=== PATIENT | male | born 1960 | race Caucasian/White ===

== ENCOUNTER → 2024-07-06 15:11 | Outpatient (BNVA) | payer MEDICARE, MEDICAID, SELFPAY | PROVIDERS: Family Provider Family Medicine; Visit Provider Podiatrist Foot & Ankle Surgery | DX: I87.8 Other specified disorders of veins (principal); I87.2 Venous insufficiency (chronic) (peripheral); R60.9 Edema, unspecified; L60.3 Nail dystrophy | CPT/HCPCS: 99203 ==

== ENCOUNTER 2024-10-03 22:09 | Inpatient (IN) | payer MEDICARE, MEDICAID, SELFPAY ==
[2024-10-03] VITALS (8 sets, daily range): BP systolic 106–139; BP diastolic 53–67; PULSE 71–80; TEMP 36.9; O2SAT 93–99; BMI 53.3
--- NOTE | 2024-10-03 22:21 | ECG_ITS ---
[facility] Date: 2024-10-03 Pat Name: Ward Chung Department: Room: [facility] Gender: Male Interactive Digital Media Specialist: : 1960 Requested By: Amberly Rodriguez Order Number: [id number] Tanisha MD: Nelson Anna M.D. Measurements Intervals [place] Rate: 76 P: 0 FL: 212 QRS: -18 QRSD: 90 T: 48 QT: 383 QTc: 432 Interpretive Statements SINUS RHYTHM WITH FIRST DEGREE AV BLOCK LOW QRS VOLTAGE IN PRECORDIAL LEADS [QRS DEFLECTION < 1.0 mV IN CHEST LEADS] NONSPECIFIC T-WAVE ABNORMALITY No previous ECG available for comparison Electronically Signed On 10-05-2024 21:40:25 SAS DEVELOPER by Nelson Anna M.D. [id number]
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
[2024-10-03 22:32] LABS: Platelet Count 207 10^3/cmm (157-399)
[2024-10-03 22:47] LABS: D Dimer 0.33 ug/mLFEU (0-0.59)
[2024-10-03] MEDS: nitroglycerin drip 50 MG/250 ML PREMIX IV (22:58)
[2024-10-03 23:00] LABS: Estmated Average Glucose 128; Hemoglobin A1C 6.1 % (4.0-6.0)
[2024-10-03] MEDS: FUROsemide 10 mg/mL SDV 2mL 20 MG IVP (23:02)
[2024-10-03 23:03] LABS: Troponin(5th) Baseline 245 ng/L (0-15)
[2024-10-03] MEDS: heparin drip 25,000 UNIT/500 ML PREMIX 45 UNIT IV (23:12)
[2024-10-03 23:53] LABS: Chol HDL Ratio 4.13 mg/dL (1.0-5.00); Cholesterol 186 mg/dL (0-200); HDL Cholesterol 45 mg/dL (60-100)
[2024-10-03] MEDS: clopidogrel 300 mg Tablet PO (23:59)
[2024-10-04] VITALS (74 sets, daily range): BP systolic 107–177; BP diastolic 50–113; PULSE 63–99; RESP 0–31; TEMP 36.4–36.7; O2SAT 82–100; BMI 53.3
--- NOTE | 2024-10-04 00:18 | ECG_ITS ---
[facility] Date: 2024-[facility]04 Pat Name: Ward Chung Department: Room: [facility] Gender: Male Patient Relations Specialist: : 1960 Requested By: Amberly Rodriguez Order Number: [id number] Reading MD: AMBERLY MALIK Measurements Intervals [place] Rate: 71 P: 66 MT: 216 QRS: -21 QRSD: 83 T: 56 QT: 361 QTc: 393 Interpretive Statements SINUS RHYTHM WITH SINUS ARRHYTHMIA WITH FIRST DEGREE AV BLOCK MINIMAL VOLTAGE CRITERIA FOR LVH, CONSIDER NORMAL VARIANT [MEETS CRITERIA IN ONE OF: R(aVL), S(V1), R(V5), R(V5/V6)+S(V1)] Compared to ECG 10/03/2024 22:39:27 T-wave abnormality no longer present Electronically Signed On 10-06-2024 00:35:41 POWDER BLENDER by AMBERLY MALIK [id number]
[2024-10-04 00:29] LABS: LDL Cholesterol Calculated 114 mg/dL (50-129); Triglycerides 133 mg/dL (0-150); VLDL Cholestrol Calculation 27 mg/dL (0-30)
[2024-10-04 00:47] LABS: Thyroid Stimulating Hormone 3.89 uIU/mL (0.27-4.20); Vitamin B12 412 pg/mL (232-1245)
[2024-10-04 01:36] LABS: Troponin 5 2HR Delta 3.9 ABS# (0-10)
[2024-10-04 01:37] LABS: Troponin 5 2HR 248.9 ng/L (0-15)
--- NOTE | 2024-10-04 02:03 | PC.NURSE ---
Heparin bolus: Upon arrival to unit, patient had a heparin drip running, Dr. Rodriguez gave telephone orders to hold initial heparin bolus.
[2024-10-04] MEDS: acetaminophen 500 mg Tablet PO (04:08)
--- NOTE | 2024-10-04 04:11 | ECG_ITS ---
[employer] Test Date: 2024-10-04 Pat Name: Ward Chung Department: Room: [facility]05 Gender: Male Measurement Superintendent: : 1960 Requested By: Amberly Rodriguez Order Number: [id number] Reading MD: AMBERYL MALIK Measurements Intervals [place] Rate: 68 P: -49 DC: 180 QRS: -19 QRSD: 86 T: 47 QT: 365 QTc: 389 Interpretive Statements SINUS RHYTHM WITH SINUS ARRHYTHMIA POSSIBLE RIGHT VENTRICULAR CONDUCTION DELAY [RSR (QR) IN V1/V2] MINIMAL VOLTAGE CRITERIA FOR LVH, CONSIDER NORMAL VARIANT [MEETS CRITERIA IN ONE OF: R(aVL), S(V1), R(V5), R(V5/V6)+S(V1)] NONSPECIFIC T-WAVE ABNORMALITY Compared to ECG 10/04/2024 00:18:49 T-wave abnormality now present First degree AV block no longer present Electronically Signed On 10-06-2024 00:35:31 CHAUFFEUR MOTORBUS by AMBERLY MALIK [id number]
[2024-10-04 05:56] LABS: Troponin 5 6HR Delta 2.1 ng/L (0-12)
[2024-10-04 06:07] LABS: Troponin 5 6HR 247.1 ng/L (0-15)
--- NOTE | 2024-10-04 06:59 | PC.RESP ---
Patient overnight POX was not completed this night due to time of patient arrival. Patient Overnight will be completed on 10/04 in the pm.
[2024-10-04] MEDS: perflutren protein-a microsphr 0.22 mg/mL SDV 3 mL IV (07:39)
[2024-10-04] MEDS: ondansetron 2 mg/ML SDV 2 mL 4 MG IVP (07:54)
[2024-10-04] MEDS: clopidogrel 75 mg Tablet PO (08:20)
[2024-10-04] MEDS: aspirin 81 mg EC Tablet PO (08:21)
[2024-10-04] MEDS: colchicine 0.6 mg Tablet PO (08:21)
[2024-10-04] MEDS: atorvastatin 40 mg Tablet 80 MG PO (08:22)
[2024-10-04 08:35] LABS: Basophils % 0.5 %; Eosinophils # 0.4 10^3/uL (0.0-0.8); Eosinophils % 5.1 %; Hematocrit 43.2 % (37-53); Lymphocytes # 2.4 10^3/uL (0.8-4.8); Lymphocytes % 32.5 %; Mean Corpuscular HGB Conc 30.6 g/dL (30-55); Mean Corpuscular Hemoglobin 26.5 pg (27-33); Mean Corpuscular Volume 86.7 fl (82-101); Mean Platelet Volume 11.9 fL (7.4-10.4); Monocytes # 0.6 10^3/uL (0.2-0.9); Neutrophils # 3.91 10^3/uL (1.8-7.7); Neutrophils % 53.6 %; Nucleated Red Blood Cells % 0 %; Platelet Count 191 10^3/cmm (157-399); Red Blood Count 4.98 10^6/uL (3.85-5.65); Red Cell Distribution Width 15.5 % (12.1-15.1); White Blood Count 7.29 10^3/uL (3.29-11.43)
[2024-10-04 08:52] LABS: Blood Urea Nitrogen 13 mg/dL (8-23); Calcium 8.5 mg/dL (8.5-10.5); Carbon Dioxide 25 mmol/L (22-29); Chloride 107 mmol/L (98-107); Creatinine Clr Calc Pharmacy 134.4333; Glomerular Filtration Rate 96.7 mL/min (90-130); Glucose 116 mg/dL (65-115); Osmolality Calculated 297 mOsm/kg (285-295); Sodium 143 mmol/L (136-145)
--- NOTE | 2024-10-04 09:09 | PC.PHAR ---
Pt states should have a rescue inhaler as well as the daily Symbicort inhaler. Unable to locate. Arben Hartman does not have a rescue inhaler on file.
--- NOTE | 2024-10-04 11:00 | PC.NURSE ---
Report given to Kelley, brought to [facility] surgical unit in bed. No further questions asked. Patients vitals stable at time of discharge. 1600 urine out for shift/ intake recorded.
[2024-10-04] MEDS: FUROsemide 10 mg/mL SDV 10mL 60 MG IVP ×3 (12:12→20:28)
--- NOTE | 2024-10-04 14:41 | P.CONIM_ITS ---
Providers/Reason For Consult 2 Consulting Physician/Specialty*: Amberly Saab MD Reason for Consult*: NSTEMI Requesting Physician: Dr. Howard Attending Physician: Jolly Howard MD Primary Care Provider: Demetri Hardin History of Present Illness History of Present Illness Ward Chung is a 64 year old male with history of prediabetes, morbid obesity, possible sleep apnea presented to [facility] ER for chief complaint of shortness of breath and chest pain. Patient was diagnosed with non-STEMI with troponin 180, BNP 1666, EKG showed T wave inversion lateral leads, he was put on nitroglycerin and heparin drip and transferred to our facility for further management. Most recent troponin increased to 245. Patient is stating that he was having chest pain for last 2 to 3 days, while he was driving he start experiencing neck pain associated with headache shortness of breath which was radiating towards his chest and arms bilaterally, he described this pain as heaviness, it lasted for about 2 to 3 hours, he did not seek any medical attention because it eased up, today an hour prior to his visit to the ER at [place] he started experiencing similar symptoms. He has not noticed any fever, vomiting nausea or diarrhea. He takes Lasix for his lymphedema, does not use oxygen, no previous history of coronary disease or CHF. Stating that his father of heart attack in his 70s. At the time of our assessment patient is without chest pain. He states he does have shortness of breath and abdominal distention and discomfort. He appears to be in fluid overload. EKG at this facility reviewed and showed nonspecific T wave abnormalities but no acute significant ST or T wave abnormalities. Review of Systems 2 Narrative: Consitutional: denies fever, chills, body aches, or changes in appetite, denies abnormal weight loss Eyes: Denies changes in vision Card: Denies current chest pain, palpitations, irregular heart rhythm, edema, syncope, reports shortness of breath and orthopnea, denies leg pain with exertion Resp: Denies shortness of breath, denies hemoptysis, denies cough GI: denies abdominal pain, denies nausea or voimting, denies blood in stool : denies blood in urine, denies dysuria Musc: Denies extremity pain, denies limited range of motion or recent injury Skin: Denies rash, lesions, or wounds, denies changes to skin color Neuro: Denies nubmness in extremities, h/a, s/s of stroke Sven: Denies easy bruiding/bleeding All: Denies s/s of allergies Medications/Allergies Home Medications Medication Instructions Recorded Confirmed Last Taken Type colchicine 0.6 mg capsule 0.6 mg PO DAILY 07/06/24 10/04/24 10/03/24 History fluticasone furoate 27.5 1 spray intranasal DAILY 07/06/24 10/04/24 Unknown History mcg/actuation nasal spray,suspension (Flonase Sensimist) furosemide 20 mg tablet 20 mg PO DAILY 07/06/24 10/04/24 10/03/24 History gabapentin 300 mg capsule 300 mg PO TID 07/06/24 10/04/24 10/03/24 History meloxicam 7.5 mg tablet 7.5 mg PO DAILY 07/06/24 10/04/24 10/03/24 History psyllium husk 0.4 gram capsule 0.4 g PO DAILY PRN Constipation 07/06/24 10/04/24 Unknown History (Metamucil) budesonide-formoterol HFA 80 2 puff inhalation BID 10/04/24 10/04/24 10/03/24 History mcg-4.5 mcg/actuation aerosol inhaler (Symbicort) famotidine 40 mg tablet 40 mg PO BID 10/04/24 10/04/24 Unknown History potassium chloride 10 mEq 10 meq PO DAILY 10/04/24 10/04/24 10/03/24 History tablet,extended release Allergies Allergy/AdvReac Type Severity Reaction Status Date / Time No Known Allergies Allergy Verified 10/03/24 22:49 Current Medications Generic Name Dose Route Start Last Admin Trade Name Narcisoq PRN Reason Stop Dose Admin Acetaminophen 500 mg 10/03/24 22:19 10/04/24 04:08 Acetaminophen 500 Mg Tablet PO 500 mg Q4H PRN Administration fever Aspirin 81 mg 10/04/24 09:00 10/04/24 08:21 Aspirin 81 Mg Ec Tablet PO 81 mg DAILY DANIKA Administration Atorvastatin Calcium 80 mg 10/04/24 09:00 10/04/24 08:22 Atorvastatin 40 Mg Tablet PO 80 mg DAILY DANIKA Administration Clopidogrel Bisulfate 75 mg 10/04/24 09:00 10/04/24 08:20 Clopidogrel 75 Mg Tablet PO 75 mg DAILY DANIKA Administration Colchicine 0.6 mg 10/04/24 09:00 10/04/24 08:21 Colchicine 0.6 Mg Tablet PO 0.6 mg DAILY DANIKA Administration Nitroglycerin/Dextrose 50 mg in 250 mls @ 0 mls/hr 10/03/24 22:30 10/04/24 01:33 Nitroglycerin Drip IV 0 mcg/min .Q0M DANIKA 0 mls/hr Titration Protocol Per Protocol Ondansetron HCl 4 mg 10/03/24 22:19 10/04/24 07:54 Ondansetron 2 Mg/Ml Sdv 2 Ml IVP 4 mg Q6H PRN Administration NAUSEA AND VOMITING PFSH Acute 2 PFSH: Medical History (Updated 10/04/24 @ 14:53 by Sophia Becker NP) Venous stasis Lymphedema Hypertension Fibromyalgia Gout Sleep apnea COPD (chronic obstructive pulmonary disease) Onychodystrophy Edema Venous insufficiency (chronic) (peripheral) Social History Smoking and tobacco/nicotine status: never used tobacco/nicotine Alcohol intake: never Vitals/I&O/Wt Last Vital Signs Temp 97.6 F 10/04/24 08:15 Pulse 90 10/04/24 13:45 Resp 19 H 10/04/24 13:45 BP 152/83 10/04/24 13:45 Pulse Ox 94 10/04/24 13:45 O2 Del Method Room Air 10/04/24 13:45 O2 Flow Rate 1 10/04/24 10:30 10/03/24 10/04/24 10/04/24 22:59 06:59 14:59 Intake Total 438.875 / 438.875 128.333 / 128.333 Output Total 775 / 775 2100 / 2100 Balance -336.125 / -336.125 -1971.667 / -1971.667 Weight last 48 hrs Weight 350 lb 8.56 oz Weight 350 lb 8.56 oz Physical Exam 2 Narrative: General: No apparent distress, healthy appearing, well nourished Neck: No carotid bruit bilaterally Muskuloskeletal: Full ROM Lymphatic: Patient has what appears to be hemosiderin staining bilaterally with bilateral lower extremity edema, most likely has severe venous disease Respiratory: Normal respiratory effort, bilateral posterior lobes with crackles present, no use of accessory muscles Cardio: No JVD, regular rate, regular rhythm, S1 S2 normal, no murmurs, peripheral pulses 2+ throughout GI: Patient's abdomen is slightly distended, abdominal obesity present Extremities: Full ROM, normal, normal capillary refill, no cyanosis, 2+ nonpitting edema bilateral lower extremities Neuro: Alert and oriented x4, no focal motor deficits Psych: Affect normal, denies suicidal ideation, mental status grossly normal Skin: Bilateral hemosiderin staining bilateral lower extremities Data 10/04/24 05:20 10/04/24 05:20 A&P Assessment and plan (1) Non-STEMI (non-ST elevated myocardial infarction): Patient has NSTEMI with elevated troponin levels up to 245. Currently chest pain-free but does have orthopnea and shortness of breath. Patient has crackles bilateral lower lobes edema consistent with CHF overload. Patient will need to be euvolemic prior to any coronary intervention. Recommend continue to diurese. Once patient is euvolemic plan to take patient for left heart cath. Suspicion remains high for acute coronary syndrome given patient history of obesity hypercholesterolemia hypertension and family history of coronary disease. Agree with nitro drip and Lovenox. (2) Hypertension: Blood pressure is a little bit elevated 152/83. He is currently on nitro drip recommend continue. Most likely will add beta-allyssa in the near future. Qualifiers: Hypertension type: primary hypertension Qualified Code(s): I10 - Essential (primary) hypertension (3) Pulmonary edema: Recommend Lasix 60 mg 3 times daily. Will give potassium 20 3 times daily as well. Strict I and O. Qualifiers: Chronicity: acute Qualified Code(s): J81.0 - Acute pulmonary edema Plan The plan is to diurese patient. Once patient is euvolemic recommend taking patient to the [facility] for possible [facility]. Continue to monitor for EKG changes. At this time patient has been stable without chest pain. Will continue nitro drip with Lovenox as well. Thank you for allowing us to take care of this very pleasant 64 year old gentleman. Consult Attestations 2 Medical Necessity Statement: Patient stay expected to cross 2 midnights due to acute NSTEMI Coding Level of Care Code Acute Code for [facility] Fwd Diagnoses Non-STEMI (non-ST elevated myocardial infarction) I21.4 Primary hypertension I10 Hypertension type: primary hypertension Acute pulmonary edema J81.0 Chronicity: acute
--- NOTE | 2024-10-04 14:56 | P.PN_ITS ---
Subjective 2 Subjective: Seen this morning. Patient n.p.o. since midnight for cath. However cardiology evaluated the patient. He has been placed on Lasix 60 3 times daily at this time for diuresis. No plan for cath at this time. Patient denies any complaints at this time. Vitals/I&O/Wt Last Vital Signs Temp 97.6 F 10/04/24 08:15 Pulse 90 10/04/24 13:45 Resp 19 H 10/04/24 13:45 BP 152/83 10/04/24 13:45 Pulse Ox 94 10/04/24 13:45 O2 Del Method Room Air 10/04/24 13:45 O2 Flow Rate 1 10/04/24 10:30 10/03/24 10/04/24 10/04/24 22:59 06:59 14:59 Intake Total 438.875 / 438.875 128.333 / 128.333 Output Total 775 / 775 2100 / 2100 Balance -336.125 / -336.125 -1971.667 / -1971.667 Weight last 48 hrs Weight 159 kg Weight 159 kg Physical Exam 2 Narrative: Morbid obese male No active chest pain No active chest pain hemodynamically stable S1, S2 Bilateral crackles present at bases. He is on room air Morbid obesity Lymphedema Venous stasis dermatitis Pleasant and cooperative Nonfocal neuroexam Data 10/04/24 05:20 10/04/24 05:20 A&P Assessment and plan (1) Non-STEMI (non-ST elevated myocardial infarction): (2) Pulmonary edema: Qualifiers: Chronicity: acute Qualified Code(s): J81.0 - Acute pulmonary edema (3) Hypoxia: (4) Hypertension: Qualifiers: Hypertension type: primary hypertension Qualified Code(s): I10 - Essential (primary) hypertension Plan Non-STEMI No previous history of coronary disease Start patient on ACS protocol Serial troponin and EKGs Check lipid panel A1c TSH and B12 Continue nitroglycerin and heparin drip Cardiology consulted Patient will need cardiac cath Requested D-dimer Patient was given aspirin loading dose at the outside facility I will give Plavix loading dose and continue heparin along statins Acute hypoxia requiring 2 L secondary to flash from edema Give IV Lasix 20 mg, he is na?ve to Lasix we will do low-dose for now Dr. Saab notified and consulted Sleep apnea history, patient may need another sleep study to get CPAP approved will do overnight pulse ox Patient does endorse insomnia and headaches Lymphedema: Takes Lasix History of gout no acute flare, continue colchicine N.p.o. DVT prophylaxis covered with heparin drip Full code 10/04/2024 Continue Lasix 60 IV 3 times daily. ? Patient managed to be euvolemic prior to coronary angiogram. ? Patient is ruled in for NSTEMI. ? Ultimately plan is for cardiac cath. ? Continue to wean off oxygen as able. ? Placed on CPAP overnight. ? Overnight pulse ox study ordered. Cardiology consulted and following. Appreciate recommendations. Patient on IV Lasix and is at risk of electrolyte imbalance. Will check BMP every 12 hours. Attestations 2 Medical Necessity Statement*: More than 2 midnights anticipated Diagnoses Non-STEMI (non-ST elevated myocardial infarction) I21.4 Acute pulmonary edema J81.0 Chronicity: acute Hypoxia R09.02 Primary hypertension I10 Hypertension type: primary hypertension
[2024-10-04] MEDS: enoxaparin 150 mg/mL Syringe SUBCUT (15:31)
[2024-10-04] MEDS: potassium chloride ER 20 mEq Tablet PO ×2 (15:32→20:28)
[2024-10-04] MEDS: simethicone 80 mg Chew PO (23:50)
[2024-10-05] VITALS (9 sets, daily range): BP systolic 137–169; BP diastolic 72–91; PULSE 66–88; RESP 16–20; TEMP 36.4–36.8; O2SAT 93–98
[2024-10-05] MEDS: enoxaparin 150 mg/mL Syringe SUBCUT ×2 (01:19→14:04)
[2024-10-05 05:39] LABS: Basophils # 0.1 10^3/uL (0.0-0.1); Basophils % 0.6 %; Eosinophils # 0.4 10^3/uL (0.0-0.8); Eosinophils % 4.4 %; Hematocrit 44.8 % (37-53); Lymphocytes # 2.6 10^3/uL (0.8-4.8); Lymphocytes % 30.9 %; Mean Corpuscular HGB Conc 31.3 g/dL (30-55); Mean Corpuscular Hemoglobin 27.4 pg (27-33); Mean Corpuscular Volume 87.7 fl (82-101); Mean Platelet Volume 11.5 fL (7.4-10.4); Monocytes # 0.7 10^3/uL (0.2-0.9); Monocytes % 8.2 %; Neutrophils # 4.74 10^3/uL (1.8-7.7); Neutrophils % 55.4 %; Nucleated Red Blood Cells % 0 %; Platelet Count 206 10^3/cmm (157-399); Red Blood Count 5.11 10^6/uL (3.85-5.65); Red Cell Distribution Width 15.3 % (12.1-15.1); White Blood Count 8.55 10^3/uL (3.29-11.43)
[2024-10-05 05:57] LABS: Blood Urea Nitrogen 17 mg/dL (8-23); Calcium 8.6 mg/dL (8.5-10.5); Carbon Dioxide 27 mmol/L (22-29); Chloride 104 mmol/L (98-107); Creatinine Clr Calc Pharmacy 106.7709; Glomerular Filtration Rate 74.8 mL/min (90-130); Glucose 127 mg/dL (65-115); Osmolality Calculated 299 mOsm/kg (285-295); Sodium 143 mmol/L (136-145)
[2024-10-05] MEDS: FUROsemide 10 mg/mL SDV 10mL 60 MG IVP (08:18)
[2024-10-05] MEDS: potassium chloride ER 20 mEq Tablet PO ×3 (08:18→20:22)
[2024-10-05] MEDS: aspirin 81 mg EC Tablet PO (08:19)
[2024-10-05] MEDS: atorvastatin 40 mg Tablet 80 MG PO (08:19)
[2024-10-05] MEDS: colchicine 0.6 mg Tablet PO (08:19)
[2024-10-05] MEDS: clopidogrel 75 mg Tablet PO (08:19)
--- NOTE | 2024-10-05 09:16 | ECG_ITS ---
[employer] [facility] Test Date: 2024-10-05 Pat Name: Ward Chung Department: Room: 251 Gender: Male Home Health Aide Caregiver: : 1960 Requested By: Jolly Howard Order Number: [id number] Tanisha MD: Nelson Anna M.D. Measurements Intervals [place] Rate: 80 P: 75 [place]: 218 QRS: -25 QRSD: 97 T: 83 QT: 384 QTc: 445 Interpretive Statements SINUS RHYTHM WITH SINUS ARRHYTHMIA WITH FIRST DEGREE AV BLOCK LOW QRS VOLTAGE IN PRECORDIAL LEADS [QRS DEFLECTION < 1.0 mV IN CHEST LEADS] MINIMAL VOLTAGE CRITERIA FOR LVH, CONSIDER NORMAL VARIANT [MEETS CRITERIA IN ONE OF: R(aVL), S(V1), R(V5), R(V5/V6)+S(V1)] POSSIBLE ANTERIOR MYOCARDIAL INFARCTION , OF INDETERMINATE AGE [30 ms Q WAVE IN V3/V4, OR R < 0.2 mV IN V4] INFERIOR MYOCARDIAL INFARCTION , PROBABLY OLD [40+ ms Q WAVE AND/OR ST/T ABNORMALITY IN II/aVF] Compared to ECG 10/04/2024 04:11:36 First degree AV block now present.Low QRS voltage now present Myocardial infarct finding now present.T-wave abnormality no longer present Electronically Signed On 10-05-2024 21:40:47 ASSISTANT PROFESSOR OF DIETETICS by Nelson Anna M.D. [id number]
--- NOTE | 2024-10-05 09:45 | PC.NURSE ---
Pt complains of being hot, needing a fan, stomach pain that radiates into the chest, and SOB. Oxygen saturation 96%, but placed on 2L for comfort, STAT EKG completed. Notified Dr. Howard. No new orders at this time. After tests completed and on oxygen, pt states, I think I just need to poop.
[2024-10-05] MEDS: polyethylene glycol 3350 Pkt 17 gm PO (11:06)
[2024-10-05] MEDS: lactulose oral liq 20 gm/30 mL UDC PO ×2 (11:06→22:48)
--- NOTE | 2024-10-05 13:05 | P.PN_ITS ---
Subjective 2 Subjective: Seen this morning. Did have an episode of chest pain this morning. EKG done this morning. No acute ischemia noted. Patient chest pain-free when I saw him. Has had good urine output in last 24 hours. He says its easier to breathe. Vitals/I&O/Wt Last Vital Signs Temp 98 F 10/05/24 11:27 Pulse 87 10/05/24 11:27 Resp 18 10/05/24 11:27 BP 146/91 10/05/24 11:27 Pulse Ox 95 10/05/24 11:27 O2 Del Method Room Air 10/05/24 11:27 O2 Flow Rate 1 10/04/24 10:30 10/04/24 10/05/24 10/05/24 22:59 06:59 14:59 Intake Total 480 / 050.383 2207 / 1160 Output Total 2350 / 4450 1450 / 1450 Balance -2350 / -4321.667 480 / -3841.667 -290 / -290 Weight last 48 hrs Weight 157.113 kg Weight 159 kg Weight 159 kg Physical Exam 2 Narrative: Morbid obese male No active chest pain hemodynamically stable S1, S2 Clear to auscultation bilaterally He is on room air Morbid obesity Lymphedema?improving. Venous stasis dermatitis Pleasant and cooperative Nonfocal neuroexam Data 10/05/24 04:39 10/05/24 04:39 A&P Assessment and plan (1) Non-STEMI (non-ST elevated myocardial infarction): (2) Pulmonary edema: Qualifiers: Chronicity: acute Qualified Code(s): J81.0 - Acute pulmonary edema (3) Hypoxia: (4) Hypertension: Qualifiers: Hypertension type: primary hypertension Qualified Code(s): I10 - Essential (primary) hypertension Plan Non-STEMI No previous history of coronary disease Start patient on ACS protocol Serial troponin and EKGs Check lipid panel A1c TSH and B12 Continue nitroglycerin and heparin drip Cardiology consulted Patient will need cardiac cath Requested D-dimer Patient was given aspirin loading dose at the outside facility I will give Plavix loading dose and continue heparin along statins Acute hypoxia requiring 2 L secondary to flash from edema Give IV Lasix 20 mg, he is na?ve to Lasix we will do low-dose for now Dr. Saab notified and consulted Sleep apnea history, patient may need another sleep study to get CPAP approved will do overnight pulse ox Patient does endorse insomnia and headaches Lymphedema: Takes Lasix History of gout no acute flare, continue colchicine N.p.o. DVT prophylaxis covered with heparin drip Full code 10/05/2024 Continue Lasix 40 IV twice daily. ? Patient will need to be euvolemic prior to coronary angiogram. ? Patient is ruled in for NSTEMI. ? Ultimately plan is for cardiac cath. ? Continue to wean off oxygen as able. ? Placed on CPAP overnight. ? Overnight pulse ox study ordered. Cardiology consulted and following. Appreciate recommendations. Patient on IV Lasix and is at risk of electrolyte imbalance. Will check BMP every 12 hours. ? Cardiology following Attestations 2 Medical Necessity Statement*: More than 2 midnights anticipated Diagnoses Non-STEMI (non-ST elevated myocardial infarction) I21.4 Acute pulmonary edema J81.0 Chronicity: acute Hypoxia R09.02 Primary hypertension I10 Hypertension type: primary hypertension
[2024-10-05] MEDS: FUROsemide 10 mg/mL SDV 10mL 40 MG IVP (14:04)
--- NOTE | 2024-10-05 14:44 | PM.PN ---
Subjective Subjective: Patient is doing okay today. Still states he has some bloating is in his abdominal area. Patient did have an episode of chest pain earlier this morning. He states it was very quick and went away. This was at the center of his chest. EKG was performed that showed no change from previous EKG. No acute ST elevation or T wave abnormalities present. Patient has diuresed over 2 L over 24 hours. Creatinine had a little bump at 1 previously 0.8. Lungs are clear throughout. Medications: Reviewed: Yes Vitals/I&O/Wt Last Vital Signs Temp 98 F 10/05/24 11:27 Pulse 87 10/05/24 11:27 Resp 18 10/05/24 11:27 BP 146/91 10/05/24 11:27 Pulse Ox 95 10/05/24 11:27 O2 Del Method Room Air 10/05/24 11:27 O2 Flow Rate 1 10/04/24 10:30 10/04/24 10/05/24 10/05/24 22:59 06:59 14:59 Intake Total 480 / 532.228 5361 / 1160 Output Total 2350 / 4450 1450 / 1450 Balance -2350 / -4321.667 480 / -3841.667 -290 / -290 Weight last 48 hrs Weight 346 lb 6 oz Weight 350 lb 8.56 oz Weight 350 lb 8.56 oz Physical Exam Narrative: General: No apparent distress, healthy appearing, well nourished Muskuloskeletal: Full ROM Lymphatic: no lymphedema noted Respiratory: Normal respiratory effort, clear to auscultation bilaterally throughout all lung pearce, no use of accessory muscles Cardio: No JVD, regular rate, regular rhythm, S1 S2 normal, no murmurs, peripheral pulses 2+ throughout GI: Normal to inspection, nondistended Extremities: Patient appears to have 2+ edema with hemosiderin staining bilaterally consistent with venous disease Neuro: Alert and oriented x4, no focal motor deficits Psych: Affect normal, denies suicidal ideation, mental status grossly normal Skin: Bilateral lower extremity hemosiderin staining present Data 10/05/24 04:39 10/05/24 04:39 A&P Assessment and plan (1) Non-STEMI (non-ST elevated myocardial infarction): Patient has NSTEMI with elevated troponin levels up to 245. Currently chest pain-free but does have orthopnea and shortness of breath somewhat improved from yesterday. Lungs are clear and patient has diuresed over 2 L. Patient still feels a little bloated today with some shortness of breath. Once patient is euvolemic plan to take patient for left heart cath. Suspicion remains high for acute coronary syndrome given patient history of obesity hypercholesterolemia hypertension and family history of coronary disease. Agree with nitro drip and Lovenox. (2) Hypertension: Continue nitro drip. Qualifiers: Hypertension type: primary hypertension Qualified Code(s): I10 - Essential (primary) hypertension (3) Pulmonary edema: Lasix has been decreased to 40 BID. Creatinine with slight bump. Strict I and O. Qualifiers: Chronicity: acute Qualified Code(s): J81.0 - Acute pulmonary edema Plan The plan is to diurese patient. Once patient is euvolemic recommend taking patient to the [facility] for possible PCI. Continue to monitor for EKG changes. Continue nitro drip. Continue Lovenox as well. Attestations Medical Necessity Statement*: Patient with NSTEMI requiring left heart cath. Coding Level of Care Code Acute Code for Chg Fwd Diagnoses Non-STEMI (non-ST elevated myocardial infarction) I21.4 Primary hypertension I10 Hypertension type: primary hypertension Acute pulmonary edema J81.0 Chronicity: acute
[2024-10-06] VITALS (18 sets, daily range): BP systolic 96–144; BP diastolic 45–89; PULSE 68–87; RESP 10–33; TEMP 36.2–36.8; O2SAT 94–100
[2024-10-06] MEDS: FUROsemide 10 mg/mL SDV 10mL 40 MG IVP (00:50)
[2024-10-06] MEDS: enoxaparin 150 mg/mL Syringe SUBCUT (01:27)
[2024-10-06 04:58] LABS: Basophils # 0.1 10^3/uL (0.0-0.1); Basophils % 0.5 %; Eosinophils # 0.4 10^3/uL (0.0-0.8); Eosinophils % 4.3 %; Hematocrit 48.8 % (37-53); Lymphocytes # 3.6 10^3/uL (0.8-4.8); Lymphocytes % 36.9 %; Mean Corpuscular HGB Conc 30.7 g/dL (30-55); Mean Corpuscular Hemoglobin 26.9 pg (27-33); Mean Corpuscular Volume 87.6 fl (82-101); Mean Platelet Volume 11.8 fL (7.4-10.4); Monocytes # 0.8 10^3/uL (0.2-0.9); Monocytes % 7.8 %; Neutrophils # 4.82 10^3/uL (1.8-7.7); Nucleated Red Blood Cells % 0 %; Platelet Count 220 10^3/cmm (157-399); Red Blood Count 5.57 10^6/uL (3.85-5.65); White Blood Count 9.64 10^3/uL (3.29-11.43)
[2024-10-06 05:16] LABS: Anion Gap 16.1 (5-19); Blood Urea Nitrogen 20 mg/dL (8-23); Carbon Dioxide 29 mmol/L (22-29); Chloride 101 mmol/L (98-107); Creatinine Clr Calc Pharmacy 97.0645; Glucose 104 mg/dL (65-115); Osmolality Calculated 297 mOsm/kg (285-295); Potassium 4.1 mmol/L (3.5-5.1); Sodium 142 mmol/L (136-145)
[2024-10-06] MEDS: aspirin 81 mg EC Tablet PO (08:44)
[2024-10-06] MEDS: clopidogrel 75 mg Tablet PO (08:44)
[2024-10-06] MEDS: atorvastatin 40 mg Tablet 80 MG PO (08:44)
[2024-10-06] MEDS: colchicine 0.6 mg Tablet PO (08:44)
[2024-10-06] MEDS: potassium chloride ER 20 mEq Tablet PO ×3 (08:44→21:11)
[2024-10-06] MEDS: polyethylene glycol 3350 Pkt 17 gm PO (08:44)
--- NOTE | 2024-10-06 09:11 | XACV_ITS ---
Exam Room: [facility] Ht: 173 cm Wt: 152 kg BSA: 2.79 m2 Gender: Male : 1960 Performing Physician(s): Dr. Sim Any Known Allergies: No known allergies Exam Priority: Routine Procedure(s): Procedure Description: Diagnostic procedure Procedure Description: PCI procedure Procedure Description: Drug Eluting Coronary Stent Procedure Description: PTCA Procedure Description: Miscellaneous Procedure Description: ACT Procedure Description: Coronary Angiography Diagnostic Cath Status: Urgent Diagnostic Findings * Left main artery: 30 to 40% stenosis in the distal segment. * LAD: Large vessel there is a 90% focal stenosis in the midsegment. The distal segment is a long vessel with mild diffuse disease. * Angiography shows a right coronary dominant system. * Left circumflex artery: Medium size vessel. 50% disease in the proximal segment at the bifurcation of good size OM1. Distal LCx mild diffuse disease. OM1 with 50 to 60% focal stenosis in the proximal segment. * Right coronary artery: Dominant vessel 99% stenosis at the ostium, followed by 100% occlusion in the midsegment (CHAINSAW MECHANIC). Distal vessel fills with extensive collaterals from the left system (LAD). * Summary: Severe two-vessel disease. LAD focal 90% and RCA 90% ostium followed by 100% CHAINSAW MECHANIC in mid segment with extensive collaterals from the mid distal LAD. * Recommendation: Considering overall clinical scenario with the ongoing chest pain and pulmonary edema/heart failure symptoms, plan for angioplasty of LAD. PCI Status: Urgent PCI Indication: NSTE - ACS Interventional Findings * Angioplasty of LAD: Left main coronary artery was engaged using 6 Tamazight XB 3.5 through right femoral arterial access. IV heparin was used as per protocol as anticoagulant for the PCI. The lesion in the LAD was crossed using BMW coronary wire. The lesion in mid LAD was predilated with 2.5 x 12 balloon at 8 MIRA. Subsequently drug-eluting stent 3.0 x 18 was deployed at 16 MIRA. Post and excellent angiographic Celt, KAYLA-3 flow. * Right groin, the arterial access site was closed successfully with manual pressure. Conclusions 1. Two vessels significant disease, RCA CHAINSAW MECHANIC with extensive collateral from the left system (LAD). Focal 90% stenosis mid LAD. Recommendations * Post PCI management as per protocol. * Given the current clinical scenario, plan for PCI of mid LAD. Interventional RX Recommendation: PCI w/o planned CABG Diagnostic RX Recommendation: PCI w/o planned CABG Anticoagulation: Heparin Post Op Diagnosis: Description: NSTEMI Description: Coronary artery disease Left Ventriculography Findings: * Not done. Pressures Phase:Rest AO : 144 / 62 ( 88 ) @ 10:50:00 AM 106 / 84 ( 96 ) @ 10:55:00 AM 115 / 81 ( 97 ) @ 11:04:00 AM 125 / 82 ( 103 ) @ 11:21:00 AM 126 / 85 ( 104 ) @ 11:59:00 AM Clinical Evaluation EBL: 30ml Procedural Details Procedure Consent Obtained. Admit Source: In Patient. Pre-Procedure Time Out. Identified patient by full name and date of as verbalized by the patient/guarantor. Does the consent match the physician's order: Yes. Accurate & Complete Informed Consent: Yes. Inpatient/Outpatient History & Physical on Chart: Yes. If H&P is completed, is and addenduem needed: No; If yes, is the addendum complete: N/A. Visualize and Verify Site with Patient/Guarantor: N/A. Relevant Radiology Images available: Yes. The risks, benefits, and alternatives of sedation and/or procedure were discussed by physician. The patient agrees to continue. Procedure started. [facility] Clinical Fraility Score: 4: Vulnerable. Trim Carpenter Indications: Worsening Angina. Chest Pain Symptom Assessment: Typical Angina Symptoms. Correct patient, site and procedure confirmed by cath team. Current diagnosis: Chest Pain. PERRLA. Strong, equal hand counseling aide bilaterally. Lungs clear x 5 lobes. IV Site on Arrival: 20 gauge in the right anticubital. IV Site on Arrival: 20 gauge in the left anticubital. IV Fluids: 0.9% NaCl at KVO. 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 Pre Procedural Pulses: bilateral radial was 3+. Pre Procedural Pulses: bilateral posterior tibial was Doppled. Pre Procedural Pulses: bilateral dorsalis pedis was Doppled. Oxygen started at 2liters/min via nasal canula. right radial was prepped with chloroprep then draped in the usual sterile fashion. right groin was prepped with chloroprep then draped in the usual sterile fashion. Physician notified. Baseline sample Acquired. HR: 66 BPM. Hemodynamic formulas in Rest were re-calculated based on hemoglobin value from 10/06/2024 4:21:00 AM. Physician arrived. Physician scrubbed in. Immediate Pre-Procedure Time Out. Correct Patient: Yes; Correct Procedure: Yes; Correct Site: Yes; Correct Patient Position: Yes; Correct Supplies: Yes; Dried Flammable Prep: Yes; Blood Products Available: No;. Lidocaine 1% infiltrated to the right radial. Arterial access obtained. A 5 marshallese JL3.5 catheter in over wire. Exchange wire in through catheter to reposition catheter. Wire out. Multiple views taken of left coronary artery. Catheter removed over the exchange wire. A 5 marshallese JR4 catheter in over wire. Catheter removed over the exchange wire. A 5 marshallese AL1 catheter in over wire. Wire out. Aortogram performed in SLOVENIAN @ 10 mL/second for a total of 20 mL. Catheter removed over the exchange wire. A 6 marshallese JR4 catheter in over wire. Catheter removed over the exchange wire. Due to tortuosity, physician attempting to gain access in right groin. Lidocaine 1% infiltrated to the right groin. Arterial access obtained with micropuncture set. A 6 marshallese JR4 catheter in over wire. Wire out. View taken of the RCA. Catheter removed over the standard wire. 6 marshallese XB 3.5 guide catheter was inserted over the wire. add inventory: Co-balloon pilot, endoflator. Guide catheter out over exchange wire. Guide reshaped. 6 marshallese XB 3.5 guide catheter was inserted over the wire. Wire out. Runthrough guidewire was advanced through the guide catheter to lesion in the mid LAD. Guidewire advanced across lesion. Balloon inserted to lesion in the mid LAD. Inflation number : 1 A AB TREK 2.50X12 RX BALLOON was prepped and advanced across the Mid LAD , then inflated to 8 MIRA for 0:11 seconds. Inflation number: 2 The AB TREK 2.50X12 RX BALLOON was reinflated across the Mid LAD, to 8 MIRA for 0:09 seconds. Inflation number: 3 The AB TREK 2.50X12 RX BALLOON was reinflated across the Mid LAD, to 8 MIRA for 0:07 seconds. Balloon out. Stent inserted to lesion in the mid LAD. Inflation Number : 4 A VILMA Degroot MICHAEL 3.0X18 LISSETH -Lot Number# [id number] EXP 07-08-25 was prepped and advanced across the Mid LAD. The stent was deployed at 16 MIRA for 0:17 seconds. Stent balloon out over wire. Results checked. Runthrough wire pulled back into guide. Results checked. Wire out. Guide catheter out. A 6 marshallese JR4 catheter in over wire. Kink in catheter. Exchange wire in through catheter. Exchange wire out. Runthrough wire in through catheter in attempt to straighten catheter. Catheter removed over the wire. Wire out. ACT drawn. Results 244 seconds. Therapeutic limits - pre-heparin administration 90-150 seconds and monitoring heparin during a vascular procedure >250 seconds. A Right femoral angiogram was performed to determine safe placement of closure device. 6fr sheath out over exchange wire. An attempt made to place angioseal . Undeployed angioseal out over exchange wire. 6fr 23 cm sheath placed over exchange wire. Hematoma and bleeding noted at site. Dr. Sim holding manual pressure. Large hematoma noted. A TR Band was successful obtaining hemostatsis at the Right Radial artery insertion site. No VTE prophylaxis required. Medication's Wasted: Lidocaine 1% = 10 mL. Medication's Wasted: Nitro = 49.8 mg. Post-op diagnosis: Significant mid LAD stenosis, status post PCI placement of 1 stent. A Manual Compression was successful obtaining hemostatsis at the Right Femoral artery insertion site after 45 minutes of manual pressure. Complications: Hematoma. Fem stop appled to right groin. Estimated blood loss: 30ml. Responsiveness - Normal response to verbal stimuli; alert and oriented, PERRLA. Airway - Unaffected, no intervention required; spontaneous ventilation. Circulation: W/N/L, pulses unchanged. Nausea/Vomiting: No. Procedure completed. Patient transferred by bed to ICU. Total IV fluids: 750 mL. Vital chart was stopped. Access Site Site: Right Radial artery Sheath Size: 6 Fr Hemostasis Method: TR Band Hemostasis Success: Successful Site: Right Femoral artery Sheath Size: 6 Fr Hemostasis Method: Manual Compression Hemostasis Success: Successful Complication Findings: Moderate hematoma at the femoral arterial access site, primarily due to very high BMI, weight around 350 pound, successfully managed by manual pressure. Procedure Medications Start: 10:43 AM Stop: 10:43 AM Medication: Versed Amount: 1 mg Route: I.V. Start: 10:43 AM Stop: 10:43 AM Medication: Fentanyl Amount: 25 mcg Route: I.V. Start: 10:47 AM Stop: 10:47 AM Medication: Versed Amount: 1 mg Route: I.V. Start: 10:47 AM Stop: 10:47 AM Medication: Fentanyl Amount: 25 mcg Route: I.V. Start: 10:51 AM Stop: 10:51 AM Medication: Nitrogylcerin Amount: 200 mcg Route: I.A. Start: 11:18 AM Stop: 11:18 AM Medication: Versed Amount: 1 mg Route: I.V. Start: 11:18 AM Stop: 11:18 AM Medication: Fentanyl Amount: 25 mcg Route: I.V. Start: 11:27 AM Stop: 11:27 AM Medication: Versed Amount: 1 mg Route: I.V. Start: 11:27 AM Stop: 11:27 AM Medication: Fentanyl Amount: 25 mcg Route: I.V. Start: 11:38 AM Stop: 11:38 AM Medication: Heparin Amount: 62515 units Route: I.V. Start: 12:13 PM Stop: 12:13 PM Medication: Versed Amount: 1 mg Route: I.V. Start: 12:13 PM Stop: 12:13 PM Medication: Fentanyl Amount: 50 mcg Route: I.V. Start: 12:26 PM Stop: 12:26 PM Medication: Versed Amount: 1 mg Route: I.V. Start: 12:26 PM Stop: 12:26 PM Medication: Fentanyl Amount: 50 mcg Route: I.V. I, the attending physician, have reviewed and verified all procedure medications. Yes, all medications given per verbal order History/Risk Factors Hypertension: Yes Dyslipidemia: No Peripheral Arterial Disease (PAD): No Myocardial Infarction (AZ): No Obesity: Yes Renal Disease: No Tobacco Use: Never Dialysis: None Prior Interventions PCI: No CABG: No Valve Surgery: No Report Signatures Finalized by Richie Sim MD on 10/06/2024 04:47 PM
[2024-10-06] MEDS: diphenhydrAMINE 50 mg Capsule PO (09:44)
--- NOTE | 2024-10-06 09:51 | PC.SOCIAL ---
IMM Update pg 2 of IMM Updated and reviewed w/ patient. Copy provided and copy dated, initialed and placed in chart.
[2024-10-06 09:53] LABS: NT Pro B Type Natriuretic Pept 796 pg/mL (0-125)
--- NOTE | 2024-10-06 11:08 | PC.NURSE ---
pt off the floor for cath procedure called report to Chris GÓMEZ in ICU. at [phone]
--- NOTE | 2024-10-06 11:43 | P.PN_ITS ---
Subjective 2 Subjective: Seen this morning. Patient going for cardiac catheter today. He did have a bowel movement yesterday after stool softeners. He states he feels better. Denies any chest pain or shortness of breath overnight. 3 L urine output overnight. Net 5.8 L negative since admission. Vitals/I&O/Wt Last Vital Signs Temp 97 F L 10/06/24 11:35 Pulse 77 10/06/24 11:35 Resp 16 10/06/24 10:00 BP 123/76 10/06/24 11:35 Pulse Ox 97 10/06/24 11:35 O2 Del Method Room Air 10/06/24 11:35 O2 Flow Rate 1 10/04/24 10:30 10/05/24 10/06/24 10/06/24 22:59 06:59 14:59 Intake Total 720 / 1880 Output Total 1200 / 2650 500 / 3150 450 / 450 Balance -480 / -770 -500 / -1270 -450 / -450 Weight last 48 hrs Weight 152.815 kg Weight 157.113 kg Physical Exam 2 Narrative: Morbid obese male No active chest pain hemodynamically stable S1, S2 Clear to auscultation bilaterally He is on room air Morbid obesity Lymphedema?improving. Venous stasis dermatitis Pleasant and cooperative Nonfocal neuroexam Data 10/06/24 04:21 10/06/24 04:21 A&P Assessment and plan (1) Non-STEMI (non-ST elevated myocardial infarction): (2) Pulmonary edema: Qualifiers: Chronicity: acute Qualified Code(s): J81.0 - Acute pulmonary edema (3) Hypoxia: (4) Hypertension: Qualifiers: Hypertension type: primary hypertension Qualified Code(s): I10 - Essential (primary) hypertension Plan Non-STEMI No previous history of coronary disease Start patient on ACS protocol Serial troponin and EKGs Check lipid panel A1c TSH and B12 Continue nitroglycerin and heparin drip Cardiology consulted Patient will need cardiac cath Requested D-dimer Patient was given aspirin loading dose at the outside facility I will give Plavix loading dose and continue heparin along statins Acute hypoxia requiring 2 L secondary to flash from edema Give IV Lasix 20 mg, he is na?ve to Lasix we will do low-dose for now Dr. Saab notified and consulted Sleep apnea history, patient may need another sleep study to get CPAP approved will do overnight pulse ox Patient does endorse insomnia and headaches Lymphedema: Takes Lasix History of gout no acute flare, continue colchicine N.p.o. DVT prophylaxis covered with heparin drip Full code 10/05/2024 Continue Lasix 40 IV twice daily. Going for coronary angiogram today. ? Nitro drip has been off. Continue therapeutic Lovenox. ? Cardiology following. ? Continue to wean off oxygen as able. ? Placed on CPAP overnight. Patient on IV Lasix and is at risk of electrolyte imbalance. Will check BMP every 12 hours. Attestations 2 Medical Necessity Statement*: Patient with NSTEMI requiring left heart cath. Diagnoses Non-STEMI (non-ST elevated myocardial infarction) I21.4 Acute pulmonary edema J81.0 Chronicity: acute Hypoxia R09.02 Primary hypertension I10 Hypertension type: primary hypertension
--- NOTE | 2024-10-06 14:17 | P.PN_ITS ---
Subjective 2 Subjective: I saw this patient, reviewed admission progress since hospitalization. [age] male patient with history of hypert ension present admitted with heart failure symptoms, marked volume overload overloaded and chest pain. Card exam was positive for NSTEMI. He was managed appropriately for the heart failure symptoms with good diuresis. This morning patient was euvolemic. With ongoing history of chest pain and positive cardiac troponin plan for cardiac cath. Cardiac cath showed chronically occluded right coronary artery with good collateral from the left system there is a 90% focal stenosis in the mid LAD. Distal LAD mild diffuse disease. circumflex artery proximal segment has 60% stenosis. We proceeded to angioplasty of mid LAD 90% focal stenosis. Successful angioplasty of mid LAD with drug-eluting stent was performed. The procedure was started from the right radial however we have to switch to the femoral artery because of the tortuosity in the aorta. The right groin was successfully closed with the manual pressure pressure Postprocedure patient is clinically and hemodynamically stable. Vitals/I&O/Wt Last Vital Signs Temp 97.7 F 10/06/24 08:00 Pulse 68 10/06/24 13:52 Resp 14 10/06/24 13:52 BP 105/69 10/06/24 13:52 Pulse Ox 98 10/06/24 13:52 O2 Del Method Room Air 10/06/24 13:52 O2 Flow Rate 1 10/04/24 10:30 10/05/24 10/06/24 10/06/24 22:59 06:59 14:59 Intake Total 720 / 1880 Output Total 1200 / 2650 500 / 3150 450 / 450 Balance -480 / -770 -500 / -1270 -450 / -450 Weight last 48 hrs Weight 336 lb 14.4 oz Weight 346 lb 6 oz Physical Exam 2 Const: OTHER: Not in any respiratory distress. His vitals are stable.Postprocedure patient lying comfortably in the bed. Hemodynamically stable. No respiratory distress. Eye: OTHER: Normal Resp: OTHER: Good air entry bilaterally. Minimal rales at the bases. Cardio: OTHER: Normal cardiovascular exam. 1+ pitting edema chronic GI: OTHER: Obese abdomen however soft nontender. Bowel sounds audible. Extremity: NARRATIVE EXTREMITY EXAM: 1+ chronic pitting edema bilaterally. D istal pulses hard to palpate. Neuro: OTHER: Grossly intact and nonfocal. Data 10/06/24 04:21 10/06/24 04:21 A&P Assessment and plan (1) Non-STEMI (non-ST elevated myocardial infarction): 64-year-old male patient with a heart failure and NSTEMI. Successful angioplasty of LAD. 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 Patient is currently a transfer to the ICU for post PCI management Medication will be adjusted for post PCI management. He will stay on DAPT and other appropriate medications. Likely discharge home tomorrow. (2) Heart failure: Attestations 2 Medical Necessity Statement*: Post PCI ICU management and heart failure management Coding Level of Care Code 10799 Diagnoses Non-STEMI (non-ST elevated myocardial infarction) I21.4 Heart failure I50.9 Time Spent (min) 20
--- NOTE | 2024-10-06 14:33 | USR_ITS ---
PROCEDURE INFORMATION: Exam: US Duplex Right Lower Extremity Arteries Or Arterial Bypass Grafts Exam date and time: 10/06/2024 5:05 PM Age: 64 years old Clinical indication: Screening exam; Post cath; Prior surgery; Surgery date: Post-operative (0-2 days); Surgery type: Cath procedure; Additional info: Rule out hematoma, aneurysm, S/P cath, patient in CT. Will scan when he returns to room TECHNIQUE: Imaging protocol: Right Real-time duplex scan of the arteries or arterial bypass grafts of the right lower extremity with 2-D mathews scale, color Doppler flow and spectral waveform analysis. Images documented and saved. COMPARISON: CT angio abdomen pelvis [id number] 10/06/2024 4:15 PM FINDINGS: Right common femoral artery: No occlusion or significant stenosis. Normal waveform. No pseudoaneurysm in the inguinal region. Right superficial femoral artery: No occlusion or significant stenosis. Normal waveform. Right popliteal artery: No occlusion or significant stenosis. Normal waveform. Right calf/foot arteries: No occlusion or significant stenosis in the visualized arteries. Normal waveforms. Dorsalis pedis artery is patent. Soft tissues: Right inguinal complex collection in keeping with hematoma measuring up to 5 x 1.6 x 3 cm. A 2nd smaller collection also represent a hematoma measuring up to 1.8 cm. The common femoral artery and vein are patent. No definite pseudoaneurysm or fistula. [place] [id number] IMPRESSION: Hematomas as described. No definite pseudoaneurysm or fistula.
[2024-10-06 15:38] LABS: Basophils % 0.2 %; Eosinophils # 0.3 10^3/uL (0.0-0.8); Hematocrit 45.2 % (37-53); Lymphocytes # 2.4 10^3/uL (0.8-4.8); Lymphocytes % 28.5 %; Mean Corpuscular Hemoglobin 27.1 pg (27-33); Mean Corpuscular Volume 87.6 fl (82-101); Mean Platelet Volume 11.8 fL (7.4-10.4); Monocytes # 0.5 10^3/uL (0.2-0.9); Monocytes % 5.8 %; Neutrophils # 5.22 10^3/uL (1.8-7.7); Neutrophils % 62.1 %; Nucleated Red Blood Cells % 0 %; Platelet Count 227 10^3/cmm (157-399); Red Blood Count 5.16 10^6/uL (3.85-5.65)
--- NOTE | 2024-10-06 16:14 | CTR_ITS ---
PROCEDURE INFORMATION: Exam: CTA Abdomen and Pelvis With Contrast Exam date and time: 10/06/2024 4:15 PM Age: 64 years old Clinical indication: Left-sided; Other: R/O retroperitoneal bleed, S/P cath with bleeding right groi, abdominal pain TECHNIQUE: Imaging protocol: Computed tomographic angiography of the abdomen and pelvis with contrast. Exam focused on the arteries. 3D rendering (Not supervised by radiologist): MIP and/or 3D reconstructed images were created by the technologist. Radiation optimization: All CT scans at this facility use at least one of these dose optimization techniques: automated exposure control; mA and/or kV adjustment per patient size (includes targeted exams where dose is matched to clinical indication); or iterative reconstruction. Contrast material: OMNI 350; Contrast volume: 100 ml; Contrast route: INTRAVENOUS (IV); COMPARISON: CT abdomen pelvis w con* [id number] 10/06/2024 4:15 PM RADIATION DOSE METRICS: Total DLP (mGy-cm): 1545.37 FINDINGS: Limitations: The patient was scanned with their arms at their side creating streak and beam hardening artifact which limits evaluation. Tubes, catheters and devices: There is a Michele catheter in place. Coronary arteries: There is atherosclerotic calcification coronary arteries. Aorta: No aortic aneurysm. No aortic dissection. Celiac trunk and mesenteric arteries: No occlusion or significant stenosis. Renal arteries: No occlusion or significant stenosis. Right iliac arteries: No occlusion or significant stenosis. Left iliac arteries: No occlusion or significant stenosis. Liver: No mass. Gallbladder and biliary ducts: Unremarkable. No calcified stones. No ductal dilation. Pancreas: Unremarkable. No mass. No ductal dilation. Spleen: Unremarkable. No splenomegaly. Adrenal glands: Unremarkable. No mass. Kidneys and ureters: Unremarkable. No solid mass. No hydronephrosis. Stomach and bowel: Unremarkable. No obstruction. No mucosal thickening. Appendix: No evidence of appendicitis. Intraperitoneal space: Unremarkable. No free air. No significant fluid collection. Lymph nodes: Unremarkable. No enlarged lymph nodes. Urinary bladder: The bladder is decompressed. Reproductive: There is moderate prostate hypertrophy. Bones/joints: No acute fracture. Soft tissues: Ill-defined hematoma noted in the subcutaneous tissues of the right inguinal region extending over the medial aspect of the thigh. A source of bleeding is not identified. No CT evidence of pseudoaneurysm or fistula. No significant retroperitoneal hematoma. Left saphenous vein is mildly prominent mild narrowing of the right external iliac vein near the inguinal ligament. Small fat containing umbilical hernia without stranding or evidence of incarceration. Induration and small amount of gas in the anterior abdominal wall likely from subcutaneous injections. CT/CT angio abdomen pelvis [id number] IMPRESSION: Ill-defined hematoma noted in the subcutaneous tissues of the right inguinal region extending over the medial aspect of the thigh. A site of acute bleeding is not identified. No CT evidence of pseudoaneurysm or fistula. No significant retroperitoneal hematoma.
[2024-10-06] MEDS: iohexol 350 mg/mL 500 mL Btl (per mL) IV (16:25)
[2024-10-06] MEDS: lidocaine 2% viscous 15 ML, aluminum-mag hydrox-simethicon 30 ML, sucralfate oral liq 1 GM PO (18:16)
--- NOTE | 2024-10-06 19:08 | PC.NURSE ---
Doctor Sim came into the room and assessed the patient and ordered not to get the patient up for the night and to wait until tomorrow to let the patient out of bed.
[2024-10-06] MEDS: lactulose oral liq 20 gm/30 mL UDC PO (22:01)
[2024-10-06 22:31] LABS: Basophils % 0.5 %; Eosinophils # 0.2 10^3/uL (0.0-0.8); Eosinophils % 2.4 %; Hematocrit 44.4 % (37-53); Lymphocytes # 2.2 10^3/uL (0.8-4.8); Lymphocytes % 25.2 %; Mean Corpuscular HGB Conc 30.6 g/dL (30-55); Mean Corpuscular Hemoglobin 26.8 pg (27-33); Mean Corpuscular Volume 87.4 fl (82-101); Mean Platelet Volume 11.8 fL (7.4-10.4); Monocytes # 0.6 10^3/uL (0.2-0.9); Monocytes % 7.3 %; Neutrophils # 5.56 10^3/uL (1.8-7.7); Neutrophils % 64.3 %; Nucleated Red Blood Cells % 0 %; Platelet Count 207 10^3/cmm (157-399); Red Blood Count 5.08 10^6/uL (3.85-5.65); White Blood Count 8.65 10^3/uL (3.29-11.43)
[2024-10-07] VITALS (24 sets, daily range): BP systolic 85–158; BP diastolic 62–91; PULSE 75–91; RESP 13–34; TEMP 36.7–37.1; O2SAT 91–98
--- NOTE | 2024-10-07 04:01 | PC.NURSE ---
Hematoma outside of edges marked, dark purple but soft.
[2024-10-07 05:35] LABS: Basophils % 0.3 %; Eosinophils # 0.2 10^3/uL (0.0-0.8); Eosinophils % 2.1 %; Hematocrit 45.1 % (37-53); Lymphocytes # 1.8 10^3/uL (0.8-4.8); Lymphocytes % 23.1 %; Mean Corpuscular Hemoglobin 27.6 pg (27-33); Mean Platelet Volume 11.5 fL (7.4-10.4); Monocytes # 0.6 10^3/uL (0.2-0.9); Neutrophils # 5.11 10^3/uL (1.8-7.7); Neutrophils % 66.1 %; Nucleated Red Blood Cells % 0 %; Platelet Count 207 10^3/cmm (157-399); Red Blood Count 5.07 10^6/uL (3.85-5.65); Red Cell Distribution Width 14.9 % (12.1-15.1); White Blood Count 7.72 10^3/uL (3.29-11.43)
[2024-10-07 05:52] LABS: Anion Gap 14.8 (5-19); Blood Urea Nitrogen 19 mg/dL (8-23); Calcium 8.5 mg/dL (8.5-10.5); Carbon Dioxide 24 mmol/L (22-29); Chloride 103 mmol/L (98-107); Creatinine Clr Calc Pharmacy 130.0653; Glomerular Filtration Rate 96.7 mL/min (90-130); Glucose 117 mg/dL (65-115); Osmolality Calculated 287 mOsm/kg (285-295); Potassium 4.8 mmol/L (3.5-5.1); Sodium 137 mmol/L (136-145)
[2024-10-07] MEDS: aspirin 81 mg EC Tablet PO (08:25)
[2024-10-07] MEDS: clopidogrel 75 mg Tablet PO (08:25)
[2024-10-07] MEDS: atorvastatin 40 mg Tablet 80 MG PO (08:25)
[2024-10-07] MEDS: potassium chloride ER 20 mEq Tablet PO ×2 (08:25→14:58)
[2024-10-07] MEDS: polyethylene glycol 3350 Pkt 17 gm PO (08:25)
--- NOTE | 2024-10-07 09:51 | PM.DCS ---
Discharge Providers Date of Admission: 10/03/24 22:09 Date of Discharge: October 07, 2024 Attending Provider at Admission: Amberly Rodriguez MD Attending Provider at Discharge: Jolly Howard MD Primary Care Provider: Demetri Hardin Diagnoses at Discharge Discharge Diagnosis (1) Non-STEMI (non-ST elevated myocardial infarction): Status: Resolved (2) Heart failure: Status: Acute Hospital Course Hospital Course Patient presented with shortness of breath and was ruled in for NSTEMI. He was quite fluid overloaded. Initially was diuresed with IV Lasix and eventually taken to cath. He had a coronary angiogram performed with PCI to LAD. During the procedure he did bleed into his groin and developed a thigh hematoma. Ultrasound and CTA abdomen pelvis was performed which ruled out retroperitoneal bleed and there was no evidence of active bleeding. He was examined by hospitalist and patient care representative on multiple occasions after cath and hematoma was stable. No evidence of active bleed. Hemoglobin remained stable during hospitalization. Day of discharge thigh examined again, soft minimal bruising present, no heart fluctuance noted. Patient did traumatically tugged on his Michele catheter and developed mild blood-tinged urine which cleared up by time of discharge. He was sent home on oral Lasix, aspirin Plavix atorvastatin metoprolol. He is to follow-up with primary care doctor and cardiology after discharge. Patient will need a repeat outpatient sleep study as well. He will discuss it with his primary care doctor. Physical Exam Narrative: Morbid obese male No active chest pain hemodynamically stable S1, S2 Clear to auscultation bilaterally He is on room air Morbid obesity Groin area examined, mild bruising present, skin is soft, no fluctuance noted however difficult exam secondary to obese status. Distal pulses intact Venous stasis dermatitis Pleasant and cooperative Nonfocal neuroexam Urinary Catheter Management: Michele: Cath Placed During This Visit: yes Reason for Continuing Indwelling Catheter: Accurate Measurement of Urinary Output in Critically Ill Patients Urinary Catheter Date of Insertion: 10/06/24 Urinary Catheter Time of Insertion: 15:15 Discharge Data Studies Completed and Pending Completed Studies During Hospitalization Category Date Time Status CTA abdomen pelvis [CT angio abdomen pelvis 12300] Stat Cat Scan 10/06/24 16:14 Completed [employer]CIALS request for service Routine Exams 10/06/24 09:11 Completed US arterial duplex groin RT [CV arterial dup groin RT Ultrasound 10/06/24 14:33 Completed [id number]] Stat Pending at discharge Category Date Time Status CBC Auto Diff [Complete Blood Count w/Auto] Q8H Lab 10/07/24 14:34 Ordered CBC Auto Diff [Complete Blood Count w/Auto] Q8H Lab 10/07/24 22:34 Ordered CBC Auto Diff [Complete Blood Count w/Auto] Q8H Lab 10/08/24 06:34 Ordered Retype for Patiets ABO/Rh Routine Lab 10/06/24 16:02 Ordered CV. echo wo/w contrast [id number] Routine Ultrasound 10/03/24 22:20 Taken Radiology Impressions Arterial/Peripheral Duplex 10/06/24 14:33 IMPRESSION: Hematomas as described. No definite pseudoaneurysm or fistula. Abdomen/Pelvis CTA 10/06/24 16:14 IMPRESSION: Ill-defined hematoma noted in the subcutaneous tissues of the right inguinal region extending over the medial aspect of the thigh. A site of acute bleeding is not identified. No CT evidence of pseudoaneurysm or fistula. No significant retroperitoneal hematoma. Laboratory Results WBC 7.72 10^3/uL (3.29-11.43) 10/07/24 05:28 RBC 5.07 10^6/uL (3.85-5.65) 10/07/24 05:28 Hgb 14.00 g/dL (11.27-16.99) 10/07/24 05:28 Hct 45.1 % (37-53) 10/07/24 05:28 MCV 89.0 fl (82-101) 10/07/24 05:28 MCH 27.6 pg (27-33) 10/07/24 05:28 MCHC 31.0 g/dL (30-55) 10/07/24 05:28 RDW 14.9 % (12.1-15.1) 10/07/24 05:28 Plt Count 207 10^3/cmm (157-399) 10/07/24 05:28 MPV 11.5 fL (7.4-10.4) H 10/07/24 05:28 Neut % (Auto) 66.1 % 10/07/24 05:28 Lymph % (Auto) 23.1 % 10/07/24 05:28 Concordia % (Auto) 8.0 % 10/07/24 05:28 Eos % (Auto) 2.1 % 10/07/24 05:28 Baso % (Auto) 0.3 % 10/07/24 05:28 Neut # (Auto) 5.11 10^3/uL (1.8-7.7) 10/07/24 05:28 Lymph # (Auto) 1.8 10^3/uL (0.8-4.8) 10/07/24 05:28 Concordia # (Auto) 0.6 10^3/uL (0.2-0.9) 10/07/24 05:28 Eos # (Auto) 0.2 10^3/uL (0.0-0.8) 10/07/24 05:28 Baso # (Auto) 0.0 10^3/uL (0.0-0.1) 10/07/24 05:28 Nucleated RBC % (auto) 0 % 10/07/24 05:28 Nucleated RBCs # 0.0 /100WBC 10/07/24 05:28 APTT 42.0 SECONDS (23.9-36.7) H D 10/04/24 13:04 D-Dimer 0.33 ug/mLFEU (0-0.59) 10/03/24 22:15 Sodium 137 mmol/L (136-145) 10/07/24 05:28 Potassium 4.8 mmol/L (3.5-5.1) 10/07/24 05:28 Chloride 103 mmol/L (98-107) 10/07/24 05:28 Carbon Dioxide 24 mmol/L (22-29) 10/07/24 05:28 Anion Gap 14.8 (5-19) 10/07/24 05:28 BUN 19 mg/dL (8-23) 10/07/24 05:28 Creatinine 0.8 mg/dL (0.7-1.2) 10/07/24 05:28 GFR Calculation 96.7 mL/min (90-130) 10/07/24 05:28 Glucose 117 mg/dL (65-115) H 10/07/24 05:28 Estimat Average Glucose 128 10/03/24 22:15 Hemoglobin A1c 6.1 % (4.0-6.0) H 10/03/24 22:15 Calculated Osmolality 287 mOsm/kg (285-295) 10/07/24 05:28 Calcium 8.5 mg/dL (8.5-10.5) 10/07/24 05:28 Magnesium 2.0 mg/dL (1.7-2.3) 10/06/24 04:21 Troponin T Baseline 245 ng/L (0-15) H* 10/03/24 22:15 Troponin T 120 Minute 248.9 ng/L (0-15) H 10/04/24 00:33 Delta Troponin T 3.9 ABS# (0-10) 10/04/24 00:33 Troponin T Hi Sens 6Hr 247.1 ng/L (0-15) H 10/04/24 05:20 Troponin T Hi Sens 6Hr Delta 2.1 ng/L (0-12) 10/04/24 05:20 NT-Pro-B Natriuret Pep 796 pg/mL (0-125) H 10/06/24 04:21 Triglycerides 133 mg/dL (0-150) 10/03/24 22:15 Cholesterol 186 mg/dL (0-200) 10/03/24 22:15 LDL Cholesterol, Calc 114 mg/dL (50-129) 10/03/24 22:15 Total VLDL Cholesterol 27 mg/dL (0-30) 10/03/24 22:15 HDL Cholesterol 45 mg/dL (60-100) L 10/03/24 22:15 Cholesterol/HDL Ratio 4.13 mg/dL (1.0-5.00) 10/03/24 22:15 Vitamin B12 412 pg/mL (232-1245) 10/03/24 22:15 TSH 3.89 uIU/mL (0.27-4.20) 10/03/24 22:15 Blood Type O Positive 10/06/24 12:38 Rho(D) Type Rh positive 10/06/24 12:38 Antibody Screen Negative 10/06/24 12:38 Vitals Last Vital Signs Temp 98.0 F 10/07/24 08:00 Pulse 88 10/07/24 09:00 Resp 22 H 10/07/24 09:00 BP 147/85 10/07/24 09:00 Pulse Ox 96 10/07/24 09:00 O2 Del Method Room Air 10/07/24 09:00 O2 Flow Rate 1 10/04/24 10:30 Discharge Plan Discharge Patient Disposition: Home Condition: Stable Prescriptions: New aspirin 81 mg Tablet,Delayed Release (Dr/Ec) 81 mg PO DAILY Qty: 30 0RF furosemide 40 mg Tablet 40 mg PO DAILY@0800 Qty: 30 0RF atorvastatin 40 mg Tablet 80 mg PO DAILY Qty: 30 0RF clopidogrel 75 mg Tablet 75 mg PO DAILY Qty: 30 0RF lisinopril 5 mg Tablet 5 mg PO DAILY Qty: 30 0RF metoprolol succinate [Toprol XL] 25 mg tablet extended release 24 hr 25 mg PO DAILY Qty: 30 0RF Continued gabapentin 300 mg capsule 300 mg PO TID Flonase Sensimist 27.5 mcg/actuation spray,suspension 1 spray intranasal DAILY Rx Instructions: into each nostril colchicine 0.6 mg capsule 0.6 mg PO DAILY psyllium husk [Metamucil] 0.4 gram capsule 0.4 g PO DAILY PRN (Reason: Constipation) famotidine 40 mg tablet 40 mg PO BID potassium chloride 10 mEq tablet extended release 10 meq PO DAILY budesonide-formoterol [Symbicort] 80-4.5 mcg/actuation HFA aerosol inhaler 2 puff INHALATION BID Discontinued meloxicam 7.5 mg tablet 7.5 mg PO DAILY furosemide 20 mg tablet 20 mg PO DAILY Discharge Orders: Discharge Order (Routine); Ordered 10/07/24 Ordered By: Jolly Howard Referrals: Amberly Saab MD [Physician] - 1 month Demetri Hardin [Primary Care Provider] - 4-7 days Rosanne Nowak FNP [Nurse Practitioner] - 1 week Discharge Diet: Cardiac Discharge Activity: Limit activity as instructed Patient Instructions: Metoprolol (By mouth) (Lopressor, Toprol XL), Lisinopril (By mouth) (Prinivil, Zestril), Furosemide (By mouth) (Lasix), Aspirin (By mouth) (Bhargavi Extra Strength, Bhargavi Aspirin Children's,..., Atorvastatin (By mouth) (Lipitor, Atorvaliq), Clopidogrel (By mouth) (Plavix), Opioid Safety Activity Restrictions/Additional Instructions: Please call Wednesday to schedule follow-up appointments. Discharge Attestations Time Spent in Discharge Care*: greater than 30 min Quality Metrics Clinical Quality Measures [ No reported AMI, CVA or VTE this stay] Coding Level of Care Code Acute Code for Chg Fwd Diagnoses Non-STEMI (non-ST elevated myocardial infarction) I21.4 Heart failure I50.9
--- NOTE | 2024-10-07 09:56 | PC.NURSE ---
Patient up to bedside commode, states his Bryant catheter was bothering him, upon assessment bleeding from around bryant and in tube noted. Patient denies pain at this time, denies any catheter pulls, Bryant catheter flushed and operating appropriately.
[2024-10-07] MEDS: metoprolol tartrate 25 mg Tablet 12.5 MG PO (10:02)
[2024-10-07] MEDS: FUROsemide 40 mg Tablet PO (10:03)
[2024-10-07] MEDS: lisinopril 5 mg Tablet PO (10:03)
--- NOTE | 2024-10-07 13:11 | P.PN_ITS ---
Subjective 2 Subjective: I saw Mr. Roman this morning. This is a 64-year-old male patient who underwent cardiac cath/angioplasty of LAD yesterday. He was admitted earlier this week with pulmonary edema/heart failure symptoms and ongoing chest pain, unstable angina. Post PCI he is doing well. He is now almost euvolemic, well treated heart failure symptoms. No further chest pain. The hematoma issue over the right groin while resolved. He is already ambulating out of bed. Vitals are stable. Hemoglobin is stable Medications: Medication Review Details: Reviewed his current medication Vitals/I&O/Wt Last Vital Signs Temp 98.0 F 10/07/24 08:00 Pulse 80 10/07/24 12:00 Resp 27 H 10/07/24 12:00 BP 135/81 10/07/24 12:00 Pulse Ox 95 10/07/24 12:00 O2 Del Method Room Air 10/07/24 12:00 O2 Flow Rate 1 10/04/24 10:30 10/06/24 10/07/24 10/07/24 22:59 06:59 14:59 Intake Total 720 / 720 100 / 820 622 / 622 Output Total 150 / 600 825 / 1425 610 / 610 Balance 570 / 120 -725 / -605 Weight last 48 hrs Weight 331 lb 12.731 oz Weight 336 lb 14.4 oz Physical Exam 2 Narrative: Patient sitting on the chair. No complaint. Not in any distress. Const: COMMON NORMALS: no acute distress, patient oriented x3 and alert O THER: Morbidly overweight. HENMT: OTHER: Normal Eye: OTHER: Normal Resp: OTHER: Good air entry bilaterally. No rales at the bases. Cardio: OTHER: Difficult to assess for JVD due to obese neck. Normal first and second heart sounds. GI: OTHER: Abdomen obese however soft nontender. Bowel sounds audible. Extremity: NARRATIVE EXTREMITY EXAM: Chronic bilateral 1+ pitting edema on both lower extremities. Distal pulses are palpable however they are weak, difficult to palpate due to obesity. Neuro: COMMON NORMALS: patient oriented x3 SENSORIUM/ORIENTATION: Yes alert OTHER: Grossly intact. Patient is ambulating. Skin: NARRATIVE SKIN EXAM: Skin warm and dry. Urinary Catheter Management: Michele: Cath Placed During This Visit: yes Reason for Continuing Indwelling Catheter: Accurate Measurement of Urinary Output in Critically Ill Patients Urinary Catheter Date of Insertion: 10/06/24 Urinary Catheter Time of Insertion: 15:15 Data 10/07/24 05:28 10/07/24 05:28 A&P Assessment and plan (1) Unstable angina: 64 male admitted with heart failure and anginal symptoms. Now post PCI of LAD. 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 LVEF normal. Clinically well improved heart failure symptoms. No further pulm edema No further angina. The hematoma over the right groin post PCI is resolved. Still persisting some bruising. Patient is ambulating. Vitals are stable. Plan to discharge him home today. Adjusted his medication for post PCI and heart failure management. Cardiology clinic follow-up in 3 to 4 weeks. (2) Heart failure: (3) Hypertension: Qualifiers: Hypertension type: primary hypertension Qualified Code(s): I10 - Essential (primary) hypertension (4) Pulmonary edema: Qualifiers: Chronicity: acute Qualified Code(s): J81.0 - Acute pulmonary edema Attestations 2 Medical Necessity Statement*: Heart failure and angina, post PCI Coding Level of Care Code 91691 Diagnoses Unstable angina I20.0 Heart failure I50.9 Primary hypertension I10 Hypertension type: primary hypertension Acute pulmonary edema J81.0 Chronicity: acute Time Spent (min) 20
--- NOTE | 2024-10-07 15:03 | PC.NURSE ---
Patient sitting in recliner in room disconnected from monitoring due to patient removing monitoring cables to dress in home clothing. Waiting on his sister to arrive before removing IV access and reviewing discharge packet.
--- NOTE | 2024-10-07 15:31 | PC.NURSE ---
Extensive education provided at bedside with patients sister present, copy of discharge paperwork provided to her. Instructions on home care, bathing, activities, restrictions, S/S of infection and when to call 911. Reviewed, teach back, verbalized understanding. Reviewed new and continued as well as stopped medications with written instructions also provided. Patient instructed to call on Wednesday to schedule follow up appointments, phone numbers provided. Patient and family had no questions.
== END 2024-10-07 15:39 | disposition home or self-care (01) | DRG 321 ==
LOC: ICU 10-04 10:38 → MEDSURG 10-04 22:59 → ICU 10-06 13:05
PROVIDERS: Internal Medicine Cardiovascular Disease; Admitting Provider Internal Medicine; PCP Family Medicine; Visit Provider Internal Medicine
PROC: 02703DZ Dilation of Coronary Artery, One Artery with Intraluminal Device, Percutaneous Approach (ICD-10-PCS; principal; 2024-10-06 10:35)
PROC: 02703DZ Dilation of Coronary Artery, One Artery with Intraluminal Device, Percutaneous Approach (ICD-10-PCS; 2024-10-06 10:35)
DX: I11.0 Hypertensive heart disease with heart failure (principal); I21.4 Non-ST elevation (NSTEMI) myocardial infarction; L76.32 Postprocedural hematoma of skin and subcutaneous tissue following other procedure; Z68.43 Body mass index [BMI] 50.0-59.9, adult; I24.9 Acute ischemic heart disease, unspecified; I50.9 Heart failure, unspecified; R31.9 Hematuria, unspecified; M10.9 Gout, unspecified; J44.9 Chronic obstructive pulmonary disease, unspecified; M19.90 Unspecified osteoarthritis, unspecified site; E66.01 Morbid (severe) obesity due to excess calories; R09.02 Hypoxemia; G47.30 Sleep apnea, unspecified; Y84.0 Cardiac catheterization as the cause of abnormal reaction of the patient, or of later complication, without mention of misadventure at the time of the procedure; Y92.239 Unspecified place in hospital as the place of occurrence of the external cause
CPT/HCPCS: 36415; 51702; 74174; 80048; 80061; 82607; 83036; 83735; 83880; 84443; 84484; 85025; 85049; 85347; 85378; 85730; 86850; 86900; 93005; 93458; 93926; 94760; 96372; 96374; 96376; 99152; 99153; C1725; C1760; C1769; C1874; C1887; C1894; C8929; C9600; G0269; J1644; J1650; J1940; J2250; J2405; J3010; J3490; J7030; J7050; Q0163; Q9967

== ENCOUNTER → 2024-10-12 14:34 | Outpatient (BNVA) | payer MEDICARE, MEDICAID, SELFPAY | PROVIDERS: PCP Family Medicine; Visit Provider Internal Medicine Cardiovascular Disease | DX: I10 Essential (primary) hypertension (principal); I50.9 Heart failure, unspecified; I20.0 Unstable angina | CPT/HCPCS: 36415; 80048; 85025 ==

== ENCOUNTER 2024-10-13 15:17 | Outpatient (CLI) | payer MEDICARE, MEDICAID, SELFPAY ==
--- NOTE | 2024-10-13 15:23 | USR_ITS ---
PROCEDURE INFORMATION: Exam: US Duplex Right Lower Extremity Arteries Or Arterial Bypass Grafts Exam date and time: 10/13/2024 3:37 PM Age: 64 years old Clinical indication: Pain; Leg, upper; Right; Additional info: Swelling of perineal tissue post cardiac cath. TECHNIQUE: Imaging protocol: Right Real-time duplex scan of the arteries or arterial bypass grafts of the right lower extremity with 2-D mathews scale, color Doppler flow and spectral waveform analysis. Images documented and saved. COMPARISON: [place] [id number] 10/06/2024 5:05 PM FINDINGS: Right common femoral artery: No occlusion or significant stenosis. Normal waveform. No pseudoaneurysm in the inguinal region. Right superficial femoral artery: No occlusion or significant stenosis. Normal waveform. Right popliteal artery: No occlusion or significant stenosis. Normal waveform. Right calf/foot arteries: No occlusion or significant stenosis in the visualized arteries. Dampened waveforms. Dorsalis pedis artery is patent. Soft tissues: Right groin fluid collection measuring 5.7 x 4.5 x 2.0 cm with no flow within it indicating a hematoma. Diffuse subcutaneous [place]. US/[place] [id number] IMPRESSION: 5.7 x 4.5 x 2.0 cm right groin hematoma. No evidence of pseudoaneurysm.
== END 2024-10-13 15:18 | disposition home or self-care (01) ==
LOC: RAD 15:18
PROVIDERS: PCP Family Medicine; Visit Provider Nurse Practitioner Family
DX: I97.410 Intraoperative hemorrhage and hematoma of a circulatory system organ or structure complicating a cardiac catheterization (principal); M79.81 Nontraumatic hematoma of soft tissue; Z98.61 Coronary angioplasty status; S30.1XXD Contusion of abdominal wall, subsequent encounter; X58.XXXA Exposure to other specified factors, initial encounter
CPT/HCPCS: 93926

== ENCOUNTER 2025-03-03 16:55 | Inpatient (IN) | payer MEDICARE, MEDICAID, SELFPAY ==
[2025-03-03] VITALS (17 sets, daily range): BP systolic 122–165; BP diastolic 58–111; PULSE 56–85; RESP 12–32; TEMP 36.6; O2SAT 95–100; BMI 55.2
--- OUTSIDE RECORDS SUMMARY | 2025-03-03 16:59 | XMS_ITS | Encounter Summary ---
Author Organization [facility] Address [address] [place] [address] Care Team Providers Care Tape Deck Installer Name Role Phone Demetri Hardin MD Primary Care Provider [phone] Encounter Details Date Type Department Care Team (Late st Contact Info) Description 06/20/2012 Ancillary Orders [employer] [place] [address] [address] [place] [address] Laron Kelsey MD NO ADDRESS ON FILE Pain Social History Tobacco Use Types Packs/Day Years Used Date Smoking Tobacco: Never Alcohol Use Standard Drinks/Week Comments No 0 (1 standard drink = 0.6 oz pur e alcohol) Sex and Gender Information Value Date Recorded Sex Assigned at Not on file Legal Sex Male 4:50 AM 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 Gender Identity Not on file Sexual Orientation Not on file documented as of this encounter Plan of Treatment Not on file documented as of this encounter Visit Diagnoses Diagnosis Pain Generalized pain documented in this encounter Additional Health Concerns Infection Onset Date Last Indicated Resolved Time R/O COVID-19 09/22/2020 09/22/2020 09/23/2020 11:1 6 AM CDT COVID-19 09/22/2020 09/22/2020 10/12/2020 8:08 PM ALGOLOGIST documented as of this encounter Care Teams Tape Deck Installer Relationship Specialty Start Date End Date Demetri Hardin MD [address] [place] [id number] PCP - General Family Practice 07/28/17 documented as of this encounter
--- OUTSIDE RECORDS SUMMARY | 2025-03-03 16:59 | XMS_ITS | Encounter Summary ---
Author Organization [facility] Address [address] [place] [address] Care Team Providers Care Shiftman Name Role Phone Demetri Hardin MD Primary Care Provider [phone] Encounter Details Date Type Department Care Team (Late st Contact Info) Description 02/03/2025 External Device Data [facility]STRACTION Provider, Abstract NO ADDRESS ON FILE Social History Tobacco Use Types Packs/Day Years Used Date Smoking Tobacco: Never Passive Smoke Exposure: Never Smokeless Tobacco: Never Alcohol Use Standard Drinks/Week Comments No 0 (1 standard drink = 0.6 oz pur e alcohol) Feeling Safe Answer Date Recorded Within the last year, have y ou been afraid of your partner or ex-partner? Patient declined 09/23/2020 Within the last year, have y ou been humiliated or emotionally abused in other ways by your partner or ex-partner? Patient declined 09/23/2020 Within the last year, have y ou been kicked, hit, slapped, or otherwise physically hurt by your partner or ex-partner? Patient declined 09/23/2020 Within the last year, have y ou been raped or forced to have any kind of sexual activity by your partner or ex-partner? Patient declined 09/23/2020 Social Connections Answer Date Recorded In a typical week, how many times do you talk on the phone with family, friends, or neighbors? Twice a week 12/02/2020 How often do you get togethe r with friends or relatives? Three times a week 12/02/2020 Attends Scientology Services Not on file 12/02 Active Member of Clubs or Organizations Not on f ile 12/02/2020 Attends Club or Organization Meetings Not on althea e 12/02/2020 Marital Status Not on file 12/02/2020 Financial Resource Strain Answer Date R ecorded How hard is it for you to pa y for the very basics like food, housing, medical care, and heating? Somewhat hard 05/29/2022 Food Insecurity Answer Date Recorded In the past 12 months, have you worried that your food would run out before you had money to buy more? Never true 05/29/2022 In the past 12 months, did y ou run out of food and didn't have money to buy more? Never true 05/29/2022 Transportation Needs Answer Date Record ed In the past 12 months, has l ack of transportation kept you from medical appointments or from getting medications? No 05/29/2022 Lack of Transportation (Non-Medical) Not on file 05/29/2022 Feeling Safe Answer Date Recorded Are you in a relationship wi th someone who hurts you emotionally and/or physically? No 01/11/2025 Sex and Gender Information Value Date Recorded Sex Assigned at Not on file Legal Sex Male 6:26 AM STATISTICS MANAGER Gender Identity Not on file Sexual Orientation Not on file documented as of this encounter Plan of Treatment Upcoming Encounters Date Type Department Care Team (Late st Contact Info) Description 08/06/2025 4:00 PM CDT Office Visit [facility] [place] [address] [address] Demetri Hardin MD [address] [address] documented as of this encounter Visit Diagnoses Not on filedocumented in this encounter Additional Health Concerns Assessment Noted Time PHQ-9 Depression Total Score: 2 02/02/20 25 3:32 PM STATISTICS MANAGER documented as of this encounter Care Teams Shiftman Relationship Specialty Start Date End Date Demetri Hardin MD [address] [address] PCP - General Family Practice 07/28/17 documented as of this encounter
--- OUTSIDE RECORDS SUMMARY | 2025-03-03 16:59 | XMS_ITS | Clinical Summary ---
Author Organization [facility] Parke Address [address] [place] [address] Phone Care Team Providers Care Sock And Stocking Ironer Name Role Phone Demetri Hardin MD Primary Care Provider [phone] Allergies No known active allergies Medications psyllium husk (METAMUCIL) 3.4 gram/5.4 gram PowderIndications: Irritable bowel syndrome with both constipation and diarrhea Take 5.4 Grams by mouth daily. 162 Gram 2 8 Active nebulizerIndicatio ns:Simple chronic bronchitis (CMS/HCC) Length of need 99 months Nebulizer with compressor, Kit: Disposable Nebulizer Kit, 2 per month, filters , areosol mask: Yes. Name of Medication: Albuterol. 1 Each 9 Active gabapentin (NEURONTIN) 300 mg capsuleIndications :Chronic pain syndrome,Primary osteoarthritis involving multiple joints TAKE 1 CAPSULE BY MOUTH IN THE MORNING AND 1 CAPSULE AT LUNCHTIME AND 2 CAPSULES ONCE DAILY AT BEDTIME 360 Capsule 1 0 Active albuterol (PROVENTIL,VENTOLI N) 2.5 mg /3 mL (0.083 %) Solution for NebulizationIndica tions:Simple chronic bronchitis (CMS/HCC),Acute bronchitis, unspecified organism Take 3 mL (2.5 mg) by inhalation every 6 hours as needed for Shortness of Breath. 100 mL 1 0 Active budesonide-formote roL (SYMBICORT) 80-4.5 mcg/actuation HFA Aerosol InhalerIndications :Simple chronic bronchitis (CMS/HCC) Take 2 Puffs by inhalation 2 times daily. 10.2 Gram 5 0 Active fluticasone propionate (FLONASE) 50 mcg/spray [place], Suspension nasal inhalerIndications :Seasonal allergic rhinitis due to other allergic trigger USE TWO SPRAY(S) IN EACH NOSTRIL ONCE DAILY 16 mL 11 0 Active fexofenadine (MALATHI) 60 mg tabletIndications: Seasonal allergic rhinitis due to other allergic trigger Take 1 Tablet (60 mg) by mouth 2 times daily. 60 Tablet 11 0 Active colchicine (COLCRYS) 0.6 mg tabletIndications: Chronic gout of multiple sites, unspecified cause TAKE 1 TABLET BY MOUTH ONCE DAILY NEEDED AT ONSET OF GOUT FLARE UNTIL SYMPTOMS RESOLVE 30 Tablet 1 Active allopurinoL (ZYLOPRIM) 300 mg tabletIndications: Chronic gout of multiple sites, unspecified cause 1 po daily 90 Tablet 1 Active famotidine (PEPCID) 40 mg tablet Take 1 Tablet (40 mg) by mouth 2 times daily. 180 Tablet 3 1 Active meloxicam (MOBIC) 15 mg tabletIndications: Primary osteoarthritis involving multiple joints,Chronic pain syndrome Take 1 tablet by mouth once daily 30 Tablet 1 Active Active Problems Problem Noted Date Diagnosed Date History of 2019 novel coronavirus disease (COVID -19) 11/05/2020 Simple chronic bronchitis 01/05/2019 MADELEINE on CPAP 06/30/2018 Restrictive lung disease secondary to obesity Atopic dermatitis 02/04/2018 GERD (gastroesophageal reflux disease) 8 Fatty liver 01/07/2018 Chronic edema 11/16/2017 Morbid obesity with BMI of 50.0-59.9, adult 07/01 Benign hypertension 07/28/2017 Chronic gout of multiple sites 07/28/2017 Primary osteoarthritis involving multiple joints 07/28/2017 Chronic pain syndrome 07/28/2017 Allergic rhinitis 07/28/2017 Chronic urticaria 07/28/2017 Chronic otitis media of both ears 05/15/2013 Conductive hearing loss of both ears 05/15/2013 Granulation tissue of ear canal 05/15/2013 Resolved Problems Problem Noted Date Diagnosed Date Resolved Date 2018 novel coronavirus disease (COVID-19) 09/24/2020 11/05/2020 Acute febrile illness 09/23/20202019 Immunizations Immunization Administration Dates Next Due (ADACEL/BOOSTRIX)(10 YR UP) TDAP VACCINE, 0.5ML, IM 07/08/2012 (TDVAX)(7 YRS UP) TETANUS AN D DIPHTHERIA TOXOIDS, ADSORBED (2 LF OF TETANUS TOXOID AND 2 LF OF DIPHTHERIA TOXOID), 0.5ML (PF), IM 01/02/2000 Family History Medical History Relation Name Comments Heart Disease Father Diabetes Mother Relation Name Status Comments Father Mother Social History Tobacco Use Types Packs/Day Years Used Date Smoking Tobacco: Never Smokeless Tobacco: Never Alcohol Use Standard [...] relatives? Three times a week 12/02/2020 Attends Hinduism Services Not on file 12/02 Active Member of Clubs or Organizations Not on f ile 12/02/2020 Attends Club or Organization Meetings Not on althea e 12/02/2020 Marital Status Not on file 12/02/2020 Financial Resource Strain Answer Date R ecorded How hard is it for you to pa y for the very basics like food, housing, medical care, and heating? Not very hard 12/02/2020 Food Insecurity Answer Date Recorded Within the past 12 months, y ou worried that your food would run out before you got the money to buy more. Never true 09/23/20 20 Within the past 12 months, t he food you bought just didn't last and you didn't have money to get more. Never true 09/23/2020 Transportation Needs Answer Date Record ed In the past 12 months, has l ack of transportation kept you from medical appointments or from getting medications? No 08/30 In the past 12 months, has l ack of transportation kept you from meetings, work, or from getting things needed for daily living? No 09/23/2020 Education Answer Date Recorded What is the highest level of school you have completed or the highest degree you have received? 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 Gender Identity Not on file Sexual Orientation Not on file Occupation Industry Job Start Date Job End Date Not on file Not on file Not on file Not on file Not on file Not on file Not on file Not on file Last Filed Vital Signs Vital Sign Reading Time Taken Comments Blood Pressure 161/77 05/22/2021 7:30 AM CDT Pulse 82 05/22/2021 4:51 AM CDT Temperature 36.2 ??C (97.1 ??F) 05/22/2021 4:51 AM CD T Respiratory Rate 20 05/22/2021 4:51 AM CDT Oxygen Saturation 100% 05/22/2021 7:30 AM CDT Inhaled Oxygen Concentration - - Weight 156.5 kg (345 lb) 05/22/2021 4:51 AM CDT Height 170.2 cm (5' 7 ) 05/22/2021 4:51 AM CDT Body Mass Index 54.03 05/22/2021 4:51 AM CDT Plan of Treatment Health Maintenance Due Date Last Done Comments FIT/ DNA Q 3 YEARS (AUTO ORDER) 1976 FIT/FOBT Q 1 YEAR (AUTO ORDER) 1976 FLEX SIG/CT COLONOGRAPHY Q 5 YEARS (AUTO ORDER) 1976 PNEUMOCOCCAL VACCINE 50+ YEA RS (1 of 2 - PCV) 1977 FIT-DNA Q 3 years 2003 FIT/FOBT Q 1 year 2003 Flex Sig/CT Colonography Q 5 years 2003 ZOSTER VACCINE (1 of 2) 2008 RSV VACCINE (60+ or ) (1 - Risk 60-74 years 1-dose series) 2018 Pre-Diabetes and Diabetes Screening 10/07/2021 10/07/2018, 11/02/2017, 05/11/2014 DTAP/TDAP/TD VACCINES (2 - T d or Tdap) 07/08/2022 07/08/2012, 01/02/2000 INFLUENZA VACCINE (#1) 2024 , 10/04/2020, 11/25/2018, Additional history exists Medicare Advantage ([place]) Preventative Visit/Annual Wellness Visit 11/29/2024 12/02/2020 COLORECTAL CANCER SCREENING (AUTO ORDER) 01/24/2029 01/24/2019, 12/04/2014 COLORECTAL SCREENING 01/24/2029 01/24/2019, 01/24/2019, 12/04/2014, Additional history exists Colorectal Cancer Screening (AUTO ORDER) 01/24/2029 Colorectal Cancer Screening 01/24/2029 Procedures Procedure Name Priority Date/Time Associated Diagnosis Comments ENDOSCOPY, COLON, SCREENING Routine 01/24/2019 HEMOGLOBIN A1C Routine 10/07/2018 2:19 PM DEPENDENCY PROGRAM DIRECTOR Hyperglycemia from Last 3 Months or Most Recently Relevant to Health Maintenance Results * ENDOSCOPY, COLON, SCREENING (01/24/2019) us Abstract Spg Provider GI PROCEDURE ORDERABLES Fi nal Result * HEMOGLOBIN A1C (10/07/2018 2:19 PM DEPENDENCY PROGRAM DIRECTOR) HEMOGLOBIN A1C 5.6 4.0 - 6.0 % 10/07/2018 9:24 PM DEPENDENCY PROGRAM DIRECTOR [facility] EST. AVG GLUCOSE, A1C 114 mg/dL 10/07/2018 9:24 PM DEPENDENCY PROGRAM DIRECTOR [facility] Blood Collection / Unknown 10/07/2018 2:19 PM DEPENDENCY PROGRAM DIRECTOR 10/07/2018 8:42 PM DEPENDENCY PROGRAM DIRECTOR Narrative [facility] - 10/07/2018 9:24 PM DEPENDENCY PROGRAM DIRECTOR HGB A1C INTERPRETATION NORMAL: ? <5.7% PRE-DIABETES: 5.7 - 6.4% DIABETES: ? 6.5% OR GREATER Falsely low A1C measurements can occur when: 1. Anemia and/or hemolytic anemia is present. 2. Hemoglobin variants present. 3. Renal failure. 4. Transfusion of blood product in the last 120 days. ?? We recommend ordering a fructosamine test([id number]) to more accurately assess glycemic status if any of the above conditions are present. Demetri Hardin MD CHEMISTRY ORDERABLES Glenys gupta Result [facility]# [id number] [address] [place] [address] from Last 3 Months or Most Recently Relevant to Health Maintenance Insurance MEDICAID [place] [facility] DUAL COMPLETE MCR PPO D-SNP DISABILITY DETERMINATION Advance Directives For more information, please contact: [phone] * Full Code (Latest Code Status on File) Date Activated Date Inactivated Comments 09/23/2020 5:48 AM 09/27/2020 11:58 AM Care Teams Sock And Stocking Ironer Relationship Specialty Start Date End Date Demetri Hardin MD [address] [address] PCP - General Family Practice 07/28/17
--- OUTSIDE RECORDS SUMMARY | 2025-03-03 16:59 | XMS_ITS | Encounter Summary ---
Author Organization [facility] Address [address] [place] [address] Care Team Providers Care Oil Developer Name Role Phone Demetri Hardin MD Primary Care Provider [phone] Encounter Details Date Type Department Care Team (Late st Contact Info) Description 02/02/2025 External Device Data STL ABSTRACTION Provider, Abstract [...] relatives? 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 Gender Identity Not on file Sexual Orientation Not on file documented as of this encounter Plan of Treatment Upcoming Encounters Date Type Department Care Team (Late st Contact Info) Description 08/06/2025 4:00 PM CDT Office Visit [facility] Medicine [place] [address] [address] Demetri Hardin MD [address] [address] documented as of this encounter Visit Diagnoses Not on filedocumented in this encounter Additional Health Concerns Assessment Noted Time PHQ-9 Depression Total Score: 2 02/02/20 25 3:32 PM WOOL FLEECE GRADER documented as of this encounter Care Teams Oil Developer Relationship Specialty Start Date End Date Demetri Hardin MD [address] [address] PCP - General Family Practice 07/28/17 documented as of this encounter
--- OUTSIDE RECORDS SUMMARY | 2025-03-03 16:59 | XMS_ITS | Clinical Summary ---
Author Organization [facility] Mat osuna Aaron Address [address] [place] [address] Phone Care Team Providers Care Irrigation Foreman Name Role Phone Demetri Hardin MD Primary Care Provider [phone] Allergies No known active allergies Medications nebulizerIndicati ons:Simple chronic bronchitis (CMS/HCC) Length of need 99 monthsNebulizer with compressor, Kit: Disposable Nebulizer Kit, 2 per month, filters , areosol mask: Yes. Name of Medication: Albuterol. 1 Each 0 01/05/20 19 Active albuterol (PROVENTIL,VENTOL IN) 2.5 mg /3 mL (0.083 %) Solution for NebulizationIndic ations:Simple chronic bronchitis (CMS/HCC),Acute bronchitis, unspecified organism Take 3 mL (2.5 mg) by inhalation every 6 hours as needed for Shortness of Breath. 100 mL 1 02/16/20 20 Active psyllium husk 3.4 gram/5.4 gram PowderIndications :Irritable bowel syndrome with both constipation and diarrhea Take 5.4 Grams by mouth daily. 162 Gram 2 11/02/20 18 Active budesonide-formot Wanda (SYMBICORT) 80-4.5 mcg/actuation HFA Aerosol InhalerIndication s:Simple chronic bronchitis (CMS/HCC) Take 2 Puffs by inhalation 2 times daily. 10.2 Gram 11 03/01/20 24 Active fluticasone propionate (FLONASE) 50 mcg/spray Pala, Suspension nasal inhalerIndication s:Seasonal allergic rhinitis due to other allergic trigger Administer 2 Sprays in each nostril daily. 16 Gram 11 03/01/20 24 Active simethicone 80 mg Tablet, ChewableIndicatio ns:Bloating Take 1 Tablet (80 mg) by mouth every 6 hours as needed for Gas. 90 Tablet 3 03/01/20 24 Active colchicine (COLCRYS) 0.6 mg tabletIndications :Chronic gout of multiple sites, unspecified cause TAKE 1 TABLET BY MOUTH ONCE DAILY NEEDED AT ONSET OF GOUT FLARE UNTIL SYMPTOMS RESOLVE 30 Tablet 06/13/20 24 Active clopidogreL (PLAVIX) 75 mg Tablet Take 75 mg by mouth. Active lisinopriL (PRINIVIL) 5 mg tablet Take 5 mg by mouth daily. Active atorvastatin (LIPITOR) 80 mg tablet Take 80 mg by mouth daily. Active metoprolol succinate (TOPROL XL) 25 mg Extended Release 24 hour tablet Take 25 mg by mouth daily. Active aspirin (ECOTRIN EC) 81 mg Tablet, Delayed Release (E.C.) Take 81 mg by mouth daily. Active ondansetron (ZOFRAN ODT) 4 mg Tablet, Rapid Dissolve Take 1 Tablet (4 mg) by mouth every 6 hours as needed for Nausea/Emesis. Dissolve tablet on top of tongue, then swallow with saliva. 3 Tablet 01/05/20 25 Active potassium chloride (KLOR-CON) 10 mEq Extended Release tabletIndications :Bilateral lower extremity edema Take 1 Tablet (10 mEq) by mouth daily with breakfast. 90 Tablet 3 02/02/20 25 Active meloxicam (MOBIC) 15 mg tabletIndications :Chronic pain syndrome,Primary osteoarthritis involving multiple joints Take 1 Tablet (15 mg) by mouth daily. 90 Tablet 3 02/02/20 25 Active gabapentin (NEURONTIN) 300 mg capsuleIndication s:Chronic pain syndrome,Primary osteoarthritis involving multiple joints TAKE 1 CAPSULE BY MOUTH IN THE MORNING AND 1 CAPSULE AT LUNCHTIME AND 2 CAPSULES ONCE DAILY AT BEDTIME 360 Capsule 3 02/02/20 25 Active furosemide (Lasix) 20 mg tabletIndications :Bilateral lower extremity edema Take 1 Tablet (20 mg) by mouth daily. 90 Tablet 3 02/02/20 25 Active famotidine (PEPCID) 40 mg tabletIndications :Gastroesophageal reflux disease, unspecified whether esophagitis present Take 1 Tablet (40 mg) by mouth 2 times daily. 180 Tablet 3 02/02/20 25 Active allopurinoL (ZYLOPRIM) 300 mg tabletIndications :Chronic gout of multiple sites, unspecified cause Take 1 Tablet (300 mg) by mouth daily. 90 Tablet 3 02/02/20 25 Active albuterol sulfate HFA 90 mcg/actuation aerosol inhalerIndication s:Simple chronic bronchitis (CMS/HCC) Take 2 Puffs by inhalation every 4 hours as needed for Shortness of Breath or Wheezing. 8.5 Gram 11 02/02/20 25 Active Active Problems Problem Noted Date Diagnosed Date NSTEMI (non-ST elevated myocardial infarction) 0 03/03/2025 Atherosclerosis of [place] co ronary artery of [place] heart without angina pectoris 02/01/2025 Bilateral lower extremity edema 02/01/2025 Prediabetes 03/24/2023 History of 2019 novel coronavirus disease (COVID -19) 11/05/2020 Simple chronic bronchitis 01/05/2019 MADELEINE on CPAP 06/30/2018 Restrictive lung disease secondary to obesity Atopic dermatitis 02/04/2018 GERD (gastroesophageal reflux disease) 8 Fatty liver 01/07/2018 Chronic edema 11/16/2017 Morbid obesity with BMI of 50.0-59.9, adult 07/01 Chronic pain syndrome 07/28/2017 Chronic gout of multiple sites 07/28/2017 Chronic urticaria 07/28/2017 Primary osteoarthritis involving multiple joints 07/28/2017 Allergic rhinitis 07/28/2017 Chronic otitis media of both ears 05/15/2013 Conductive hearing loss of both ears 05/15/2013 Granulation tissue of ear canal 05/15/2013 Resolved Problems Problem Noted Date Diagnosed Date Resolved Date Mucopurulent chronic bronchitis 05/29/2022 05/29/2022 2019 novel coronavirus disease (COVID-19) 09/24/2020 11/05/2020 Acute febrile illness 09/23/20202019 Benign hypertension 07/28/2017 05/29/20 22 Encounters Date Type Department Care Team Description 03/03/2025 1:51 PM CDT - 03/03/2025 3:55 PM CDT Emergency [facility] Emergency Medicine [address] [place] [id number] Donn Rodríguez MD NSTEMI (non-ST elevated myocardial infarction) (CMS/HCC) (Primary Dx) Discharge Disposition: Acute Care Hospital 03/03/2025 Travel 03/02/2025 External Device Data Initial Department [address] GREEN: [place] [address] [facility], 02/19/[address] [address] Demetri Hardin MD Patient Communication 02/19/2025 Patient Outreach [facility] and [facility] [address] [place] [id number] Venessa De La Fuente [facility] Assistance 02/18/2025 Results Follow-Up [address] [address] Demetri Hardin MD URIC ACID, TSH, LIPID PANEL, Additional followed-up results: 3 02/06/2025 External Device Data [facility]STRACTION Provider, Abstract 02/06/2025 External Device Data [facility]STRACTION Provider, Abstract 02/06/2025 External Device Data [facility]STRACTION Provider, Abstract 02/05/2025 External Device Data [facility] Provider, Abstract 02/03/2025 External Device Data [facility]STRA[facility] Provider, Abstract 02/02/2025 External Device Data [facility]STRACTION Provider, Abstract 02/01/2025 3:20 PM [employer] Office Visit [address] [address] Demetri Hardin MD Medicare annual wellness visit, subsequent (Primary Dx); Morbid obesity with BMI of 50.0-59.9, adult; Simple chronic bronchitis; Chronic gout of multiple sites, unspecified cause; Prediabetes; Atherosclerosis of [place] coronary artery of [place] heart without angina pectoris; Bilateral lower extremity edema; Chronic pain syndrome; Primary osteoarthritis involving multiple joints; Gastroesophageal reflux disease, unspecified whether esophagitis present 01/11/2025 10:03 PM [employer] - 01/12/2025 12:16 AM [employer] Emergency [facility] Emergency Medicine [address] [address] Bre Krishna MD Arm contusion, left, initial encounter (Primary Dx); Viral upper respiratory infection Discharge Disposition: Home or Self Care 01/11/2025 Travel 01/09/2025 External Device Data [facility] ABSTRACTION Provider, Abstract 01/09/2025 External Device Data [facility]STRACTION Provider, Abstract 01/05/2025 9:30 PM [employer] - 01/05/2025 10:51 PM [employer] Emergency [facility] Emergency Medicine [address] [place] [id number] Leoncio Mcmahon, Influenza A (Primary Dx); Acute diarrhea; Nausea; Acute bronchitis due to other specified organisms Discharge Disposition: Home or Self Care 01/05/2025 Travel 12/26/2024 External Device Data [facility] ABSTRACTION Provider, Abstract 12/13/2024 External Device Data [facility]STRACTION Provider, Abstract from Last 3 Months Immunizations Immunization Administration Dates Next Due (ADACEL/BOOSTRIX)(10 [...] Passive Smoke Exposure: Never Smokeless Tobacco: Never Tobacco Cessation:Counseling Given: No Alcohol Use Standard Drinks/Week Comments No 0 [...] relatives? Three times a week 12/02/2020 Attends [employer] Services Not on file 12/02 Active Member [...] of Transportation (Non-Medical) Not on file 05/29/2022 Transportation Needs Answer Date Record ed Have you gone without health care because you didn? t have a way to get there? Or worry about transportation for future doctor visits, fiber picker medication, etc.? No 2024 Housing Stability Answer Date Recorded Do you worry you won? t have a steady place to sleep or struggle to pay rent or mortgage? Yes 02/19/2025 Utility Needs Answer Date Recorded Do you have difficulty payin g for utility costs (electric, water or gas bills)? Yes 02/19/2025 Medication Needs Answer Date Recorded Have you skipped taking medi cation due to cost or worry you can? t afford new medications? No 02/19/2025 Feeling Safe Answer Date Recorded Are you in a relationship wi th someone who hurts you emotionally and/or physically? No 03/03/2025 Sex and Gender Information Value Date Recorded Sex Assigned at Not on file Legal Sex Male 6:26 AM [employer] Gender Identity Not on file Sexual Orientation Not on file Last Filed Vital Signs Vital Sign Reading Time Taken Comments Blood Pressure 156/74 03/03/2025 3:30 PM CDT Pulse 64 03/03/2025 3:30 PM CDT Temperature 36.3 ??C (97.3 ??F) 03/03/2025 3:30 PM CD T Respiratory Rate 17 03/03/2025 3:30 PM CDT Oxygen Saturation 100% 03/03/2025 3:30 PM CDT Inhaled Oxygen Concentration - - Weight 164.3 kg (362 lb 3.2 oz) 03/03/2025 2:01 PM CDT Height 172.7 cm (5' 8 ) 03/03/2025 2:0 1 PM CDT Body Mass Index 55.07 03/03/2025 2:01 PM CDT Plan of Treatment Upcoming Encounters Date Type Department Care Team (Late st Contact Info) Description 08/06/2025 4:00 PM CDT Office Visit [address] [address] Demetri Hardin MD [address] [address] Health Maintenance Due Date Last Done Comments [...] - Risk 60-74 years 1-dose series) 2018 DTAP/TDAP/TD VACCINES (2 - T d or Tdap) 07/08/2022 07/08/2012, 01/02/2000 Pre-Diabetes and Diabetes Screening 02/02/2028 02/01/2025, 03/01/2024, 03/24/2023, Additional history exists COLORECTAL CANCER SCREENING (AUTO ORDER) 01/24/2029 01/24/2019, 01/24/2019, 12/04/2014 COLORECTAL SCREENING 01/24/2029 01/24/2019, 01/24/2019, 12/04/2014 Colorectal Cancer Screening (AUTO ORDER) 01/24/2029 Colorectal Cancer Screening 01/24/2029 INFLUENZA VACCINE Completed 10/11/2024, , 10/04/2020, Additional history exists Procedures Procedure Name Priority Date/Time Associated Diagnosis Comments EKG 12-LEAD Stat 03/03/2025 2:46 PM CDT XR CHEST PA OR AP 1 VW Stat 2:40 PM CDT MAGNESIUM LEVEL Stat 03/03/2025 2:00 PM CDT TSH Stat 03/03/2025 2:00 PM CDT C-REACTIVE PROTEIN Stat 03/03/2025 2: 00 PM CDT LACTIC ACID Stat 03/03/2025 2:00 PM CDT BRAIN NATRIURETIC PEPTIDE, BNP OR PROBNP Stat 03/03/2025 2:00 PM CDT LIPASE Stat 03/03/2025 2:00 PM CDT COMPREHENSIVE METABOLIC PANEL Stat 03/03/2025 2:00 PM CDT TROPONIN BASELINE, 5TH GEN Stat 03/03/2025 2:00 PM CDT D-DIMER Stat 03/03/2025 2:00 PM CDT PTT Stat 03/03/2025 2:00 PM CDT PROTIME-INR Stat 03/03/2025 2:00 PM CDT SEDIMENTATION RATE Stat 03/03/2025 2: 00 PM CDT CBC WITH DIFFERENTIAL Stat 03/03/2025 2:00 PM CDT CBC WITH DIFFERENTIAL Routine 02/01/2025 4:03 PM [employer] Atherosclerosis of [place] coronary artery of [place] heart without angina pectoris COMPREHENSIVE METABOLIC PANEL Routine 02/01/2025 4:03 PM [employer] Atherosclerosis of [place] coronary artery of [place] heart without angina pectoris HEMOGLOBIN A1C Routine 02/01/2025 4:03 PM [employer] Prediabetes LIPID PANEL Routine 02/01/2025 4:03 PM [employer] Atherosclerosis of [place] coronary artery of [place] heart without angina pectoris TSH Routine 02/01/2025 4:03 PM [employer] Morbid obesity with BMI of 50.0-59.9, adult Prediabetes Atherosclerosis of [place] coronary artery of [place] heart without angina pectoris URIC ACID Routine 02/01/2025 4:03 PM [employer] Chronic gout of multiple sites, unspecified cause XR FOREARM 2 VW LEFT Stat 01/11/2025 11:03 PM [employer] COVID-19 ANTIGEN Stat 01/11/2025 10:2 5 PM [employer] INFLUENZA VIRUS A AND B, ANTIGEN DETECTION Stat 01/11/2025 10:25 PM [employer] XR CHEST PA AND LATERAL 2 VW Stat 01/05/2025 10:11 PM [employer] INFLUENZA A/B, RSV AND COVID-19 PCR PANEL Stat 01/05/2025 9:09 PM [employer] INFLUENZA A/B, RSV AND COVID-19 PCR PANEL Stat 01/05/2025 9:09 PM [employer] ENDOSCOPY, COLON, SCREENING 01/24/2019 12:00 AM [employer] from Last 3 Months or Most Recently Relevant to Health Maintenance Results * EKG 12 lead (03/03/2025 2:46 PM CDT) Narrative Day, Donn Lennon MD - 03/03/2025 2:46 PM CDT Donn Rodríguez MD ? 03/03/2025 ??2:58 PM EKG 12 lead Date/Time: 03/03/2025 2:46 PM Performed by: Donn Rodríguez MD Authorized by: Donn Rodríguez MD ?? ECG interpreted by ED Physician in the absence of a spike machine feeder: yes ?? Rate: ??ECG rate: ??73 ??ECG rate assessment: age appropriate ?? Rhythm: ??Rhythm Origin: sinus ?? Intervals: ?? prolonged ME interval (224ms) Blocks: ??AV: ??1st QRSTT: ??QRSTT changes: Yes ?? Comments: ?? TWI in lead aVL, however no contiguous lead abnormality. No ST segment elevation at this time. No significant changes from EKG done in 10/22, when patient had NSTEMI. us Donn Rodríguez MD ECG ORDERABLES Final Result * XR CHEST PA OR AP 1 VW (03/03/2025 2:40 PM CDT) Anatomical Region Laterality Modality Chest Computed Radiogr aphy 03/03/2025 2:40 PM CDT Impressions 03/03/2025 3:14 PM CDT IMPRESSION: ? Limited radiograph; no definitive acute abnormality or significant change. ?? Narrative 03/03/2025 3:14 PM CDT EXAM: XR CHEST PA OR AP 1 VW DATE/TIME OF EXAM: 03/03/2025 2:40 PM REASON FOR EXAM: Chest Pain DIAGNOSIS: NSTEMI (non-ST elevated myocardial infarction) ([facility]) COMPARISON: ??01/05/2025 ?? FINDINGS: ?? - Lines/tubes: None. - Cardiomediastinal: Contours remain unchanged from prior imaging. - Lungs/pleura: Within the limitations of body habitus, respiratory motion, and low lung volumes, the lungs appear grossly clear. No significant pleural effusion. - Bones and soft tissues: No acute abnormalities. - Additional comments: None. ?? Procedure Note Natan Cordoba MD - 03/03/2025 EXAM: XR CHEST PA OR AP 1 VW DATE/TIME OF EXAM: 03/03/2025 2:40 PM REASON FOR EXAM: Chest Pain DIAGNOSIS: NSTEMI (non-ST elevated myocardial infarction) ([facility]) COMPARISON: 01/05/2025 FINDINGS: - Lines/tubes: None. - Cardiomediastinal: Contours remain unchanged from prior imaging. - Lungs/pleura: Within the limitations of body habitus, respiratory motion, and low lung volumes, the lungs appear grossly clear. No significant pleural effusion. - Bones and soft tissues: No acute abnormalities. - Additional comments: None. IMPRESSION: Limited radiograph; no definitive acute abnormality or significant change. Result Olivia Rodríguez MD DIAGNOSTIC IMAGING ORDERABLES F inal Result * (ABNORMAL) TROPONIN BASELINE, 5TH GEN (03/03/2025 2:00 PM CDT) TROPONIN T, BASELINE 5TH GEN 79(H) <=15 ng/L 03/03/2025 2:34 PM CDT [facility] Blood Collection / Unknown 03/03/2025 2:00 PM CDT 03/03/2025 2:08 PM CDT Narrative [facility] - 03/03/2025 2:34 PM CDT Troponin elevated. Result Olivia Rodríguez MD CHEMISTRY ORDERABLES Final Resu lt [facility] CLIA # [id number] [address] [place] [address] * (ABNORMAL) LACTIC ACID (03/03/2025 2:00 PM CDT) LACTIC ACID 3.1(H) <=2.0 mmol/L 03/03/2025 2:29 PM CDT [facility] Blood BLOOD SPECIMEN / Unknown Collection / Unknown 03/03/2025 2:00 PM CDT 03/03/2025 2:08 PM CDT Result Olivia Rodríguez MD CHEMISTRY ORDERABLES Final Resu lt [facility] CLIA # [id number] [address] [place] [address] * (ABNORMAL) CBC WITH DIFFERENTIAL (03/03/2025 2:00 PM CDT) Only the most recent of2 resultswithin the time period is included. WBC 6.2 4.2 - 9.1 K/uL 03/03/2025 2:14 PM [facility] RBC 5.38 4.63 - 6.08 M/uL 03/03/2025 2:14 PM [facility] HEMOGLOBIN 14.2 13.7 - 17.5 g/dL 03/03/2025 2:14 PM [facility] HEMATOCRIT 45.0 40.1 - 51.0 % 03/03/2025 2:14 PM [facility] MCV 83.6 79.0 - 92.2 fL 03/03/2025 2:14 PM [facility] MCH 26.4 25.7 - 32.2 pg 03/03/2025 2:14 PM [facility] MCHC 31.6(L) 32.3 - 36.5 g/dL 03/03/2025 2:14 PM [facility] RDW 16.1(H) 11.0 - 14.5 % 03/03/2025 2:14 PM [facility] RDW-STDEV 49.2 36.9 - 56.9 fL 03/03/2025 2:14 PM [facility] PLATELETS 212 130 - 400 K/uL 03/03/2025 2:14 PM [facility] MPV 10.6 10.0 - 14.8 fL 03/03/2025 2:14 PM [facility] NEUTROPHILS 59 34 - 68 % 03/03/2025 2:14 PM [facility] LYMPHOCYTES 29 22 - 53 % 03/03/2025 2:14 PM [facility] MONOCYTES 8 5 - 12 % 03/03/2025 2:14 PM [facility] EOSINOPHILS 2 1 - 7 % 03/03/2025 2:14 PM CDT [facility] BASOPHILS 0 0 - 1 % 03/03/2025 2:14 PM CDT [facility] IMMATURE GRANULOCYTES 1 % 03/03/2025 2:14 PM CDT [facility] NEUTROPHIL ABSOLUTE 3.65 1.78 - 5.38 K/uL 03/03/2025 2:14 PM CDT [facility] LYMPHOCYTE ABSOLUTE 1.81 1.20 - 3.40 K/uL 03/03/2025 2:14 PM CDT [facility] MONOCYTE ABSOLUTE 0.50 0.30 - 0.82 K/uL 03/03/2025 2:14 PM CDT [facility] EOSINOPHIL ABSOLUTE 0.15 0.04 - 0.54 K/uL 03/03/2025 2:14 PM CDT [facility] BASOPHILS ABSOLUTE 0.02 0.01 - 0.08 K/uL 03/03/2025 2:14 PM CDT [facility] IMMATURE GRANULOCYTES ABSOLUTE 0.04 K/uL 03/03/2025 2:14 PM CDT [facility] Blood Collection / Unknown 03/03/2025 2:00 PM CDT 03/03/2025 2:08 PM CDT us Donn Rodríguez MD HEMATOLOGY ORDERABLES Final Res ult [facility] CLIA # [id number] [address] [place] [address] * PTT (03/03/2025 2:00 PM CDT) PTT 26.4 25.8 - 34.0 seconds 03/03/2025 2:29 PM CDT [facility] Blood Collection / Unknown 03/03/2025 2:00 PM CDT 03/03/2025 2:08 PM CDT us Donn Rodríguez MD HEMATOLOGY ORDERABLES Final Res ult [facility] [id number] [address] [place] [address] * SEDIMENTATION RATE (03/03/2025 2:00 PM CDT) [facility] ESR (SEDIMENTATION RATE) 8 0 - 20 mm/Hr 03/03/2025 2:14 PM CDT [facility] Blood Collection / Unknown 03/03/2025 2:00 PM CDT 03/03/2025 2:08 PM CDT Narrative [facility] - 03/03/2025 2:14 PM CDT Tube Lot: #[id number] Exp Date: 06/28/2026 SR 0125-1 EXP. 06/02/25 SR 0125-2 EXP. 06/02/25 us Donn Rodríguez MD HEMATOLOGY ORDERABLES Final Res ult Performing Organization Address City/[facility]/ZIP Co de Phone Number [facility] # [id number] [address] [place] [address] * PROTIME-INR (03/03/2025 2:00 PM CDT) [facility] PROTIME 12.3 11.9 - 14.6 Seconds 03/03/2025 2:29 PM CDT [facility] INR 0.9 0.9 - 1.1 03/03/2025 2:29 PM CDT [facility] Blood Collection / Unknown 03/03/2025 2:00 PM CDT 03/03/2025 2:08 PM CDT us Donn Rodríguez MD HEMATOLOGY ORDERABLES Final Res ult Performing Organization Address City/[facility]/ZIP Co de Phone Number [facility] # [id number] [address] [place] [address] * D-DIMER (03/03/2025 2:00 PM CDT) D-DIMER QUANT 0.19 <0.50 ug/mL FEU 03/03/2025 2:29 PM CDT [facility] Blood Collection / Unknown 03/03/2025 2:00 PM CDT 03/03/2025 2:08 PM CDT Narrative [facility] - 03/03/2025 2:29 PM CDT D-Dimer assay cutoff value for exclusion of DVT and/or PE is <0.50 ug/mL FEU. As D-Dimer levels increase naturally with age, age stratification for patients over 50 is potentially more appropriate in determining whether a patient should undergo further evaluation for DVT and/or PE than a general cutoff of 0.50 ug/mL FEU. Clinical consideration is recommended. Age Stratified Cutoff Values: 50-60 years: 0.50-0.60 ug/mL FEU 61-70 years: 0.61-0.70 ug/mL FEU 71-80 years: 0.71-0.80 ug/mL FEU us Donn Rodríguez MD HEMATOLOGY ORDERABLES Final Res ult Performing Organization Address City/[facility]/ZIP Co de Phone Number [facility] CLIA # [id number] [address] [place] [address] * (ABNORMAL) C-REACTIVE PROTEIN (03/03/2025 2:00 PM CDT) CRP 13.8(H) <5.0 mg/L 03/03/2025 2:34 PM CDT [facility] Blood Collection / Unknown 03/03/2025 2:00 PM CDT 03/03/2025 2:08 PM CDT us Donn Rodríguez MD CHEMISTRY ORDERABLES Final Resu lt Performing Organization Address City/[facility]/ZIP Co de Phone Number [facility] CLIA # [id number] [address] [place] [address] * (ABNORMAL) TSH (03/03/2025 2:00 PM CDT) Only the most recent of2 resultswithin the time period is included. TSH 4.44(H) 0.27 - 4.20 uIU/mL 03/03/2025 2:34 PM CDT [facility] Blood Collection / Unknown 03/03/2025 2:00 PM CDT 03/03/2025 2:08 PM CDT us Donn Rodríguez MD CHEMISTRY ORDERABLES Final Resu lt Performing Organization Address [facility] Co de Phone Number [facility] CLIA # [id number] [address] [place] [address] * (ABNORMAL) BRAIN NATRIURETIC PEPTIDE, BNP OR PROBNP (03/03/2025 2:00 PM CDT) PROBNP, N TERMINAL 601(H) 0 - 125 pg/mL 03/03/2025 2:34 PM CDT [facility] Comment: INTERPRETIVE COMMENT based on diagnosis: Diagnostic NT pro-BNP cutoffs for Heart Failure in the absence of renal failure is suggested for the following ranges ?? <75 ??years: <125 pg/mL >=75 ??years: <450 pg/mL Exclusionary rule out cut-point for Acute Decompensated Heart Failure(ADHF) All ages: <300 pg/mL Diagnostic NT pro-BNP cutoffs for Acute Decompensated Heart Failure(ADHF) in the absence of renal failure is suggested for the following ages ?? <50 ??years: > 450 ??pg/mL 50-75 years: > 900 ??pg/mL ?? >75 ??years: >1800 pg/mL Blood Collection / Unknown 03/03/2025 2:00 PM CDT 03/03/2025 2:08 PM CDT us Donn Rodríguez MD CHEMISTRY ORDERABLES Final Resu lt Performing Organization Address City/[facility]/ZIP Co de Phone Number [facility] CLIA # [id number] [address] [place] [address] * MAGNESIUM LEVEL (03/03/2025 2:00 PM CDT) MAGNESIUM 1.9 1.6 - 2.4 mg/dL 03/03/2025 2:34 PM CDT [facility] Blood Collection / Unknown 03/03/2025 2:00 PM CDT 03/03/2025 2:08 PM CDT us Donn Rodríguez MD CHEMISTRY ORDERABLES Final Resu lt Performing Organization Address City/[facility]/ZIP Co de Phone Number [facility] CLIA # [id number] [address] [place] [address] * LIPASE (03/03/2025 2:00 PM CDT) LIPASE 44 13 - 60 U/L 03/03/2025 2:34 PM CDT [facility] Blood Collection / Unknown 03/03/2025 2:00 PM CDT 03/03/2025 2:08 PM CDT us Donn Rodríguez MD CHEMISTRY ORDERABLES Final Resu Performing Organization Address [facility]/ZIP Co de Phone Number [facility] CLIA # [id number] [address] [place] [address]248 * (ABNORMAL) COMPREHENSIVE METABOLIC PANEL (03/03/2025 2:00 PM CDT) Only the most recent of2 resultswithin the time period is included. SODIUM 142 136 - 145 mmol/L 03/03/2025 2:34 PM CDT [facility] POTASSIUM 3.9 3.5 - 5.1 mmol/L 03/03/2025 2:34 PM CDT [facility] CHLORIDE 104 98 - 107 mmol/L 03/03/2025 2:34 PM CDT [facility] CO2 25 22 - 29 mmol/L 03/03/2025 2:34 PM CDT [facility] CALCIUM 9.2 8.8 - 10.2 mg/dL 03/03/2025 2:34 PM [facility] BUN 13 8 - 23 mg/dL 03/03/2025 2:34 PM [facility] CREATININE 0.83 0.67 - 1.17 mg/dL 03/03/2025 2:34 PM [facility] GLUCOSE 147(H) 74 - 99 mg/dL 03/03/2025 2:34 PM [facility] TOTAL PROTEIN 7.7 6.6 - 8.7 g/dL 03/03/2025 2:34 PM [facility] ALBUMIN 4.0 4.0 - 4.9 g/dL 03/03/2025 2:34 PM [facility] BILIRUBIN TOTAL 0.6 <=1.2 mg/dL 03/03/2025 2:34 PM [facility] ALKALINE PHOSPHATASE 128 40 - 129 U/L 03/03/2025 2:34 PM [facility] AST 25 0 - 50 U/L 03/03/2025 2:34 PM [facility] ALT 23 0 - 50 U/L 03/03/2025 2:34 PM [facility] GFR >60 >=60 mL/min/1.7 3 sq meter 03/03/2025 2:34 PM [facility] Comment:eGFR calculated with 2020 CKD-EPI equation. Vegetarian diet, extremely high or low muscle mass, and may affect results. Cystatin C with Glomerular Filtration Rate is a suitable alternative for these patients. ANION GAP 13 5 - 20 mmol/L 03/03/2025 2:34 PM [facility] Blood Collection / Unknown 03/03/2025 2:00 PM CDT 03/03/2025 2:08 PM CDT us Donn Rodríguez MD CHEMISTRY ORDERABLES Final Resu lt [facility] CLIA # [id number] [address] [place] [address] * (ABNORMAL) URIC ACID (02/01/2025 4:03 PM BEV[employer] FACE STONER AND POLISHER) URIC ACID 8.4(H) 4.0 - 8.0 mg/dL [facility] Comment: Therapeutic target for gout patients: <6.0 mg/dL ?? Test Performed at: [facility] [address] [place], [place] ??[phone] Jaguar Lira MD Blood 02/01/2025 4:03 PM [employer] POLISH[employer] 02/03/2025 2:37 AM BEV[employer] FACE STONER AND POLISHER Demetri Hardin MD CHEMISTRY ORDERABLES Glenys l Result [facility] [phone] [facility] [address] * (ABNORMAL) HEMOGLOBIN A1C (02/01/2025 4:03 PM [employer] POLISHER) HEMOGLOBIN A1C 6.1(H) <5.7 % of total Hgb [facility] Comment: For someone without known diabetes, a hemoglobin A1c value between 5.7% and 6.4% is consistent with prediabetes and should be confirmed with a follow-up test. For someone with known diabetes, a value <7% indicates that their diabetes is well controlled. A1c targets should be individualized based on duration of diabetes, age, comorbid conditions, and other considerations. This assay result is consistent with an increased risk of diabetes. Currently, no consensus exists regarding use of hemoglobin A1c for diagnosis of diabetes for children. ESTIMATED AVERAGE GLUCOSE (MG/DL) 128 mg/dL [facility] ESTIMATED AVERAGE GLUCOSE (MMOL/L) 7.1 mmol/L [facility] Comment: Test Performed at: [facility] ??[phone] Jaguar Lira MD Blood 02/01/2025 4:03 PM [employer] FACE [employer]ER [employer] POLISHER 02/03/2025 2:37 AM BEV[employer] FACE [employer]ONER AND POLISHER Demetri Hardin MD CHEMISTRY ORDERABLES Glenys l Result [facility] [phone] [facility] [address] [place] [address] * (ABNORMAL) LIPID PANEL (02/01/2025 4:03 PM [employer] POLISHER) CHOLESTEROL 201(H) <200 mg/dL [facility] HDL 41 > OR = 40 mg/dL [facility] TRIGLYCERIDE 121 <150 mg/dL [facility] LDL CALCULATED 136(H) mg/dL (calc) [facility] Comment: Reference range: <100 Desirable range <100 mg/dL for primary prevention; ?? <70 mg/dL for patients with CHD or diabetic patients with > or = 2 CHD risk factors. LDL-C is now calculated using the Tomi calculation, which is a validated novel method providing better accuracy than the Friedewald equation in the estimation of LDL-C. Siva SS et al. TRIPP. 2013;310(19): 5032-2146 (http://education.Create/faq/FDK641) CHOL/HDL RATIO 4.9 <5.0 (calc) [facility] NON-HDL CHOLESTEROL 160(H) <130 mg/dL (calc) [facility] Comment: For patients with diabetes plus 1 major ASCVD risk factor, treating to a non-HDL-C goal of <100 mg/dL (LDL-C of <70 mg/dL) is considered a therapeutic option. Test Performed at: [facility] [address] [place], [place] ??[phone] Jaguar Lira MD Blood 02/01/2025 4:03 PM [employer] FACE [employer] POLISHER 02/03/2025 2:37 AM BEV[employer] FACE [employer]ONER AND POLISHER Demetri Hardin MD CHEMISTRY ORDERABLES Glenys l Result [facility] [phone] [facility] [address] [place] [address] * XR FOREARM 2 VW LEFT (01/11/2025 11:03 PM [employer] POLISHER) Anatomical Region Laterality Modality Upper Extremity Computed Radiogr aphy 01/11/2025 11:0 3 PM [employer] POLISHER Impressions 01/11/2025 11:11 PM [employer]ONER AND POLISHER IMPRESSION: Please see below. Exam: XR FOREARM 2 VW LEFT Date/Time of Exam: 01/11/2025 11:03 PM REASON FOR EXAM: Fall. DIAGNOSIS: See Reason for Exam. Findings: There is no evidence of fracture or dislocation. There are mild degenerative changes. Well-corticated calcifications in the medial dorsal subcutaneous tissues are likely post traumatic or post inflammatory in nature. There are scattered atherosclerotic changes. IMPRESSION: No acute osseous injury. Narrative Procedure Note Nate Willoughby MD - 01/11/2025 IMPRESSION: Please see below. Exam: XR FOREARM 2 VW LEFT Date/Time of Exam: 01/11/2025 11:03 PM REASON FOR EXAM: Fall. DIAGNOSIS: See Reason for Exam. Findings: There is no evidence of fracture or dislocation. There are mild degenerative changes. Well-corticated calcifications in the medial dorsal subcutaneous tissues are likely post traumatic or post inflammatory in nature. There are scattered atherosclerotic changes. IMPRESSION: No acute osseous injury. Bre Krishna MD DIAGNOSTIC IMAGING ORDERABLE S Final Result * COVID-19 ANTIGEN (01/11/2025 10:25 PM [employer] POLISHER) COVID-19 ANTIGEN Presumptive Negative Presumptive Negative 01/11/2025 11:04 PM [facility] Upper Respiratory ANTERIOR NARES SWAB / Unknown Collection / Unknown 01/11/2025 10:25 PM [employer] POLISHER 01/11/2025 10:32 PM [employer]ACE [employer]ER [employer] POLISHER [facility] - 01/11/2025 11:04 PM [employer]ACE [employer]ONER AND POLISHER Marii SARS antigen test has been authorized by FDA under an emergency use authorization (EUA) and has been authorized only for the detection of proteins from SARS-CoV-2 and influenza, not for any other viruses or pathogens. Marii SARS Antigen KARMA is intended for the simultaneous qualitative detection and differentiation of nucleocapsid protein antigen from SARS-CoV-2 directly from nasopharyngeal (PAYROLL AND BENEFITS MANAGER) and nasal (NS) swab specimens collected from individuals who are suspected of respiratory viral infection consistent with COVID-19 by their healthcare provider within the first five (5) days of symptom onset when tested at least twice over three days with at least 48 hours between tests, or from individuals without symptoms or other epidemiological reasons to suspect COVID-19 when tested at least three times over five days with at least 48 hours between tests. This test is only authorized for the duration of the declaration that circumstances exist justifying the authorization of emergency use of in vitro diagnostics for detection and/or diagnosis of the virus that causes COVID-19 under Section 564(b)(1) of the Act, 21 U.S.C. ?? 360bbb-3(b)(1), unless the authorization is terminated or revoked sooner. Negative results should be treated as presumptive and confirmed with a molecular assay, if necessary for patient care. ??Serial testing should be performed in individuals with negative results at least twice over three days (with 48 hours between tests) for symptomatic individuals or from individuals without symptoms or other epidemiological reasons to suspect COVID-19 when tested at least three times over five days with at least 48 hours between tests. Bre Krishna MD MICROBIOLOGY - GENERAL ORDER SALOME Final Result [facility] [id number] [address] [place] [address] * INFLUENZA VIRUS A AND B, ANTIGEN DETECTION (01/11/2025 10:25 PM [employer] POLISHER) INFLUENZA A AG NOT DETECTED Not Detected 01/11/2025 11:05 PM [employer]ACE [employer]ER [employer] POLISHER [facility] INFLUENZA B AG NOT DETECTED Not Detected 01/11/2025 11:05 PM [employer] POLISHER [facility] Upper Respiratory ENTIRE NASOPHARYNX / Unknown Collection / Unknown 01/11/2025 10:25 PM [employer] POLISHER 01/11/2025 10:32 PM [employer] POLISHER [facility] - 01/11/2025 11:05 PM [employer] POLISHER Negative results do not rule out infection. ??If clinically indicated, consider PCR testing which is more sensitive than antigen testing. ??If PCR testing is desired, consult with your local laboratory as sample recollection may be required. Bre Krishna MD MICROBIOLOGY - GENERAL ORDER SALOME Final Result [facility] [id number] [address] [facility] [address] [place] [address] * XR CHEST PA AND LATERAL 2 VW (01/05/2025 10:11 PM [employer] POLISHER) Anatomical Region Laterality Modality Chest Computed Radiogr aphy 01/05/2025 10:1 1 PM [employer] Impressions 01/05/2025 10:25 PM [employer] POLISHER IMPRESSION: No acute pulmonary process. Narrative 01/05/2025 10:25 PM [employer] POLISHER Exam: XR CHEST PA AND LATERAL 2 VW Date/Time of Exam: 01/05/2025 10:11 PM Reason For Exam: Cough and Congestion. Diagnosis: See Reason for Exam. Comparison: 10/03/2024. Findings: The cardiac silhouette appears enlarged. No pulmonary consolidation, pleural effusion or pneumothorax is identified. The osseous structures appear grossly intact. Procedure Note Nate Abreu, DO - 01/05/2025 Exam: XR CHEST PA AND LATERAL 2 VW Date/Time of Exam: 01/05/2025 10:11 PM Reason For Exam: Cough and Congestion. Diagnosis: See Reason for Exam. Comparison: 10/03/2024. Findings: The cardiac silhouette appears enlarged. No pulmonary consolidation, pleural effusion or pneumothorax is identified. The osseous structures appear grossly intact. IMPRESSION: No acute pulmonary process. us Leoncio Mcmahon DO DIAGNOSTIC IMAGING ORDERABL ES Final Result * (ABNORMAL) INFLUENZA A/B, RSV AND COVID-19 PCR PANEL (01/05/2025 9:09 PM [employer] POLISHER) COVID-19 PCR NOT DETECTED Not Detected 01/05/20 10:02 PM [employer]ACE [employer] POLISHER [facility] Influenza A by PCR DETECTED(A) Not Detected 01/05/2025 10:02 PM [facility] Influenza B by PCR NOT DETECTED Not Detected 01/05/2025 10:02 PM [facility] RSV by PCR NOT DETECTED Not Detected 01/05/2025 10:02 PM [facility] Upper Respiratory ENTIRE NASOPHARYNX / Unknown Collection / Unknown 01/05/2025 9:09 PM [employer] POLISHER 01/05/2025 9:17 PM [facility] Narrative [facility] - 01/05/2025 10:02 PM [facility] Xpress CoV-2/Flu/RSV plus Box Lot#:[id number] Cartridge ID#[id number] Exp. 11-04-2025 This test has been authorized by the FDA under an Emergency Use Authorization for use by authorized laboratories.?? This test has been validated in accordance with the FDA's guidance regarding Coronavirus Disease-2019 testing.?? Optimum specimen types and timing for peak viral levels during infection have not been determined.?? A negative RT-PCR result does not rule out infection with the 2019-Novel Coronavirus. Leoncio Mcmahon DO MICROBIOLOGY - GENERAL ORDE PRIYA Final Result [facility] CLIA # [id number] [address] [place] [address] * ENDOSCOPY, COLON, SCREENING (01/24/2019 12:00 AM BEV[employer] FACE STONER AND POLISHER) Sgf Scanning GI PROCEDURE ORDERABLES Final Re sult from Last 3 Months or Most Recently Relevant to Health Maintenance Insurance [facility] [place] [facility] [id number] Care Teams Irrigation Foreman Relationship Specialty Start Date End Date Demetri Hardin MD [address] [address] PCP - General Family Practice 07/28/17
--- OUTSIDE RECORDS SUMMARY | 2025-03-03 16:59 | XMS_ITS | Encounter Summary ---
Author Organization [facility] Address [address] [place] [address] Care Team Providers Care Manager Government Name Role Phone Demetri Hardin MD Primary Care Provider [phone] Reason for Visit * Reason Onset Date Comments TRANSITION CARE MANAGEMENT 09/28/2020 1st c all Encounter Details Date Type Department Care Team (Late st Contact Info) Description 09/28/2020 Patient Outreach [facility] Freelance Translator [address] [address] Angelica Villeda RN TRANSITION CARE MANAGEMENT (1st call) Social History Tobacco Use Types Packs/Day Years [...] your partner or ex-partner? Patient declined 09/23/2020 Food Insecurity Answer Date Recorded Within the [...] things needed for daily living? No 09/23/2020 Sex and Gender Information Value Date Recorded Sex Assigned at Not on file Legal Sex Male 4:50 AM ART THERAPY CERTIFIED SUPERVISOR Gender Identity Not on file Sexual Orientation Not on file Occupation Industry Job Start Date Job End Date Not on file Not on file Not on file Not on file Not on file Not on file Not on file Not on file COVID-19 Exposure Response Date Recorded In the last month, have you been in contact with someone who was confirmed or suspected to have Coronavirus / COVID-19? No / Unsure 09/27/2020 9:00 AM CDT documented as of this encounter Plan of Treatment Not on file documented as of this encounter Visit Diagnoses Not on filedocumented in this encounter Additional Health Concerns Infection Onset Date Last Indicated Resolved Time COVID-19 09/22/2020 09/22/2020 10/12/2020 8:08 PM ART THERAPY CERTIFIED SUPERVISOR Assessment Noted Time PHQ-9 Depression Total Score: 2 09/23/20 20 8:25 AM CDT documented as of this encounter Care Teams Manager Government Relationship Specialty Start Date End Date Demetri Hradin MD [address] [facility] [address] [place] [phone] PCP - General Family Practice 07/28/17 documented as of this encounter
--- OUTSIDE RECORDS SUMMARY | 2025-03-03 16:59 | XMS_ITS | Encounter Summary ---
Author Organization [facility] Address [address] [place] [address] Care Team Providers Care Early Head Start Director Name Role Phone Demetri Hardin MD Primary Care Provider [phone] [phone] Encounter Details Date Type Department Care Team (Latest Contact Info) Description 01/13/2005 Outpatient Historical [address] [address] Niya Dnag NP NO ADDRESS ON FILE EDEMA (Primary Dx); CELLULITIS OF FOOT; Pain in limb Social History Tobacco Use Types Packs/Day Years Used Date Smoking Tobacco: Never Assessed Sex and Gender Information Value Date Recorded Sex Assigned at Not on file Legal Sex Male 4:50 AM PHARMACY CLINICAL SPECIALIST Gender Identity Not on file Sexual Orientation Not on file documented as of this encounter Plan of Treatment Not on file documented as of this encounter Visit Diagnoses Diagnosis Edema- Primary Cellulitis and abscess of foot, except toes Pain in limb Pain in soft tissues of limb documented in this encounter Additional Health Concerns Infection Onset Date Last Indicated Resolved Time R/O COVID-19 09/22/2020 09/22/2020 09/23/2020 11:1 6 AM CDT COVID-19 09/22/2020 09/22/2020 10/12/2020 8:08 PM PHARMACY CLINICAL SPECIALIST documented as of this encounter Care Teams Early Head Start Director Relationship Specialty Start Date End Date Demetri Hardin MD [address] [address] PCP - General Family Practice 07/28/17 documented as of this encounter
--- OUTSIDE RECORDS SUMMARY | 2025-03-03 16:59 | XMS_ITS | Encounter Summary ---
Author Organization [facility] Address [address] [facility] [place] [address] Care Team Providers Care Model Maker Apprentice Name Role Phone Demetri Hardin MD Primary Care Provider [phone] [phone] Encounter Details Date Type Department Care Team (Latest Contact Info) Description 01/23/2005 Outpatient Historical [facility] Family Medicine- [address] [place] [phone] Lucille Borja MD NO ADDRESS ON FILE GOUT NOS (Primary Dx) Social History Tobacco Use Types Packs/Day Years Used Date Smoking Tobacco: Never Assessed Sex and Gender Information Value Date Recorded Sex Assigned at Not on file Legal Sex Male 4:50 AM TAX DIRECTOR Gender Identity Not on file Sexual Orientation Not on file documented as of this encounter Plan of Treatment Not on file documented as of this encounter Visit Diagnoses Diagnosis Gout, unspecified- Primary documented in this encounter Additional Health Concerns Infection Onset Date Last Indicated Resolved Time R/O COVID-19 09/22/2020 09/22/2020 09/23/2020 11:1 6 AM CDT COVID-19 09/22/2020 09/22/2020 10/12/2020 8:08 PM TAX DIRECTOR documented as of this encounter Care Teams Model Maker Apprentice Relationship Specialty Start Date End Date Demetri Hardin MD [address] [facility] [address] [place] [address] PCP - General Family Practice 07/28/17 documented as of this encounter
--- OUTSIDE RECORDS SUMMARY | 2025-03-03 16:59 | XMS_ITS | Encounter Summary ---
Author Organization [employer] Address [address] [place] [address] Care Team Providers Care Chemical Librarian Name Role Phone Demetri Hardin MD Primary Care Provider [phone] [phone] Encounter Details Date Type Department Care Team (Late st Contact Info) Description 02/06/2025 External Device Data STL ABSTRACTION Provider, [...] relatives? Three times a week 12/02/2020 Attends Alevism Services Not on file 12/02 Active Member [...] on file Legal Sex Male 6:26 AM FACILITY SPECIALIST Gender Identity Not on file Sexual Orientation Not on file documented as of this encounter Plan of Treatment Upcoming Encounters Date Type Department Care Team (Late st Contact Info) Description 08/06/2025 4:00 PM CDT [facility] [place] [address] [address] Demetri Hardin MD [address] [address] documented as of this encounter Visit Diagnoses Not on filedocumented in this encounter Additional Health Concerns Assessment Noted Time PHQ-9 Depression Total Score: 2 02/02/20 25 3:32 PM FACILITY SPECIALIST documented as of this encounter Care Teams Chemical Librarian Relationship Specialty Start Date End Date Demetri Hardin MD [address] [address] PCP - General Family Practice 07/28/17 documented as of this encounter
--- OUTSIDE RECORDS SUMMARY | 2025-03-03 16:59 | XMS_ITS | Encounter Summary ---
Author Organization [employer] Address [address] [place] [address] Care Team Providers Care Drywall Metal Stud Worker Name Role Phone Demetri Hardin MD Primary Care Provider [phone] [phone] Encounter Details Date Type Department Care Team [...] relatives? Three times a week 12/02/2020 Attends Quaker Services Not on file 12/02 Active Member [...] on file Legal Sex Male 6:26 AM SUPERVISOR [employer]ARM[employer] Gender Identity Not on file Sexual Orientation Not on file documented as of this encounter Plan of Treatment Upcoming Encounters Date Type Department Care Team (Late st Contact Info) Description 08/06/2025 4:00 PM CDT Office Visit [facility] [place] [address] [address] Demetri Hardin MD [address] [address] documented as of this encounter Visit Diagnoses Not on filedocumented in this encounter Additional Health Concerns Assessment Noted Time PHQ-9 Depression Total Score: 2 02/02/20 25 3:32 PM SUPERVISOR [employer]ARMING documented as of this encounter Care Teams Drywall Metal Stud Worker Relationship Specialty Start Date End Date Demetri Hardin MD [address] [address] PCP - General Family Practice 07/28/17 documented as of this encounter
--- OUTSIDE RECORDS SUMMARY | 2025-03-03 16:59 | XMS_ITS | Encounter Summary ---
Author Organization [facility] Address [address] [place]: Epic Prelude ADT [place] [address] Care Team Providers Care Autopsy Pathologist Name Role Phone Demetri Hardin MD Primary Care Provider [phone] [phone] Encounter Details Date Type Department Care Team (Late st Contact Info) Description 03/02/2025 External Device Data Initial Department [address] [place]: [place] [address] [facility], Social History Tobacco Use Types Packs/Day Years [...] relatives? Three times a week 12/02/2020 Attends Mormonism Services Not on file 12/02 Active Member [...] worry about transportation for future doctor visits, corn picker medication, etc.? No 2024 Housing Stability [...] on file Legal Sex Male 6:26 AM TRAINING LEAD Gender Identity Not on file Sexual Orientation Not on file documented as of this encounter Plan of Treatment Upcoming Encounters Date Type Department Care Team (Late st Contact Info) Description 08/06/2025 4:00 PM CDT Office Visit [facility] Medicine [place] [address] [phone] Demetri Hardin MD [address] [address] documented as of this encounter Visit Diagnoses Not on filedocumented in this encounter Additional Health Concerns Assessment Noted Time PHQ-9 Depression Total Score: 2 02/02/20 25 3:32 PM TRAINING LEAD documented as of this encounter Care Teams Autopsy Pathologist Relationship Specialty Start Date End Date Demetri Hardin MD [address] [facility] [address] [place] [address] PCP - General Family Practice 07/28/17 documented as of this encounter
--- OUTSIDE RECORDS SUMMARY | 2025-03-03 16:59 | XMS_ITS | Encounter Summary ---
Author Organization [facility] Address [address] [place] [address] Care Team Providers Care Line Controller Name Role Phone Demetri Hardin MD Primary Care Provider +1 [phone] Reason for Visit * Reason Onset Date Comments TRANSITION CARE MANAGEMENT 09/29/2020 3rd c all Encounter Details Date Type Department Care Team (Late st Contact Info) Description 09/29/2020 Patient Outreach [facility] Composite Engineer [address] [place] [address] Angelica Villeda RN TRANSITION CARE MANAGEMENT (3rd call) Social History Tobacco Use Types Packs/Day [...] on file Legal Sex Male 4:50 AM OPERATIONS/DISPATCH Gender Identity Not on file Sexual Orientation [...] AM CDT documented as of this encounter Miscellaneous Notes * Telephone Encounter - Angelica Villeda RN - 09/29/2020 12:28 PM CST Transitional Outreach Not Completed Because: Unable to Reach Patient After Multiple Attempts MEDICATION RECONCILIATION POST-DISCHARGE Current and discharge medications reviewed and reconciled: Yes Medications as of 09/29/2020: Current Outpatient Medications: ??? aluminum - magnesium - simethicone (MYLANTA) 200-200-20 mg/5 mL Suspension, Take 30 mL by mouthevery 2 hours as needed for Indigestion., Disp: 354 mL, Rfl: 1 ??? guaiFENesin (MUCINEX) 600 mg Extended Release Biphasic tablet, Take 1 Tablet (600 mg) by mouth every 12 hours for 14 days., Disp: 28 Tablet, Rfl: 0 ??? omeprazole (PriLOSEC) 20 mg Capsule, Delayed Release(E.C.), Take 1 Capsule (20 mg) by mouth daily before breakfast., Disp: 30 Capsule, Rfl: 0 ??? simethicone 80 mg Tablet, Chewable, Take 1 Tablet (80 mg) by mouth every 6 hours as needed for Gas (Single dose of up to 160 mg after meals or at bedtime, not to exceed maximum daily dose of 500 mg/day)., Disp: 60 Tablet, Rfl: 2 ??? gabapentin (NEURONTIN) 300 mg capsule, TAKE 1 CAPSULE BY MOUTH IN THE MORNING AND 1 CAPSULE AT LUNCHTIME AND 2 CAPSULES ONCE DAILY AT BEDTIME, Disp: 360 Capsule, Rfl: 1 ??? colchicine (COLCRYS) 0.6 mg tablet, TAKE ONE TABLET BY MOUTH ONCE DAILY NEEDED AT THE ONSET OF GOUT FLARE UNTIL SYMPTOMS RESOLVE, Disp: 30 Tablet, Rfl: 2 ??? meloxicam (MOBIC) 15 mg tablet, TAKE 1 TABLET (15 MG) BY MOUTH ONCE DAILY., Disp: 90 Tablet, Rfl: 1 ??? albuterol (PROVENTIL,VENTOLIN) 2.5 mg /3 mL (0.083 %) Solution for Nebulization, Take 3 mL (2.5mg) by inhalation every 6 hours as needed for Shortness of Breath., Disp: 100 mL, Rfl: 1 ??? fluticasone propionate (FLONASE) 50 mcg/spray [place], Suspension nasal inhaler, USE TWO SPRAY(S)IN EACH NOSTRIL ONCE DAILY, Disp: 16 mL, Rfl: 2 ??? allopurinoL (ZYLOPRIM) 300 mg tablet, TAKE 1 TABLET BY MOUTH ONCE DAILY, Disp: 30 Tablet, Rfl: 2 ??? nebulizer, Length of need 99 months Nebulizer with compressor, Kit: Disposable Nebulizer Kit, 2per month, filters , areosol mask: Yes. Name of Medication: Albuterol., Disp: 1 Each, Rfl: 0 ??? fexofenadine (MALATHI) 60 mg tablet, Take 60 mg by mouth 2 times daily., Disp: , Rfl: ??? psyllium husk (METAMUCIL) 3.4 gram/5.4 gram Powder, Take 5.4 Grams by mouth daily., Disp: 162 Gram, Rfl: 2 Angelica Villeda, [place] ATIONS/DISPATCH documented in this encounter Plan of Treatment Not on file documented as of this encounter Visit Diagnoses Not on filedocumented in this encounter Additional Health Concerns Infection Onset Date Last Indicated Resolved Time COVID-19 09/22/2020 09/22/2020 10/12/2020 8:08 PM OPERATIONS/DISPATCH Assessment Noted Time PHQ-9 Depression Total Score: 2 09/23/20 20 8:25 AM CDT documented as of this encounter Care Teams Line Controller Relationship Specialty Start Date End Date Demetri Hardin MD [address] [address] PCP - General Family Practice 07/28/17 documented as of this encounter
--- OUTSIDE RECORDS SUMMARY | 2025-03-03 16:59 | XMS_ITS | Encounter Summary ---
Author Organization [employer] Address [address] [place] [address] Care Team Providers Care Gravity Prospecting Operator Helper Name Role Phone Demetri Hardin MD Primary Care Provider +1 [phone] Encounter Details Date Type Department Care Team [...] relatives? Three times a week 12/02/2020 Attends [employer] Services Not on file 12/02 Active Member [...] on file Legal Sex Male 6:26 AM FILING MACHINE OPERATOR Gender Identity Not on file Sexual Orientation Not on file documented as of this encounter Plan of Treatment Upcoming Encounters Date Type Department Care Team (Late st Contact Info) Description 08/06/2025 4:00 PM CDT Office Visit [facility] [place] [address] [address] Demetri Hardin MD [address] [address] documented as of this encounter Visit Diagnoses Not on filedocumented in this encounter Additional Health Concerns Assessment Noted Time PHQ-9 Depression Total Score: 2 02/02/20 25 3:32 PM FILING MACHINE OPERATOR documented as of this encounter Care Teams Gravity Prospecting Operator Helper Relationship Specialty Start Date End Date Demetri Hardin MD [address] [address] PCP - General Family Practice 07/28/17 documented as of this encounter
--- OUTSIDE RECORDS SUMMARY | 2025-03-03 16:59 | XMS_ITS | Encounter Summary ---
Author Organization [facility] Address [address] [facility] [place] [address] Care Team Providers Care Professor Of Social Work Name Role Phone Demetri Hardin MD Primary Care Provider [phone] [phone] Encounter Details Date Type Department Care Team (Latest Contact Info) Description 01/12/[address] [facility] Family Medicine- [address] [place] [id number] Cesia Cortez ADDRESS ON FILE Attention to dressings and sutures (Primary Dx) Social History Tobacco Use Types Packs/Day Years Used Date Smoking Tobacco: Never Assessed Sex and Gender Information Value Date Recorded Sex Assigned at Not on file Legal Sex Male 4:50 AM MECHANIST Gender Identity Not on file Sexual Orientation Not on file documented as of this encounter Plan of Treatment Not on file documented as of this encounter Visit Diagnoses Diagnosis Attention to dressings and sutures- Primary documented in this encounter Additional Health Concerns Infection Onset Date Last Indicated Resolved Time R/O COVID-19 09/22/2020 09/22/2020 09/23/2020 11:1 6 AM CDT COVID-19 09/22/2020 09/22/2020 10/12/2020 8:08 PM MECHANIST documented as of this encounter Care Teams Professor Of Social Work Relationship Specialty Start Date End Date Demetri Hardin MD [address] [place] [address] PCP - General Family Practice 07/28/17 documented as of this encounter
--- OUTSIDE RECORDS SUMMARY | 2025-03-03 16:59 | XMS_ITS | Encounter Summary ---
Author Organization [facility] Address [address] [place] [address] Care Team Providers Care Nurse'S Companion Name Role Phone Demetri Hardin MD Primary Care Provider +1 -[phone] Reason for Referral * Outpatient Services (Routine) - Closed Specialty Diagnoses / Procedures Referred By Contac t Referred To Contact Diagnoses Other nonspecific findings on examination of blood(790.99) Nonspecific abnormal results of thyroid function study Procedures US HEAD NECK TISSUES Bob Cuevas DO [address] [place] [address] Phone: tel: fax: Referral ID Status Reason Start Date Expiration Date Visits Re quested Visits Authorized [id number] Closed 07/12/2012 07/12/2013 1 1 Encounter Details Date Type Department Care Team (Late st Contact Info) Description 07/12/2012 Ancillary Orders [facility] Ultrasound [place] [address] [place] [phone] Bob Cuevas DO [address] [place] [address] Other nonspecific findings on examination of blood; Nonspecific abnormal results of thyroid function study Social History Tobacco Use Types Packs/Day Years Used Date Smoking Tobacco: Never Alcohol Use Standard Drinks/Week Comments No 0 (1 standard drink = 0.6 oz pur e alcohol) Sex and Gender Information Value Date Recorded Sex Assigned at Not on file Legal Sex Male 4:50 AM SIGNALING PROJECT ENGINEER Gender Identity Not on file Sexual Orientation Not on file Occupation Industry Job Start Date Job End Date Not on file Not on file Not on file Not on file documented as of this encounter Plan of Treatment Not on file documented as of this encounter Results * US HEAD NECK TISSUES (07/15/2012 11:11 AM CDT) Anatomical Region Laterality Modality Head Ultrasound 07/15/2012 10:4 3 AM CDT Narrative 07/15/2012 12:58 PM CDT PROCEDURE THYROID ULTRASOUND, 15 July 2012 DESCRIPTION Right thyroid span measures 4.5 cm with AP diameter 1.7 cm and transverse diameter 1.9 cm. ??No focal lesion is identified. Left thyroid correspondingly measures 4.5 x 1.7 x 2.2 cm. ??No parenchymal lesion is seen. Thyroid isthmus measures 5.5 mm. ?? IMPRESSION normal thyroid ultrasound Procedure Note Shimon Durant MD - 07/15/2012 PROCEDURE THYROID ULTRASOUND, 15 July 2012 DESCRIPTION Right thyroid span measures 4.5 cm with AP diameter 1.7 cm and transverse diameter 1.9 cm. No focal lesion is identified. Left thyroid correspondingly measures 4.5 x 1.7 x 2.2 cm. No parenchymal lesion is seen. Thyroid isthmus measures 5.5 mm. IMPRESSION normal thyroid ultrasound Bob Cuevas DO US ORDERABLES Final Result documented in this encounter Visit Diagnoses Diagnosis Other nonspecific findings on examination of blood(790.99) Other nonspecific findings on examination of blood Nonspecific abnormal results of thyroid function study Other nonspecific findings on examination of blood(790.99) Other nonspecific findings on examination of blood Nonspecific abnormal results of thyroid function study documented in this encounter Additional Health Concerns Infection Onset Date Last Indicated Resolved Time R/O COVID-19 09/22/2020 09/22/2020 09/23/2020 11:1 6 AM CDT COVID-19 09/22/2020 09/22/2020 10/12/2020 8:08 PM SIGNALING PROJECT ENGINEER documented as of this encounter Care Teams Nurse'S Companion Relationship Specialty Start Date End Date Demetri Hardin MD [address] [phone] PCP - General Family Practice 07/28/17 documented as of this encounter
--- OUTSIDE RECORDS SUMMARY | 2025-03-03 16:59 | XMS_ITS | Encounter Summary ---
Author Organization [facility] Address [address] [place] [address] Care Team Providers Care Regulatory Compliance Officer Name Role Phone Demetri Hardin MD Primary Care Provider +1 [phone] Reason for Visit * Reason Onset Date Comments TRANSITION CARE MANAGEMENT 09/28/2020 2nd c all Encounter Details Date Type Department Care Team (Late st Contact Info) Description 09/28/2020 Patient Outreach [facility] Crack Off Person [address] [place] [address] Angelica Villeda RN TRANSITION CARE MANAGEMENT (2nd call) Social History Tobacco Use Types Packs/Day [...] on file Legal Sex Male 4:50 AM CHIEF ENGINEER Gender Identity Not on file Sexual [...] Time COVID-19 09/22/2020 09/22/2020 10/12/2020 8:08 PM CHIEF ENGINEER Assessment Noted Time PHQ-9 Depression Total Score: 2 09/23/20 20 8:25 AM CDT documented as of this encounter Care Teams Regulatory Compliance Officer Relationship Specialty Start Date End Date Demetri Hardin MD [address] [facility] [address] [place] [phone] PCP - General Family Practice 07/28/17 documented as of this encounter
--- OUTSIDE RECORDS SUMMARY | 2025-03-03 16:59 | XMS_ITS | Encounter Summary ---
Author Organization [facility] Address [address] [place] [facility] [place] [address] Care Team Providers Care Pole Sander Operator Name Role Phone Demerti Hardin MD Primary Care Provider [phone] [phone] Encounter Details Date Type Department Care Team (Latest Contact Info) Description 01/02/2000 Outpatient Historical [facility] Medicine- [address] [place] [phone] Cesia Cortez NO ADDRESS ON FILE Open wound of finger(s) , without mention of complication (Primary Dx); Closed fracture of distal phalanx or phalanges of hand Social History Tobacco Use Types Packs/Day Years Used Date Smoking Tobacco: Never Assessed Sex and Gender Information Value Date Recorded Sex Assigned at Not on file Legal 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 Male 4: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 END 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 Gender Identity Not on file Sexual Orientation Not on file documented as of this encounter Plan of Treatment Not on file documented as of this encounter Visit Diagnoses Diagnosis Open wound of finger(s) , without mention of complication- Primary Closed fracture of distal phalanx or phalanges of hand documented in this encounter Additional Health Concerns Infection Onset Date Last Indicated Resolved Time R/O COVID-19 09/22/2020 09/22/2020 09/23/2020 11:1 6 AM CDT COVID-19 09/22/2020 09/22/2020 10/12/2020 8:08 PM HEAD END 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 documented as of this encounter Care Teams Pole Sander Operator Relationship Specialty Start Date End Date Demetri Hardin MD [address] [facility] [address] [place] [phone] PCP - General Family Practice 07/28/17 documented as of this encounter
--- OUTSIDE RECORDS SUMMARY | 2025-03-03 16:59 | XMS_ITS | Encounter Summary ---
Author Organization [employer] Address [address] [place] [address] Care Team Providers Care Rehabilitation Therapy Technician Name Role Phone Demetri Hardin MD Primary Care Provider +1 [phone] Encounter Details Date Type Department Care Team (Late st Contact Info) Description 02/05/2025 External Device Data ST[facility] ABSTRACTION Provider, [...] on file Legal Sex Male 6:26 AM SYSTEMS TRAINER Gender Identity Not on file Sexual Orientation Not on file documented as of this encounter Plan of Treatment Upcoming Encounters Date Type Department Care Team (Late st Contact Info) Description 08/06/2025 4:00 PM CDT Office Visit [facility] [place] [address] [address] Demetri Hardin MD [address] [address] documented as of this encounter Visit Diagnoses Not on filedocumented in this encounter Additional Health Concerns Assessment Noted Time PHQ-9 Depression Total Score: 2 02/02/20 25 3:32 PM SYSTEMS TRAINER documented as of this encounter Care Teams Rehabilitation Therapy Technician Relationship Specialty Start Date End Date Demetri Hardin MD [address] [address] PCP - General Family Practice 07/28/17 documented as of this encounter
--- OUTSIDE RECORDS SUMMARY | 2025-03-03 16:59 | XMS_ITS | Encounter Summary ---
Author Organization [facility] Address [address] [facility] [place] [address] Care Team Providers Care Sr. Payroll Processor Name Role Phone Demetri Hardin MD Primary Care Provider +1 -[phone] Encounter Details Date Type Department Care Team (Latest Contact Info) Description 02/17/2005 Outpatient Historical [facility] Family Medicine- [address] [place] [phone] Niya Dang NP NO ADDRESS ON FILE GOUTY ARTHROPATHY (Primary Dx) Social History Tobacco Use Types Packs/Day Years Used Date Smoking Tobacco: Never Assessed Sex and Gender Information Value Date Recorded Sex Assigned at Not on file Legal Sex Male 4:50 AM HUMAN RESOURCES HR REPRESENTATIVE Gender Identity Not on file Sexual Orientation Not on file documented as of this encounter Plan of Treatment Not on file documented as of this encounter Visit Diagnoses Diagnosis Gouty arthropathy- Primary documented in this encounter Additional Health Concerns Infection Onset Date Last Indicated Resolved Time R/O COVID-19 09/22/2020 09/22/2020 09/23/2020 11:1 6 AM CDT COVID-19 09/22/2020 09/22/2020 10/12/2020 8:08 PM HUMAN RESOURCES HR REPRESENTATIVE documented as of this encounter Care Teams Sr. Payroll Processor Relationship Specialty Start Date End Date Demetri Hardin MD [address] [facility] [address] [place] [address] PCP - General Family Practice 07/28/17 documented as of this encounter
--- OUTSIDE RECORDS SUMMARY | 2025-03-03 16:59 | XMS_ITS | Encounter Summary ---
Author Organization [employer] [facility] Address [address] [place]: Epic Prelude ADT [place] [address] Care Team Providers Care Retail Department Reset Name Role Phone Demetri Hardin MD Primary Care Provider +1 -[phone] Encounter Details Date Type Department Care Team (Latest Contact Info) Description 03/03/2025 Travel Social History Tobacco Use Types Packs/Day Years [...] relatives? Three times a week 12/02/2020 Attends [employer] Not on file 12/02 Active Member [...] worry about transportation for future doctor visits, pick out hand medication, etc.? No 2024 Housing Stability Answer [...] on file Legal Sex Male 6:26 AM BALL SHAGGER Gender Identity Not on file Sexual Orientation Not on file documented as of this encounter Plan of Treatment Upcoming Encounters Date Type Department Care Team (Late st Contact Info) Description 08/06/2025 4:00 PM CDT Office Visit [facility] Medicine [place] [address] [address] Demetri Hardin MD [address] [address] documented as of this encounter Visit Diagnoses Not on filedocumented in this encounter Additional Health Concerns Assessment Noted Time PHQ-9 Depression Total Score: 2 02/02/20 25 3:32 PM BALL SHAGGER documented as of this encounter Care Teams Retail Department Reset Relationship Specialty Start Date End Date Demetri Hardin MD [address] [phone] PCP - General Family Practice 07/28/17 documented as of this encounter
--- OUTSIDE RECORDS SUMMARY | 2025-03-03 16:59 | XMS_ITS | Encounter Summary ---
Author Organization [facility] Address [address] [place] [address] Care Team Providers Care Clinical Services Manager Name Role Phone Demetri Hardin MD Primary Care Provider +1 -[phone] Encounter Details Date Type Department Care Team (Late st Contact Info) Description 01/15/2005 Outpatient Historical [facility] Niya Dang NP NO ADDRESS ON FILE Social History Tobacco Use Types Packs/Day Years Used Date Smoking Tobacco: Never Assessed Sex and Gender Information Value Date Recorded Sex Assigned at Not on file Legal Sex Male 4:50 AM SERVICE ESTABLISHMENT ATTENDANT Gender Identity Not on file Sexual Orientation Not on file documented as of this encounter Plan of Treatment Not on file documented as of this encounter Visit Diagnoses Not on filedocumented in this encounter Additional Health Concerns Infection Onset Date Last Indicated Resolved Time R/O COVID-19 09/22/2020 09/22/2020 09/23/2020 11:1 6 AM CDT COVID-19 09/22/2020 09/22/2020 10/12/2020 8:08 PM SERVICE ESTABLISHMENT ATTENDANT documented as of this encounter Care Teams Clinical Services Manager Relationship Specialty Start Date End Date Demetri Hardin MD [address] [facility] [address] [place] [address] PCP - General Family Practice 07/28/17 documented as of this encounter
--- OUTSIDE RECORDS SUMMARY | 2025-03-03 16:59 | XMS_ITS | Encounter Summary ---
Author Organization [facility] Address [address] [place] [address] Care Team Providers Care Hatch Boss Name Role Phone Demetri Hardin MD Primary Care Provider +1 -[phone] Reason for Visit * Reason Onset Date Comments Lab Results 02/18/2025 Encounter Details Date Type Department Care Team (Late st Contact Info) Description 02/18/2025 Results Follow-Up [facility] Medicine [address] [address] Demetri Hardin MD [address] [place] [address] URIC ACID, TSH, LIPID PANEL, Additional followed-up results: 3 Social History Tobacco Use Types Packs/Day Years [...] relatives? Three times a week 12/02/2020 Attends [employer] Not on file 12/02 Active Member [...] worry about transportation for future doctor visits, flower buncher or picker medication, etc.? No 2024 Housing Stability [...] on file Legal Sex Male 6:26 AM PERSONAL FINANCIAL PLANNER Gender Identity Not on file Sexual Orientation Not on file documented as of this encounter Miscellaneous Notes * Telephone Encounter - Gaby Ferrari RN - 02/19/2025 3:28 PM CDT Copied from [facility] #[id number]. Topic: CPA Information Request >> Feb 19, 2025 3:24 PM Matilde Calvo wrote: Caller is returning phone call from clinic. Caller Name: pt Patient/Caregiver Callback Number: Telephone Information: Clinic Left Note In Chart Is there a note from the clinic requesting the caller be transferred when they call back? No Are the credentials of the caregiver who called the patient manager technical training? Yes Call Notes: Communicated information that is documented in the note. Patient does not want call back * Telephone Encounter - Gaby Ferrari RN - 02/19/2025 3:28 PM CDT ----- Message from Dr. Demetri Hardin sent at 02/18/2025 8:46 PM CDT ----- Labs look good overall, continue current medications. * Telephone Encounter - Gaby Ferrari RN - 02/19/2025 3:03 PM CDT 02/19/2025 3:03 PM No answer. Left voice mail/message that communication regarding results will be sent via US Mail. No need to return call unless specific questions. If patient/caregiver calls back, contact center please tell caller to review the information which will be sent via US Mail and call back with any questions. Sent pended letter to the front line supervisor to print and mail to patient. Gaby GÓMEZ * Telephone Encounter - Gaby Ferrari RN - 02/19/2025 2:56 PM CDT ----- Message from Dr. Demetri Hardin sent at 02/18/2025 8:46 PM CDT ----- Labs look good overall, continue current medications. documented in this encounter Plan of Treatment Upcoming Encounters Date Type Department Care Team (Late st Contact Info) Description 08/06/2025 4:00 PM CDT Office Visit [facility] [address] [phone] Demetri Hardin MD [address] [phone] documented as of this encounter Visit Diagnoses Not on filedocumented in this encounter Additional Health Concerns Assessment Noted Time PHQ-9 Depression Total Score: 2 02/02/20 25 3:32 PM PERSONAL FINANCIAL PLANNER documented as of this encounter Care Teams Hatch Boss Relationship Specialty Start Date End Date Demetri Hardin MD [address] [phone] PCP - General Family Practice 07/28/17 documented as of this encounter
--- OUTSIDE RECORDS SUMMARY | 2025-03-03 16:59 | XMS_ITS | Encounter Summary ---
Author Organization [facility] Address [address] [place] [address] Care Team Providers Care Bushler Name Role Phone Demetri Hardin MD Primary Care Provider [phone] Reason for Visit * Reason Onset Date Comments Housing Assistance 02/19/2025 Encounter Details Date Type Department Care Team (Late st Contact Info) Description 02/19/2025 Patient Outreach [facility] and [address] [place] [address] Venessa De La Fuente Housing Assistance Social History Tobacco Use Types Packs/Day Years [...] relatives? Three times a week 12/02/2020 Attends Scient[employer] Services Not on file 12/02 Active Member [...] worry about transportation for future doctor visits, scrap picker medication, etc.? No 2024 Housing Stability [...] on file Legal Sex Male 6:26 AM SALES VICE PRESIDENT Gender Identity Not on file Sexual Orientation Not on file documented as of this encounter Progress Notes * Venessa De La Fuente - 02/19/2025 11:27 AM CDT Pt expressed concerns with social needs, CHW attempted to contact by phone, number was not in working order. Venessa De La Fuente 02/19/2025 documented in this encounter Plan of Treatment Upcoming Encounters Date Type Department Care Team (Late st Contact Info) Description 08/06/2025 4:00 PM CDT Office Visit [facility] [address] [phone] Demetri Hardin MD [address] [phone] documented as of this encounter Visit Diagnoses Not on filedocumented in this encounter Additional Health Concerns Assessment Noted Time PHQ-9 Depression Total Score: 2 02/02/20 25 3:32 PM SALES VICE PRESIDENT documented as of this encounter Care Teams Bushler Relationship Specialty Start Date End Date Demetri Hardin MD [address] [id number] PCP - General Family Practice 07/28/17 documented as of this encounter
--- OUTSIDE RECORDS SUMMARY | 2025-03-03 16:59 | XMS_ITS | Encounter Summary ---
Author Organization [facility] Address [address] [place] [address] Care Team Providers Care Engineer Station Mainline Name Role Phone Demetri Hardin MD Primary Care Provider [phone] Reason for Visit * Reason Comments Patient Communication Encounter Details Date Type Department Care Team (Late st Contact Info) Description 02/19/[address] [facility] Medicine [address] [phone] Demetri Hardin MD [facility] [address] [phone] Patient Communication Social History Tobacco Use Types Packs/Day Years [...] relatives? Three times a week 12/02/2020 Attends [employer] Services Not on file 12/02 Active Member [...] worry about transportation for future doctor visits, leaf size picker medication, etc.? No 2024 Housing Stability [...] on file Legal Sex Male 6:26 AM ENVIRONMENTAL EDUCATION SPECIALIST Gender Identity Not on file Sexual Orientation Not on file documented as of this encounter Miscellaneous Notes * Telephone Encounter - Gaby Ferrari RN - 02/19/2025 3:29 PM CDT Duplicate encounter. Gaby Ferrari, RN, 02/19/2025 3:29 PM * Telephone Encounter - Matilde Roberto - 02/19/2025 3:25 PM CDT Copied from [facility] #[id number]. Topic: CPA Information Request >> Feb 19, 2025 3:24 PM Matilde Calvo wrote: Caller is returning phone call from clinic. Caller Name: pt Patient/Caregiver Callback Number: Telephone Information: Clinic Left Note In Chart Is there a note from the clinic requesting the caller be transferred when they call back? No Are the credentials of the caregiver who called the patient principal trainer? Yes Call Notes: Communicated information that is documented in the note. Patient does not want call back documented in this encounter Plan of Treatment Upcoming Encounters Date Type Department Care Team (Late st Contact Info) Description 08/06/2025 4:00 PM CDT Office Visit [facility] Medicine [place] [address] [phone] Demetri Hardin MD [address] [phone] documented as of this encounter Visit Diagnoses Not on filedocumented in this encounter Additional Health Concerns Assessment Noted Time PHQ-9 Depression Total Score: 2 02/02/20 25 3:32 PM ENVIRONMENTAL EDUCATION SPECIALIST documented as of this encounter Care Teams Engineer Station Mainline Relationship Specialty Start Date End Date Demetri Hardin MD [address] [phone] PCP - General Family Practice 07/28/17 documented as of this encounter
--- OUTSIDE RECORDS SUMMARY | 2025-03-03 16:59 | XMS_ITS | Encounter Summary ---
Author Organization [facility] Address [address] [place] [address] Care Team Providers Care Cloth Handler Name Role Phone Demetri Hardin MD Primary Care Provider [phone] Reason for Visit * Reason Comments Annual Wellness Visit (Medicare) Chills Was sick a few weeks ago but pt is still chilling Medication Review Can he stop any of h is prescriptions? Encounter Details Date Type Department Care Team (Latest Contact Info) Description 02/01/2025 3:20 PM SENIOR BRAND MANAGER Office Visit [facility] [address] [address] Demetri Hardin MD [address] [address] Medicare annual wellness visit, subsequent (Primary Dx); Morbid obesity with BMI of 50.0-59.9, adult; Simple chronic bronchitis; Chronic gout of multiple sites, unspecified cause; Prediabetes; Atherosclerosis of enterprise coronary artery of enterprise heart without angina pectoris; Bilateral lower extremity edema; Chronic pain syndrome; Primary osteoarthritis involving multiple joints; Gastroesophageal reflux disease, unspecified whether esophagitis present Social History Tobacco Use Types Packs/Day Years [...] relatives? Three times a week 12/02/2020 Attends [employer] Not on file 12/02 Active Member [...] on file Legal Sex Male 6:26 AM SENIOR BRAND MANAGER Gender Identity Not on file Sexual Orientation Not on file documented as of this encounter Last Filed Vital Signs Vital Sign Reading Time Taken Comments Blood Pressure 138/84 02/01/2025 3:27 PM SENIOR BRAND MANAGER Pulse 91 02/01/2025 3:27 PM SENIOR BRAND MANAGER Temperature 36.1 ??C (97 ??F) 02/01/2025 3:27 PM SENIOR BRAND MANAGER Respiratory Rate 20 02/01/2025 3:27 PM SENIOR BRAND MANAGER Oxygen Saturation 97% 02/01/2025 3:27 PM SENIOR BRAND MANAGER Inhaled Oxygen Concentration - - Weight 152.4 kg (336 lb) 02/01/2025 3:27 PM SENIOR BRAND MANAGER Height 174 cm (5' 8.5 ) 02/01/2025 3:27 PM SENIOR BRAND MANAGER Body Mass Index 50.35 02/01/2025 3:27 PM SENIOR BRAND MANAGER documented in this encounter Progress Notes * Demetri Hardin MD - 02/01/2025 3:24 PM CST Ward Chung is a 64 y.o. male here today for his Medicare Annual Wellness Visit. Also due forChronic Conditions Coordination. MEDICARE WELLNESS VISIT HEALTH RISK ASSESSMENT Completed by and reviewed with patient/caregiver. See Annual Wellness Visit HRA Flowsheet In general, how would you rate your health?: Fair (02/01/251531) Are you basically satisfied with your life? : No (02/01/251531) MEDICAL RECORD REVIEWED AND UPDATED, INCLUDING: Demographics Current providers and suppliers: Patient Care Team: Demetri Hardin MD as PCP - General (Family Practice) Preeti Nicholson FNP (NURSE PRACTITIONER) Madison Sue FNP as Registered Nurse (NURSE PRACTITIONER) Sissy Nassar FNP as Nurse Practitioner (Nurse Practitioner Family) Mary Mitchell DO (Surgery) Sophia Ortega FNP (Nurse Practitioner Family) Past Medical and Surgical History Family History Social History Allergies CURRENT MEDICATIONS REVIEWED AND RECONCILED ondansetron Take 1 Tablet (4 mg) by mouth every 6 hours as needed for Nausea/Emesis. Dissolve tablet on top of tongue, then swallow with saliva. albuterol sulfate Take 2 Puffs by inhalation every 4 hours as needed for Shortness of Breath or Wheezing. clopidogreL Take 75 mg by mouth. lisinopriL Take 5 mg by mouth daily. atorvastatin Take 80 mg by mouth daily. metoprolol succinate Take 25 mg by mouth daily. aspirin Take 81 mg by mouth daily. colchicine TAKE 1 TABLET BY MOUTH ONCE DAILY NEEDED AT ONSET OF GOUT FLARE UNTIL SYMPTOMS RESOLVE furosemide Take 1 Tablet (20 mg) by mouth daily. potassium chloride Take 1 Tablet (10 mEq) by mouth daily with breakfast. allopurinoL Take 1 Tablet (300 mg) by mouth daily. budesonide-formoteroL Take 2 Puffs by inhalation 2 times daily. gabapentin TAKE 1 CAPSULE BY MOUTH IN THE MORNING AND 1 CAPSULE AT LUNCHTIME AND 2 CAPSULES ONCE DAILY AT BEDTIME fluticasone propionate Administer 2 Sprays in each nostril daily. meloxicam Take 1 Tablet (15 mg) by mouth daily. famotidine Take 1 Tablet (40 mg) by mouth 2 times daily. simethicone Take 1 Tablet (80 mg) by mouth every 6 hours as needed for Gas. albuterol Take 3 mL (2.5 mg) by inhalation every 6 hours as needed for Shortness of Breath. nebulizer Length of need 99 monthsNebulizer with compressor, Kit: Disposable Nebulizer Kit, 2 per month, filters , areosol mask: Yes. Name of Medication: Albuterol. psyllium husk Take 5.4 Grams by mouth daily. In general, how often do you forget or decide not to take one or more of your medications?: Sometimes (02/01/251531) EXAMINATION(MA may complete) BP 138/84 (BP Location: Left arm, Patient Position (BP): Sitting, BP Cuff Size: Large Adult) Pulse 91 Temp 97 ??F (36.1 ??C) (Temporal) Resp 20 Ht 5' 8.5 (1.74 m) Wt (!) 152.4 kg (336 lb) SpO2 97% BMI 50.35 kg/m?? Visual Acuity: Hearing: Have you been told by others you turn up your TV volume too high or that you have problems hearing?: No (02/01/251531) FUNCTIONAL ABILITY, FRAILTY Have you fallen one or more times in the past year?: Yes (02/01/251531) Patient reports needing help with: (ADL's) Walking: Yes (02/01/251531) Housekeeping: Yes (02/01/251531) Do you currently use any medical equipment, such as a cane, walker, wheelchair, or oxygen tank?: Yes (02/01/251531) What medical program specialist do you use?: Cane (02/01/251531) SAFETY AND PHYSICAL ACTIVITY Do you fasten your seat belt when you are in the car?: Sometimes (02/01/251531) Do you feel safe at home?: Yes (02/01/251531) How many days a week do you do at least 10 - 15 minutes of some type of exercise or physical activity?: 2 - 3 days - education automatically filed to AVS (02/01/251531) RISK ASSESSMENT (QM) Depression Screen Positive: PHQ-2 score >= 3 or PHQ-9 score >= 9 PHQ-2 Total: 2 (02/01/2025 3:32 PM) PHQ-9 Total: 6 (02/01/2025 3:32 PM) DEPRESSION PLAN OF CARE His depression screen was negative. (PHQ2 <3, PHQ9 <10, Lewellen <11) How often do you feel angry? : Sometimes (02/01/251531) How often do you feel lonely?: Often (02/01/251531) Any changes or new problems with your mental or emotional health, such as stress or anxiety?: Pt refused (02/01/251531) Management options discussed: Opioid Use Current Opioids: none on current medication list Cognitive Impairment Cognitive ability observed and assessed throughout the exam. Structured assessment: not indicated based on this assessment. . PREVENTIVE CARE GUIDELINES Written Screening Schedule for the next 5-10 years developed and provided to patient. Preventive Care Recommendations for AVERAGE Risk Adult Males > 65yo Measure USPSTF Recommendation PSA testing Men 55-69: individual decision based on review of potential benefits and harms. Men >70 not recommended Colon Cancer Screening Colonoscopy every 10 yrs or Fecal Occult Blood testing yearly ages 45-75 Abdominal Aortic Aneurysm Men 65 -75 who have ever smoked. Lung Cancer Screening Annual low-dose CT, adults 50 - 80 w/ >20 pack-year smoking hx who currently smoke or have quit w/in 15 yrs (*Medicare will not cover for >77 yo) Lipid Screening Identification of dyslipidemia and calculation of 10-year CVD event risk requires universal lipid screening in adults ages 40 - 75 Pre-diabetes/Diabetes Screening Adults 35-70 who are overweight or obese Hepatitis C Screening Adults 18-79 Immunizations Influenza: yearly Pneumococcal: PCV (+/- PPSV23 depending on PCV type) Tetanus: all adults every 10 yrs Zoster(Shingles): >50yo, series of 2 ADVANCE CARE PLANNING (optional) Do you have an Advance Directive (Living Will)?: No (02/01/251531) Primary Emergency Contact: Christina Walter, Relation: Sister Secondary Emergency Contact: Elle Keating, Relation: Sister Is the person(s) listed above who you would want to be your trusted decision maker? Yes RISK FACTORS AND CONDITIONS FOR WHICH INTERVENTIONS ARE RECOMMENDED AND/OR UNDERWAY Are you currently on any kind of special diet? : No (02/01/251531) Do you have problems with your teeth or dentures?: No (02/01/251531) During the past 4 weeks, would you say you have had...: Moderate pain (02/01/251531) Do you have any concerns about your sexual health?: Patient Declined (02/01/251531) No new issues identified EDUCATION/COUNSELING/REFERRAL(S) None indicated No orders of the defined types were placed in this encounter. Mr. Chung voiced understanding and agreement with the treatment plan. All questions were answered. [facility] provided to patient. ACUTE AND/OR CHRONIC ISSUES REQUIRING EVALUATION AND MANAGEMENT OUTSIDE THE WELLNESS VISIT (Provider only) Depression Screen Positive: PHQ-2 score >= 3 or PHQ-9 score >= 9 PHQ-2 Total: 2 (02/01/2025 3:32 PM) PHQ-9 Total: 6 (02/01/2025 3:32 PM) DEPRESSION PLAN OF CARE His depression screen was positive. His antidepressant medication was reviewed [facility] [place] 02/01/2025 Subjective: Ward Chung is a 64 y.o. male who comes today for evaluation of Annual Wellness Visit (Medicare), Chills (Was sick a few weeks ago but pt is still chilling), and Medication Review (Can he stop any of his prescriptions?) . History of Present Illness The patient presents for a medication review, diarrhea, anxiety, gout, arthritis, asthma, and temperature regulation issues. He is currently on Lasix, which was previously discontinued due to its ineffectiveness but has since been reinstated by his buyer tobacco head in [place]. He reports no significant change in his urinary frequency with the medication, noting that he urinates every hour or two regardless of its use. Rec ent admission for NSTEMI and was diagnosed with coronary artery disease and stent placement occurred in [place], he follows with cardiology and is on multiple medications. He has experienced anxiety attacks in the past. He is scheduled for a follow-up with his buyer tobacco head in either 02/2025 or 03/2025. He has been experiencing frequent falls and uses a cane for mobility. He reports feeling weak and shaky at times. He has been experiencing cold and flu symptoms, including fatigue and chills. He also reports frequent diarrhea, for which he occasionally takes Metamucil, although he questions its efficacy. He has a history of gout, which is currently well-managed with colchicine as needed. He experiencesgout flare-ups once or twice a year, each lasting about a month. He suffers from arthritis, resulting in daily stiffness in his legs, knees, and feet, and occasional hand weakness. He finds relief from gabapentin. He does not experience heartburn but occasionally feels gassy and bloated. He uses an inhaler as needed for asthma, which he believes is exacerbated by overeating or consuming certain foods. He reports experiencing hot flashes and feeling cold even in warm weather. MEDICATIONS Current: Lasix, Metamucil, gabapentin, colchicine Review of Systems Constitutional: Negative for fever. Respiratory: Negative for shortness of breath. Cardiovascular: Negative for chest pain. Gastrointestinal: Negative for abdominal pain. Skin: Negative for rash. Neurological: Negative for weakness. Objective: Vitals: 02/01/25 1527 Temp: 97 ??F (36.1 ??C) Pulse: 91 BP: 138/84 Resp: 20 SpO2: 97% Physical Exam Vitals and nursing note reviewed. Constitutional: General: He is not in acute distress. Appearance: Normal appearance. He is not ill-appearing. HENT: Head: Normocephalic and atraumatic. Eyes: Conjunctiva/sclera: Conjunctivae normal. Cardiovascular: Rate and Rhythm: Normal rate and regular rhythm. Heart sounds: Normal heart sounds. Pulmonary: Effort: Pulmonary effort is normal. Breath sounds: Normal breath sounds. Abdominal: Palpations: Abdomen is soft. Musculoskeletal: Cervical back: Neck supple. Skin: Findings: No rash. Neurological: Mental Status: He is alert and oriented to person, place, and time. Mental status is at baseline. Psychiatric: Mood and Affect: Mood normal. Behavior: Behavior normal. Past medical history, surgical history and social history reviewed. Past Medical History: Diagnosis Date Arthritis Asthma COPD (chronic obstructive pulmonary disease) ([facility]) COVID-19 08/29/2021 Gout Heart disease History of fibromyalgia HTN (hypertension) NSTEMI (non-ST elevated myocardial infarction) ([facility]) Sleep apnea Procedures Assessment/Plan: ICD-10-CM ICD-9-CM 1. Medicare annual wellness visit, subsequent Z00.00 V70.0 2. Morbid obesity with BMI of 50.0-59.9, adult E66.01 278.01 TSH Z68.43 V85.43 TSH 3. Simple chronic bronchitis J41.0 491.0 albuterol sulfate HFA 90 mcg/actuation aerosol inhaler 4. Chronic gout of multiple sites, unspecified cause [id number].[id number] 274.02 URIC ACID allopurinoL (ZYLOPRIM) 300 mg tablet URIC ACID 5. Prediabetes R73.03 790.29 HEMOGLOBIN A1C TSH TSH HEMOGLOBIN A1C 6. Atherosclerosis of enterprise coronary artery of enterprise heart without angina pectoris I25.10 414.01 CBC WITH DIFFERENTIAL COMPREHENSIVE METABOLIC PANEL LIPID PANEL TSH TSH LIPID PANEL COMPREHENSIVE METABOLIC PANEL CBC WITH DIFFERENTIAL 7. Bilateral lower extremity edema R60.0 782.3 potassium chloride (KLOR-CON) 10 mEq Extended Release tablet furosemide (Lasix) 20 mg tablet 8. Chronic pain syndrome G89.4 338.4 meloxicam (MOBIC) 15 mg tablet gabapentin (NEURONTIN) 300 mg capsule 9. Primary osteoarthritis involving multiple joints M15.0 715.98 meloxicam (MOBIC) 15 mg tablet gabapentin (NEURONTIN) 300 mg capsule 10. Gastroesophageal reflux disease, unspecified whether esophagitis present K21.9 530.81 famotidine (PEPCID) 40 mg tablet Assessment & Plan 1. Medication review. His medications have been reviewed and refilled as necessary. The buyer tobacco head will manage his cardiac medications. 2. Diarrhea. He reports experiencing diarrhea, which may be exacerbated by overuse of Metamucil. He is advised to take Metamucil once or twice daily, adhering to the recommended dosage. 3. Anxiety. He mentions a past diagnosis of anxiety attacks. 4. Gout. He reports that his gout is well-controlled and only requires colchicine as needed. He is reminded that colchicine can cause diarrhea. 5. Arthritis. He experiences stiffness and pain in his legs, knees, and hands daily. Gabapentin is noted to be effective for his pain. 6. Asthma. He uses an inhaler as needed and reports that his breathing has improved. 7. Temperature regulation issues. He experiences chills and feels cold frequently. A thyroid function test will be conducted to rule out any abnormalities. 8. Weakness and shakiness. He reports feeling weak and shaky at times. Blood work will be done to investigate potential causes. Continue current management of the above stable chronic health problems including follow-up with cardiology. Demetri Hardin MD The author of this note, patient (or authorized regional sales representative), and all other persons present consent to the audio recording of this visit for charting documentation purposes. This note was automatically generated by a Generative AI technology ([employer]), reviewed, edited, and finalized by Demetri Hardin MD. OR BRAND MANAGER documented in this encounter Plan of Treatment Upcoming Encounters Date Type Department Care Team (Late st Contact Info) Description 08/06/2025 4:00 PM CDT Office Visit [address] [address] Demetri Hardin MD [address] [address] documented as of this encounter Procedures Procedure Name Priority Date/Time Associated Diagnosis Comments CBC WITH DIFFERENTIAL Routine 02/01/2025 4:03 PM SENIOR BRAND MANAGER Atherosclerosis of enterprise coronary artery of enterprise heart without angina pectoris URIC ACID Routine 02/01/2025 4:03 PM SENIOR BRAND MANAGER Chronic gout of multiple sites, unspecified cause TSH Routine 02/01/2025 4:03 PM SENIOR BRAND MANAGER Morbid obesity with BMI of 50.0-59.9, adult Prediabetes Atherosclerosis of enterprise coronary artery of enterprise heart without angina pectoris HEMOGLOBIN A1C Routine 02/01/2025 4:03 PM SENIOR BRAND MANAGER Prediabetes LIPID PANEL Routine 02/01/2025 4:03 PM SENIOR BRAND MANAGER Atherosclerosis of enterprise coronary artery of enterprise heart without angina pectoris COMPREHENSIVE METABOLIC PANEL Routine 02/01/2025 4:03 PM SENIOR BRAND MANAGER Atherosclerosis of enterprise coronary artery of enterprise heart without angina pectoris documented in this encounter Results * (ABNORMAL) URIC ACID (02/01/2025 4:03 PM SENIOR BRAND MANAGER) Pathologist [facility] URIC ACID 8.4(H) 4.0 - 8.0 mg/dL [facility] Comment: Therapeutic target for gout patients: <6.0 mg/dL ?? Test Performed at: [facility] ??[phone] Jaguar Lira MD Blood 02/01/2025 4:03 PM SENIOR BRAND MANAGER 02/03/2025 2:37 AM SENIOR BRAND MANAGER Demetri Hardin MD CHEMISTRY ORDERABLES [place] [facility] Result Performing Organization Address City/[facility]/ZIP Co de Phone Number [facility] [phone] [facility] [employer] [address] * TSH (02/01/2025 4:03 PM SENIOR BRAND MANAGER) [facility] TSH 2.29 0.40 - 4.50 mIU/L [facility] Comment: Test Performed at: [facility] ??[phone] Jaguar Lira MD Blood 02/01/2025 4:03 PM SENIOR BRAND MANAGER 02/03/2025 2:37 AM SENIOR BRAND MANAGER Demetri Hardin MD CHEMISTRY ORDERABLES [place] [facility] Result [facility] [phone] [facility] [employer] [address] * (ABNORMAL) LIPID PANEL (02/01/2025 4:03 PM SENIOR BRAND MANAGER) [facility] CHOLESTEROL 201(H) <200 mg/dL [facility] [...] factors. LDL-C is now calculated using the Siva-Kirkland calculation, which is a validated novel method providing better accuracy than the Friedewald equation in the estimation of LDL-C. Siva SINGLETARY et al. TRIPP. 2013;310(19): 8187-6351 (http://education.YumDots/faq/TZJ843) CHOL/HDL RATIO 4.9 <5.0 (calc) [facility] NON-HDL CHOLESTEROL 160(H) <130 mg/dL (calc) [facility] Comment: For patients with diabetes plus 1 major ASCVD risk factor, treating to a non-HDL-C goal of <100 mg/dL (LDL-C of <70 mg/dL) is considered a therapeutic option. Test Performed at: [facility] [address] [place], [place] ??[phone] Jaguar Lira MD Blood 02/01/2025 4:03 PM SENIOR BRAND MANAGER 02/03/2025 2:37 AM SENIOR BRAND MANAGER Demetri Hardin MD CHEMISTRY ORDERABLES [place] [facility] Result [facility] [phone] [facility] [address] [place] [address] * (ABNORMAL) HEMOGLOBIN A1C (02/01/2025 4:03 PM SENIOR BRAND MANAGER) HEMOGLOBIN A1C 6.1(H) <5.7 % of total Hgb [facility] Comment: For someone without known diabetes, [...] [facility] Comment: Test Performed at: [facility] [address] [place], [place] ??[phone] Jaguar Lira MD Blood 02/01/2025 4:03 PM SENIOR BRAND MANAGER 02/03/2025 2:37 AM SENIOR BRAND MANAGER us Demetri Hardin MD CHEMISTRY ORDERABLES [place] [facility] Result [facility] [phone] [facility] [address] [place] [address] * COMPREHENSIVE METABOLIC PANEL (02/01/2025 4:03 PM SENIOR BRAND MANAGER) GLUCOSE 97 65 - 99 mg/dL [facility] Comment: ? Fasting reference interval BUN 10 7 - 25 mg/dL [facility] CREATININE 0.83 0.70 - 1.35 mg/dL [facility] GFR 97 > OR = 60 mL/min/1. 73m2 [facility] BUN/CREAT RATIO SEE NOTE: 6 - 22 (calc) [facility] Comment: ?? Not Reported: BUN and Creatinine are within ?? reference range. ? SODIUM 141 135 - 146 mmol/L [facility] POTASSIUM 4.1 3.5 - 5.3 mmol/L [facility] CHLORIDE 104 98 - 110 mmol/L [facility] CO2 28 20 - 32 mmol/L [facility] CALCIUM 9.0 8.6 - 10.3 mg/dL [facility] TOTAL PROTEIN 7.1 6.1 - 8.1 g/dL [facility] ALBUMIN 3.7 3.6 - 5.1 g/dL [facility] GLOBULIN 3.4 1.9 - 3.7 g/dL (calc) [facility] ALBUMIN/GLOBULIN RATIO 1.1 1.0 - 2.5 (calc) [facility] BILIRUBIN TOTAL 0.9 0.2 - 1.2 mg/dL [facility] ALKALINE PHOSPHATASE 94 35 - 144 U/L [facility] AST 14 10 - 35 U/L [facility] ALT 14 9 - 46 U/L [facility] Comment: Test Performed at: [facility] [address] [place] ??[phone] Jaguar Lira MD Blood 02/01/2025 4:03 PM SENIOR BRAND MANAGER 02/03/2025 2:37 AM SENIOR BRAND MANAGER Demetri Hardin MD CHEMISTRY ORDERABLES [facility] l Result [facility] [phone] [facility] [id number] [place] [address] * (ABNORMAL) CBC WITH DIFFERENTIAL (02/01/2025 4:03 PM SENIOR BRAND MANAGER) WBC 5.4 3.8 - 10.8 Thousand/u L [facility] RBC 5.17 4.20 - 5.80 Million/uL [facility] HEMOGLOBIN 13.9 13.2 - 17.1 g/dL [facility] HEMATOCRIT 44.8 38.5 - 50.0 % [facility] MCV 86.7 80.0 - 100.0 fL [facility] MCH 26.9(L) 27.0 - 33.0 pg [facility] MCHC 31.0(L) 32.0 - 36.0 g/dL [facility] Comment: For adults, a slight decrease in the calculated MCHC value (in the range of 30 to 32 g/dL) is most likely not clinically significant; however, it should be interpreted with caution in correlation with other red cell parameters and the patient's clinical condition. RDW 14.5 11.0 - 15.0 % [facility] PLATELETS 263 140 - 400 Thousand/u L [facility] MPV 11.9 7.5 - 12.5 fL [facility] NEUTROPHIL ABSOLUTE 3,100 1,500 - 7,800 cells/uL [facility] LYMPHOCYTE ABSOLUTE 1,652 850 - 3,900 cells/uL [facility] MONOCYTE ABSOLUTE 410 200 - 950 cells/uL [facility] EOSINOPHIL ABSOLUTE 200 15 - 500 cells/uL [facility] BASOPHILS ABSOLUTE 38 0 - 200 cells/uL [facility] NEUTROPHIL 57.4 % [facility] LYMPHOCYTES 30.6 % [facility] MONOCYTE 7.6 % [facility] EOSINOPHILS 3.7 % [facility] BASOPHILS 0.7 % [facility] Comment: Test Performed at: [facility] [address] [place], [place] ??[phone] Jaguar Lira MD Blood 02/01/2025 4:03 PM SENIOR BRAND MANAGER 02/03/2025 2:37 AM SENIOR BRAND MANAGER Demetri Hardin MD HEMATOLOGY ORDERABLES Fin al Result [facility] [phone] [facility] [employer] [facility] [address] [place] [address] documented in this encounter Visit Diagnoses Diagnosis Medicare annual wellness visit, subsequent- Primary Routine general medical examination at a health care facility Morbid obesity with BMI of 50.0-59.9, adult Simple chronic bronchitis Chronic gout of multiple sites, unspecified cause Prediabetes Other abnormal glucose Atherosclerosis of enterprise coronary artery of enterprise heart without angina pectoris Bilateral lower extremity edema Edema Chronic pain syndrome Primary osteoarthritis involving multiple joints Gastroesophageal reflux disease, unspecified whether esophagitis present documented in this encounter Additional Health Concerns Assessment Noted Time PHQ-9 Depression Total Score: 2 02/02/20 25 3:32 PM SENIOR BRAND MANAGER documented as of this encounter Care Teams Cloth Handler Relationship Specialty Start Date End Date Demetri Hardin MD [address] [address] PCP - General Family Practice 07/28/17 documented as of this encounter
--- OUTSIDE RECORDS SUMMARY | 2025-03-03 16:59 | XMS_ITS | Encounter Summary ---
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 suitable alternative for these patients. ANION GAP 13 5 - 20 mmol/L 03/03/2025 2:34 PM CDT [facility] Blood Collection / Unknown 03/03/2025 2:00 PM CDT 03/03/2025 2:08 PM CDT us Donn Rodríguez MD CHEMISTRY ORDERABLES Final Resu lt Performing Organization Address [facility]/ZIP Co de Phone Number [facility] CLIA # [id number] [address] [place] [phone] * (ABNORMAL) TROPONIN BASELINE, 5TH GEN (03/03/2025 2:00 PM CDT) TROPONIN T, BASELINE 5TH GEN 79(H) <=15 ng/L 03/03/2025 2:34 PM CDT [facility] Blood Collection / Unknown 03/03/2025 2:00 PM CDT 03/03/2025 2:08 PM CDT [facility] - 03/03/2025 2:34 PM CDT Troponin elevated. us Donn Rodríguez MD CHEMISTRY ORDERABLES Final Resu lt Performing Organization Address [facility] Co de Phone Number [facility] CLIA # [id number] [address] [place] [address] [phone] * D-DIMER (03/03/2025 2:00 PM CDT) D-DIMER QUANT 0.19 <0.50 ug/mL FEU 03/03/2025 2:29 PM CDT [facility] Blood Collection / Unknown 03/03/2025 2:00 PM CDT 03/03/2025 2:08 PM CDT [facility] - 03/03/2025 2:29 PM CDT D-Dimer assay [...] ORDERABLES Final Res ult Performing Organization Address [facility]/ZIP Co de Phone Number [facility] CLIA # [id number] [address] [place] [phone] * PTT (03/03/2025 2:00 PM CDT) PTT 26.4 25.8 - 34.0 seconds 03/03/2025 2:29 PM CDT [facility] Blood Collection / Unknown 03/03/2025 2:00 PM CDT 03/03/2025 2:08 PM CDT Result Olivia Rodríguez MD HEMATOLOGY ORDERABLES Final Res ult Performing Organization Address [facility] Co de Phone Number [facility] CLIA # [id number] [address] [place] [phone] * PROTIME-INR (03/03/2025 2:00 PM CDT) PROTIME 12.3 11.9 - 14.6 Seconds 03/03/2025 2:29 PM CDT [facility] INR 0.9 0.9 - 1.1 03/03/2025 2:29 PM CDT [facility] Blood Collection / Unknown 03/03/2025 2:00 PM CDT 03/03/2025 2:08 PM CDT us Donn Rodríguez MD HEMATOLOGY ORDERABLES Final Res ult Performing Organization Address [facility]/ZIP Co de Phone Number [facility] CLIA # [id number] [address] [place] [address] * SEDIMENTATION RATE (03/03/2025 2:00 PM CDT) ESR (SEDIMENTATION RATE) 8 0 - 20 mm/Hr 03/03/2025 2:14 PM CDT [facility] Blood Collection / Unknown 03/03/2025 2:00 PM CDT 03/03/2025 2:08 PM CDT Narrative [facility] - 03/03/2025 2:14 PM CDT Tube Lot: #[id number] Exp Date: 06/28/2026 SR 0125-1 EXP. 06/02/25 SR 0125-2 EXP. 06/02/25 Donn Rodríguez MD HEMATOLOGY ORDERABLES Final Res ult Performing Organization Address [facility] Co de Phone Number [facility] CLIA # [id number] [address] [place] [address] [phone] * (ABNORMAL) CBC WITH DIFFERENTIAL (03/03/2025 2:00 PM CDT) Pathologist [facility] WBC 6.2 4.2 - 9.1 K/uL 03/03/2025 2:14 PM CDT [facility] RBC 5.38 4.63 - 6.08 M/uL 03/03/2025 2:14 PM CDT [facility] HEMOGLOBIN 14.2 13.7 - 17.5 g/dL 03/03/2025 2:14 PM CDT [facility] HEMATOCRIT 45.0 40.1 - 51.0 % 03/03/2025 2:14 PM CDT [facility] MCV 83.6 79.0 - 92.2 fL 03/03/2025 2:14 PM CDT [facility] MCH 26.4 25.7 - 32.2 pg 03/03/2025 2:14 PM CDT [facility] MCHC 31.6(L) 32.3 - 36.5 g/dL 03/03/2025 2:14 PM [facility] RDW 16.1(H) 11.0 - 14.5 % 03/03/2025 2:14 PM [facility] RDW-STDEV 49.2 36.9 - 56.9 fL 03/03/2025 2:14 PM [facility] PLATELETS 212 130 - 400 K/uL 03/03/2025 2:14 PM [facility] MPV 10.6 10.0 - 14.8 fL 03/03/2025 2:14 PM [facility] NEUTROPHILS 59 34 - 68 % 03/03/2025 2:14 PM [facility] LYMPHOCYTES 29 22 - 53 % 03/03/2025 2:14 PM [facility] MONOCYTES 8 5 - 12 % 03/03/2025 2:14 PM [facility] EOSINOPHILS 2 1 - 7 % 03/03/2025 2:14 PM [facility] BASOPHILS 0 0 - 1 % 03/03/2025 2:14 PM [facility] IMMATURE GRANULOCYTES 1 % 03/03/2025 2:14 PM [facility] NEUTROPHIL ABSOLUTE 3.65 1.78 - 5.38 K/uL 03/03/2025 2:14 PM [facility] LYMPHOCYTE ABSOLUTE 1.81 1.20 - 3.40 K/uL 03/03/2025 2:14 PM [facility] MONOCYTE ABSOLUTE 0.50 0.30 - 0.82 K/uL 03/03/2025 2:14 PM [facility] EOSINOPHIL ABSOLUTE 0.15 0.04 - 0.54 K/uL 03/03/2025 2:14 PM [facility] BASOPHILS ABSOLUTE 0.02 0.01 - 0.08 K/uL 03/03/2025 2:14 PM [facility] IMMATURE GRANULOCYTES ABSOLUTE 0.04 K/uL 03/03/2025 2:14 PM [facility] Blood Collection / Unknown 03/03/2025 2:00 PM CDT 03/03/2025 2:08 PM CDT us Donn Rodríguez MD HEMATOLOGY ORDERABLES Final Res ult [facility] # [id number] [address] [place] [phone] documented in this encounter Visit Diagnoses Diagnosis NSTEMI (non-ST elevated myocardial infarction) (CMS/HCC)- Primary Acute myocardial infarction, subendocardial infarction, episode of care unspecified NSTEMI (non-ST elevated myocardial infarction) (CMS/HCC) Acute myocardial infarction, subendocardial infarction, episode of care unspecified documented in this encounter Administered Medications Active Administered Medications - up to 3 most recent administrations Medication Order MAR Action Action Date Dose Rate Site heparin in 0.45% NaCl 25,000 unit/250 mL infusion 9.3 Units/kg/hr ? 106.8 kg Adjusted weight (9.9324 mL/hr, rounded to 9.9 mL/hr), IV, TITRATE, Starting on 03/03/25 at 1445, Until Discontinued, Indication: ACS/STEMI, Dosing by: PER PROTOCOL: Delegate to facility protocol per indication, Re-bolus within Protocol? No, titrate infusion ONLY New Bag 03/03/2025 2:50 PM CDT 9.3 Units/kg/hr 9.9 mL/hr sodium chloride flush injection 5 mL 5 mL, IV, SEE ADMIN INSTRUCTIONS, Starting on 03/03/25 at 1402, Until Discontinued, Routine Given 03/03/2025 2:50 PM CDT 5 mL Inactive Administered Medications - up to 3 most recent administrations Medication Order MAR Action Action Date Dose Rate Site aspirin (TOPHER CHEWABLE) chewable tablet 324 mg 324 mg, Oral, ONE TIME ONLY, 1 dose, On 03/03/25 at 1415, Routine Given 03/03/2025 2:10 PM CDT 324 mg clopidogreL (PLAVIX) tablet 600 mg 600 mg, Oral, ONE TIME ONLY, 1 dose, On 03/03/25 at 1500, Stat Given 03/03/2025 3:01 PM CDT 600 mg heparin injection 4,000 Units 4,000 Units, IV, ONE TIME ONLY, 1 dose, On 03/03/25 at 1445, RoutineIndications:ACS/ST CANDELARIA Given 03/03/2025 2:47 PM CDT 4,000 Units nitroglycerin (NITRO-BID) 2 % topical ointment 0.5 Inch 0.5 Inch, Topical, ONE TIME ONLY, 1 dose, On 03/03/25 at 1415, Routine, If the dose is 1 or 2 inches, the foil packet may be dispensed. If the dose is for 0.5 inch, 1.5 inch, etc., change the product to the 30 gram tube. Applied 03/03/2025 2:11 PM CDT 0.5 Inches Chest, Left documented in this encounter Active and Recently Administered Medications Times are shown in CDT. Scheduled Medication Order 03/01/2025 03/02/2025 03/03/2025 aspirin (TOPHER CHEWABLE) chewable tablet 324 mg (COMPLETED) 324 mg, Oral, ONE TIME ONLY, 1 dose, On 03/03/25 at 1415, Routine 1410 (Given - Provid er: Bubba Gonzalez RN) clopidogreL (PLAVIX) tablet 600 mg (COMPLETED) 600 mg, Oral, ONE TIME ONLY, 1 dose, On 03/03/25 at 1500, Stat 1501 (Given - Provid er: Jigna Jason RN) heparin injection 4,000 Units (COMPLETED) 4,000 Units, IV, ONE TIME ONLY, 1 dose, On 03/03/25 at 1445, Routine 1447 (Given - Provid er: Bubba Gonzalez RN) nitroglycerin (NITRO-BID) 2 % topical ointment 0.5 Inch (COMPLETED) 0.5 Inch, Topical, ONE TIME ONLY, 1 dose, On 03/03/25 at 1415, Routine, If the dose is 1 or 2 inches, the foil packet may be dispensed. If the dose is for 0.5 inch, 1.5 inch, etc., change the product to the 30 gram tube. 141 (Applied - Prov ider: Bubba Gonzalez RN)144 (Stopped - Provider: Jigna Jason RN - Comment: verbal orders by DR Rodríguez. patient complains of being light headed)2010 (Due: Removed - Provider: Bubba Gonzalez RN) sodium chloride flush injection 5 mL(Linked Group 1) 5 mL, IV, SEE ADMIN INSTRUCTIONS, Starting on 03/03/25 at 1402, Until Discontinued, Routine 1450 (Given - Provid er: Bubba Gonzalez RN) Continuous Medication Order 03/01/2025 03/02/2025 03/03/2025 heparin in 0.45% NaCl 25,000 unit/250 mL infusion 9.3 Units/kg/hr ? 106.8 kg Adjusted weight (9.9324 mL/hr, rounded to 9.9 mL/hr), IV, TITRATE, Starting on 03/03/25 at 1445, Until Discontinued, Indication: ACS/STEMI, Dosing by: PER PROTOCOL: Delegate to facility protocol per indication, Re-bolus within Protocol? 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
--- NOTE | 2025-03-03 17:09 | USCV_ITS ---
Ward Chung Age: 64 Gender: M : 1960 Exam Date: 03/03/2025 18:10 Ordering Phys: Narinder Richardson MD Technologist: Baudilio Macdonald Exam Location: [facility] [place] Indication: chest pain BP: 143 / 79 HR: 57 Rhythm: Sinus Technical Quality: suboptimal MEASUREMENTS (Male / Female) Normal Values 2D ECHO LV Diastolic Diameter PLAX 3.2 cm 4.2 - 5.9 / 3.9 - 5.3 cm IVS Diastolic Thickness 1.4 cm 0.6 - 1.0 / 0.6 - 0.9 cm IVS Systolic Thickness 1.5 cm LVPW Diastolic Thickness 2.1 cm 0.6 - 1.0 / 0.6 - 0.9 cm LVPW Systolic Thickness 2.0 cm LVOT Diameter 2.1 cm LV Ejection Fraction 2D Teich 63.5 % LV Ejection Fraction MOD 4C 68.3 % LV Ejection Fraction MOD 2C 76.0 % LV Ejection Fraction 2C AL 75.1 % LA Diameter 3.6 cm RA Systolic Volume 4C AL 81.9 ml RA Systolic Volume 4C MOD 79.5 ml Aorta at Sinotubular Diameter 2.4 cm IVC Diameter 1.6 cm M-MODE LA Ao Ratio MM 1.6 AV Cusp Separation MM 1.6 cm DOPPLER LVOT Peak Velocity 74.0 cm/s MV Peak Velocity 123.0 cm/s MV Area PHT 5.8 cm squared Mitral E to A Ratio 1.1 PV Peak Velocity 100.0 cm/s RV Ejection Time 0.3 s FINDINGS Left Ventricle Normal left ventricular size, systolic function and wall thickness, with no regional wall motion abnormalities. Left ventricular ejection fraction is estimated at 60 %. Grade II/IV diastolic dysfunction, moderately elevated filling pressures. Right Ventricle The right ventricle is normal in size and function. Right Atrium The right atrium is normal in size. Left Atrium The left atrium is normal in size. Mitral Valve Moderately thickened mitral valve. No mitral valve stenosis. Trace valve regurgitation. Aortic Valve Moderate aortic valve calcification. No aortic valve stenosis. Trace aortic valve regurgitation. Tricuspid Valve Tricuspid valve not well visualized. Pulmonic Valve Pulmonic valve not well visualized. Pericardium Normal pericardium without effusion. Aorta Normal ascending aorta dimension. IVC Inferior vena cava not visualized. CONCLUSIONS Normal left ventricular size, systolic function and wall thickness, with no regional wall motion abnormalities. Left ventricular ejection fraction is estimated at 60 %. Grade II/IV diastolic dysfunction, moderately elevated filling pressures. Moderately thickened mitral valve. No mitral valve stenosis. Trace valve regurgitation. Moderate aortic valve calcification. No aortic valve stenosis. Trace aortic valve regurgitation. There is no pericardial effusion. Amberly Saab MD (Electronically Signed) Final Date: 03 March 2025 19:17 S
--- NOTE | 2025-03-03 17:12 | ECG_ITS ---
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 Measurements Intervals [place] Rate: 62 P: 66 WA: 241 QRS: -31 QRSD: 94 T: -9 QT: 414 QTc: 421 Interpretive Statements SINUS RHYTHM WITH FIRST DEGREE AV BLOCK LOW QRS VOLTAGE IN PRECORDIAL LEADS [QRS DEFLECTION < 1.0 mV IN CHEST LEADS] PATTERN CONSISTENT WITH PULMONARY DISEASE INFERIOR MYOCARDIAL INFARCTION , PROBABLY OLD [40+ ms Q WAVE AND/OR ST/T ABNORMALITY IN II/aVF] Compared to ECG 10/05/2024 09:21:38 Sinus arrhythmia no longer present Myocardial infarct finding still present Electronically Signed On 03-03-2025 18:10:35 CDT by Randall Chavira M.D. [email or web address] [id number]
--- NOTE | 2025-03-03 17:12 | PM.HP ---
Providers/Chief Complaint Admitting Physician: Narinder Richardson MD Primary Care Provider: Demetri Hardin Chief Complaint: instemi History of Present Illness Ward Chung is a 64 year old male with a past medical history of morbid obesity, history of LAD stent, history of left circumflex disease, sleep apnea, morbid obesity, history of right groin hematoma, history of moderate disease in the left circumflex and RCA, who presents [facility] for chest pain. Patient was transferred from [facility]. Patient unfortunately has been floated out of his home, has been out of his medications for the last 2 days, he has not been taking Plavix. He tells me that today he was exerting himself, developed substernal left-sided chest pain, 10 out of 10 rating down his left arm, associate with diaphoresis, lightheadedness, that he went to the emergency room, currently his chest pain-free, he was loaded with Plavix 600 mg, received aspirin 325 started on heparin drip, EKG showed no acute ST-T wave changes, Review of Systems Const: Denies: fever(s) Card: Reports: chest pain Resp: Denies: dyspnea Medications/Allergies Home Medications ?Medication ?Instructions ?Recorded ?Confirmed ?Last Taken ?Type fluticasone furoate 27.5 1 spray intranasal DAILY 07/06/24 10/12/24 Unknown History mcg/actuation nasal spray,suspension (Flonase Sensimist) gabapentin 300 mg capsule 300 mg PO TID 07/06/24 10/12/24 10/03/24 History psyllium husk 0.4 gram capsule 0.4 g PO DAILY PRN Constipation 07/06/24 10/04/24 Unknown History (Metamucil) potassium chloride 10 mEq 10 meq PO DAILY 10/04/24 10/12/24 10/03/24 History tablet,extended release aspirin 81 mg tablet,delayed 81 mg PO DAILY #30 tabs 10/07/24 10/12/24 Unknown Rx release atorvastatin 40 mg tablet 80 mg (2 x 40 mg) PO DAILY #30 tabs 10/07/24 10/12/24 Unknown Rx furosemide 40 mg tablet 40 mg PO DAILY@0800 #30 tabs 10/07/24 10/12/24 Unknown Rx lisinopril 5 mg tablet 5 mg PO DAILY #30 tabs 10/07/24 10/12/24 Unknown Rx metoprolol succinate 25 mg 25 mg PO DAILY #30 tabs 10/07/24 10/12/24 Unknown Rx tablet,extended release 24 hr (Toprol XL) clopidogrel 75 mg tablet 75 mg PO DAILY #90 tabs 10/12/24 10/12/24 Unknown Rx Allergies Allergy/AdvReac Type Severity Reaction Status Date / Time No Known Allergies Allergy Verified 10/12/24 13:16 PFSH Acute PFSH: Medical History Venous stasis Lymphedema Hypertension Fibromyalgia Gout Sleep apnea COPD (chronic obstructive pulmonary disease) Onychodystrophy Edema Venous insufficiency (chronic) (peripheral) Social History Smoking and tobacco/nicotine status: former use of tobacco/nicotine Alcohol intake: never Vitals/I&O/Wt Weight last 48 hrs Weight 164.654 kg Physical Exam Const: COMMON NORMALS: no acute distress and patient oriented x3 OTHER: Unkempt condition HENMT: COMMON NORMALS: normocephalic HEAD & SCALP: normocephalic Neck/C-Spine: COMMON NORMALS: no JVD Resp: COMMON NORMALS: normal respiratory effort, No retractions, No use of accessory muscles and clear to auscultation bilaterally AUSCULTATION: clear to auscultation bilaterally Cardio: COMMON NORMALS: no JVD, regular rate, regular rhythm, S1 normal heart sound present and S2 normal heart sound present RATE: regular rate RHYTHM: regular rhythm HEART SOUNDS: S1 normal heart sound present and S2 normal heart sound present GI: COMMON NORMALS: Normal to inspection, nondistended, normoactive bowel sounds present, Soft to palpation and non-tender Extremity: COMMON NORMALS: no calf tenderness and no pedal edema Neuro: COMMON NORMALS: patient oriented x3 and moves all extremities Psych: COMMON NORMALS: mental status grossly normal A&P Assessment and plan (1) Unstable angina: (2) Non-STEMI (non-ST elevated myocardial infarction): Plan Unstable angina, NSTEMI Plan - Serial EKGs, serial troponins, telemetry monitoring - Cardiac echo - Monitor for chest pain - Aspirin 325, Plavix 600 mg - Continue aspirin, Plavix, statin, beta-allyssa - Continue heparin drip - Cardiology consulted - N.p.o. midnight, with plans on coronary angiography tomorrow morning - Full code - Lovenox for DVT prophylaxis PDMP PDMP Reviewed: Not Reviewed Attestations Medical Necessity Statement*: Patient requires hospitalization, inpatient, greater than 2 midnights, for chest pain Diagnoses Unstable angina I20.0 Non-STEMI (non-ST elevated myocardial infarction) I21.4
[2025-03-03 17:47] LABS: Platelet Count 228 10^3/cmm (157-399)
[2025-03-03] MEDS: heparin drip 25,000 UNIT/500 ML PREMIX 46 UNIT IV (18:02)
[2025-03-03] MEDS: pantoprazole 40 mg SDV IVP (18:03)
[2025-03-03 18:06] LABS: Troponin(5th) Baseline 93 ng/L (0-15)
[2025-03-03 18:15] LABS: Chol HDL Ratio 4.06 mg/dL (1.0-5.00); Cholesterol 191 mg/dL (0-200); HDL Cholesterol 47 mg/dL (60-100); LDL Cholesterol Calculated 96 mg/dL (50-129); LDL HDL Ratio 2.04 RATIO (0.00-3.22); Thyroid Stimulating Hormone 4.53 uIU/mL (0.27-4.20); Triglycerides 238 mg/dL (0-150)
[2025-03-03 18:31] LABS: Estmated Average Glucose 123; Hemoglobin A1C 5.9 % (4.0-6.0)
[2025-03-03] MEDS: perflutren protein-a microsphr 0.22 mg/mL SDV 3 mL IV (18:49)
[2025-03-03 19:35] LABS: Troponin 5 2HR 85.12 ng/L (0-15); Troponin 5 2HR Delta -7.88 ABS# (0-10)
--- NOTE | 2025-03-03 20:34 | ECG_ITS ---
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1960 Requested By: Narinder Richardson Order Number: [id number] Reading MD: LONI MALIK Measurements Intervals [place] Rate: 69 P: -65 [place]: 187 QRS: -20 QRSD: 89 T: 3 QT: 365 QTc: 391 Interpretive Statements SINUS RHYTHM WITH OCCASIONAL SUPRAVENTRICULAR PREMATURE COMPLEXES LOW QRS VOLTAGE IN PRECORDIAL LEADS [QRS DEFLECTION < 1.0 mV IN CHEST LEADS] NONSPECIFIC T-WAVE ABNORMALITY Compared to ECG 03/03/2025 17:24:59 T-wave abnormality now present First degree AV block no longer present Myocardial infarct finding no longer present Electronically Signed On 03-04-2025 22:06:13 CDT by LONI MALIK [email or web address]
[2025-03-03] MEDS: atorvastatin 40 mg Tablet PO (20:41)
--- NOTE | 2025-03-03 21:35 | PM.CONSULT ---
Providers/Reason For Consult Consulting Physician/Specialty*: Cardiology Reason for Consult*: Chest pain Non-ST elevation MO Acute renal failure Requesting Physician: Dr. Dylan Barcenas Attending Physician: Narinder Richardson MD Primary Care Provider: Demetri Hardin History of Present Illness History of Present Illness Ward Chung is a 64 year old male past medical history significant for morbid obesity, hypertension, hyperlipidemia, obstructive sleep apnea, coronary artery disease with recent stent to mid LAD in September 2024 at the time it was noted patient has moderate ostial and mid circumflex disease while RCA is chronically occluded with [id number] collaterals, ejection fraction was normal by echocardiogram, patient also developed right groin hematoma post angiogram which later resolved. Reportedly patient was floated out of his home and was not taking his medications since December of this year according to him he thought he has been healed and it was making him nauseated despite of multiple reminder from our office on his prior visits, he confirmed that he is not taking clopidogrel,, today he developed chest pain on blag-om-fhjkayhu exertion radiating to left arm accompanied with shortness of breath and diaphoresis manage did not subsided decided to go to [facility] where initial troponin was 96 suggestive of non-ST elevation MO it is the reason patient has been transferred to our facility. Currently he is chest pain-free, delta troponin is -7 while creatinine is 1.5 which is above his baseline of 1.0. He denies PND orthopnea but admits to shortness of breath. BNP is more than 700. Twelve-lead EKG is consistent with sinus rhythm no significant ST's ST changes suggestive of ischemia. Medications/Allergies Home Medications ?Medication ?Instructions ?Recorded ?Confirmed ?Last Taken ?Type fluticasone furoate 27.5 1 spray intranasal DAILY 07/06/24 10/12/24 Unknown History mcg/actuation nasal spray,suspension (Flonase Sensimist) gabapentin 300 mg capsule 300 mg PO TID 07/06/24 10/12/24 10/03/24 History psyllium husk 0.4 gram capsule 0.4 g PO DAILY PRN Constipation 07/06/24 10/04/24 Unknown History (Metamucil) potassium chloride 10 mEq 10 meq PO DAILY 10/04/24 10/12/24 10/03/24 History tablet,extended release aspirin 81 mg tablet,delayed 81 mg PO DAILY #30 tabs 10/07/24 10/12/24 Unknown Rx release atorvastatin 40 mg tablet 80 mg (2 x 40 mg) PO DAILY #30 tabs 10/07/24 10/12/24 Unknown Rx furosemide 40 mg tablet 40 mg PO DAILY@0800 #30 tabs 10/07/24 10/12/24 Unknown Rx lisinopril 5 mg tablet 5 mg PO DAILY #30 tabs 10/07/24 10/12/24 Unknown Rx metoprolol succinate 25 mg 25 mg PO DAILY #30 tabs 10/07/24 10/12/24 Unknown Rx tablet,extended release 24 hr (Toprol XL) clopidogrel 75 mg tablet 75 mg PO DAILY #90 tabs 10/12/24 10/12/24 Unknown Rx Allergies Allergy/AdvReac Type Severity Reaction Status Date / Time No Known Allergies Allergy Verified 10/12/24 13:16 Current Medications Generic Name Dose Route Start Last Admin Trade Name Freq PRN Reason Stop Dose Admin Atorvastatin Calcium 40 mg 03/03/25 21:00 03/03/25 20:41 Atorvastatin 40 Mg Tablet PO 40 mg BEDTIME DANIKA Administration Heparin Sodium/Sodium Chloride 25,000 unit in 500 mls @ 0 mls/hr 03/03/25 17:15 03/03/25 18:02 Heparin Drip IV 13.97 unit/kg/hr CONT DANIKA 46 mls/hr Administration Protocol Per Protocol Pantoprazole Sodium 40 mg 03/03/25 17:15 03/03/25 18:03 Pantoprazole 40 Mg Sdv IVP 40 mg Q24H DANIKA Administration PFSH Acute PFSH: Medical History Venous stasis Lymphedema Hypertension Fibromyalgia Gout Sleep apnea COPD (chronic obstructive pulmonary disease) Onychodystrophy Edema Venous insufficiency (chronic) (peripheral) Social History Smoking and tobacco/nicotine status: former use of tobacco/nicotine Alcohol intake: never Vitals/I&O/Wt Last Vital Signs Temp 97.9 F 03/03/25 20:00 Pulse 62 03/03/25 17:35 Resp 31 H 03/03/25 20:00 BP 143/79 03/03/25 17:25 Pulse Ox 95 03/03/25 17:35 O2 Del Method Nasal Cannula 03/03/25 17:35 O2 Flow Rate 2 03/03/25 17:35 Weight last 48 hrs Weight 363 lb Physical Exam Const: OTHER: GENERAL: Patient is alert, awake and oriented x3. HEART: Regular S1 and S2. No murmur, rub or gallop. LUNGS: Clear to auscultate bilaterally. CENTRAL NERVOUS SYSTEM: Grossly nonfocal. EXTREMITIES: Lower extremities with out edema bilaterally. Data 03/03/25 17:21 A&P Assessment and plan (1) Non-STEMI (non-ST elevated myocardial infarction): (2) Acute renal failure (ARF): (3) Essential hypertension: (4) Morbid obesity: Plan Currently chest pain-free, patient has been loaded with Plavix and started on home medications. Echocardiogram is consistent with normal ejection fraction no significant valve motion abnormality however image quality was suboptimal and is not much reliable. Cardiac marker elevated could be demand. Patient has been started on IV heparin and nitroglycerin IV fluid will be given for rehydration and to correct renal dysfunction continue 100 mL of normal saline for next 12 hours Check CBC BMP in the morning Will keep him overnight n.p.o. we will reassess renal function in the morning and symptoms further plan will advise regarding left heart cath tomorrow morning PDMP PDMP Reviewed: Not Reviewed Consult Attestations Medical Necessity Statement: Patient require continuation hospitalization for above defined care Coding Level of Care Code Acute Code for Chg Fwd Diagnoses Non-STEMI (non-ST elevated myocardial infarction) I21.4 Acute renal failure (ARF) N17.9 Essential hypertension I10 Morbid obesity E66.01
--- NOTE | 2025-03-03 23:12 | ECG_ITS ---
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1960 Requested By: Narinder Richardson Order Number: [id number] Reading MD: LONI MALIK Measurements Intervals [place] Rate: 62 P: 64 OR: 229 QRS: -23 QRSD: 97 T: -12 QT: 402 QTc: 409 Interpretive Statements SINUS RHYTHM WITH FIRST DEGREE AV BLOCK LOW QRS VOLTAGE IN PRECORDIAL LEADS [QRS DEFLECTION < 1.0 mV IN CHEST LEADS] INFERIOR MYOCARDIAL INFARCTION , OF INDETERMINATE AGE [40+ ms Q WAVE AND/OR ST/T ABNORMALITY IN II/aVF] Compared to ECG 03/03/2025 20:34:58 First degree AV block now present Myocardial infarct finding now present T-wave abnormality no longer present Electronically Signed On 03-04-2025 22:06:15 CDT by LONI MALIK [email or web address]
[2025-03-03 23:25] LABS: Troponin 5 6HR 91.17 ng/L (0-15)
[2025-03-03 23:28] LABS: Troponin 5 6HR Delta -1.83 ng/L (0-12)
[2025-03-03] MEDS: nitroglycerin drip 50 MG/250 ML PREMIX IV (23:36)
--- NOTE | 2025-03-03 23:58 | PC.NURSE ---
Dr. Saab came to see patient and gave verbal orders to start nitro drip for chest pain, IV fluids for kidneys in case of cath in the morning.
[2025-03-04] VITALS (87 sets, daily range): BP systolic 87–182; BP diastolic 38–122; PULSE 53–93; RESP 0–33; TEMP 36.4–36.6; O2SAT 91–100
[2025-03-04 00:44] LABS: Basophils % 0.5 %; Eosinophils # 0.2 10^3/uL (0.0-0.8); Eosinophils % 3.5 %; Hematocrit 42.9 % (37-53); Lymphocytes # 2.2 10^3/uL (0.8-4.8); Lymphocytes % 33.1 %; Mean Corpuscular HGB Conc 30.5 g/dL (30-55); Mean Corpuscular Hemoglobin 25.8 pg (27-33); Mean Corpuscular Volume 84.4 fl (82-101); Monocytes # 0.5 10^3/uL (0.2-0.9); Monocytes % 7.2 %; Neutrophils # 3.62 10^3/uL (1.8-7.7); Neutrophils % 55.4 %; Nucleated Red Blood Cells % 0 %; Platelet Count 210 10^3/cmm (157-399); Red Blood Count 5.08 10^6/uL (3.85-5.65); Red Cell Distribution Width 15.9 % (12.1-15.1); White Blood Count 6.53 10^3/uL (3.29-11.43)
[2025-03-04] MEDS: sodium chloride 0.9% 1,000 ML 100 ML IV (00:45)
[2025-03-04 00:54] LABS: Alanine Aminotransferase 18 U/L (0-41); Albumin Level 3.8 g/dL (3.5-5.2); Alkaline Phosphatase 111 U/L (40-130); Anion Gap 14.2 (5-19); Aspartate Amino Transferase 18 U/L (0-40); Blood Urea Nitrogen 12 mg/dL (8-23); Calcium 8.7 mg/dL (8.5-10.5); Carbon Dioxide 27 mmol/L (22-29); Chloride 104 mmol/L (98-107); Creatinine Clr Calc Pharmacy 137.3389; Globulin 3.8 g/dL (1.3-4.6); Glomerular Filtration Rate 96.7 mL/min (90-130); Glucose 99 mg/dL (65-115); Osmolality Calculated 292 mOsm/kg (285-295); Phosphorus 3.3 mg/dL (2.5-4.5); Potassium 4.2 mmol/L (3.5-5.1); Sodium 141 mmol/L (136-145); Total Bilirubin 0.7 mg/dL (0.15-1.2); Total Protein 7.6 g/dL (6.6-8.7)
[2025-03-04 00:59] LABS: Partial Thromboplastin Time 93.3 SECONDS (23.9-36.7)
[2025-03-04] MEDS: heparin drip 25,000 UNIT/500 ML PREMIX 39 UNIT IV (06:34)
[2025-03-04 07:41] LABS: Partial Thromboplastin Time 48.5 SECONDS (23.9-36.7)
[2025-03-04] MEDS: diphenhydrAMINE 50 mg Capsule PO (08:55)
[2025-03-04] MEDS: clopidogrel 75 mg Tablet PO (08:55)
[2025-03-04] MEDS: metoprolol succinate ER (24 HR) 25 mg Tablet PO (08:55)
[2025-03-04] MEDS: aspirin 325 mg Tablet PO (08:55)
[2025-03-04] MEDS: aspirin 81 mg EC Tablet PO (08:55)
--- NOTE | 2025-03-04 09:22 | PC.NURSE ---
Pre cath meds not given overnight due to cath being this tobiasnig, called labor conciliator to confirm patient is going to labor conciliator and the need for pre cath benedryl aspirin and plavix per MAR
--- NOTE | 2025-03-04 09:30 | XACV_ITS ---
Exam Room: [facility] Ht: 173 cm Wt: 159 kg BSA: 2.85 m2 Gender: Male : 1960 Any Known Allergies: No known allergies Exam Priority: Routine Procedure(s): Procedure Description: Diagnostic procedure Procedure Description: PCI procedure Procedure Description: Drug Eluting Coronary Stent Procedure Description: PTCA Procedure Description: Miscellaneous Procedure Description: ACT Procedure Description: Coronary Angiography Katiana MCKEON; Diagnostic Cath Status: Urgent Diagnostic Findings * Left Main has no disease. * Left Anterior Descending has no disease. * Right Coronary Artery has no disease. * Proximal Circumflex: significant 80% stenosis, KAYLA: 3 flow. PCI Status: Urgent PCI Indication: New Onset Angina <= 2 months Interventional Findings * Proximal Circumflex: 80% stenosis treated with a AB TREK 3.00X12 RX BALLOON, VILMA Degroot MICHAEL 3.5X30 LISSETH, and MDJorge LARSON EUPHORA RX 3.57M65CH BALLOON. 0% residual stenosis, KAYLA: 3 flow. Conclusions 1. There is significant coronary artery disease with one vessel disease. 2. Proximal Circumflex was treated with a Balloon, Drug Eluting Stent, and Balloon. Recommendations * 1-Return to inpatient for close monitoring and routine cath care 2-Risk factor modification for secondary prevention 3-Statin and aspirin 81 mg life-long, if tolerated 4-Continue Plavix 75mg p.o. daily for at least one year. We will assess at the end of one year again to continue if further or not 5-Continue optimal medical management 6-Follow up with Dr. Saab in four weeks and your primary care in 10 days. Diagnostic RX Recommendation: PCI w/o planned CABG Pressures Phase:Rest AO : 124 / 73 ( 95 ) @ 11:05:00 AM 117 / 84 ( 101 ) @ 11:08:00 AM 117 / 68 ( 90 ) @ 11:21:00 AM 109 / 66 ( 85 ) @ 11:32:00 AM 116 / 69 ( 90 ) @ 11:47:00 AM Clinical Evaluation EBL: 5mL-10mL Procedural Details Pre-Procedure Time Out. Identified patient by full name and date of as verbalized by the patient/guarantor. Does the consent match the physician's order: Yes. Accurate & Complete Informed Consent: Yes. Inpatient/Outpatient History & Physical on Chart: Yes. If H&P is completed, is and addenduem needed: No; If yes, is the addendum complete: N/A. Visualize and Verify Site with Patient/Guarantor: N/A. Relevant Radiology Images available: N/A. Pre-op teaching completed and patient verbalized understanding. The risks, benefits, and alternatives of sedation and/or procedure were discussed by physician. The patient agrees to continue. Procedure started. [facility] Clinical Fraility Score: 6: Moderately Frail. 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 Chest Pain Symptom Assessment: Typical Angina Symptoms. Cardiovascular Instability: Yes, if yes, Persistant Ischemic Symptoms. Correct patient, site and procedure confirmed by cath team. Current diagnosis: Chest Pain. PERRLA. Strong, equal hand platen grinder bilaterally. Lungs clear x 5 lobes. IV Site on Arrival: 20 gauge in the left forearm. IV Site on Arrival: 20 gauge in the right anticubital. IV Fluids: 0.9% NaCl at KVO. 700 mL infused prior to labor utilization superintendent. Pre Procedural Pulses: bilateral dorsalis pedis was 1+. Pre Procedural Pulses: right radial was 2+. Oxygen started at liters/min via nasal canula. right groin was prepped with chloroprep then draped in the usual sterile fashion. right radial was prepped with chloroprep then draped in the usual sterile fashion. Physician notified. Baseline sample Acquired. HR: 69 BPM. Physician arrived. Admit Source: In Patient. Physician scrubbed in. Immediate Pre-Procedure Time Out. Correct Patient: Yes; Correct Procedure: Yes; Correct Site: Yes; Correct Patient Position: Yes; Correct Supplies: Yes; Dried Flammable Prep: Yes; Blood Products Available: N/A;. Lidocaine 1% infiltrated to the right radial. Arterial access obtained. A 5 malaysian Danny catheter in over wire. Multiple views taken of left coronary artery. Catheter redirected to the RCA. ACT drawn. Results 186 seconds. Therapeutic limits - pre-heparin administration 90-150 seconds and monitoring heparin during a vascular procedure >250 seconds. Previous cath films reviewed by Dr. 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 Catheter out. 6 malaysian XB 3.5 guide catheter was inserted over the wire. Runthrough guidewire was advanced through the guide catheter to lesion in the prox Circ. Balloon inserted to lesion in the prox Circ. Inflation number : 1 A AB TREK 3.00X12 RX BALLOON was prepped and advanced across the Prox CX , then inflated to 14 MIRA for 0:11 seconds. Inflation number: 2 The AB TREK 3.00X12 RX BALLOON was reinflated across the Prox CX, to 12 MIRA for 0:11 seconds. Inflation number: 3 The AB TREK 3.00X12 RX BALLOON was reinflated across the Prox CX, to 14 MIRA for 0:15 seconds. Balloon out. Results checked. Stent inserted to lesion in the prox Circ. Inflation Number : 4 A T R MICHAEL 3.5X30 LISSETH -Lot Number# [id number] Exp 05/11/2027 was prepped and advanced across the Prox CX. The stent was deployed at 14 MIRA for 0:24 seconds. Stent balloon out over wire. Results checked. Balloon inserted to lesion in the prox Circ. Inflation number : 5 A MDT NC EUPHORA RX 3.14R26YP BALLOON was prepped and advanced across the Prox CX , then inflated to 14 MIRA for 0:24 seconds. Inflation number: 6 The MDT NC EUPHORA RX 3.24I90VH BALLOON was reinflated across the Prox CX, to 16 MIRA for 0:19 seconds. Inflation number: 7 The MDT NC EUPHORA RX 3.27N46OQ BALLOON was reinflated across the Prox CX, to 16 MIRA for 0:18 seconds. Inflation number: 8 The MDT NEO EUPHORA RX 3.17H67DE BALLOON was reinflated across the Prox CX, to 14 MIRA for 0:14 seconds. Balloon out. Results checked. Wire out. ACT drawn. Results 294 seconds. Therapeutic limits - pre-heparin administration 90-150 seconds and monitoring heparin during a vascular procedure >250 seconds. Results checked. Guide catheter out. Physician scrubbed out. A TR Band was successful obtaining hemostatsis at the Right Radial artery insertion site. Post Procedure: Pulses reassessed and unchanged. PERRLA. Strong, equal hand platen grinder bilaterally. No VTE prophylaxis required. Medication's Wasted: Lidocaine 1% = 15 mL. Medication's Wasted: Nitro = 49.8 mg. Medication's Wasted: Heparin = Heparin 4000 u. Total IV fluids: 50 mL. PCI Indication: NSTE. Post-op diagnosis: NSTEMI, Signigicant Prox Cx Lesion s/p x1 successful LISSETH. Complications: none. Estimated blood loss: 5mL-10mL. Responsiveness - Normal response to verbal stimuli; alert and oriented, PERRLA. Airway - Unaffected, no intervention required; spontaneous ventilation. Circulation: W/N/L, pulses unchanged. Nausea/Vomiting: No. Procedure completed. Patient transferred by bed to 1st floor. Vital chart was stopped. Access Site Site: Right Radial artery Sheath Size: 6 Fr Hemostasis Method: TR Band Hemostasis Success: Successful Procedure Medications Start: 9:52 AM Stop: 9:52 AM Medication: Versed Amount: 1 mg Route: I.V. Start: 9:52 AM Stop: 9:52 AM Medication: Fentanyl Amount: 50 mcg Route: I.V. Start: 10:00 AM Stop: 10:00 AM Medication: Nitrogylcerin Amount: 200 mcg Route: I.A. Start: 10:20 AM Stop: 10:20 AM Medication: Heparin Amount: 7000 units Route: I.V. Start: 10:22 AM Stop: 10:22 AM Medication: Versed Amount: 1 mg Route: I.V. Start: 10:22 AM Stop: 10:22 AM Medication: Fentanyl Amount: 50 mcg Route: I.V. Start: 10:41 AM Stop: 10:41 AM Medication: Aggrastat 12.5 mg/250 mL Amount: 80 ml Route: I.V. bolus Start: 10:50 AM Stop: 10:50 AM Medication: Plavix Amount: 600 mg Route: P.O. I, the attending physician, have reviewed and verified all procedure medications. Yes, all medications given per verbal order History/Risk Factors Hypertension: Yes Dyslipidemia: No Peripheral Arterial Disease (PAD): No Myocardial Infarction (GA): Yes Obesity: Yes Renal Disease: No Tobacco Use: Former Dialysis: None Prior Interventions PCI: Yes CABG: No Valve Surgery: No Date of PCI: 10/06/2024 Report Signatures Finalized by Amberly Saab MD on 03/20/2025 09:12 PM
--- NOTE | 2025-03-04 09:50 | W.PM.OPSUD ---
Surgery/Procedure H&P Update DATE OF PROCEDURE: March 04, 2025 DATE H&P PERFORMED: 03/03/25 H&P UPDATE INFORMATION: I have reviewed H&P completed within last 30 days, I have examined patient prior to procedure and No changes to prior documentation PREOP DIAGNOSIS: [id number]-[id number] [place] PRIMARY INDICATION FOR PROCEDURE: Non-ST elevation [place] PATIENT REASSESSED PRIOR TO SEDATION, WITH NO CHANGE NOTED: Yes PHYSICAL EXAM: alert, oriented x 3, clear to auscultation bilaterally, regular rate & rhythm and operative site marked AIRWAY EVAL/ANESTHESIA PLAN: ASA II, Risks, benefits & alternatives of sedation and/or procedure discussed and Patient agrees to continue as planned ADDITIONAL INFORMATION: All risk-benefit and alternative for the procedure has been explained to the patient. Patient understand 2% risk of stroke major bleed urgent emergent vascular bypass surgery, patient understand risk for contrast-induced nephropathy. Patient in the standard risk for hematoma bruising infection in a worse case scenario . He would like to proceed with it.
--- NOTE | 2025-03-04 09:57 | PC.NURSE ---
off unit with director of labor relations staff
--- NOTE | 2025-03-04 11:03 | PM.PROC ---
Procedure Note: Date of procedure: 03/04/25 Pre-procedure diagnosis: Non-STEMI Procedure: Left heart cath was performed indication was non-STEMI Left main: Normal LAD luminal irregularity with patent previously placed mid LAD stent RCA not engaged as known to be chronically occluded and small vessel Left circumflex: On the previous angiogram it was moderate lesion it is the culprit vessel as it has napkin ring type of eccentric lesion best seen in FRANCISCO JAVIER cranial view, actually it has addendum to lesions to cover both lesion we treated the patient with 1 long stent. 3.5 x 30 mm of drug-eluting stent was placed postdilated with 3.75 noncompliant balloon excellent angiographic result KAYLA-3 flow noted at the end of the case without any complication. Patient was reloaded with 600 mg of Plavix Plan: TR band as per protocol Continue aspirin statin Plavix, add lisinopril Continue IV fluid 100 mL/h for next 10 hours in order to prevent contrast induced nephropathy. Monitor CBC and BMP in the morning. Coding Level of Care Code Acute Code for Lashawn Preston
--- NOTE | 2025-03-04 11:14 | PC.NURSE ---
arrived back from pathology lab technician
[2025-03-04] MEDS: gabapentin 300 mg Capsule PO ×2 (14:01→20:05)
--- NOTE | 2025-03-04 14:47 | P.PN_ITS ---
Subjective 2 Subjective: Patient underwent left heart cath noted to have significant proximal circumflex lesion treated with single drug-eluting stent. Vitals/I&O/Wt Last Vital Signs Temp 97.9 F 03/04/25 04:39 Pulse 62 03/04/25 13:15 Resp 15 03/04/25 13:15 BP 141/72 03/04/25 13:15 Pulse Ox 99 03/04/25 13:15 O2 Del Method Nasal Cannula 03/04/25 08:12 O2 Flow Rate 2 03/04/25 08:12 03/03/25 03/04/25 03/04/25 22:59 06:59 14:59 Intake Total 515.500 / 515.500 200 / 200 Output Total 1500 / 1500 325 / 1825 Balance -1500 / -1500 190.500 / -1309.500 200 / 200 Weight last 48 hrs Weight 350 lb 14.4 oz Weight 363 lb Physical Exam 2 Const: COMMON NORMALS: alert OTHER: GENERAL: Patient is alert, awake and oriented x3. HEART: Regular S1 and S2. No murmur, rub or gallop. LUNGS: Clear to auscultate bilaterally. CENTRAL NERVOUS SYSTEM: Grossly nonfocal. EXTREMITIES: Lower extremities with out edema bilaterally. Resp: COMMON NORMALS: clear to auscultation bilaterally AUSCULTATION: clear to auscultation bilaterally Neuro: SENSORIUM/ORIENTATION: Yes alert Data 03/04/25 00:26 03/04/25 00:26 A&P Assessment and plan (1) Non-STEMI (non-ST elevated myocardial infarction): (2) Acute renal failure (ARF): (3) Essential hypertension: (4) Morbid obesity: Plan Patient has been advised regarding compliance with medications so far he has committed that he will do so. Continue aspirin and statin Plavix continue IV fluid 100 mL/h for 10 hours check CBC BMP in the morning PDMP PDMP Reviewed: Not Reviewed Attestations 2 Medical Necessity Statement*: Patient require continuation hospitalization for above defined care Coding Level of Care Code Acute Code for Chg Fwd Diagnoses Non-STEMI (non-ST elevated myocardial infarction) I21.4 Acute renal failure (ARF) N17.9 Essential hypertension I10 Morbid obesity E66.01
--- NOTE | 2025-03-04 16:08 | P.PN_ITS ---
Subjective 2 Subjective: Patient was seen this morning, no chest pain overnight, no fevers, no chills, no nausea, no vomiting, does report shortness of breath Vitals/I&O/Wt Last Vital Signs Temp 97.9 F 03/04/25 04:39 Pulse 62 03/04/25 13:15 Resp 15 03/04/25 13:15 BP 141/72 03/04/25 13:15 Pulse Ox 99 03/04/25 13:15 O2 Del Method Nasal Cannula 03/04/25 08:12 O2 Flow Rate 2 03/04/25 08:12 03/04/25 03/04/25 03/04/25 06:59 14:59 22:59 Intake Total 515.500 / 515.500 200 / 200 Output Total 325 / 1825 Balance 190.500 / -1309.500 200 / 200 Weight last 48 hrs Weight 159.166 kg Weight 164.654 kg Physical Exam 2 Const: COMMON NORMALS: no acute distress and patient oriented x3 Resp: COMMON NORMALS: normal respiratory effort, No retractions, No use of accessory muscles and clear to auscultation bilaterally AUSCULTATION: clear to auscultation bilaterally Cardio: COMMON NORMALS: regular rate, regular rhythm, S1 normal heart sound present and S2 normal heart sound present RATE: regular rate RHYTHM: r egular rhythm HEART SOUNDS: S1 normal heart sound present and S2 normal heart sound present GI: COMMON NORMALS: Normal to inspection, nondistended, normoactive bowel sounds present and non-tender Extremity: COMMON NORMALS: no pedal edema Neuro: COMMON NORMALS: patient oriented x3 Psych: COMMON NORMALS: mental status grossly normal Data 03/04/25 00:26 03/04/25 00:26 A&P Assessment and plan (1) Unstable angina: (2) Non-STEMI (non-ST elevated myocardial infarction): Plan Unstable angina, NSTEMI Plan - Serial EKGs, serial troponins, telemetry monitoring - Cardiac echo CONCLUSIONS Normal left ventricular size, systolic function and wall thickness, with no regional wall motion abnormalities. Left ventricular ejection fraction is estimated at 60 %. Grade II/IV diastolic dysfunction, moderately elevated filling pressures. Moderately thickened mitral valve. No mitral valve stenosis. Trace valve regurgitation. Moderate aortic valve calcification. No aortic valve stenosis. Trace aortic valve regurgitation. There is no pericardial effusion. - Monitor for chest pain - Status post aspirin 325, Plavix 600 mg, - Continue aspirin, Plavix, statin, beta-allyssa - Continue heparin drip - Cardiology consulted - N.p.o. midnight, with plans on coronary angiography today - Full code - Heparin for DVT prophylaxis PDMP PDMP Reviewed: Not Reviewed Attestations 2 Medical Necessity Statement*: Patient requires hospitalization for unstable angina, NSTEMI Diagnoses Unstable angina I20.0 Non-STEMI (non-ST elevated myocardial infarction) I21.4
--- NOTE | 2025-03-04 17:00 | PC.PHAR ---
Patient was unaware o what medications he was taking . His last fill was an inhaler adn he wasn't sure where it was . Patient stated he didn't want to get addicted to his meds because if he took them to much they would stop working. Some that were three times a day patient stated he would cut them back and just take one daily so he would still have it in his system . I remove Asprin 81mg,Albuteral inhaler, Atorvastatin 40mg,clopidogrel 75mg,Flonase, Furosemide 40mg,Lisinipril 5mg ,Toprol XR25mg,and Potassium chloride 10meq.Most last fills were 10/07/24 30days
[2025-03-04] MEDS: dextrose 5%-ns + KCl 20 20 MEQ/1,000 ML BAG 100 MEQ IV (17:37)
[2025-03-04] MEDS: pantoprazole 40 mg SDV IVP (17:38)
[2025-03-04] MEDS: atorvastatin 40 mg Tablet 80 MG PO (20:02)
[2025-03-05] VITALS (28 sets, daily range): BP systolic 121–195; BP diastolic 58–116; PULSE 52–92; RESP 2–35; TEMP 36.3–36.7; O2SAT 81–100
--- NOTE | 2025-03-05 04:11 | PC.NURSE ---
Spoke with Dr. Lloyd in reference to patient's MAR, and two seperate fluids present. Received orders to DC the dextrose5+KCl, and resume 100ml/hr NS.
[2025-03-05] MEDS: sodium chloride 0.9% 1,000 ML 100 ML IV (04:16)
[2025-03-05 05:22] LABS: Basophils % 0.4 %; Eosinophils # 0.2 10^3/uL (0.0-0.8); Eosinophils % 4.1 %; Hematocrit 41.8 % (37-53); Lymphocytes # 1.6 10^3/uL (0.8-4.8); Lymphocytes % 31.6 %; Mean Corpuscular HGB Conc 29.9 g/dL (30-55); Mean Corpuscular Hemoglobin 25.9 pg (27-33); Mean Corpuscular Volume 86.5 fl (82-101); Mean Platelet Volume 11.2 fL (7.4-10.4); Monocytes # 0.5 10^3/uL (0.2-0.9); Monocytes % 9.8 %; Neutrophils # 2.63 10^3/uL (1.8-7.7); Neutrophils % 53.5 %; Nucleated Red Blood Cells % 0 %; Platelet Count 160 10^3/cmm (157-399); Red Blood Count 4.83 10^6/uL (3.85-5.65); Red Cell Distribution Width 16.4 % (12.1-15.1); White Blood Count 4.91 10^3/uL (3.29-11.43)
[2025-03-05 05:47] LABS: Alanine Aminotransferase 18 U/L (0-41); Albumin Level 3.6 g/dL (3.5-5.2); Alkaline Phosphatase 94 U/L (40-130); Anion Gap 12.3 (5-19); Aspartate Amino Transferase 17 U/L (0-40); Blood Urea Nitrogen 11 mg/dL (8-23); Calcium 8.6 mg/dL (8.5-10.5); Carbon Dioxide 28 mmol/L (22-29); Chloride 108 mmol/L (98-107); Creatinine Clr Calc Pharmacy 134.5186; Globulin 3.1 g/dL (1.3-4.6); Glomerular Filtration Rate 96.7 mL/min (90-130); Glucose 99 mg/dL (65-115); Magnesium 2.1 mg/dL (1.7-2.3); Osmolality Calculated 297 mOsm/kg (285-295); Phosphorus 3.5 mg/dL (2.5-4.5); Potassium 4.3 mmol/L (3.5-5.1); Sodium 144 mmol/L (136-145); Total Bilirubin 0.8 mg/dL (0.15-1.2); Total Protein 6.7 g/dL (6.6-8.7)
[2025-03-05] MEDS: clopidogrel 75 mg Tablet PO (08:51)
[2025-03-05] MEDS: gabapentin 300 mg Capsule PO (08:51)
[2025-03-05] MEDS: metoprolol succinate ER (24 HR) 25 mg Tablet PO (08:51)
[2025-03-05] MEDS: aspirin 81 mg EC Tablet PO (08:51)
--- NOTE | 2025-03-05 09:24 | P.DS_ITS ---
Discharge Providers Date of Admission: 03/03/25 16:55 Date of Discharge: March 05, 2025 Attending Provider at Admission: Narinder Richardson MD Attending Provider at Discharge: Narinder Richardson MD Primary Care Provider: Demetri Hardin Diagnoses at Discharge Discharge Diagnosis (1) Unstable angina: Status: Acute (2) Non-STEMI (non-ST elevated myocardial infarction): Status: Resolved Reason for Visit Reason for Visit: [facility] Hospital Course Ward Chung is a 64 year old male with a past medical history of morbid obesity, history of LAD stent, history of left circumflex disease, sleep apnea, morbid obesity, history of right groin hematoma, history of moderate disease in the left circumflex and RCA, who presents [facility] for chest pain. Patient was transferred from [facility]. Patient unfortunately has been floated out of his home, has been out of his medications for the last 2 days, he has not been taking Plavix. He tells me that today he was exerting himself, developed substernal left-sided chest pain, 10 out of 10 rating down his left arm, associate with diaphoresis, lightheadedness, that he went to the emergency room, currently his chest pain-free, he was loaded with Plavix 600 mg, received aspirin 325 started on heparin drip, EKG showed no acute ST-T wave changes, Patient was admitted to [facility] for NSTEMI, chest pain, monitored as inpatient, cardiology was consulted underwent left heart cath found to have significant proximal circumflex lesion treated with 1 drug-eluting stent, tolerated procedure well, no recurrent chest pain. Patient will be discharged on aspirin, statin, Plavix, metoprolol, with close follow-up with cardiology as outpatient. Patient was advised if he has any recurrent chest pain to call 911 or go to the emergency room. Follow-up with primary care provider for consideration of sleep study Physical Exam Const: COMMON NORMALS: no acute distress and patient oriented x3 Resp: COMMON NORMALS: normal respiratory effort, No retractions, No use of accessory muscles and clear to auscultation bilaterally AUSCULTATION: clear to auscultation bilaterally Cardio: COMMON NORMALS: regular rate, regular rhythm, S1 normal heart sound present and S2 normal heart sound present RATE: regular rate RHYTHM: regular rhythm HEART SOUNDS: S1 normal heart sound present and S2 normal heart sound present GI: COMMON NORMALS: Normal to inspection, nondistended, normoactive bowel sounds present and non-tender Extremity: COMMON NORMALS: no pedal edema Neuro: COMMON NORMALS: patient oriented x3 Psych: COMMON NORMALS: mental status grossly normal Discharge Data Studies Completed and Pending Completed Studies During Hospitalization Category Date Time Status CV. 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 request for service Routine Exams 03/04/25 09:30 Ordered Complete Blood Count w/Auto AM LABS Lab 03/06/25 04:00 Ordered Comprehensive Metabolic Panel AM LABS Lab 03/06/25 04:00 Ordered Magnesium AM LABS Lab 03/06/25 04:00 Ordered Phosphorus AM LABS Lab 03/06/25 04:00 Ordered Laboratory Results WBC 4.91 10^3/uL (3.29-11.43) 03/05/25 04:44 RBC 4.83 10^6/uL (3.85-5.65) 03/05/25 04:44 Hgb 12.50 g/dL (11.27-16.99) 03/05/25 04:44 Hct 41.8 % (37-53) 03/05/25 04:44 MCV 86.5 fl (82-101) 03/05/25 04:44 MCH 25.9 pg (27-33) L 03/05/25 04:44 MCHC 29.9 g/dL (30-55) L 03/05/25 04:44 RDW 16.4 % (12.1-15.1) H 03/05/25 04:44 Plt Count 160 10^3/cmm (157-399) 03/05/25 04:44 MPV 11.2 fL (7.4-10.4) H 03/05/25 04:44 Neut % (Auto) 53.5 % 03/05/25 04:44 Lymph % (Auto) 31.6 % 03/05/25 04:44 [place] % (Auto) 9.8 % 03/05/25 04:44 Eos % (Auto) 4.1 % 03/05/25 04:44 Baso % (Auto) 0.4 % 03/05/25 04:44 Neut # (Auto) 2.63 10^3/uL (1.8-7.7) 03/05/25 04:44 Lymph # (Auto) 1.6 10^3/uL (0.8-4.8) 03/05/25 04:44 [place] # (Auto) 0.5 10^3/uL (0.2-0.9) 03/05/25 04:44 Eos # (Auto) 0.2 10^3/uL (0.0-0.8) 03/05/25 04:44 Baso # (Auto) 0.0 10^3/uL (0.0-0.1) 03/05/25 04:44 Nucleated RBC % (auto) 0 % 03/05/25 04:44 Nucleated RBCs # 0.0 /100WBC 03/05/25 04:44 APTT 48.5 SECONDS (23.9-36.7) H 03/04/25 07:24 Sodium 144 mmol/L (136-145) 03/05/25 04:44 Potassium 4.3 mmol/L (3.5-5.1) 03/05/25 04:44 Chloride 108 mmol/L (98-107) H 03/05/25 04:44 Carbon Dioxide 28 mmol/L (22-29) 03/05/25 04:44 Anion Gap 12.3 (5-19) 03/05/25 04:44 BUN 11 mg/dL (8-23) 03/05/25 04:44 Creatinine 0.8 mg/dL (0.7-1.2) 03/05/25 04:44 GFR Calculation 96.7 mL/min (90-130) 03/05/25 04:44 Glucose 99 mg/dL (65-115) 03/05/25 04:44 Estimat Average Glucose 123 03/03/25 17:21 Hemoglobin A1c 5.9 % (4.0-6.0) 03/03/25 17:21 Calculated Osmolality 297 mOsm/kg (285-295) H 03/05/25 04:44 Calcium 8.6 mg/dL (8.5-10.5) 03/05/25 04:44 Phosphorus 3.5 mg/dL (2.5-4.5) 03/05/25 04:44 Magnesium 2.1 mg/dL (1.7-2.3) 03/05/25 04:44 Total Bilirubin 0.8 mg/dL (0.15-1.2) 03/05/25 04:44 AST 17 U/L (0-40) 03/05/25 04:44 ALT 18 U/L (0-41) 03/05/25 04:44 Alkaline Phosphatase 94 U/L (40-130) 03/05/25 04:44 Troponin T Baseline 93 ng/L (0-15) H 03/03/25 17:21 Troponin T 120 Minute 85.12 ng/L (0-15) H 03/03/25 19:05 Delta Troponin T -7.88 ABS# (0-10) L 03/03/25 19:05 Troponin T Hi Sens 6Hr 91.17 ng/L (0-15) H 03/03/25 22:48 Troponin T Hi Sens 6Hr Delta -1.83 ng/L (0-12) L 03/03/25 22:48 Total Protein 6.7 g/dL (6.6-8.7) 03/05/25 04:44 Albumin 3.6 g/dL (3.5-5.2) 03/05/25 04:44 Globulin 3.1 g/dL (1.3-4.6) 03/05/25 04:44 Triglycerides 238 mg/dL (0-150) H 03/03/25 17:21 Cholesterol 191 mg/dL (0-200) 03/03/25 17:21 LDL Cholesterol, Calc 96 mg/dL (50-129) 03/03/25 17:21 HDL Cholesterol 47 mg/dL (60-100) L 03/03/25 17:21 LDL/HDL Ratio 2.04 RATIO (0.00-3.22) 03/03/25 17:21 Cholesterol/HDL Ratio 4.06 mg/dL (1.0-5.00) 03/03/25 17:21 TSH 4.53 uIU/mL (0.27-4.20) H 03/03/25 17:21 Vitals Last Vital Signs Temp 97.3 F L 03/05/25 04:00 Pulse 76 03/05/25 06:00 Resp 21 H 03/05/25 04:30 BP 140/73 03/05/25 04:30 Pulse Ox 86 L 03/05/25 04:30 O2 Del Method Room Air 03/05/25 04:00 O2 Flow Rate 2 03/04/25 08:12 Discharge Plan Discharge Patient Disposition: Home Condition: Stable Prescriptions: New metoprolol succinate 25 mg Tablet Extended Release 24 Hr 25 mg PO DAILY 30 Days Qty: 30 0RF atorvastatin 40 mg Tablet 80 mg PO BEDTIME 30 Days Qty: 60 0RF clopidogrel 75 mg Tablet 75 mg PO DAILY 30 Days Qty: 30 0RF gabapentin 300 mg Capsule 300 mg PO TID 30 Days Qty: 90 0RF aspirin 81 mg Tablet,Delayed Release (Dr/Ec) 81 mg PO DAILY 30 Days Qty: 30 0RF nitroglycerin 0.4 mg Tablet, Sublingual 0.4 mg sublingual Q5M PRN (Reason: Chest Pain) 30 Days Qty: 30 0RF No Action No Known Home Medications Discharge Orders: Discharge Order (Routine); Ordered 03/05/25 Ordered By: Narinder Richardson Referrals: Amberly Saab MD [Physician] - 1-3 days Discharge Diet: Cardiac Discharge Activity: Resume usual activity Patient Instructions: Opioid Safety Activity Restrictions/Additional Instructions: - If you have any recurrent chest pain please go to the emergency room or call 911 - Please continue aspirin, Plavix, statin, metoprolol as prescribed - If you develop bloody or black stools please immediately go to the emergency room - See your primary care provider this week Discharge Attestations Time Spent in Discharge Care*: greater than 30 min Quality Metrics Clinical Quality Measures [ Acute Myocardial Infaction { Clinical Trial Participant: No; Contraindication to aspirin: None; Aspirin prescribed; Contraindication to statin: None; Statin prescribed; Contraindication to PCI: None; PCI performed;}. No reported AMI, CVA or VTE this stay] Coding Level of Care Code Acute Code for Chg Fwd Diagnoses Unstable angina I20.0 Non-STEMI (non-ST elevated myocardial infarction) I21.4
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
--- NOTE | 2025-03-05 11:09 | P.PN_ITS ---
<Statement entered by Amberly Saab MD - 03/06/25 20:40> Patient was evaluated and cared for in conjunction with an advanced practice practitioner. I personally examined the patient and reviewed the chart and all pertinent data including imaging, telemetry, and laboratory results. I discussed the patient in detail with the advanced practice practitioner. Please see their note for complete H&P testing result and agreed upon plan of care for the patient. Subjective 2 Subjective: Patient doing well denies any chest pain radial cath site looks good Vitals/I&O/Wt Last Vital Signs Temp 98.0 F 03/05/25 10:08 Pulse 76 03/05/25 10:08 Resp 18 03/05/25 10:08 BP 160/90 03/05/25 10:08 Pulse Ox 97 03/05/25 10:08 O2 Del Method Room Air 03/05/25 04:00 O2 Flow Rate 2 03/04/25 08:12 03/04/25 03/05/25 03/05/25 22:59 06:59 14:59 Intake Total 1440 / 2640 Output Total 1600 / 1600 500 / 2100 Balance -1600 / -400 940 / 540 Weight last 48 hrs Weight 395 lb 11.676 oz Weight 350 lb 14.4 oz Weight 363 lb Physical Exam 2 Narrative: General: No apparent distress, healthy appearing, well nourished Respiratory: Normal respiratory effort, clear to auscultation bilaterally throughout all lung pearce, no use of accessory muscles Cardio: No JVD, regular rate, regular rhythm, S1 S2 normal, no murmurs, peripheral pulses 2+ radial palpated bilaterally Extremities: Full ROM, normal, normal capillary refill, no cyanosis or edema Neuro: Alert and oriented x4, no focal motor deficits Psych: Affect normal, denies suicidal ideation, mental status grossly normal Skin: Right radial cath site clean, dry, intact w/o s/s of hematoma Data 03/05/25 04:44 03/05/25 04:44 A&P Assessment and plan (1) Non-STEMI (non-ST elevated myocardial infarction): (2) Acute renal failure (ARF): (3) Essential hypertension: (4) Morbid obesity: Plan Patient has had previous mid LAD stent and yesterday had the proximal circ. stented. Recommend continue aspirin, Plavix, and statin therapy for at least 1 year without interruption. F/U in the clinic in 1 week. PDMP PDMP Reviewed: Not Reviewed Attestations 2 Medical Necessity Statement*: May be discharged from cardiology perspective. Coding Level of Care Code Acute Code for Chg Fwd Diagnoses Non-STEMI (non-ST elevated myocardial infarction) I21.4 Acute renal failure (ARF) N17.9 Essential hypertension I10 Morbid obesity E66.01
--- NOTE | 2025-03-05 12:24 | PC.NURSE ---
Addendum entered by Darrian Jack RN 03/05/25 12:26: left with all belongings. Include clothing, cellphone, cellphone packager head, cane, and medications. Original Note: Discharged patient. Bilateral IVs removed intact. Meds to bed was delivered and double checked medications with patient and sister who was present. Educated on medications, upcoming appointments, and post cath care/activity instructions. Patient signature form signed. Patient left with Sister Christina.
== END 2025-03-05 12:00 | disposition home or self-care (01) | DRG 322 ==
PROVIDERS: Internal Medicine; Internal Medicine Cardiovascular Disease; Admitting Provider Family Medicine; PCP Family Medicine; Visit Provider Family Medicine
PROC: 027034Z Dilation of Coronary Artery, One Artery with Drug-eluting Intraluminal Device, Percutaneous Approach (ICD-10-PCS; principal; 2025-03-04 10:00)
PROC: 027034Z Dilation of Coronary Artery, One Artery with Drug-eluting Intraluminal Device, Percutaneous Approach (ICD-10-PCS; 2025-03-04 10:00)
DX: I21.4 Non-ST elevation (NSTEMI) myocardial infarction (principal); N17.9 Acute kidney failure, unspecified; Z68.43 Body mass index [BMI] 50.0-59.9, adult; I10 Essential (primary) hypertension; E66.01 Morbid (severe) obesity due to excess calories; I25.10 Atherosclerotic heart disease of native coronary artery without angina pectoris; G47.33 Obstructive sleep apnea (adult) (pediatric); M79.7 Fibromyalgia; M10.9 Gout, unspecified; J44.9 Chronic obstructive pulmonary disease, unspecified; I87.8 Other specified disorders of veins; E78.5 Hyperlipidemia, unspecified; Z91.128 Patient's intentional underdosing of medication regimen for other reason; Z79.82 Long term (current) use of aspirin; Z79.02 Long term (current) use of antithrombotics/antiplatelets; Z95.5 Presence of coronary angioplasty implant and graft
CPT/HCPCS: 36415; 80053; 80061; 83036; 83735; 84100; 84443; 84484; 85025; 85049; 85347; 85730; 93005; 93454; 94664; 96374; 96375; 96376; 99152; 99153; C1725; C1769; C1874; C1887; C1894; C8929; C9600; J1644; J2250; J2470; J3010; J3490; J7030; J9999; Q0163; Q9967

== ENCOUNTER → 2025-04-18 14:45 | Outpatient (BNVA) | payer MEDICARE, MEDICAID, SELFPAY | PROVIDERS: PCP Family Medicine; Visit Provider Internal Medicine Cardiovascular Disease | DX: I25.10 Atherosclerotic heart disease of native coronary artery without angina pectoris (principal); Z95.5 Presence of coronary angioplasty implant and graft; N50.89 Other specified disorders of the male genital organs; N50.82 Scrotal pain; M79.89 Other specified soft tissue disorders; I10 Essential (primary) hypertension; Z78.9 Other specified health status; L60.0 Ingrowing nail; L97.512 Non-pressure chronic ulcer of other part of right foot with fat layer exposed; S90.112A Contusion of left great toe without damage to nail, initial encounter; L03.032 Cellulitis of left toe; X58.XXXA Exposure to other specified factors, initial encounter | CPT/HCPCS: 10140; 11730; 99214 ==

== ENCOUNTER 2025-05-01 14:45 | Outpatient (CLI) | payer MEDICARE, MEDICAID, SELFPAY ==
--- NOTE | 2025-05-01 14:30 | US_ITS ---
WS: [id number] TESTICULAR ULTRASOUND HISTORY: Scrotum pain COMPARISON: None available. TECHNIQUE: Real-time and color Doppler imaging utilized to perform a testicular ultrasound. Right testicle: 3.9 cm x 2.2 cm x 2.8 cm. Normal size and echogenicity. No mass or torsion. Normal color Doppler is present throughout. Systolic and diastolic velocities are both present. No significant hydrocele. Right epididymis: Heterogeneous enlarged epididymis. There is mild increased vascularity within the epididymis. Left testicle: 3.9 cm x 2.7 cm x 1.9 cm. Normal size and echogenicity. No mass or torsion. Normal color Doppler is present throughout. Systolic and diastolic velocities are both present. No significant hydrocele. Left epididymis: Mildly enlarged heterogeneous epididymis without increased vascularity. There is a small spermatocele measuring 0.4 x 0.4 x 0.4 cm. US/US scrotum [id number] IMPRESSION: 1. No testicular mass or torsion. 2. Bilateral heterogeneity and enlargement of the epididymides. There is incre ased vascularity within the RIGHT epididymis suggesting acute epididymitis. 3. No hydrocele.
== END 2025-05-01 14:46 | disposition home or self-care (01) ==
PROVIDERS: PCP Family Medicine; Visit Provider Internal Medicine Cardiovascular Disease
DX: N50.89 Other specified disorders of the male genital organs (principal); N50.82 Scrotal pain; N43.40 Spermatocele of epididymis, unspecified
CPT/HCPCS: 76870

== ENCOUNTER → 2025-05-08 11:11 | Outpatient (BNVA) | payer MEDICARE, MEDICAID, SELFPAY | PROVIDERS: PCP Family Medicine; Visit Provider Podiatrist Foot & Ankle Surgery | DX: L60.0 Ingrowing nail (principal); L03.032 Cellulitis of left toe; L97.512 Non-pressure chronic ulcer of other part of right foot with fat layer exposed; S90.112D Contusion of left great toe without damage to nail, subsequent encounter; X58.XXXD Exposure to other specified factors, subsequent encounter | CPT/HCPCS: 99213 ==

== ENCOUNTER 2025-07-01 07:35 | Inpatient (IN) | payer OTHER, MEDICAID, SELFPAY ==
[2025-07-01] VITALS (44 sets, daily range): BP systolic 94–120; BP diastolic 68–86; PULSE 62–81; RESP 14–22; TEMP 37.1; O2SAT 97–100; BMI 53.1
--- NOTE | 2025-07-01 05:52 | PM.HP ---
Providers/Chief Complaint Admitting Physician: Randall Chavira MD/ Interventional cardiology Primary Care Provider: Demetri Hardin Chief Complaint: STEMI History of Present Illness Ward Chung is a 64 year old male with past medical history of CAD with prior LAD and left circumflex artery stents was presented with acute onset chest pain and shortness of breath to [facility] in [place]. EKG demonstrated open branch block with ST elevations in anterior and anterolateral greene. Patient transferred emergently to us for emergent cardiac catheterization. He has significant shortness of breath appearing to be in acute respiratory distress and chest pain. Review of Systems Card: Reports: chest pain and orthopnea Medications/Allergies Home Medications ?Medication ?Instructions ?Recorded ?Confirmed ?Last Taken ?Type aspirin 81 mg tablet 81 mg PO DAILY 04/18/25 05/08/25 Unknown History atorvastatin 80 mg tablet (Lipitor) 80 mg PO DAILY 04/18/25 05/08/25 Unknown History clopidogrel 75 mg tablet (Plavix) 75 mg PO DAILY 04/18/25 05/08/25 Unknown History gabapentin 300 mg capsule 300 mg PO TID 04/18/25 05/08/25 Unknown History metoprolol succinate 25 mg 25 mg PO DAILY 04/18/25 05/08/25 Unknown History tablet,extended release 24 hr nitroglycerin 0.4 mg sublingual 0.4 mg sublingual Q5M PRN 04/18/25 05/08/25 Unknown History tablet Allergies Allergy/AdvReac Type Severity Reaction Status Date / Time No Known Allergies Allergy Verified 05/08/25 11:12 PFSH Acute PFSH: Medical History (Updated 07/01/25 @ 07:06 by Randall Chavira M.D) Venous stasis Lymphedema Hypertension Fibromyalgia Gout Sleep apnea COPD (chronic obstructive pulmonary disease) Onychodystrophy Edema Venous insufficiency (chronic) (peripheral) Social History Smoking and tobacco/nicotine status: never used tobacco/nicotine Alcohol intake: never Physical Exam Narrative: GENERAL: Patient is alert, in acute respiratory distress HEENT: No cyanosis. No icterus. No pallor. [] HEART: Regular S1 and S2. No murmur, rub or gallop. [] LUNGS: Diminished air entry bilaterally CENTRAL NERVOUS SYSTEM: Grossly nonfocal. [] EXTREMITIES: Lower extremities with 1+ edema bilaterally. A&P Assessment and plan 1. STEMI (ST elevation myocardial infarction): 2. Essential hypertension: 3. Hypertension: 4. Heart failure: 5. Morbid obesity: Plan: Patient has presented with acute anterior wall ST elevation TN from [facility]. We have brought him emergently to cardiac [facility]. Plan for coronary angiogram with PCI. Patient appears to be in respiratory distress not able to lay down. ER team called for intubation. Patient was loaded with aspirin and Plavix. Heparin bolus was given at outside hospital ER. Patient will need ICU stay postprocedure PDMP PDMP Reviewed: Not Reviewed Attestations Medical Necessity Statement*: Care expected to cross 2 midnights. Patient has presented with acute ST elevation TN and going emergently for cardiac catheterization Coding Level of Care Code Acute Code for [facility] Diagnoses STEMI (ST elevation myocardial infarction) I21.3 Essential hypertension I10 Hypertension I10 Heart failure I50.9 Morbid obesity E66.01
--- NOTE | 2025-07-01 07:10 | PM.PROC ---
Procedure Note: Date of procedure: 07/01/25 Pre-procedure diagnosis: STEMI Post-procedure diagnosis: other (Total thrombotic occlusion of proximal LAD stent s/p PCI with balloon angioplasty and 1 new stent) Procedure: Patient was in acute pulmonary edema and could not lay down for the procedure. ER team was called and patient was intubated prior to the procedure. After intubation we proceeded with coronary angiogram. Total thrombotic occlusion of proximal LAD stent status post PCI with balloon angioplasty and 1 new stent. Left circumflex artery is patent. 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 Did not inject it. Transfer to ICU Dual antiplatelet therapy with aspirin and plavix High intensity statin therapy We will consult medicine team for help with management of medical issues and vent management Performing Provider: Randall Chavira Estimated blood loss (mL): 10 Complications: None Condition: critical Disposition: ICU Coding Level of Care Code Acute Code for Pamellag Mohan
--- NOTE | 2025-07-01 07:40 | PC.NURSE ---
wallet with multiple cards and 100 dollars kulkarni as well as a checkbook was found in patient belongings and placed in the pyxis. Confirmed with DORI RN and Viktor GÓMEZ.
[2025-07-01] MEDS: fentaNYL 1,000 MCG/100 ML BAG 2.5 MCG IV (08:06)
[2025-07-01] MEDS: propofol 1,000 MG/100 ML INJ 17.2 MG IV (08:09)
--- NOTE | 2025-07-01 08:28 | PM.CONSULT ---
Providers/Reason For Consult Consulting Physician/Specialty*: Guzman Chamorro MD internal medicine hospitalist Reason for Consult*: Vent management Requesting Physician: Randall Chavira Attending Physician: Randall Chavira M.D Primary Care Provider: Demetri Hardin History of Present Illness History of Present Illness Ward Chung is a 64 year old male with past medical history of CAD with prior LAD and left circumflex artery stents was presented with acute onset chest pain and shortness of breath to [facility] in [place]. EKG demonstrated first-degree and right bundle branch block with ST elevations in anterior leads V1 through V4. Patient transferred emergently to us for emergent cardiac catheterization. He has significant shortness of breath appearing to be in acute respiratory distress and chest pain. Dr. Chavira placed new LAD stent and states the patient had stopped taking his antiplatelet therapy. Patient had total thrombotic occlusion of the proximal LAD stent circumflex was patent RCA has known chronic total occlusion proven by previous caths. Patient is intubated sedated unable to give any history. Currently FiO2 70% PEEP 8 and retrograde therapy was just weaned him to 50% PEEP 8 and patient still with 99% saturation Records by Trevor Parra MD reviewed patient presented with shortness of breath 1 hour prior to arrival history of 1 stents placed in [place] 10/06/2024 proximal-mid LAD patient had run out of his Plavix Patient also has a history of left circumflex proximal drug-eluting stent on 03/04/2025 Home meds Albuterol nebulizer Albuterol inhaler Allopurinol 300 mg Aspirin 81 mg Atorvastatin 80 Symbicort 80?4.5 Plavix 75 mg Lotrisone Colchicine 0.6 mg Famotidine 40 mg Fluticasone nasal spray Furosemide 20 mg Gabapentin 300 mg Meloxicam 15 mg Toprol-XL 25 mg Nitrostat 0.4 mg Potassium chloride 10 mill equivalents Simethicone 80 mg Allergies NKDA Review of Systems Narrative: Unable to obtain Medications/Allergies Home Medications ?Medication ?Instructions ?Recorded ?Confirmed ?Last Taken ?Type aspirin 81 mg tablet 81 mg PO DAILY 04/18/25 05/08/25 Unknown History atorvastatin 80 mg tablet (Lipitor) 80 mg PO DAILY 04/18/25 05/08/25 Unknown History clopidogrel 75 mg tablet (Plavix) 75 mg PO DAILY 04/18/25 05/08/25 Unknown History gabapentin 300 mg capsule 300 mg PO TID 04/18/25 05/08/25 Unknown History metoprolol succinate 25 mg 25 mg PO DAILY 04/18/25 05/08/25 Unknown History tablet,extended release 24 hr nitroglycerin 0.4 mg sublingual 0.4 mg sublingual Q5M PRN 04/18/25 05/08/25 Unknown History tablet Allergies Allergy/AdvReac Type Severity Reaction Status Date / Time No Known Allergies Allergy Verified 05/08/25 11:12 Current Medications Generic Name Dose Route Start Last Admin Trade Name Narcisoq PRN Reason Stop Dose Admin Propofol 1,000 mg in 100 mls @ 0 mls/hr 07/01/25 08:00 07/01/25 08:09 Diprivan IV 40 mcg/kg/min .Q0M DANIKA 17.2 mls/hr Protocol Administration Per Protocol Fentanyl 1,000 mcg in 100 mls @ 0 mls/hr 07/01/25 08:00 07/01/25 08:06 Sublimaze IV 25 mcg/hr .Q0M DANIKA 2.5 mls/hr Protocol Administration Per Protocol PFSH Acute PFSH: Medical History (Updated 07/01/25 @ 07:06 by Randall Chavira M.D) Venous stasis Lymphedema Hypertension Fibromyalgia Gout Sleep apnea COPD (chronic obstructive pulmonary disease) Onychodystrophy Edema Venous insufficiency (chronic) (peripheral) Social History Smoking and tobacco/nicotine status: never used tobacco/nicotine Alcohol intake: never Vitals/I&O/Wt Last Vital Signs Resp 16 07/01/25 07:38 Pulse Ox 99 07/01/25 07:38 FiO2 70 07/01/25 07:38 Weight last 48 hrs Weight 71.668 kg Physical Exam Narrative: General Well-developed well-nourished morbidly obese man in no acute cardiopulmonary distress Neuro patient is sedated on vent pupils are equally reactive he has some spontaneous movement of his legs CV regular rate and rhythm Lungs clear to auscultation bilaterally Abdomen diminished bowel tones Calves 1+ pretibial edema with signs of chronic venous stasis Patient with multiple PVCs some in pairs blood pressure soft A&P Assessment and plan 1. STEMI (ST elevation myocardial infarction): Patient with LAD stent occlusion and anterior ID. The patient had not been taking his Plavix had run out. Patient had left circumflex stent March 04, 2025 Due to runs of PVCs and hypotension repeat EKG done just now shows septal ID age-indeterminate resolution of the ST segment elevation Two PVCs seen 2. Coronary artery disease status post coronary stent insertion: Distal LAD stent placed this morning 3. Morbid obesity: Patient morbidly obese currently intubated sedated but will be on a weight loss diet cardiac and low carbs following extubation 4. Heart failure: Chest x-ray shows pulmonary edema ET tube is in good Patient will remain intubated for diuresis PDMP PDMP Reviewed: Not Reviewed Consult Attestations Medical Necessity Statement: Patient remains in the ICU and require continued intubation with diuresis prior to extubation Coding Level of Care Code Critical Care >/= 30 minutes Diagnoses STEMI (ST elevation myocardial infarction) I21.3 Coronary artery disease status post coronary stent insertion I25.10; Z95.5 Morbid obesity E66.01 Heart failure I50.9 Time Spent (min) 55
--- NOTE | 2025-07-01 08:45 | USCV_ITS ---
Ward Chung Age: 64 Gender: M : 1960 Exam Date: 07/01/2025 10:57 Ordering Phys: Randall Chavira M.D ([email or web address]) Technologist: Baudilio Macdonald [place] [facility] [place] stemi BP: 99 / 73 HR: Rhythm: Sinus Technical Quality: Adequate MEASUREMENTS (Male / Female) Normal Values 2D ECHO LV Diastolic Diameter PLAX 5.5 cm 4.2 - 5.9 / 3.9 - 5.3 cm IVS Diastolic Thickness 1.2 cm 0.6 - 1.0 / 0.6 - 0.9 cm IVS Systolic Thickness 1.4 cm LVPW Diastolic Thickness 0.9 cm 0.6 - 1.0 / 0.6 - 0.9 cm LVPW Systolic Thickness 1.4 cm LVOT Diameter 2.0 cm LV Ejection Fraction 2D Teich 48.3 % LV Ejection Fraction MOD 4C 40.1 % LV Ejection Fraction MOD 2C 46.3 % LV Ejection Fraction 2C AL 43.2 % RA Systolic Volume 4C AL 37.0 ml RA Systolic Volume 4C MOD 32.5 ml Aorta at Sinotubular Diameter 2.7 cm IVC Diameter 3.0 cm M-MODE LA Ao Ratio MM 1.4 MV E Point Septal Separation 1.3 cm AV Cusp Separation MM 2.0 cm FINDINGS Left Ventricle Normal left ventricular cavity size. Mild to Moderately decreased left ventricular systolic function. Left ventricular ejection fraction is estimated at 45-50 %. Global left ventricular hypokinesis. Right Ventricle The right ventricle is normal in size and function. Right Atrium The right atrium is normal in size. Left Atrium The left atrium is normal in size. Mitral Valve Moderately thickened mitral valve. Moderate mitral annular calcification. No mitral valve stenosis. Trace mitral valve regurgitation. Aortic Valve Moderate aortic valve calcification. No aortic valve stenosis. Trace aortic valve regurgitation. Tricuspid Valve Structurally normal tricuspid valve without significant stenosis or regurgitation. Pulmonary artery systolic pressure is normal. Pulmonic Valve Structurally normal pulmonic valve without significant stenosis. There is no pulmonic regurgitation. Pericardium Normal pericardium without effusion. Aorta Normal ascending aorta dimension. IVC The inferior vena cava appears normal. CONCLUSIONS Normal left ventricular cavity size. Mild to Moderately decreased left ventricular systolic function. Left ventricular ejection fraction is estimated at 45-50 %. Global left ventricular hypokinesis. No significant valve abnormalities. There is no pericardial effusion. Right atrial pressure is around 5 mm of mercury. Amberly Saab MD (Electronically Signed) Final Date: 01 July 2025 17:31 S
--- NOTE | 2025-07-01 08:48 | XRR_ITS ---
PROCEDURE INFORMATION: Exam: XR Chest Exam date and time: 07/01/2025 9:01 AM Age: 64 years old Clinical indication: Device placement; Ett placement (vent status); Additional info: Ett/og confirmation TECHNIQUE: Imaging protocol: Radiologic exam of the chest. Views: 1 view. COMPARISON: CT angio abdomen pelvis [id number] 10/06/2024 4:15 PM FINDINGS: Tubes, catheters and devices: Endotracheal tube is present with its tip 3.5 cm above the kaity. Nasogastric tube is present with its tip below the level of the film. Lungs: There may be minimal central vascular congestion. Patchy infiltrate or atelectasis may be present involving the left lower lung medially. Pleural spaces: There is minimal blunting of the costophrenic angle suggesting small pleural effusions or pleural thickening. Heart/Mediastinum: The heart is enlarged. Bones/joints: Unremarkable. XR/XR chest 1V portable [id number] IMPRESSION: 1. Lines and tubes as above. 2. Cardiomegaly with mild central vascular congestion suspected. 3. Patchy infiltrate or atelectasis left lung base. 4. Blunting of the costophrenic angles.
--- NOTE | 2025-07-01 09:16 | ECG_ITS ---
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: : 1960 Requested By: Randall Chavira Order Number: [id number] Reading MD: LONI MALIK Measurements Intervals [place] Rate: 60 P: 66 AR: 238 QRS: -35 QRSD: 96 T: -29 QT: 399 QTc: 400 Interpretive Statements SINUS RHYTHM WITH FIRST DEGREE AV BLOCK WITH OCCASIONAL VENTRICULAR PREMATURE COMPLEXES IN A BIGEMINAL PATTERN LEFT AXIS DEVIATION [QRS AXIS < -30] LOW QRS VOLTAGE IN PRECORDIAL LEADS [QRS DEFLECTION < 1.0 mV IN CHEST LEADS] ANTEROSEPTAL MYOCARDIAL INFARCTION , OF INDETERMINATE AGE [40+ ms Q WAVE IN V1-V4] Compared to ECG 03/03/2025 23:04:14 Ventricular premature complex(es) now present Left-axis deviation now present Myocardial infarct finding still present Electronically Signed On 07-02-2025 13:56:47 CDT by LONI MALIK [email or web address] [id number]
[2025-07-01] MEDS: potassium chloride oral liq 20 mEq/15 mL UDC PO (10:14)
[2025-07-01 10:39] LABS: Creatinine Clr Calc Pharmacy 71.6435
[2025-07-01 10:51] LABS: Troponin T (5th) Once > 10000 ng/L (0-15)
[2025-07-01] MEDS: FUROsemide 10 mg/mL SDV 4mL 40 MG IVP ×2 (11:35→22:00)
[2025-07-01] MEDS: perflutren protein-a microsphr 0.22 mg/mL SDV 3 mL IV (11:40)
[2025-07-01] MEDS: tirofiban 5 MG/100 ML PREMIX 28.8 MG IV (12:20)
--- NOTE | 2025-07-01 12:31 | PC.NURSE ---
Skin assessment completed with second RN, no wounds, no redness on bottom. SCD applied.
[2025-07-01 14:32] LABS: Alanine Aminotransferase 40 U/L (0-41); Albumin Level 3.6 g/dL (3.5-5.2); Alkaline Phosphatase 109 U/L (40-130); Blood Urea Nitrogen 14 mg/dL (8-23); Calcium 8.8 mg/dL (8.5-10.5); Carbon Dioxide 17 mmol/L (22-29); Chloride 103 mmol/L (98-107); Creatinine Clr Calc Pharmacy 107.4468; Globulin 3.2 g/dL (1.3-4.6); Glucose 149 mg/dL (65-115); Osmolality Calculated 287 mOsm/kg (285-295); Sodium 137 mmol/L (136-145); Total Protein 6.8 g/dL (6.6-8.7)
[2025-07-01] MEDS: propofol 1,000 MG/100 ML INJ 10.75 MG IV (14:56)
--- NOTE | 2025-07-01 15:00 | PC.NURSE ---
Dr. Chavira written order from [employer] Dr[employer] for aggrastat to run at 28.8ml/hr for 6 hours. Aggrastat running when patient arrived to ICU 9 at 0730. Bag of aggrastat received from pharmacy, delay between bag from labor economist infusing and new bag from pharmacy, is reason for time over six hour miguelangel.
[2025-07-01 15:03] LABS: Anion Gap 22.4 (5-19); Aspartate Amino Transferase 233 U/L (0-40); Potassium 5.4 mmol/L (3.5-5.1)
[2025-07-01 15:24] LABS: Magnesium 2.1 mg/dL (1.7-2.3)
--- NOTE | 2025-07-01 16:05 | PC.NURSE ---
Patients sister, Christina, was at bedside in AM at admission. She called for an update in patients condition and update provided.
--- NOTE | 2025-07-01 16:34 | PC.NURSE ---
Dr. Chamorro request RT to perform weaning trial and prepare for extubation. Patient is opening eyes and moving about in bed.
[2025-07-01 16:59] LABS: ABG PCO2 40.7 mmHg (35-45); ABG PH Result 7.41 (7.35-7.45); Alveolar-Arterial Oxygen Gradi 6.9 mmHg (5-10); Arterial Blood Gas Hematocrit 43.2 % (42-52); Blood Gas Allen Test Pos; Blood Gas Operator Identificat CAK; Blood Gas Sample Site Radial, left; Blood Gas Sample Type Arterial; Carboxyhemoglobin 0.9 %THgb (0.4-20.1); Glucose Level-ABG 117.0 mg/dL (70-115); HCO3 ABG 25.8 mmol/L (22-26); Ionized Calcium Level - ABG 1.2 mmol/L (1.1-1.4); Methemoglobin 0.8 % (0.4-1.5); Oxygen Saturation ABG 98.9; PEEP 5.0 cmH20; PO2 ABG 109.0 mmHg (80.0-100.0); PO2 FiO2 Ratio Arterial Blood 363; Potassium Level - ABG 3.9 mmol/L (3.5-5.0); Sodium Level - ABG 142.0 mmol/L (131-143)
--- NOTE | 2025-07-01 17:36 | PC.NURSE ---
Patient extubated at 1719, RT and this RN present. No complications. Patient complains of sore throat, Dr. Chamorro ordered sore throat spray.
[2025-07-01] MEDS: phenol oral Spray 177 mL 3 SPRAY MUCOUS MEM (17:50)
--- NOTE | 2025-07-01 17:56 | PC.NURSE ---
Addendum entered by DORI Sneed RN 07/01/25 17:58: witness waste Original Note: Waste: Remaining Fentanyl and propofol wasted with Naren MEADOWS RN.
[2025-07-02] VITALS (63 sets, daily range): BP systolic 108–135; BP diastolic 61–87; PULSE 0–93; RESP 15–29; TEMP 36.4–37.2; O2SAT 91–99
[2025-07-02 06:19] LABS: Hematocrit 42.3 % (37-53); Hemoglobin 13.40 g/dL (11.27-16.99); Mean Corpuscular HGB Conc 31.7 g/dL (30-55); Mean Corpuscular Hemoglobin 26.9 pg (27-33); Mean Corpuscular Volume 84.8 fl (82-101); Nucleated Red Blood Cells % 0 %; Platelet Count 197 10^3/cmm (157-399); Red Blood Count 4.99 10^6/uL (3.85-5.65); White Blood Count 6.90 10^3/uL (3.29-11.43)
[2025-07-02 06:41] LABS: Magnesium 1.9 mg/dL (1.7-2.3)
[2025-07-02 07:34] LABS: Anion Gap 16.0 (5-19); Blood Urea Nitrogen 13 mg/dL (8-23); Calcium 8.5 mg/dL (8.5-10.5); Carbon Dioxide 23 mmol/L (22-29); Chloride 105 mmol/L (98-107); Creatinine Clr Calc Pharmacy 102.5985; Glucose 116 mg/dL (65-115); Osmolality Calculated 291 mOsm/kg (285-295); Potassium 4.0 mmol/L (3.5-5.1); Sodium 140 mmol/L (136-145)
--- NOTE | 2025-07-02 08:17 | XR_ITS ---
WS: [id number] XR chest 1V portable [id number] REASON FOR EXAM: assess for edema FINDINGS: Compared to the previous examination of 07/01/2025, the endotracheal tube and the nasogastric tube have been removed. Significant tortuosity and ectasia of the thoracic aorta with mild cardiomegaly. Mild central pulmonary venous congestion. No acute/subacute lung opacity. Minimal blunting of the costophrenic angles, improved compared to the previous examination. XR/XR chest 1V portable [id number] IMPRESSION: Post endotracheal tube and nasogastric tube removal with no acute or subacute a bnormality.
[2025-07-02] MEDS: FUROsemide 10 mg/mL SDV 4mL 40 MG IVP ×2 (08:48→20:56)
[2025-07-02] MEDS: potassium chloride oral liq 20 mEq/15 mL UDC PO (08:49)
[2025-07-02 11:16] LABS: ABG PCO2 44.9 mmHg (35-45); ABG PH Result 7.42 (7.35-7.45); Arterial Blood Gas Hematocrit 45.3 % (42-52); Blood Gas Allen Test Pos; Blood Gas LPM 2.0 %; Blood Gas Operator Identificat GD; Blood Gas Sample Site Radial, left; Blood Gas Sample Type Arterial; HCO3 ABG 28.8 mmol/L (22-26); PO2 ABG 99.1 mmHg (80.0-100.0); PO2 FiO2 Ratio Arterial Blood 353
--- NOTE | 2025-07-02 12:01 | P.PN_ITS ---
<Statement entered by Randall Chavira M.D - 07/03/25 10:09> Patient was cared for in conjunction with an advanced practice practitioner.? I reviewed the chart and all pertinent data including imaging, telemetry, and laboratory results.? I discussed the patient in detail with the advanced practice practitioner.? Please see?their note for progress note, testing results and agreed upon plan of care for the patient. Subjective 2 Subjective: Coronary angiogram yesterday due to STEMI, total thrombotic occlusion of the proximal LAD treated with balloon angioplasty and stent x 1. 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 He has been extubated. He feels some pressure in his abdomen possible constipation. No chest pain or shortness of breath. Nurse notes occasional short runs of VT. Vitals/I&O/Wt Last Vital Signs Temp 97.6 F 07/02/25 05:51 Pulse 72 07/02/25 09:39 Resp 22 H 07/01/25 16:39 BP 96/70 07/01/25 10:20 Pulse Ox 95 07/02/25 09:39 O2 Del Method Room Air 07/02/25 09:39 FiO2 35 07/01/25 16:39 07/01/25 07/02/25 07/02/25 22:59 06:59 14:59 Intake Total 1239.445 / 1374.045 300 / 300 Output Total 700 / 4250 2550 / 4250 Balance 539.445 / -2875.955 -2550 / -2875.955 300 / 300 Weight last 48 hrs Weight 324 lb Weight 350 lb Weight 350 lb Physical Exam 2 Const: COMMON NORMALS: no acute distress and patient oriented x3 GENERAL APPEARANCE: cooperative ORIENTATION/CONSCIOUSNESS: Yes awake, Yes oriented to person, Yes oriented to place and Yes oriented to time Chest: COMMONS NORMALS: normal inspection of the chest and normal palpation of entire chest wall CHEST: Yes Symmetrical chest wall rise Resp: COMMON NORMALS: normal respiratory effort, No retractions, No use of accessory muscles and clear to auscultation bilaterally AUSCULTATION: clear to auscultation bilaterally and crackles (Scattered) Laterality: posterior Cardio: COMMON NORMALS: regular rate, regular rhythm, S1 normal heart sound present, S2 normal heart sound present, No gallops present (Cardio), No clicks present (Cardio), No murmurs present (Cardio) and No rub (Cardio) RATE: r egular rate RHYTHM: regular rhythm HEART SOUNDS: S1 normal heart sound present and S2 normal heart sound present PERIPHERAL PULSES: radial pulses present positive right 2+ and femoral pulses present positive right 2+ Neuro: COMMON NORMALS: patient oriented x3 and moves all extremities S ENSORIUM/ORIENTATION: Yes oriented to person, Yes oriented to place and Yes oriented to time Skin: WOUNDS: Yes surgical site (no hematoma palpable) Details: no odor Urinary Catheter Management: Michele: Cath Placed During This Visit: yes Reason for Continuing Indwelling Catheter: Accurate Measurement of Urinary Output in Critically Ill Patients Urinary Catheter Date of Insertion: 07/01/25 Urinary Catheter Time of Insertion: 11:30 Data 07/02/25 05:59 07/02/25 05:59 Micro: Microbiology 07/01/25 09:00 Gram Stain - Final Sputum - Endotracheal Tube Aspirate Sputum Culture - Preliminary A&P Assessment and plan 1. STEMI (ST elevation myocardial infarction): 2. Heart failure: 3. Hypertension: 4. Morbid obesity: Plan: Echocardiogram yesterday showed LVEF 45 to 50%, decreased from 60% in February of this year. Will monitor blood pressure and initiate GDMT for heart failure as renal function and blood pressure allows. Continue aspirin, Plavix, statin. He has some chronic venous insufficiency. Continue Lasix 40 mg twice daily. PDMP PDMP Reviewed: Not Reviewed Attestations 2 Medical Necessity Statement*: Post STEMI Coding Level of Care Code Acute Code for [facility] Diagnoses STEMI (ST elevation myocardial infarction) I21.3 Heart failure I50.9 Hypertension I10 Morbid obesity E66.01
--- NOTE | 2025-07-02 14:17 | P.PN_ITS ---
Subjective 2 Subjective: Patient was extubated last evening. Since being extubated he is doing well. Denies any chest pain, dyspnea, palpitations. Saturating 95% on 2 L/min supplemental O2. Net negative by 1.6 L. Urine output of 3200 cc. Medications: Reviewed: Yes Vitals/I&O/Wt Last Vital Signs Temp 97.6 F 07/02/25 05:51 Pulse 87 07/02/25 13:56 Resp 22 H 07/01/25 16:39 BP 96/70 07/01/25 10:20 Pulse Ox 95 07/02/25 09:39 O2 Del Method Room Air 07/02/25 09:39 FiO2 35 07/01/25 16:39 07/01/25 07/02/25 07/02/25 22:59 06:59 14:59 Intake Total 1239.445 / 1374.045 300 / 300 Output Total 700 / 1700 2550 / 4250 Balance 539.445 / -325.955 -2550 / -2875.955 300 / 300 Weight last 48 hrs Weight 146.964 kg Weight 158.757 kg Weight 158.757 kg Physical Exam 2 Narrative: General: No acute distress, AO x3 HEENT: PERRLA, pupils bilaterally equal and reactive, pallors not present Chest: Normal vesicular breath sounds, no added sounds, equal good air entry bilaterally CVS: S1-S2 regular, no murmurs, no tachycardia, no gallops, no rubs Abdomen: Soft, nontender, no organomegaly, bowel sounds present Neuro: No focal deficits, no facial deformity, AO x3, power 5/5 in all limbs Extremities: Bilateral lower extremity pitting edema Urinary Catheter Management: Michele: Cath Placed During This Visit: yes Reason for Continuing Indwelling Catheter: Accurate Measurement of Urinary Output in Critically Ill Patients Urinary Catheter Date of Insertion: 07/01/25 Urinary Catheter Time of Insertion: 11:30 Data 07/02/25 05:59 07/02/25 05:59 Micro: Microbiology 07/01/25 09:00 Gram Stain - Final Sputum - Endotracheal Tube Aspirate Sputum Culture - Preliminary A&P Assessment and plan 1. STEMI (ST elevation myocardial infarction): Patient with LAD stent occlusion and anterior [place]. The patient had not been taking his Plavix had run out. Patient had left circumflex stent March 04, 2025 Due to runs of PVCs and hypotension repeat EKG done just now shows septal [place] age-indeterminate resolution of the ST segment elevation Two PVCs seen 2. Coronary artery disease status post coronary stent insertion: Distal LAD stent placed this morning 3. Morbid obesity: 4. Heart failure: Acute systolic heart failure related to STEMI. Plan: July 02, 2025 Chart reviewed. Patient is a 64-year-old male with a past medical history of CAD who presented as a transfer from outside hospital with a STEMI. He was taken to the Funds Transfer Clerk yesterday where he was found to have a total thrombotic occlusion of the proximal LAD stent status post PCI with balloon angioplasty and 1 new stent. He is currently on dual antiplatelet therapy with aspirin Plavix, high intensity statin therapy. Patient had acute pulmonary edema and was unable to lay flat for the procedure therefore he was electively intubated prior to the coronary angiogram. He is currently doing well in this regard. He was extubated last evening. Denies any current chest pain or dyspnea. Echocardiogram reveals a mild to moderately decreased LVEF of 45 to 50% with global left ventricular hypokinesia. This is reduced compared to September 2024 at which point his EF was estimated at 60% without any regional wall motion abnormalities. Grade 2 diastolic dysfunction was noted at that time. Chest x-ray taken this morning is showing mild central pulmonary venous congestion. Continue diuresis with Lasix 40 mg IV every 12 hours. Currently he is net negative by 1.6 L. Closely monitor intake output and renal function with diuresis. Stable to be moved from ICU to CSU today. PDMP PDMP Reviewed: Not Reviewed Attestations 2 Medical Necessity Statement*: Per admitting Coding Level of Care Code Acute Code for Chg Fwd High MDM includes number and complexity of problems actively addressed during encounter, amount and/or complexity of data reviewed/ordered and described risk of complication, morbidity or mortality of management as documented Diagnoses STEMI (ST elevation myocardial infarction) I21.3 Coronary artery disease status post coronary stent insertion I25.10; Z95.5 Morbid obesity E66.01 Heart failure I50.9
[2025-07-02 15:13] LABS: Thyroid Stimulating Hormone 1.79 uIU/mL (0.27-4.20)
[2025-07-02] MEDS: lactulose oral liq 20 gm/30 mL UDC 10 GM PO (21:29)
[2025-07-03] VITALS (159 sets, daily range): BP systolic 94–177; BP diastolic 63–133; PULSE 53–108; RESP 11–36; TEMP 36.1–37; O2SAT 68–100
[2025-07-03 05:34] LABS: Hematocrit 44.0 % (37-53); Hemoglobin 13.70 g/dL (11.27-16.99); Mean Corpuscular HGB Conc 31.1 g/dL (30-55); Mean Corpuscular Hemoglobin 26.8 pg (27-33); Mean Corpuscular Volume 86.1 fl (82-101); Nucleated Red Blood Cells % 0 %; Platelet Count 201 10^3/cmm (157-399); Red Blood Count 5.11 10^6/uL (3.85-5.65); White Blood Count 9.04 10^3/uL (3.29-11.43)
[2025-07-03 06:03] LABS: Magnesium 2.1 mg/dL (1.7-2.3)
[2025-07-03 06:12] LABS: Anion Gap 16.8 (5-19); Blood Urea Nitrogen 17 mg/dL (8-23); Calcium 9.1 mg/dL (8.5-10.5); Carbon Dioxide 29 mmol/L (22-29); Chloride 103 mmol/L (98-107); Creatinine Clr Calc Pharmacy 93.2714; Glucose 121 mg/dL (65-115); Osmolality Calculated 301 mOsm/kg (285-295); Potassium 4.8 mmol/L (3.5-5.1); Sodium 144 mmol/L (136-145)
[2025-07-03] MEDS: metoprolol succinate ER (24 HR) 25 mg Tablet PO (08:51)
[2025-07-03] MEDS: FUROsemide 10 mg/mL SDV 4mL 40 MG IVP ×2 (08:51→20:45)
--- NOTE | 2025-07-03 11:37 | P.PN_ITS ---
<Statement entered by Randall Chavira M.D - 07/03/25 11:43> Patient was cared for in conjunction with an advanced practice practitioner.? I reviewed the chart and all pertinent data including imaging, telemetry, and laboratory results.? I discussed the patient in detail with the advanced practice practitioner.? Please see?their note for progress note, testing results and agreed upon plan of care for the patient. Subjective 2 Subjective: Patient is doing well diuresed -2570 over 24 hours. EF is 45%. Denies any chest pain or shortness of breath. Main complaint is constipation. He got lactulose yesterday and he has milk of mag as needed. Creatinine is stable at 1.1. Vitals/I&O/Wt Last Vital Signs Temp 98.3 F 07/03/25 08:00 Pulse 74 07/03/25 09:55 Resp 18 07/03/25 09:55 BP 128/84 07/03/25 08:45 Pulse Ox 93 07/03/25 09:40 O2 Del Method Nasal Cannula 07/03/25 09:25 O2 Flow Rate 2 07/03/25 09:25 FiO2 35 07/01/25 16:39 07/02/25 07/03/25 07/03/25 22:59 06:59 14:59 Intake Total 480 / 780 300 / 300 Output Total 1800 / 1800 1250 / 3050 Balance -1320 / -1020 -1250 / -2270 300 / 300 Weight last 48 hrs Weight 324 lb Physical Exam 2 Narrative: General: No apparent distress HENMT: normoceophalic Muskuloskeletal: Full ROM Respiratory: Normal respiratory effort, clear to auscultation bilaterally throughout all lung pearce, no use of accessory muscles Cardio: No JVD, regular rate, regular rhythm, S1 S2 normal, no murmurs, peripheral pulses 2+ radial palpated bilaterally Extremities: Full ROM, normal, normal capillary refill, no cyanosis, 1+ edema bilateral lower extremities Neuro: Alert and oriented x4, no focal motor deficits Psych: Affect normal, mental status grossly normal Skin: right radial cath site clean, dry, intact w/o hematoma, bilateral lower extremities with hemosiderin staining Urinary Catheter Management: Michele: Cath Placed During This Visit: yes Reason for Continuing Indwelling Catheter: Accurate Measurement of Urinary Output in Critically Ill Patients Urinary Catheter Date of Insertion: 07/01/25 Urinary Catheter Time of Insertion: 11:30 Data 07/03/25 04:44 07/03/25 04:44 Micro: Microbiology 07/01/25 09:00 Gram Stain - Final Sputum - Endotracheal Tube Aspirate Sputum Culture - Final A&P Assessment and plan 1. STEMI (ST elevation myocardial infarction): 2. Coronary artery disease status post coronary stent insertion: 3. Morbid obesity: 4. Acute on chronic systolic heart failure: Plan: Our recommendations are continue Plavix and aspirin, Lasix 40 IV every 12 patient is diuresing well. Continue atorvastatin 80 mg daily. Continue metoprolol 25 mg daily. If patient continues to do well, will plan on discharge tomorrow. PDMP PDMP Reviewed: Not Reviewed Attestations 2 Medical Necessity Statement*: Care expected to cross 2 midnights. Patient has presented with acute ST elevation [place] and going emergently for cardiac catheterization Coding Level of Care Code Acute Code for [facility] Diagnoses STEMI (ST elevation myocardial infarction) I21.3 Coronary artery disease status post coronary stent insertion I25.10; Z95.5 Morbid obesity E66.01 Acute on chronic systolic heart failure I50.23 Heart failure type: systolic Heart failure chronicity: acute on chronic
--- NOTE | 2025-07-03 16:17 | P.PN_ITS ---
Subjective 2 Subjective: Patient states he feels well today. He is net -4.8 L today. Medications: Reviewed: Yes Vitals/I&O/Wt Last Vital Signs Temp 98.6 F 07/03/25 12:00 Pulse 83 07/03/25 14:05 Resp 21 H 07/03/25 14:05 BP 143/109 07/03/25 14:05 Pulse Ox 99 07/03/25 14:00 O2 Del Method Nasal Cannula 07/03/25 09:25 O2 Flow Rate 2 07/03/25 09:25 FiO2 35 07/01/25 16:39 07/03/25 07/03/25 07/03/25 06:59 14:59 22:59 Intake Total 300 / 300 Output Total 1250 / 3050 Balance -1250 / -2270 300 / 300 Weight last 48 hrs Weight 146.964 kg Physical Exam 2 Narrative: General: No acute distress, AO x3 HEENT: PERRLA, pupils bilaterally equal and reactive, pallors not present Chest: Normal vesicular breath sounds, no added sounds, equal good air entry bilaterally CVS: S1-S2 regular, no murmurs, no tachycardia, no gallops, no rubs Abdomen: Soft, nontender, no organomegaly, bowel sounds present Neuro: No focal deficits, no facial deformity, AO x3, power 5/5 in all limbs Extremities: Bilateral lower extremity pitting edema Urinary Catheter Management: Michele: Cath Placed During This Visit: yes Reason for Continuing Indwelling Catheter: Accurate Measurement of Urinary Output in Critically Ill Patients Urinary Catheter Date of Insertion: 07/01/25 Urinary Catheter Time of Insertion: 11:30 Data 07/03/25 04:44 07/03/25 04:44 Micro: Microbiology 07/01/25 09:00 Gram Stain - Final Sputum - Endotracheal Tube Aspirate Sputum Culture - Final A&P Assessment and plan 1. STEMI (ST elevation myocardial infarction): Patient with LAD stent occlusion and anterior [place]. The patient had not been taking his Plavix had run out. Patient had left circumflex stent March 04, 2025 Due to runs of PVCs and hypotension repeat EKG done just now shows septal DC age-indeterminate resolution of the ST segment elevation Two PVCs seen 2. Coronary artery disease status post coronary stent insertion: Distal LAD stent placed this morning 3. Morbid obesity: 4. Acute on chronic systolic heart failure: Acute systolic heart failure related to STEMI. Plan: July 02, 2025 Chart reviewed. Patient is a 64-year-old male with a past medical history of CAD who presented as a transfer from outside hospital with a STEMI. He was taken to the Party Plan Sales Agent yesterday where he was found to have a total thrombotic occlusion of the proximal LAD stent status post PCI with balloon angioplasty and 1 new stent. He is currently on dual antiplatelet therapy with aspirin Plavix, high intensity statin therapy. Patient had acute pulmonary edema and was unable to lay flat for the procedure therefore he was electively intubated prior to the coronary angiogram. He is currently doing well in this regard. He was extubated last evening. Denies any current chest pain or dyspnea. Echocardiogram reveals a mild to moderately decreased LVEF of 45 to 50% with global left ventricular hypokinesia. This is reduced compared to September 2024 at which point his EF was estimated at 60% without any regional wall motion abnormalities. Grade 2 diastolic dysfunction was noted at that time. Chest x-ray taken this morning is showing mild central pulmonary venous congestion. Continue diuresis with Lasix 40 mg IV every 12 hours. Currently he is net negative by 1.6 L. Closely monitor intake output and renal function with diuresis. Stable to be moved from ICU to CSU today. July 03, 2025 Chart reviewed. Iv lasix to be continued. Patient is currently diuresing well. He is net -4.8 L. Oxygen supplementation remains steady at 2.2 L/min. Denies any chest pain. Has candidal rash develop over left axilla. Added nystatin powder for the same. PDMP PDMP Reviewed: Not Reviewed Attestations 2 Medical Necessity Statement*: Per admitting team Coding Level of Care Code Acute Code for [facility] Fwd Diagnoses STEMI (ST elevation myocardial infarction) I21.3 Coronary artery disease status post coronary stent insertion I25.10; Z95.5 Morbid obesity E66.01 Acute on chronic systolic heart failure I50.23 Heart failure type: systolic Heart failure chronicity: acute on chronic
[2025-07-04] VITALS (40 sets, daily range): BP systolic 114–153; BP diastolic 72–95; PULSE 66–100; RESP 14–30; TEMP 36.9–37.1; O2SAT 92–98
[2025-07-04 02:46] LABS: Hematocrit 41.3 % (37-53); Hemoglobin 13.10 g/dL (11.27-16.99); Mean Corpuscular HGB Conc 31.7 g/dL (30-55); Mean Corpuscular Hemoglobin 26.7 pg (27-33); Mean Corpuscular Volume 84.3 fl (82-101); Nucleated Red Blood Cells % 0 %; Platelet Count 185 10^3/cmm (157-399); Red Blood Count 4.90 10^6/uL (3.85-5.65); White Blood Count 7.67 10^3/uL (3.29-11.43)
[2025-07-04 03:11] LABS: Magnesium 2.0 mg/dL (1.7-2.3)
[2025-07-04 03:20] LABS: Anion Gap 17.0 (5-19); Blood Urea Nitrogen 20 mg/dL (8-23); Calcium 8.9 mg/dL (8.5-10.5); Carbon Dioxide 28 mmol/L (22-29); Chloride 103 mmol/L (98-107); Creatinine Clr Calc Pharmacy 85.4988; Glucose 123 mg/dL (65-115); Osmolality Calculated 302 mOsm/kg (285-295); Potassium 4.0 mmol/L (3.5-5.1); Sodium 144 mmol/L (136-145)
--- NOTE | 2025-07-04 05:40 | ECG_ITS ---
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 Measurements Intervals [place] Rate: 67 P: 98 OR: 248 QRS: -55 QRSD: 98 T: -87 QT: 416 QTc: 441 Interpretive Statements SINUS RHYTHM WITH FIRST DEGREE AV BLOCK WITH OCCASIONAL SUPRAVENTRICULAR PREMATURE COMPLEXES LOW QRS VOLTAGE IN PRECORDIAL LEADS [QRS DEFLECTION < 1.0 mV IN CHEST LEADS] INFERIOR MYOCARDIAL INFARCTION , OF INDETERMINATE AGE [40+ ms Q WAVE AND/OR ST/T ABNORMALITY IN II/aVF] ANTEROSEPTAL MYOCARDIAL INFARCTION , PROBABLY RECENT [40+ ms Q WAVE IN V1-V4] ACUTE HI Compared to ECG 07/01/2025 09:16:38 Ventricular premature complex(es) no longer present Left-axis deviation no longer present Myocardial infarct finding still present Electronically Signed On 07-04-2025 09:18:11 CDT by Nelson Anna M.D. [email or web address]
[2025-07-04] MEDS: FUROsemide 10 mg/mL SDV 4mL 40 MG IVP (08:47)
[2025-07-04] MEDS: metoprolol succinate ER (24 HR) 25 mg Tablet PO (08:47)
--- NOTE | 2025-07-04 10:17 | P.DS_ITS ---
<Statement entered by Randall Chavira M.D - 07/04/25 10:44> Patient was cared for in conjunction with an advanced practice practitioner.? I reviewed the chart and all pertinent data including imaging, telemetry, and laboratory results.? I discussed the patient in detail with the advanced practice practitioner.? Please see?their note for discharge summary, testing results and agreed upon plan of care for the patient. Discharge Providers Date of Admission: 07/01/25 07:35 Date of Discharge: July 04, 2025 Attending Provider at Admission: Randall Chavira M.D Attending Provider at Discharge: Randall Chavira M.D Consults: Dr. Shah Primary Care Provider: Demetri Hardin Diagnoses at Discharge Discharge Diagnosis 1. STEMI (ST elevation myocardial infarction): 2. Coronary artery disease status post coronary stent insertion: 3. Morbid obesity: 4. Acute on chronic systolic heart failure: Reason for Visit Reason for Visit: STEMI Brief History: Patient is a 64-year-old gentleman with a past medical history of CAD with prior LAD and left circumflex stents presented with acute onset of chest pain and shortness of breath to [facility] in [place]. EKG had demonstrated an open branch block with ST elevations in anterior and anterolateral greene. Patient was emergently transferredt o for cardiac cath. Hospital Course Hospital Course Patient was in acute pulmonary edema and could not lay down for the procedure. ER team was called and patient was intubated prior to the procedure. After intubation coronary angiogram was performed. Total thrombotic occlusion of the proximal LAD stent status post PCI with balloon angioplasty and 1 new stent. Left circumflex was patent. RCA has known total occlusion on recent cath's did not inject. Patient was transferred to the ICU. Hospitalist team was consulted for vent. management. He was extubated and diuresed. He did well postop. He was discharged in improved condition. Physical Exam Narrative: General: No apparent distress HENMT: normoceophalic Muskuloskeletal: Full ROM Respiratory: Normal respiratory effort, clear to auscultation bilaterally throughout all lung pearce, no use of accessory muscles Cardio: No JVD, regular rate, regular rhythm, S1 S2 normal, no murmurs, peripheral pulses 2+ radial palpated bilaterally Extremities: Full ROM, normal, normal capillary refill, no cyanosis, trace edema bilateral lower extremities Neuro: Alert and oriented x4, no focal motor deficits Psych: Affect normal, mental status grossly normal Skin: right radial cath site clean, dry, intact w/o hematoma, bilateral lower extremities with hemosiderin staining Urinary Catheter Management: Michele: Cath Placed During This Visit: yes, but has since been removed by the nurse Reason for Continuing Indwelling Catheter: Accurate Measurement of Urinary Output in Critically Ill Patients Urinary Catheter Date of Insertion: 07/01/25 Urinary Catheter Time of Insertion: 11:30 Date Urinary Catheter Removed: 07/04/25 Time Urinary Catheter Discontinued: 09:09 Discharge Data Studies Completed and Pending Completed Studies During Hospitalization Category Date Time Status CXRP [XR chest 1V portable [id number]] Routine Exams 07/02/25 08:17 Completed XR chest 1V portable [id number] Stat Exams 07/01/25 08:48 Completed CV. 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 Laboratory Results WBC 7.67 10^3/uL (3.29-11.43) 07/04/25 02:24 RBC 4.90 10^6/uL (3.85-5.65) 07/04/25 02:24 Hgb 13.10 g/dL (11.27-16.99) 07/04/25 02:24 Hct 41.3 % (37-53) 07/04/25 02:24 MCV 84.3 fl (82-101) 07/04/25 02:24 MCH 26.7 pg (27-33) L 07/04/25 02:24 MCHC 31.7 g/dL (30-55) 07/04/25 02:24 RDW 14.7 % (12.1-15.1) 07/04/25 02:24 Plt Count 185 10^3/cmm (157-399) 07/04/25 02:24 MPV 11.5 fL (7.4-10.4) H 07/04/25 02:24 Neut % (Auto) 61.5 % 07/04/25 02:24 Lymph % (Auto) 25.3 % 07/04/25 02:24 Ingham % (Auto) 9.4 % 07/04/25 02:24 Eos % (Auto) 3.0 % 07/04/25 02:24 Baso % (Auto) 0.4 % 07/04/25 02:24 Neut # (Auto) 4.72 10^3/uL (1.8-7.7) 07/04/25 02:24 Lymph # (Auto) 1.9 10^3/uL (0.8-4.8) 07/04/25 02:24 Ingham # (Auto) 0.7 10^3/uL (0.2-0.9) 07/04/25 02:24 Eos # (Auto) 0.2 10^3/uL (0.0-0.8) 07/04/25 02:24 Baso # (Auto) 0.0 10^3/uL (0.0-0.1) 07/04/25 02:24 Nucleated RBC % (auto) 0 % 07/04/25 02:24 Nucleated RBCs # 0.0 /100WBC 07/04/25 02:24 Specimen Type Arterial 07/02/25 11:00 Sample Site Radial, left 07/02/25 11:00 ABG pH 7.42 (7.35-7.45) 07/02/25 11:00 ABG pCO2 44.9 mmHg (35-45) 07/02/25 11:00 ABG pO2 99.1 mmHg (80.0-100.0) 07/02/25 11:00 ABG PO2/FiO2 Ratio 353 07/02/25 11:00 ABG HCO3 28.8 mmol/L (22-26) H 07/02/25 11:00 ABG O2 Saturation 98.9 07/01/25 16:48 ABG Base Excess 3.5 mmol/L (-2.0-2.0) H 07/02/25 11:00 Albin Test Pos 07/02/25 11:00 A-a O2 Gradient 6.9 mmHg (5-10) 07/01/25 16:48 Hematocrit 45.3 % (42-52) 07/02/25 11:00 Hgb O2 Saturation 97.2 % (95-100) 07/01/25 16:48 Carboxyhemoglobin 0.9 %THgb (0.4-20.1) 07/01/25 16:48 Methemoglobin 0.8 % (0.4-1.5) 07/01/25 16:48 Total Hemoglobin 14.1 g/dL (14-18) 07/01/25 16:48 Sodium 142.0 mmol/L (131-143) 07/01/25 16:48 Potassium 3.9 mmol/L (3.5-5.0) 07/01/25 16:48 Glucose 117.0 mg/dL (70-115) H 07/01/25 16:48 Ionized Calcium 1.2 mmol/L (1.1-1.4) 07/01/25 16:48 O2 Delivery Device Nc 07/02/25 11:00 O2 Liters/Min 2.0 % 07/02/25 11:00 FiO2 28.0 % 07/02/25 11:00 PEEP 5.0 cmH20 07/01/25 16:48 Asic Engineer ID [id number] 07/02/25 11:00 Sodium 144 mmol/L (136-145) 07/04/25 02:24 Potassium 4.0 mmol/L (3.5-5.1) 07/04/25 02:24 Chloride 103 mmol/L (98-107) 07/04/25 02:24 Carbon Dioxide 28 mmol/L (22-29) 07/04/25 02:24 Anion Gap 17.0 (5-19) 07/04/25 02:24 BUN 20 mg/dL (8-23) 07/04/25 02:24 Creatinine 1.2 mg/dL (0.7-1.2) 07/04/25 02:24 GFR Calculation 60.6 mL/min (90-130) L 07/04/25 02:24 Glucose 123 mg/dL (65-115) H 07/04/25 02:24 Calculated Osmolality 302 mOsm/kg (285-295) H 07/04/25 02:24 Calcium 8.9 mg/dL (8.5-10.5) 07/04/25 02:24 Phosphorus 3.8 mg/dL (2.5-4.5) 07/02/25 05:59 Magnesium 2.0 mg/dL (1.7-2.3) 07/04/25 02:24 Total Bilirubin 0.6 mg/dL (0.15-1.2) 07/01/25 09:29 AST 233 U/L (0-40) H 07/01/25 09:29 ALT 40 U/L (0-41) 07/01/25 09:29 Alkaline Phosphatase 109 U/L (40-130) 07/01/25 09:29 Troponin T 5th Gen ng/L > 94952 ng/L (0-15) H* 07/01/25 09:29 Total Protein 6.8 g/dL (6.6-8.7) 07/01/25 09:29 Albumin 3.6 g/dL (3.5-5.2) 07/01/25 09:29 Globulin 3.2 g/dL (1.3-4.6) 07/01/25 09:29 TSH 1.79 uIU/mL (0.27-4.20) 07/02/25 05:59 Procedures Performed Date of procedure: 07/01/25 Pre-procedure diagnosis: STEMI Post-procedure diagnosis: other (Total thrombotic occlusion of proximal LAD stent s/p PCI with balloon angioplasty and 1 new stent) Procedure: Patient was in acute pulmonary edema and could not lay down for the procedure. ER team was called and patient was intubated prior to the procedure. After intubation we proceeded with coronary angiogram. Total thrombotic occlusion of proximal LAD stent status post PCI with balloon angioplasty and 1 new stent. Left circumflex artery is patent. 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 Did not inject it. Transfer to ICU Dual antiplatelet therapy with aspirin and plavix High intensity statin therapy We will consult medicine team for help with management of medical issues and vent management Performing Provider: Randall Chavira Estimated blood loss (mL): 10 Complications: None Condition: critical Disposition: ICU Vitals Last Vital Signs Temp 98.4 F 07/04/25 09:50 Pulse 73 07/04/25 09:50 Resp 17 07/04/25 09:50 BP 120/72 07/04/25 09:50 Pulse Ox 96 07/04/25 09:50 O2 Del Method Nasal Cannula 07/04/25 07:37 O2 Flow Rate 2 07/04/25 07:37 FiO2 35 07/01/25 16:39 Discharge Plan Discharge Patient Disposition: Home Condition: Stable Prescriptions: New clopidogrel 75 mg Tablet 75 mg PO DAILY Qty: 90 3RF docusate sodium 100 mg Capsule 100 mg PO DAILY Qty: 30 0RF losartan 50 mg tablet 50 mg PO DAILY Qty: 90 0RF furosemide [Lasix] 40 mg tablet 40 mg PO DAILY Qty: 90 0RF famotidine 20 mg Tablet 40 mg PO BID Qty: 60 0RF atorvastatin 40 mg Tablet 80 mg PO DAILY Qty: 90 0RF Continued nitroglycerin 0.4 mg tablet, sublingual 0.4 mg sublingual Q5M PRN (Reason: HEART PAIN) Rx Instructions: do not exceed 3 doses per episode gabapentin 300 mg capsule 300 mg PO TID metoprolol succinate 25 mg tablet extended release 24 hr 25 mg PO DAILY meloxicam 15 mg tablet 15 mg PO DAILY clotrimazole-betamethasone 1-0.05 % cream 1 applic TOPICAL BID allopurinol 300 mg tablet 300 mg PO DAILY albuterol sulfate 90 mcg/actuation HFA aerosol inhaler 2 puff INHALATION Q4H PRN (Reason: Shortness Of Breath Or Wheezing) colchicine 0.6 mg tablet See Rx Instructions .ROUTE .COMPLEX Rx Instructions: TAKE 1 TABLET BY MOUTH ONCE DAILY NEEDED AT ONSET OF GOUT FLARE UNTIL SYMPTOMS RESOLVE. aspirin 81 mg tablet 81 mg PO DAILY Qty: 90 3RF Changed furosemide 20 mg tablet See Rx Instructions .ROUTE .COMPLEX 90 Days Qty: 90 0RF Rx Instructions: 20 mg orally in the evening at 3 pm Discontinued famotidine 40 mg tablet 40 mg PO BID potassium chloride 10 mEq tablet extended release 10 meq PO DAILY Discharge Order = DC NOW: Discharge Order (Routine); Ordered 07/04/25 Ordered By: Sophia Becker Other Ambulatory Orders: Basic Metabolic Panel (Routine) Timeframe: 1 Week Facility: [facility] - Location: Lab - Main Lab Ordered By: Sophia Becker Referrals: Lux Vang MD [Referring, Urology] Referral Note: scrotal pain Problems: Acute on chronic systolic heart failure Amberly Saab MD [Physician, Cardiology] - 07/17/25 3:00 pm Problems: Acute on chronic systolic heart failure Demetri Hardin [Primary Care Provider, Family Practice] - 07/09/25 8:00 am Discharge Diet: Advance as tolerated and Cardiac Discharge Activity: Limit activity as instructed Patient Instructions: Famotidine (By mouth) (Acid Controller, Acid Center Manager, Pepcid AC, Pepcid), Furosemide (By mouth) (Lasix), Laxative, Stool Softeners (By mouth) (Doculax, Colace, Colace Clear, DSS), Losartan (By mouth) (Cozaar, Arbli), Atorvastatin (By mouth) (Lipitor, Atorvaliq), Clopidogrel (By mouth) (Plavix), Heart Attack (DC), Chest Pain (DC), Heart Healthy Diet (DC), Coronary Intravascular Stent Placement (DC), Chest Pain Stoplight, Opioid Safety, Post Angiogram Home Care Instructions, Post Heart Attack Stoplight, Patient Portal & Luna Instructions Activity Restrictions/Additional Instructions: Discussed with patient no heavy lifting more than a gallon of milk for 3 days. No driving for 3 days. Monitor for and report signs or symptoms of bleeding. Monitor for and report s/s of infection such as fever 101 or greater, swelling, redness or pain to the wrist. Plan of Treatment: Dual antiplatelet therapy with aspirin and plavix High intensity statin therapy Add losartan 50 mg on discharge for hypertension and heart failure F/U in the clinic in 1 week for evaluation and labwork Discharge Attestations Time Spent in Discharge Care*: less than 30 min Quality Metrics Clinical Quality Measures [ No reported AMI, CVA or VTE this stay] Coding Level of Care Code Acute Code for Chg Fwd Diagnoses STEMI (ST elevation myocardial infarction) I21.3 Coronary artery disease status post coronary stent insertion I25.10; Z95.5 Morbid obesity E66.01 Acute on chronic systolic heart failure I50.23 Heart failure chronicity: acute on chronic Heart failure type: systolic
--- NOTE | 2025-07-04 10:38 | PC.NURSE ---
Patient received discharge orders, all prescriptions sent to patients preferred pharmacy, all IVs removed, Activity restrictions explained and patient verbalized understanding. All patient belongings sent with patient.
== END 2025-07-04 10:37 | disposition home or self-care (01) | DRG 321 ==
LOC: ICU 07:36
PROVIDERS: Internal Medicine; Student in an Organized Health Care Education/Training Program; Absent Provider Internal Medicine; Admitting Provider Internal Medicine; PCP Family Medicine; Visit Provider Internal Medicine
PROC: 02C03ZZ Extirpation of Matter from Coronary Artery, One Artery, Percutaneous Approach (ICD-10-PCS; principal; 2025-07-01 05:00)
PROC: 02C03ZZ Extirpation of Matter from Coronary Artery, One Artery, Percutaneous Approach (ICD-10-PCS; 2025-07-01 05:00)
DX: T82.855A Stenosis of coronary artery stent, initial encounter (principal); I21.09 ST elevation (STEMI) myocardial infarction involving other coronary artery of anterior wall; I25.82 Chronic total occlusion of coronary artery; I50.23 Acute on chronic systolic (congestive) heart failure; I45.2 Bifascicular block; Z68.42 Body mass index [BMI] 45.0-49.9, adult; I11.0 Hypertensive heart disease with heart failure; K59.00 Constipation, unspecified; I95.9 Hypotension, unspecified; R06.03 Acute respiratory distress; E66.01 Morbid (severe) obesity due to excess calories; D21.9 Benign neoplasm of connective and other soft tissue, unspecified; J44.9 Chronic obstructive pulmonary disease, unspecified; Z95.5 Presence of coronary angioplasty implant and graft; Z91.148 Patient's other noncompliance with medication regimen for other reason; Y71.3 Surgical instruments, materials and cardiovascular devices (including sutures) associated with adverse incidents
CPT/HCPCS: 36415; 36600; 51702; 71045; 80048; 80051; 80053; 82330; 82565; 82803; 82805; 83735; 84100; 84443; 84484; 85025; 85347; 87070; 87205; 92973; 92978; 93005; 93325; 93454; 94002; 94799; 96372; 97161; 99152; 99153; A4570; C1725; C1753; C1757; C1769; C1874; C1887; C1894; C8924; C9606; J0330; J1644; J1650; J1938; J2250; J2405; J2704; J3010; J3490; J7030; J9999; Q9967

== ENCOUNTER → 2025-07-17 14:51 | Outpatient (BNVA) | payer OTHER, MEDICAID, SELFPAY | PROVIDERS: PCP Family Medicine; Visit Provider Internal Medicine Cardiovascular Disease | DX: I25.10 Atherosclerotic heart disease of native coronary artery without angina pectoris (principal); I10 Essential (primary) hypertension; E11.9 Type 2 diabetes mellitus without complications; N40.0 Benign prostatic hyperplasia without lower urinary tract symptoms; Z79.02 Long term (current) use of antithrombotics/antiplatelets; Z79.82 Long term (current) use of aspirin; Z95.5 Presence of coronary angioplasty implant and graft | CPT/HCPCS: 99214 ==

== ENCOUNTER 2025-07-22 06:00 | Inpatient (IN) | payer OTHER, MEDICAID, SELFPAY ==
--- OUTSIDE RECORDS SUMMARY | 2025-07-19 15:20 | XMS_ITS | Encounter Summary ---
Author Organization [facility] Address [address] [place] [address] Care Team Providers Care Pulp House Supervisor Name Role Phone Demetri Hardin MD Primary Care Provider [phone] Reason for Referral * Eval and Treat (Routine) - Open Specialty Diagnoses / Procedures Referred By Wily phelps Referred To Contact Urology Diagnoses Enlarged prostate Procedures SC OFFICE/OUTPATIENT ESTABLISHED MOD MDM 30 MIN SC OFFICE/OUTPATIENT NEW MODERATE MDM 45 MINUTES Madison Sue FNP [address] [address] Phone: tel: fax: [facility]rology [address] [place] [phone] Phone: tel: fax: Referral ID Status Reason Start Date Expiration Date Visits Re quested Visits Authorized [id number] Open 07/19/2025 07/19/2026 1 1 Reason for Visit * Reason Comments ER Follow Up Pt states he is havi ng a lot of bloating Lower abdominal pain, flank pain. Pt states that the ED stated he has an enlarged prostate. Referral to Urology Encounter Details Date Type Department Care Team (Late st Contact Info) Description 07/19/2025 3:20 PM CDT Office Visit [facility] [place] [address] [phone] Madison Sue, ORTHOPEDIC CAST SPECIALIST [address] [place] [address] Acute cystitis with hematuria (Primary Dx); Flank pain; Enlarged prostate; Dysphagia, unspecified type Social History Tobacco Use Types Packs/Day Years [...] relatives? Three times a week 12/02/2020 Attends [employer] Not on file 12/02 Active Member [...] you gone without health care because you didn t have a way to get there? Or worry about transportation for future doctor visits, pharmacy picking tech medication, etc.? No 2024 Housing Stability Answer Date Recorded Do you worry you won t have a steady place to sleep or struggle to pay rent or mortgage? Yes 02/19/2025 Utility Needs Answer Date Recorded Do you have difficulty payin g for utility costs (electric, water or gas bills)? Yes 02/19/2025 Medication Needs Answer Date Recorded Have you skipped taking medi cation due to cost or worry you can t afford new medications? No 02/19/2025 Feeling Safe Answer Date Recorded Are you in a relationship wi th someone who hurts you emotionally and/or physically? 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 Gender Identity Not on file Sexual Orientation Not on file documented as of this encounter Last Filed Vital Signs Vital Sign Reading Time Taken Comments Blood Pressure 136/88 07/19/2025 3:18 PM CDT Pulse 96 07/19/2025 3:18 PM CDT Temperature 36.9 C (98.5 F) 07/19/2025 3:18 PM CDT Respiratory Rate 18 07/19/2025 3:18 PM CDT Oxygen Saturation 96% 07/19/2025 3:18 PM CDT Inhaled Oxygen Concentration - - Weight 163.6 kg (360 lb 9.6 oz) 07/19/2025 3:18 PM CDT Height 174 cm (5' 8.5 ) 07/19/2025 3:18 PM CDT Body Mass Index 54.03 07/19/2025 3:18 PM CDT documented in this encounter Progress Notes * Madison Sue, ERICA - 07/19/2025 3:11 PM CDT [facility] 07/19/2025 Subjective: Ward Chung is a 64 y.o. male who comes today for evaluation of ER Follow Up (Pt states he ishaving a lot of bloating /Lower abdominal pain, flank pain. /Pt states that the ED stated he has anenlarged prostate. ) and Referral to Urology . History of Present Illness The patient is a 64-year-old male with a past medical history significant for COPD, coronary arterydisease, CHF, and a recent STEMI who presents to the clinic today for an ER follow-up. He was seen in the emergency department on 07/13/2025 with concerns of abdominal bloating, shortness of breath, and flank pain. A CT scan of the abdomen and pelvis showed a small nonobstructive stone at the lower pole of the right kidney, a prominent left renal pelvis without fletcher hydronephrosis, and mildly prominent bilateral ureters. The scan also revealed prostate enlargement and a mildly distended urinary bladder, as well as distal esophageal wall thickening. He does see cardiology but it is recommended that he sees urology as well. A referral to gastroenterology was placed due to dysphagia and concern for possible malignancy related to the esophageal thickening and paraesophageal lymph nodes. He reports experiencing issues with his prostate and has been advised to schedule an appointment with urology. He describes a sensation of carrying bags around his arms, which he suspects might be due to fluid accumulation. He has been informed of significant fluid retention. His measurement technician in [place] has adjusted his diuretic dosage from 20 mg to 60 mg. However, he was unable to obtain the60 mg dose from the pharmacy and was instead advised to take 40 mg and split one tablet in half. Heis currently taking 40 mg in the morning and two 20 mg tablets in the evening, totaling 60 mg per day. He expresses concern about the potential side effects of taking 100 mg of Lasix daily. He also mentions that his penis has shrunk significantly, making urination difficult and affecting his sexualactivity. He often feels fatigued and run down. Review of Systems Constitutional: Negative for chills and fever. Respiratory: Negative for shortness of breath. Cardiovascular: Positive for leg swelling. Negative for chest pain. Genitourinary: Positive for frequency and urgency. Straining to urinate Musculoskeletal: Negative for myalgias. All other systems reviewed and are negative. Objective: Vitals: 07/19/25 1518 Temp: 98.5 ??F (36.9 ??C) Pulse: 96 BP: 136/88 Resp: 18 SpO2: 96% Physical Exam Vitals and nursing note reviewed. Constitutional: Appearance: Normal appearance. HENT: Head: Normocephalic and atraumatic. Right Ear: External ear normal. Left Ear: External ear normal. Nose: Nose normal. Mouth/Throat: Mouth: Mucous membranes are moist. Eyes: Conjunctiva/sclera: Conjunctivae normal. Cardiovascular: Rate and Rhythm: Normal rate and regular rhythm. Pulses: Normal pulses. Heart sounds: Normal heart sounds. Pulmonary: Effort: Pulmonary effort is normal. Breath sounds: Normal breath sounds. Musculoskeletal: General: Normal range of motion. Cervical back: Normal range of motion and neck supple. Skin: General: Skin is warm and dry. Neurological: Mental Status: He is alert and oriented to person, place, and time. Psychiatric: Behavior: Behavior normal. Past medical history, surgical history and social history reviewed. Past Medical History: Diagnosis Date Arthritis Asthma COPD (chronic obstructive pulmonary disease) ([facility]) COVID-19 08/29/2021 Gout Heart disease History of fibromyalgia HTN (hypertension) NSTEMI (non-ST elevated myocardial infarction) ([facility]) Sleep apnea Procedures Assessment/Plan: ICD-10-CM ICD-9-CM 1. Acute cystitis with hematuria N30.01 595.0 URINE CULTURE URINE CULTURE 2. Flank pain R10.9 789.09 POC URINALYSIS DIPSTICK AUTOMATED 3. Enlarged prostate N40.0 600.00 AMB REFERRAL TO UROLOGY tamsulosin (FLOMAX) 0.4 mg capsule 4. Dysphagia, unspecified type R13.10 787.20 Assessment & Plan 1. Prostate enlargement: - Symptoms suggest an enlarged prostate, which may be contributing to his urinary difficulties. Theswelling is likely due to his cardiac condition. - A referral to urology will be made for further evaluation. Flomax will be prescribed to be taken in the evening to help with urination. A urine culture will be ordered to rule out any infection. - Flomax will be prescribed to be taken in the evening to help with urination. He is advised to abstain from sexual activity until clearance from urology is obtained. 2. Edema - He reports fluid retention and swelling - According to cardiology records, he is supposed to be on 60 mg of Lasix daily. The cardiology team will be contacted to clarify the correct dosage. - He is advised to take 60 mg of Lasix in the morning until further instructions are provided. If he runs out of Lasix before his next cardiology appointment, he should contact the clinic. 3. Dysphagia: - He has been referred to gastroenterology for a scope due to dysphagia and distal esophageal wall thickening with paraesophageal lymph nodes, raising concern for possible malignancy. The referral has been acknowledged, and he will be contacted soon to schedule the procedure. Follow-up: He has an appointment with Dr. Hardin on 08/06/2025. HELENA Tolentino The author of this note, patient (or authorized small business representative), and all other persons present consent to the audio recording of this visit for charting documentation purposes. This note was automatically generated by a [employer] AI technology ([email or web address]), reviewed, edited, and finalized by ERICA Tolentino. Current Medications Reviewed and Reconciled Entresto potassium CHLORIDE furosemide Take 1 Tablet by mouth daily at bedtime. famotidine Take 1 Tablet by mouth 2 times daily. docusate sodium Take 1 Capsule by mouth daily. budesonide-formoteroL Take 2 Puffs by inhalation 2 times daily. clotrimazole-betamethasone APPLY CREAM TOPICALLY TO AFFECTED AREA TWICE DAILY aspirin Take 1 Tablet (81 mg) by mouth daily. metoprolol succinate Take 1 Tablet (25 mg) by mouth daily. nitroglycerin Place 1 Tablet (0.4 mg) under tongue every 5 minutes as needed for Chest Pain. atorvastatin take 2 tablets by mouth at bedtime meloxicam Take 1 Tablet (15 mg) by mouth daily. gabapentin TAKE 1 CAPSULE BY MOUTH IN THE MORNING AND 1 CAPSULE AT LUNCHTIME AND 2 CAPSULES ONCE DAILY AT BEDTIME furosemide Take 1 Tablet (20 mg) by mouth daily. allopurinoL Take 1 Tablet (300 mg) by mouth daily. albuterol sulfate Take 2 Puffs by inhalation every 4 hours as needed for Shortness of Breath or Wheezing. clopidogreL Take 75 mg by mouth. fluticasone propionate Administer 2 Sprays in each nostril daily. simethicone Take 1 Tablet (80 mg) by mouth every 6 hours as needed for Gas. albuterol Take 3 mL (2.5 mg) by inhalation every 6 hours as needed for Shortness of Breath. nebulizer Length of need 99 monthsNebulizer with compressor, Kit: Disposable Nebulizer Kit, 2 per month, filters , areosol mask: Yes. Name of Medication: Albuterol. losartan Take 1 Tablet by mouth daily. (Patient not taking: Reported on 07/19/2025) colchicine TAKE 1 TABLET BY MOUTH ONCE DAILY NEEDED AT ONSET OF GOUT FLARE UNTIL SYMPTOMS RESOLVE. (Patient not taking: Reported on 07/19/2025) potassium CHLORIDE Take 1 Tablet (10 mEq) by mouth daily with breakfast. (Patient not taking: Reported on 07/19/2025) documented in this encounter Plan of Treatment Upcoming Encounters Date Type Department Care Team (Late st Contact Info) Description 08/06/2025 4:00 PM CDT Office Visit [address] [phone] Demetri Hardin MD [address] [phone] 02/22/2026 10:40 AM CDT Office Visit [address] [phone] Demetri Hardin MD [address] [phone] Scheduled Referrals Name Type Priority Associated Diagnoses Orde r Schedule AMB REFERRAL TO UROLOGY Outpatient Referral Routine Enlarged prostate Ordered: 07/19/2025 documented as of this encounter Procedures Procedure Name Priority Date/Time Associated Diagnosis Comments URINE CULTURE Routine 07/19/2025 3:32 PM CDT Acute cystitis with hematuria POC URINALYSIS DIPSTICK AUTOMATED Routine 07/19/2025 3:30 PM CDT Flank pain documented in this encounter Results * URINE CULTURE (07/19/2025 3:32 PM CDT) URINE CULTURE SEE NOTE [facility] Comment: CULTURE, URINE, ROUTINE Micro Number: [id number] Test Status: Final Specimen Source: Urine, clean catch Specimen Quality: Adequate Result: Mixed genital liliana isolated. These superficial bacteria are not indicative of a urinary tract infection. No further organism identification is warranted on this specimen. If clinically indicated, recollect clean-catch, mid-stream urine and transfer immediately to Urine Culture Transport Tube. Test Performed at: [facility] [address] Jaguar Lira MD Urine URINE SPECIMEN OBTAINED BY CLEAN CATCH PROCEDURE / Unknown 07/19/2025 3:32 PM CDT 07/20/2025 3:23 AM CDT Madison Sue ORTHOPEDIC CAST SPECIALIST MICROBIOLOGY - GENERAL O RDERABLES Final Result [facility] [phone] [facility] [employer] [phone] * (ABNORMAL) POC URINALYSIS DIPSTICK AUTOMATED (07/19/2025 3:30 PM CDT) COLOR UA POC [place](A) Pale to Dark Yellow [facility] CLARITY UA POC Slightly Cloudy(A) Clear, Other [facility] GLUCOSE UA POC Negative Negative, Normal [facility] BILIRUBIN UA POC Negative Negative [facility] KETONES UA POC Negative Negative [facility] SPECIFIC GRAVITY UA POC 1.020 1.000 - 1.030 [facility] BLOOD UA POC Trace(A) Negative [facility] PH UA POC 6.0 5.0 - 8.0 [facility] IC [facility] PROTEIN UA POC 2+(A) Negative [facility] UROBILINOGEN UA POC 1.0 <2.0 mg/dL [facility] NITRITE UA POC Negative Negative [facility] LEUKOCYTE ESTERASE UA POC 1+(A) Negative [facility] KIT LOT NUMBER POC [id number] [facility] KIT EXP DATE POC 06/28/2026 [facility] Urine 07/19/2025 3:30 PM CDT Madison Barrett Vikram ORTHOPEDIC CAST SPECIALIST POINT OF CARE TESTING Fi nal Result [facility] CLIA# [id number] [address] [place] [address] documented in this encounter Visit Diagnoses Diagnosis Acute cystitis with hematuria- Primary Acute cystitis Flank pain Abdominal pain, unspecified site Enlarged prostate Hypertrophy of prostate without urinary obstruction and other lower urinary tract symptoms (LUTS) Dysphagia, unspecified type documented in this encounter Additional Health Concerns Assessment Noted Time PHQ-9 Depression Total Score: 2 02/02/20 25 3:32 PM 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
[2025-07-22] VITALS (45 sets, daily range): BP systolic 89–140; BP diastolic 56–99; PULSE 57–97; RESP 10–30; TEMP 37; O2SAT 89–99; BMI 53.8
--- OUTSIDE RECORDS SUMMARY | 2025-07-22 00:59 | XMS_ITS | Encounter Summary ---
Author Organization [facility] Address [address] [place] [address] Care Team Providers Care Mechanical Design Engineer Facilities Name Role Phone Demetri Hardin MD Primary Care Provider [phone] Reason for Visit * Reason Comments Chest Pain Shortness of Breath Flank Pain Encounter Details Date Type Department Care Team (Late st Contact Info) Description 07/22/2025 12:59 AM CDT - 07/22/2025 5:09 AM CDT Emergency [facility] Emergency Medicine [address] [facility] [address] [place] [address] Laly Saab, [address] [place] [address] Acute on chronic systolic CHF (congestive heart failure) (CMS/HCC) (Primary Dx); Acute right flank pain; Chronic obstructive pulmonary disease, unspecified COPD type (CMS/HCC); Renal insufficiency Discharge Disposition: Acute Care Hospital Social History [...] relatives? Three times a week 12/02/2020 Attends [employer] Not on file 12/02 Active Member [...] worry about transportation for future doctor visits, picker packer medication, etc.? No 2024 Housing Stability Answer [...] who hurts you emotionally and/or physically? 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 Gender Identity Not on file Sexual Orientation Not on file documented as of this encounter Last Filed Vital Signs Vital Sign Reading Time Taken Comments Blood Pressure 101/63 07/22/2025 4:30 AM CDT Pulse 80 07/22/2025 4:30 AM CDT Temperature - - Respiratory Rate 20 07/22/2025 4:30 AM CDT Oxygen Saturation 98% 07/22/2025 4:30 AM CDT Inhaled Oxygen Concentration - - Weight 163.3 kg (360 lb) 07/22/2025 1:09 AM CDT Height 172.7 cm (5' 8 ) 07/22/2025 1:09 AM CDT Body Mass Index 54.74 07/22/2025 1:09 AM CDT documented in this encounter Medications at Time of Discharge furosemide (LASIX) 40 mg tablet Take 1 Tablet by mouth daily at bedtime. 5 Entresto 24-26 mg Tablet 5 potassium CHLORIDE (K-TAB) 20 mEq Extended Release tablet 5 tamsulosin (FLOMAX) 0.4 mg capsuleIndications: Enlarged prostate Take 1 Capsule (0.4 mg) by mouth daily. 90 Capsule 3 5 famotidine (PEPCID) 20 mg tablet Take 1 Tablet by mouth 2 times daily. 5 losartan (COZAAR) 50 mg tablet Take 1 Tablet by mouth daily. 5 docusate sodium (COLACE) 100 mg capsule Take 1 Capsule by mouth daily. 5 budesonide-formoter oL (SYMBICORT) 80-4.5 mcg/actuation HFA Aerosol InhalerIndications: Simple chronic bronchitis (CMS/HCC) Take 2 Puffs by inhalation 2 times daily. 10.2 Gram 11 5 clotrimazole-betame thasone (LOTRISONE) 1-0.05 % CreamIndications:De rmatitis APPLY CREAM TOPICALLY TO AFFECTED AREA TWICE DAILY 45 Gram 1 5 colchicine (COLCRYS) 0.6 mg tabletIndications:C hronic gout of multiple sites, unspecified cause TAKE 1 TABLET BY MOUTH ONCE DAILY NEEDED AT ONSET OF GOUT FLARE UNTIL SYMPTOMS RESOLVE. 30 Tablet 5 aspirin (ECOTRIN EC) 81 mg Tablet, Delayed Release (E.C.) Take 1 Tablet (81 mg) by mouth daily. 100 Tablet 5 metoprolol succinate (TOPROL XL) 25 mg Extended Release 24 hour tablet Take 1 Tablet (25 mg) by mouth daily. 100 Tablet 5 nitroglycerin (NITROSTAT) 0.4 mg Tablet, Sublingual Place 1 Tablet (0.4 mg) under tongue every 5 minutes as needed for Chest Pain. 25 Tablet 5 atorvastatin (LIPITOR) 40 mg tablet take 2 tablets by mouth at bedtime 5 meloxicam (MOBIC) 15 mg tabletIndications:C hronic pain syndrome,Primary osteoarthritis involving multiple joints Take 1 Tablet (15 mg) by mouth daily. 90 Tablet 5 potassium chloride (KLOR-CON) 10 mEq Extended Release tabletIndications:B ilateral lower extremity edema Take 1 Tablet (10 mEq) by mouth daily with breakfast. 90 Tablet 5 gabapentin (NEURONTIN) 300 mg capsuleIndications: Chronic pain syndrome,Primary osteoarthritis involving multiple joints TAKE 1 CAPSULE BY MOUTH IN THE MORNING AND 1 CAPSULE AT LUNCHTIME AND 2 CAPSULES ONCE DAILY AT BEDTIME 360 Capsule 5 furosemide (Lasix) 20 mg tabletIndications:B ilateral lower extremity edema Take 1 Tablet (20 mg) by mouth daily. 90 Tablet 5 allopurinoL (ZYLOPRIM) 300 mg tabletIndications:C hronic gout of multiple sites, unspecified cause Take 1 Tablet (300 mg) by mouth daily. 90 Tablet 5 albuterol sulfate HFA 90 mcg/actuation aerosol inhalerIndications: Simple chronic bronchitis (CMS/HCC) Take 2 Puffs by inhalation every 4 hours as needed for Shortness of Breath or Wheezing. 8.5 Gram 11 5 clopidogreL (PLAVIX) 75 mg Tablet Take 75 mg by mouth. fluticasone propionate (FLONASE) 50 mcg/spray Graham, Suspension nasal inhalerIndications: Seasonal allergic rhinitis due [...] of Medication: Albuterol. 1 Each 0 9 documented as of this encounter ED Notes * Gaby Wilson RN - 07/22/2025 4:58 AM CDT EMS arrived for transport, report given to priest. * Cee Gerard RN - 07/22/2025 4:33 AM CDT Called [facility] dispatch for patient transport, spoke with Owen. * Gaby Wilson RN - 07/22/2025 2:09 AM CDT Patient requesting oxygen, stating he feels like an elephant is sitting on his chest and it is hardto breathe. Provider notified. Patient placed on 2 Liters of oxygen via nasal cannula. * Chloe Whitt RCP - 07/22/2025 1:12 AM CDT EKG completed. Results given to Dr. Saab and scanned into Epic. * Katiana Laly LauryDO - 07/22/2025 12:57 AM CDTAssociated Order(s): EKG 12-LEAD HISTORY OF PRESENT ILLNESS 64-year-old male comes in with right flank pain since about 6 PM. He states he has been having chest tightness and pressure with shortness of breath since about 10 PM. He states it feels like he has a weight on his chest. He denies fever or chills. No pain or burning with urination. He states that the flank pain does go into his right groin and abdomen. Patient takes Lasix 60 mg twice a day. He states he took his evening dose at approximately 9 PM. Patient has been referred to urology for BPH and cystitis. He has a past medical history significant for COPD, coronary artery disease, CHF, and a recent STEMI (07/01/2025). On 01 July 2025 he was transferred to the cardiac Repacker at [facility]. History provided by: The patient brush maker machine used: No Arrived by: Private vehicle Arrived from: Home Chest Pain Chest pain location: Sternal tightness/pressure. Pain quality: pressure Pain radiates to: Does not radiate Pain radiates to the back: no Pain severity: Moderate Onset quality: Sudden Duration: Since about 10 PM. Timing: Constant Progression: Unchanged Chronicity: Recurrent Context: at rest Relieved by: None tried Worsened by: Deep breathing Ineffective treatments: None tried Associated symptoms: heartburn, lower extremity edema and shortness of breath Associated symptoms: no AICD problem, no altered mental status, no anorexia, no anxiety, no back pain, no claudication, no cough, no diaphoresis, no dysphagia, no fatigue, no fever, no headache, no nausea, no near-syncope, no numbness, no palpitations, no syncope, not vomiting and no weakness Shortness of breath: Severity: Moderate Onset quality: Sudden Duration: Since about 10 PM. Timing: Constant Progression: Unchanged Risk factors PE/DVT: no recent prolonged travel, no recent immobilization, no surgery with the last4 weeks, no hemoptysis, no malignancy treatment past 6 months, no history of PE or DVT and no smoking Risk factors: coronary artery disease, hypertension, immobilization, male sex, obesity and surgery Risk factors: no aortic disease, no diabetes mellitus, no Wei-Danlos syndrome, no high cholesterol, no Marfan's syndrome, no prior DVT/PE and no smoking Shortness of Breath LV Function: LVEF 60% with diastolic dysfunction. Associated symptoms: chest pain Associated symptoms: no claudication, no cough, no diaphoresis, no fever, no headaches, no sore throat, no syncope and no vomiting Flank Pain Pain location: R flank Pain quality: sharp Pain radiates to: RLQ Pain severity: Moderate Onset quality: Sudden Duration: This started about 6 PM. Timing: Constant Progression: Worsening Chronicity: Recurrent Context: previous surgery Context: not alcohol use, not awakening from sleep, not diet changes, not eating, not laxative use,not medication withdrawal, not recent illness, not recent travel, not retching, not sick contacts, not suspicious food intake and not trauma Relieved by: Nothing Worsened by: Nothing tried Ineffective treatments: None tried Associated symptoms: chest pain and shortness of breath Associated symptoms: no anorexia, no belching, no chills, no constipation, no cough, no diarrhea, no dysuria, no fatigue, no fever, no hematuria, no melena, no nausea, no sore throat and no vomiting Risk factors: multiple surgeries and obesity Risk factors: no alcohol abuse, no aspirin use, not elderly, no NSAID use and no recent hospitalization PAST MEDICAL HISTORY REVIEWED MEDICAL: Patient has a past medical history of Arthritis, Asthma, COPD (chronic obstructive pulmonary disease) ([facility]), COVID-19 (08/29/2021), Gout, Heart disease, History of fibromyalgia, HTN (hypertension), NSTEMI (non-ST elevated myocardial infarction) ([facility]), and Sleep apnea. Coronary artery disease, CHF, BPH, cystitis with hematuria, flank pain, morbid obesity, GERD, fatty liver, restrictive lung disease secondary to obesity, bilateral lower extremity edema, obstructive sleep apnea (not able to tolerate wearing a mask). SURGICAL: Patient has a past surgical history that includes orthopedic surgery; heart catheterization; and ptca. Stent placement ALLERGIES Patient has no known allergies. PHYSICAL EXAM INITIAL VS BP: 113/59 (07/22/25108), Heart Rate: 86 bpm (07/22/25108), Resp: 16 (07/22/25108), Pulse: 86(07/22/25108), Temp: (not recorded), Temp src: Tympanic (07/22/25108), SpO2: 100 % (07/22/25108), Height: 5' 8 (172.7 cm) (07/22/25108), Weight: (!) 163.3 kg (360 lb) (07/22/25108), BMI (Ca lculated): (!) 54.75 (07/22/25108) No LMP for male patient. Physical Exam Vitals and nursing note reviewed. Constitutional: General: He is not in acute distress. Appearance: Normal appearance. He is well-developed. He is obese. He is ill- appearing. He is not toxic-appearing or diaphoretic. Interventions: He is not intubated. Comments: Morbidly obese with BMI greater than 50 HENT: Head: Normocephalic and atraumatic. Nose: Nose normal. No congestion or rhinorrhea. Mouth/Throat: Mouth: Mucous membranes are dry. Pharynx: Oropharynx is clear. No pharyngeal swelling, oropharyngeal exudate or posterior oropharyngeal erythema. Eyes: General: No scleral icterus. Right eye: No discharge. Left eye: No discharge. Extraocular Movements: Extraocular movements intact. Conjunctiva/sclera: Conjunctivae normal. Pupils: Pupils are equal, round, and reactive to light. Neck: Thyroid: No thyromegaly. Vascular: No carotid bruit, hepatojugular reflux or JVD. Trachea: No tracheal deviation. Cardiovascular: Rate and Rhythm: Normal rate and regular rhythm. No extrasystoles are present. Chest Wall: PMI is not displaced. Pulses: Normal pulses. Heart sounds: Normal heart sounds. Heart sounds not distant. No murmur heard. No systolic murmur is present. No diastolic murmur is present. No friction rub. No gallop. Pulmonary: Effort: Pulmonary effort is normal. No tachypnea, bradypnea, accessory muscle usage, prolonged expiration, respiratory distress or retractions. He is not intubated. Breath sounds: Decreased air movement present. No stridor or transmitted upper airway sounds. Examination of the right-middle field reveals decreased breath sounds. Examination of the left-middle field reveals decreased breath sounds. Examination of the right-lower field reveals decreased breath sounds. Examination of the left-lower field reveals decreased breath sounds. Decreased breath sounds present. No wheezing, rhonchi or rales. Chest: Chest wall: No mass, deformity, tenderness, crepitus or edema. There is no dullness to percussion. Abdominal: General: Abdomen is flat. There is no distension or abdominal bruit. Palpations: Abdomen is soft. There is no fluid wave, hepatomegaly, splenomegaly or mass. Tenderness: There is no abdominal tenderness. There is no right CVA tenderness, left CVA tenderness, guarding or rebound. Musculoskeletal: General: No swelling, tenderness, deformity or signs of injury. Normal range of motion. Cervical back: Normal range of motion and neck supple. No rigidity. No muscular tenderness. Right lower leg: No tenderness. Edema present. Left lower leg: No tenderness. Edema present. Lymphadenopathy: Cervical: No cervical adenopathy. Skin: General: Skin is warm and dry. Coloration: Skin is not cyanotic, jaundiced or pale. Findings: No bruising, ecchymosis, erythema, lesion or rash. Nails: There is no clubbing. Neurological: General: No focal deficit present. Mental Status: He is alert and oriented to person, place, and time. Motor: Weakness present. Coordination: Coordination normal. Psychiatric: Mood and Affect: Mood normal. Behavior: Behavior normal. DIAGNOSTICS LAB: CBC WITH DIFFERENTIAL - Abnormal Result Value WBC 7.4 RBC 4.54 (*) HEMOGLOBIN 12.3 (*) HEMATOCRIT 37.8 (*) MCV 83.3 MCH 27.1 MCHC 32.5 RDW 15.7 (*) RDW-STDEV 45.9 PLATELETS 181 MPV 11.9 NEUTROPHILS 61 LYMPHOCYTES 29 MONOCYTES 6 EOSINOPHILS 4 BASOPHILS 0 IMMATURE GRANULOCYTES 0 NEUTROPHIL ABSOLUTE 4.49 LYMPHOCYTE ABSOLUTE 2.14 MONOCYTE ABSOLUTE 0.45 EOSINOPHIL ABSOLUTE 0.28 BASOPHILS ABSOLUTE 0.03 IMMATURE GRANULOCYTES ABSOLUTE 0.02 COMPREHENSIVE METABOLIC PANEL - Abnormal SODIUM 139 POTASSIUM 4.4 CHLORIDE 102 CO2 23 CALCIUM 8.6 (*) BUN 27 (*) CREATININE 1.24 (*) GLUCOSE 151 (*) TOTAL PROTEIN 7.1 ALBUMIN 3.8 BILIRUBIN TOTAL 0.7 ALKALINE PHOSPHATASE 102 AST 20 ALT 15 GFR >60 ANION GAP 14 BRAIN NATRIURETIC PEPTIDE, BNP OR PROBNP - Abnormal PROBNP, N TERMINAL 2,716 (*) TROPONIN BASELINE, 5TH GEN - Abnormal TROPONIN T, BASELINE 5TH GEN 82 (*) TROPONIN 2 HR, 5TH GEN - Abnormal TROPONIN T, 2 HR 5TH GEN 83 (*) DELTA 2HR TROPONIN T 1 URINALYSIS WITH REFLEX MICROSCOPIC - Abnormal COLOR UA Yellow CLARITY UA Clear SPECIFIC GRAVITY UA 1.015 PH UA 6.0 LEUKOCYTE ESTERASE UA 1+ (*) NITRITE UA Negative PROTEIN UA Negative GLUCOSE UA Negative KETONES UA Negative UROBILINOGEN UA 1.0 BILIRUBIN UA Negative BLOOD UA Negative LACTIC ACID - Abnormal LACTIC ACID 3.4 (*) MAGNESIUM LEVEL - Normal MAGNESIUM 1.8 URINALYSIS MICROSCOPY ONLY - Normal WBC UA 0-2 RBC UA 0-2 BACTERIA UA Negative EPITHELIAL CELLS, URINE 0-5 D-DIMER - Normal D-DIMER QUANT 0.25 RADIOLOGY: XR CHEST PA OR AP 1 VW Radiologist Impression IMPRESSION: See below. EXAMINATION: XR CHEST PA OR AP 1 VW CLINICAL HISTORY: ASSOCIATED DIAGNOSIS: Chest Pain ORDERING PROVIDER: LALY [employer] NOTE: COMPARISON: July 12, 2025 FINDINGS/IMPRESSION: Lines, tubes, and devices: None. Low lung volumes with bronchovascular and bibasilar atelectasis. No significant effusion or pneumothorax. Heart is enlarged. EKG: PROCEDURES EKG 12-LEAD Date/Time: 07/22/2025 1:12 AM Performed by: Laly Saab DO Authorized by: Laly Saab DO ECG interpreted by ED Physician in the absence of a dog handler or trainer: yes Rate: ECG rate: 85 ECG rate assessment: age appropriate Rhythm: Rhythm Origin: sinus Rhythm morphology: narrow Ectopy: Ectopy occurance: rare Ectopy origin: PAC [place]: QRS axis: Left QRSTT: Anterolateral (LAD + Circ) I, aVL, V5-V6: ST depression (Mild ST depression noted in leads I, aVL) Comments: Low voltage No specific change from EKG dated 07/12/2025 Artifact noted MEDICAL DECISION MAKING AND PLAN OF CARE Medical Decision Making BNP 2716 Chest x-ray shows vascular congestion/CHF Troponin baseline 82, 2-hour 83 Amount and/or Complexity of Data Reviewed Labs: ordered. Details: CBC WITH DIFFERENTIAL - Abnormal Result Value WBC 7.4 RBC 4.54 (*) HEMOGLOBIN 12.3 (*) HEMATOCRIT 37.8 (*) MCV 83.3 MCH 27.1 MCHC 32.5 RDW 15.7 (*) RDW-STDEV 45.9 PLATELETS 181 MPV 11.9 NEUTROPHILS 61 LYMPHOCYTES 29 MONOCYTES 6 EOSINOPHILS 4 BASOPHILS 0 IMMATURE GRANULOCYTES 0 NEUTROPHIL ABSOLUTE 4.49 LYMPHOCYTE ABSOLUTE 2.14 MONOCYTE ABSOLUTE 0.45 EOSINOPHIL ABSOLUTE 0.28 BASOPHILS ABSOLUTE 0.03 IMMATURE GRANULOCYTES ABSOLUTE 0.02 COMPREHENSIVE METABOLIC PANEL - Abnormal SODIUM 139 POTASSIUM 4.4 CHLORIDE 102 CO2 23 CALCIUM 8.6 (*) BUN 27 (*) CREATININE 1.24 (*) GLUCOSE 151 (*) TOTAL PROTEIN 7.1 ALBUMIN 3.8 BILIRUBIN TOTAL 0.7 ALKALINE PHOSPHATASE 102 AST 20 ALT 15 GFR >60 ANION GAP 14 BRAIN NATRIURETIC PEPTIDE, BNP OR PROBNP - Abnormal PROBNP, N TERMINAL 2,716 (*) TROPONIN BASELINE, 5TH GEN - Abnormal TROPONIN T, BASELINE 5TH GEN 82 (*) TROPONIN 2 HR, 5TH GEN - Abnormal TROPONIN T, 2 HR 5TH GEN 83 (*) DELTA 2HR TROPONIN T 1 URINALYSIS WITH REFLEX MICROSCOPIC - Abnormal COLOR UA Yellow CLARITY UA Clear SPECIFIC GRAVITY UA 1.015 PH UA 6.0 LEUKOCYTE ESTERASE UA 1+ (*) NITRITE UA Negative PROTEIN UA Negative GLUCOSE UA Negative KETONES UA Negative UROBILINOGEN UA 1.0 BILIRUBIN UA Negative BLOOD UA Negative LACTIC ACID - Abnormal LACTIC ACID 3.4 (*) MAGNESIUM LEVEL - Normal MAGNESIUM 1.8 URINALYSIS MICROSCOPY ONLY - Normal WBC UA 0-2 RBC UA 0-2 BACTERIA UA Negative EPITHELIAL CELLS, URINE 0-5 D-DIMER - Normal D-DIMER QUANT 0.25 Radiology: ordered. Details: Chest x-ray shows increased vascular congestion ECG/medicine tests: ordered and independent interpretation performed. Details: Normal sinus rhythm, rate 85, PACs noted, left axis, low voltage, ST depression noted in lead I, aVL, no specific changes from EKG dated 07/12/2025 Discussion of management or test interpretation with external provider(s): Discussed with Dr. Mohan, Hospitalist, [facility], who has kindly accepted this patient for admission. Risk Prescription drug management. Decision regarding hospitalization. Clinical Scoring & Consults Medications Administered During the ED Stay from 07/22/2025 0058 to 07/22/2025 0531 Date/Time Order Dose Route Action 07/22/2025 0302 CDT DOBUTamine in D5W (DOBUTREX) 250 mg/250 mL (1 mg/mL) infusion 2.5 mcg/kg/min IVNot Given 07/22/2025 030 CDT furosemide (LASIX) injection 40 mg 40 mg IV Given Discharge Medication List as of 07/22/2025 4:52 AM CONTINUE these medications which have NOT CHANGED Details !! furosemide (LASIX) 40 mg tablet Take 1 Tablet by mouth daily at bedtime. Entresto 24-26 mg Tablet KATHIE !! potassium CHLORIDE (K-TAB) 20 mEq Extended Release tablet tamsulosin (FLOMAX) 0.4 mg capsule Take 1 Capsule (0.4 mg) by mouth daily., Disp-90 Capsule, R-3 famotidine (PEPCID) 20 mg tablet Take 1 Tablet by mouth 2 times daily. losartan (COZAAR) 50 mg tablet Take 1 Tablet by mouth daily. docusate sodium (COLACE) 100 mg capsule Take 1 Capsule by mouth daily. budesonide-formoteroL (SYMBICORT) 80-4.5 mcg/actuation HFA Aerosol Inhaler Take 2 Puffs by inhalation 2 times daily., Disp-10.2 Gram, R-11 clotrimazole-betamethasone (LOTRISONE) 1-0.05 % Cream APPLY CREAM TOPICALLY TO AFFECTED AREA TWICE DAILY, Disp-45 Gram, R-1 colchicine (COLCRYS) 0.6 mg tablet TAKE 1 TABLET BY MOUTH ONCE DAILY NEEDED AT ONSET OF GOUT FLARE UNTIL SYMPTOMS RESOLVE., Disp-30 Tablet, R-0 aspirin (ECOTRIN EC) 81 mg Tablet, Delayed Release (E.C.) Take 1 Tablet (81 mg) by mouth daily., Disp-100 Tablet, R-3 metoprolol succinate (TOPROL XL) 25 mg Extended Release 24 hour tablet Take 1 Tablet (25 mg) by mouth daily., Disp-100 Tablet, R-3 nitroglycerin (NITROSTAT) 0.4 mg Tablet, Sublingual Place 1 Tablet (0.4 mg) under tongue every 5 minutes as needed for Chest Pain., Disp-25 Tablet, R-3 atorvastatin (LIPITOR) 40 mg tablet take 2 tablets by mouth at bedtime meloxicam (MOBIC) 15 mg tablet Take 1 Tablet (15 mg) by mouth daily., Disp-90 Tablet, R-3 !! potassium chloride (KLOR-CON) 10 mEq Extended Release tablet Take 1 Tablet (10 mEq) by mouth daily with breakfast., Disp-90 Tablet, R-3 gabapentin (NEURONTIN) 300 mg capsule TAKE 1 CAPSULE BY MOUTH IN THE MORNING AND 1 CAPSULE AT LUNCHTIME AND 2 CAPSULES ONCE DAILY AT BEDTIME, Disp-360 Capsule, R-3 !! furosemide (Lasix) 20 mg tablet Take 1 Tablet (20 mg) by mouth daily., Disp- 90 Tablet, R-3 allopurinoL (ZYLOPRIM) 300 mg tablet Take 1 Tablet (300 mg) by mouth daily., Disp-90 Tablet, R-3 albuterol sulfate HFA 90 mcg/actuation aerosol inhaler Take 2 Puffs by inhalation every 4 hours as needed for Shortness of Breath or Wheezing., Disp- 8.5 Gram, R-11 clopidogreL (PLAVIX) 75 mg Tablet Take 75 mg by mouth. fluticasone propionate (FLONASE) 50 mcg/spray Graham, Suspension nasal inhaler Administer 2 Sprays in each nostril daily., Disp-16 Gram, R-11 simethicone 80 mg Tablet, Chewable Take 1 Tablet (80 mg) by mouth every 6 hours as needed for Gas.,Disp-90 Tablet, R-3 albuterol (PROVENTIL,VENTOLIN) 2.5 mg /3 mL (0.083 %) Solution for Nebulization Take 3 mL (2.5 mg) by inhalation every 6 hours as needed for Shortness of Breath., Disp-100 mL, R-1 nebulizer Length of need 99 monthsNebulizer with compressor, Kit: Disposable Nebulizer Kit, 2 per month, filters , areosol mask: Yes. Name of Medication: Albuterol., Disp-1 Each, R-0 !! - Potential duplicate medications found. Please discuss with provider. LAST VS BP: 101/63 (07/22/25 0430), Heart Rate: 81 bpm (07/22/25429), Resp: 20 (07/22/25 043), Pulse: 80(07/22/25429), Temp: (not recorded), Temp src: Tympanic (07/22/25 0109), SpO2: 98 % (07/22/25 043) CLINICAL IMPRESSION Diagnoses Diagnosis Comment Added By Time Added Acute on chronic systolic CHF (congestive heart failure) ([facility]) [I50.23] Laly Saab DO 07/22/2025 2:36 AM Acute right flank pain [R10.9] Laly Saab DO 07/22/2025 2:37 AM Chronic obstructive pulmonary disease, unspecified COPD type ([facility]) [J44.9] Restrictive lung disease secondary to morbid obesity Laly Saab DO 07/22/2025 2:39 AM Renal insufficiency [N28.9] BUN 27, creatinine 1.24 Laly Saab DO 07/22/2025 4:17 AM DISPOSITION, EDUCATION AND MEDICATION RECONCILIATION Medications reconciled. See after visit summary for patient education on discharged patients. ED Disposition ED Disposition Transfer Condition Stable User Laly Saab DO Date/Time Sun Jul 22, 2025 4:15 AM Comment -- ATTESTATION STATEMENTS documented in this encounter Plan of Treatment Upcoming Encounters Date Type Department Care Team (Late st Contact Info) Description 08/06/2025 4:00 PM CDT Office Visit [address] [phone] Demetri Hardin MD [address] [phone] 02/22/2026 10:40 AM CDT Office Visit [address] [phone] Demetri Hardin MD [address] [phone] Scheduled Orders Name Type Priority Associated Diagnoses Orde r Schedule TROPONIN 6 HR, 5TH GEN Lab Timed Study O NE TIME for 1 Occurrences starting 07/22/2025 until 07/22/2025 documented as of this encounter Procedures Procedure Name Priority Date/Time Associated Diagnosis Comments TROPONIN 2 HR, 5TH GEN Timed Study 07/22/2025 3:09 AM CDT XR CHEST PA OR AP 1 VW Stat 07/22/2025 1:48 AM CDT TROPONIN BASELINE, 5TH GEN Stat 07/22/2025 1:20 AM CDT LACTIC ACID Stat 07/22/2025 1:20 AM CDT CBC WITH DIFFERENTIAL Stat 07/22/2025 1:20 AM CDT D-DIMER Stat 07/22/2025 1:20 AM CDT BRAIN NATRIURETIC PEPTIDE, BNP OR PROBNP Stat 07/22/2025 1:20 AM CDT MAGNESIUM LEVEL Stat 07/22/2025 1:20 AM CDT COMPREHENSIVE METABOLIC PANEL Stat 07/22/2025 1:20 AM CDT EKG 12-LEAD Stat 07/22/2025 1:12 AM CDT URINALYSIS MICROSCOPY ONLY Stat 07/22/2025 1:05 AM CDT URINALYSIS W/REFLEX MICROSCOPIC Stat 07/22/2025 1:05 AM CDT documented in this encounter Results * (ABNORMAL) TROPONIN 2 HR, 5TH GEN (07/22/2025 3:09 AM CDT) TROPONIN T, 2 HR 5TH GEN 83(H) <=15 ng/L 07/22/2025 3:30 AM CDT [facility] Comment:Hemolysis can falsel y decrease Troponin quantitation. DELTA 2HR TROPONIN T 1 See Interp. 07/22/2025 3:30 AM CDT [facility] Blood BLOOD SPECIMEN / Unknown Collection / Unknown 07/22/2025 3:09 AM CDT 07/22/2025 3:12 AM CDT [facility] - 07/22/2025 3:30 AM CDT Troponin elevated. Delta not changing. Laly Saab DO CHEMISTRY ORDERABLES Final Resul t [facility] CLIA # [id number] [address] [place] [address] [id number] * XR CHEST PA OR AP 1 VW (07/22/2025 1:48 AM CDT) Anatomical Region Laterality Modality Chest Computed Radiogr aphy 07/22/2025 1:49 AM CDT Impressions 07/22/2025 3:30 AM CDT IMPRESSION: See below. EXAMINATION: XR CHEST PA OR AP 1 VW CLINICAL HISTORY: ASSOCIATED DIAGNOSIS: Chest Pain ORDERING PROVIDER: LALY [employer] NOTE: COMPARISON: July 12, 2025 FINDINGS/IMPRESSION: Lines, tubes, and devices: None. Low lung volumes with bronchovascular and bibasilar atelectasis. No significant effusion or pneumothorax. Heart is enlarged. Narrative Procedure Note Juan Henley MD - 07/22/2025 IMPRESSION: See below. EXAMINATION: XR CHEST PA OR AP 1 VW CLINICAL HISTORY: ASSOCIATED DIAGNOSIS: Chest Pain ORDERING PROVIDER: LALY [employer] NOTE: COMPARISON: July 12, 2025 FINDINGS/IMPRESSION: Lines, tubes, and devices: None. Low lung volumes with bronchovascular and bibasilar atelectasis. No significant effusion or pneumothorax. Heart is enlarged. Laly Saab DO DIAGNOSTIC IMAGING ORDERABLES Fi nal Result * D-DIMER (07/22/2025 1:20 AM CDT) D-DIMER QUANT 0.25 <0.50 ug/mL FEU 07/22/2025 2:48 AM CDT [facility] Blood BLOOD SPECIMEN / Unknown Collection / Unknown 07/22/2025 1:20 AM CDT 07/22/2025 2:35 AM CDT [facility] - 07/22/2025 2:48 AM CDT D-Dimer assay cutoff value for exclusion [...] FEU 71-80 years: 0.71-0.80 ug/mL FEU us Laly Y Saab DO HEMATOLOGY ORDERABLES Final Resu lt [facility] CLIA # [id number] [address] [place] [address] [phone] * (ABNORMAL) LACTIC ACID (07/22/2025 1:20 AM CDT) LACTIC ACID 3.4(H) <=2.0 mmol/L 07/22/2025 2:40 AM CDT [facility] Blood BLOOD SPECIMEN / Unknown Collection / Unknown 07/22/2025 1:20 AM CDT 07/22/2025 2:24 AM CDT us Laly Y Katiana DO CHEMISTRY ORDERABLES Final Resul t [facility] CLIA # [id number] [address] [place] [address] [phone] * (ABNORMAL) TROPONIN BASELINE, 5TH GEN (07/22/2025 1:20 AM CDT) TROPONIN T, BASELINE 5TH GEN 82(H) <=15 ng/L 07/22/2025 1:48 AM CDT [facility] Blood BLOOD SPECIMEN / Unknown Collection / Unknown 07/22/2025 1:20 AM CDT 07/22/2025 1:29 AM CDT Narrative [facility] - 07/22/2025 1:48 AM CDT Troponin elevated. us Laly Y Katiana DO CHEMISTRY ORDERABLES Final Resul t Performing Organization Address [facility] de Phone Number [facility] CLIA # [id number] [address] [place] [address] [phone] * MAGNESIUM LEVEL (07/22/2025 1:20 AM CDT) MAGNESIUM 1.8 1.6 - 2.4 mg/dL 07/22/2025 1:48 AM CDT [facility] Blood BLOOD SPECIMEN / Unknown Collection / Unknown 07/22/2025 1:20 AM CDT 07/22/2025 1:29 AM CDT us Laly Laury Saab DO CHEMISTRY ORDERABLES Final Resul t Performing Organization Address [facility] Phone Number [facility] CLIA # [id number] [address] [place] [address] 35098 * (ABNORMAL) BRAIN NATRIURETIC PEPTIDE, BNP OR PROBNP (07/22/2025 1:20 AM CDT) PROBNP, N TERMINAL 2,716(H) 0 - 125 pg/mL 07/22/2025 1:48 AM CDT [facility] Comment: INTERPRETIVE COMMENT based on diagnosis: Diagnostic NT pro-BNP cutoffs for Heart Failure in the absence of renal failure is suggested for the following ranges <75 years: <125 pg/mL >=75 years: <450 pg/mL Exclusionary rule out cut-point for Acute Decompensated Heart Failure(ADHF) All ages: <300 pg/mL Diagnostic NT pro-BNP cutoffs for Acute Decompensated Heart Failure(ADHF) in the absence of renal failure is suggested for the following ages <50 years: > 450 pg/mL 50-75 years: > 900 pg/mL >75 years: >1800 pg/mL Blood BLOOD SPECIMEN / Unknown Collection / Unknown 07/22/2025 1:20 AM CDT 07/22/2025 1:29 AM CDT us Laly Saab DO CHEMISTRY ORDERABLES Final Resul t [facility] CLIA # [id number] [address] [place] [address] 76671 * (ABNORMAL) COMPREHENSIVE METABOLIC PANEL (07/22/2025 1:20 AM CDT) SODIUM 139 136 - 145 mmol/L 07/22/2025 1:48 AM [facility] POTASSIUM 4.4 3.5 - 5.1 mmol/L 07/22/2025 1:48 AM [facility] CHLORIDE 102 98 - 107 mmol/L 07/22/2025 1:48 AM [facility] CO2 23 22 - 29 mmol/L 07/22/2025 1:48 AM [facility] CALCIUM 8.6(L) 8.8 - 10.2 mg/dL 07/22/2025 1:48 AM [facility] BUN 27(H) 8 - 23 mg/dL 07/22/2025 1:48 AM [facility] CREATININE 1.24(H) 0.67 - 1.17 mg/dL 07/22/2025 1:48 AM [facility] GLUCOSE 151(H) 74 - 99 mg/dL 07/22/2025 1:48 AM [facility] TOTAL PROTEIN 7.1 6.6 - 8.7 g/dL 07/22/2025 1:48 AM [facility] ALBUMIN 3.8 3.5 - 5.2 g/dL 07/22/2025 1:48 AM [facility] BILIRUBIN TOTAL 0.7 0.0 - 1.2 mg/dL 07/22/2025 1:48 AM [facility] ALKALINE PHOSPHATASE 102 40 - 129 U/L 07/22/2025 1:48 AM [facility] AST 20 0 - 50 U/L 07/22/2025 1:48 AM [facility] ALT 15 0 - 50 U/L 07/22/2025 1:48 AM [facility] GFR >60 >=60 mL/min/1.7 3 sq meter 07/22/2025 1:48 AM [facility] Comment:eGFR calculated with 2020 CKD-EPI equation. Vegetarian diet, extremely high or low muscle mass, and may affect results. Cystatin C with Glomerular Filtration Rate is a suitable alternative for these patients. ANION GAP 14 5 - 20 mmol/L 07/22/2025 1:48 AM [facility] Blood BLOOD SPECIMEN / Unknown Collection / Unknown 07/22/2025 1:20 AM CDT 07/22/2025 1:29 AM CDT us Laly Y Katiana DO CHEMISTRY ORDERABLES Final Resul t [facility] CLIA # [id number] [address] [place] [address] 29756 * (ABNORMAL) CBC WITH DIFFERENTIAL (07/22/2025 1:20 AM CDT) WBC 7.4 4.2 - 9.1 K/uL 07/22/2025 1:34 AM [facility] RBC 4.54(L) 4.63 - 6.08 M/uL 07/22/2025 1:34 AM [facility] HEMOGLOBIN 12.3(L) 13.7 - 17.5 g/dL 07/22/2025 1:34 AM [facility] HEMATOCRIT 37.8(L) 40.1 - 51.0 % 07/22/2025 1:34 AM [facility] MCV 83.3 79.0 - 92.2 fL 07/22/2025 1:34 AM [facility] MCH 27.1 25.7 - 32.2 pg 07/22/2025 1:34 AM [facility] MCHC 32.5 32.3 - 36.5 g/dL 07/22/2025 1:34 AM [facility] RDW 15.7(H) 11.0 - 14.5 % 07/22/2025 1:34 AM [facility] RDW-STDEV 45.9 36.9 - 56.9 fL 07/22/2025 1:34 AM [facility] PLATELETS 181 130 - 400 K/uL 07/22/2025 1:34 AM [facility] MPV 11.9 10.0 - 14.8 fL 07/22/2025 1:34 AM [facility] NEUTROPHILS 61 34 - 68 % 07/22/2025 1:34 AM [facility] LYMPHOCYTES 29 22 - 53 % 07/22/2025 1:34 AM [facility] MONOCYTES 6 5 - 12 % 07/22/2025 1:34 AM [facility] EOSINOPHILS 4 1 - 7 % 07/22/2025 1:34 AM [facility] BASOPHILS 0 0 - 1 % 07/22/2025 1:34 AM [facility] IMMATURE GRANULOCYTES 0 % 07/22/2025 1:34 AM [facility] NEUTROPHIL ABSOLUTE 4.49 1.78 - 5.38 K/uL 07/22/2025 1:34 AM [facility] LYMPHOCYTE ABSOLUTE 2.14 1.20 - 3.40 K/uL 07/22/2025 1:34 AM [facility] MONOCYTE ABSOLUTE 0.45 0.30 - 0.82 K/uL 07/22/2025 1:34 AM [facility] EOSINOPHIL ABSOLUTE 0.28 0.04 - 0.54 K/uL 07/22/2025 1:34 AM [facility] BASOPHILS ABSOLUTE 0.03 0.01 - 0.08 K/uL 07/22/2025 1:34 AM [facility] IMMATURE GRANULOCYTES ABSOLUTE 0.02 K/uL 07/22/2025 1:34 AM [facility] Blood BLOOD SPECIMEN / Unknown Collection / Unknown 07/22/2025 1:20 AM CDT 07/22/2025 1:29 AM CDT Laly Saab DO HEMATOLOGY ORDERABLES Final Resu lt [facility] CLIA # [id number] [address] [place] [address] [phone] * EKG 12-LEAD (07/22/2025 1:12 AM CDT) Narrative Laly Saab DO - 07/22/2025 1:12 AM CDT Laly Saab DO 07/22/2025 5:31 AM EKG 12-LEAD Date/Time: 07/22/2025 1:12 AM Performed by: Laly Saab DO Authorized by: Laly Saab DO ECG interpreted by ED Physician in the absence of a dog handler or trainer: yes Rate: ECG rate: 85 ECG rate assessment: age appropriate Rhythm: Rhythm Origin: sinus Rhythm morphology: narrow Ectopy: Ectopy occurance: rare Ectopy origin: PAC [place]: QRS axis: Left QRSTT: Anterolateral (LAD + Circ) I, aVL, V5-V6: ST depression (Mild ST depression noted in leads I, aVL) Comments: Low voltage No specific change from EKG dated 07/12/2025 Artifact noted Laly Saab DO ECG ORDERABLES Final Result * URINALYSIS MICROSCOPY ONLY (07/22/2025 1:05 AM CDT) WBC UA 0-2 0 - 2 /hpf 07/22/2025 1:38 AM CDT [facility] RBC UA 0-2 0 - 2 /hpf 07/22/2025 1:38 AM CDT [facility] BACTERIA UA Negative Negative /hpf 07/22/2025 1:38 AM CDT [facility] EPITHELIAL CELLS, URINE 0-5 0 - 5 /hpf 07/22/2025 1:38 AM CDT [facility] Urine URINE SPECIMEN OBTAINED BY CLEAN CATCH PROCEDURE / Unknown Collection / Unknown 07/22/2025 1:05 AM CDT 07/22/2025 1:30 AM CDT us Laly Y Saab DO URINE ORDERABLES Final Result [facility] CLIA # [id number] [address] [place] [address] [phone] * (ABNORMAL) URINALYSIS WITH REFLEX MICROSCOPIC (07/22/2025 1:05 AM CDT) COLOR UA Yellow Pale to Dark Yellow 07/22/2025 1:38 AM CDT [facility] CLARITY UA Clear Clear 07/22/2025 1:38 AM T [facility] SPECIFIC GRAVITY UA 1.015 1.003 - 1.035 07/22/2025 1:38 AM T [facility] PH UA 6.0 5.0 - 8.0 07/22/2025 1:38 AM T [facility] LEUKOCYTE ESTERASE UA 1+(A) Negative 07/22/2025 1:38 AM T [facility] NITRITE UA Negative Negative 07/22/2025 1:38 AM T [facility] PROTEIN UA Negative Negative 07/22/2025 1:38 AM T [facility] GLUCOSE UA Negative Negative 07/22/2025 1:38 AM T [facility] KETONES UA Negative Negative 07/22/2025 1:38 AM T [facility] UROBILINOGEN UA 1.0 <2.0 mg/dL 1:38 AM T [facility] BILIRUBIN UA Negative Negative 07/22/2025 1:38 AM T [facility] BLOOD UA Negative Negative 07/22/2025 1:38 AM [facility] Urine URINE SPECIMEN OBTAINED BY CLEAN CATCH PROCEDURE / Unknown Collection / Unknown 07/22/2025 1:05 AM CDT 07/22/2025 1:30 AM CDT us Laly Y Saab DO URINE ORDERABLES Final Result [facility] CLIA # [id number] [address] [place] [address] 20502 documented in this encounter Visit Diagnoses Diagnosis Acute on chronic systolic CHF (congestive heart failure) (CMS/HCC)- Primary Acute right flank pain Abdominal pain, unspecified site Chronic obstructive pulmonary disease, unspecified COPD type (CMS/HCC) Renal insufficiency Unspecified disorder of kidney and ureter documented in this encounter Administered Medications Active Administered Medications - up to 3 most recent administrations Medication Order MAR Action Action Date Dose Rate Site DOBUTamine in D5W (DOBUTREX) 250 mg/250 mL (1 mg/mL) infusion 2.5 mcg/kg/min 163.3 kg (24.495 mL/hr, rounded to 24.5 mL/hr), IV, CONTINUOUS, Starting on 07/22/25 at 0245, Until Discontinued Inactive Administered Medications - up to 3 most recent administrations Medication Order MAR Action Action Date Dose Rate Site furosemide (LASIX) injection 40 mg 40 mg, IV, ONE TIME ONLY, 1 dose, On 07/22/25 at 0300, Routine Given 07/22/2025 3:00 AM CDT 40 mg documented in this encounter Active and Recently Administered Medications Times are shown in CDT. Scheduled Medication Order 07/20/2025 07/21/2025 07/22/2025 furosemide (LASIX) injection 40 mg (COMPLETED) 40 mg, IV, ONE TIME ONLY, 1 dose, On 07/22/25 at 0300, Routine 0300 (Given - Provid er: Gaby Wilson RN) Continuous Medication Order 07/20/2025 07/21/2025 07/22/2025 DOBUTamine in D5W (DOBUTREX) 250 mg/250 mL (1 mg/mL) infusion 2.5 mcg/kg/min 163.3 kg (24.495 mL/hr, rounded to 24.5 mL/hr), IV, CONTINUOUS, Starting on 07/22/25 at 0245, Until Discontinued 030 (Not Given - Pr ovider: Gaby Wilson RN - Reason: Patient condition) documented in this encounter Additional Health Concerns Assessment Noted Time PHQ-9 Depression Total Score: 2 02/02/20 25 3:32 PM MEAT STOCKER documented as of this encounter Care Teams Mechanical Design Engineer Facilities Relationship Specialty Start Date End Date Demetri Hardin MD [address] [address] PCP - General Family Practice 07/28/17 documented as of this encounter
--- OUTSIDE RECORDS SUMMARY | 2025-07-22 06:03 | XMS_ITS | Encounter Summary ---
Author Organization [facility] Address [address] [facility] [place] [address] Care Team Providers Care Quality Assurance Monitor Body Name Role Phone Demetri Hardin MD Primary Care Provider [phone] Encounter Details Date Type Department Care Team (Latest Contact Info) Description 02/17/[address] 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 Gender Identity Not on file Sexual Orientation Not on file documented as of this encounter Plan of Treatment Not on file documented as of this encounter Visit Diagnoses Diagnosis Gouty arthropathy- Primary documented in this encounter Additional Health Concerns Infection Onset Date Last Indicated Resolved Time R/O COVID-19 09/22/2020 09/22/2020 09/23/2020 11:1 6 AM CDT COVID-19 09/22/2020 09/22/2020 10/12/2020 8:08 PM LEAD SUSTAINABILITY SPECIALIST documented as of this encounter Care Teams Quality Assurance Monitor Body Relationship Specialty Start Date End Date Demetri Hardin MD [address] [facility] [address] [place] [address] PCP - General Family Practice 07/28/17 documented as of this encounter
--- OUTSIDE RECORDS SUMMARY | 2025-07-22 06:03 | XMS_ITS | Encounter Summary ---
Author Organization 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 fluticasone propionate (FLONASE) 50 mcg/spray [place], Suspension nasal inhaler, USE TWO SPRAY(S)IN EACH [...] 162 Gram, Rfl: 2 Angelica Villeda, [place] ITECTURAL DESIGNER documented in this encounter Plan of Treatment Not on file documented as of this encounter Visit Diagnoses Not on filedocumented in this encounter Additional Health Concerns Infection Onset Date Last Indicated Resolved Time COVID-19 09/22/2020 09/22/2020 10/12/2020 8:08 PM ARCHITECTURAL DESIGNER Assessment Noted Time PHQ-9 Depression Total Score: 2 09/23/20 20 8:25 AM CDT documented as of this encounter Care Teams Continuous Mining Machine Company Miner Relationship Specialty Start Date End Date Demetri Hardin MD [address] [address] PCP - General Family Practice 07/28/17 documented as of this encounter
--- OUTSIDE RECORDS SUMMARY | 2025-07-22 06:03 | XMS_ITS | Encounter Summary ---
Author Organization [facility] Address [address] [facility] [place] [address] Care Team Providers Care Senior Hris Analyst Name Role Phone Demetri Hardin MD Primary Care Provider [phone] Encounter Details Date Type Department Care Team (Latest Contact Info) Description 01/23/2005 Outpatient Historical [facility] Family Medicine- [address] [place] [phone] Lucille Borja MD NO ADDRESS ON FILE GOUT NOS (Primary Dx) Social History Tobacco Use Types Packs/Day Years Used Date Smoking Tobacco: Never Assessed Sex and Gender Information Value Date Recorded Sex Assigned at Not on file 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 Gender Identity Not on file Sexual Orientation Not on file documented as of this encounter Plan of Treatment Not on file documented as of this encounter Visit Diagnoses Diagnosis Gout, unspecified- Primary documented in this encounter Additional Health Concerns Infection Onset Date Last Indicated Resolved Time R/O COVID-19 09/22/2020 09/22/2020 09/23/2020 11:1 6 AM CDT COVID-19 09/22/2020 09/22/2020 10/12/2020 8:08 PM SHERIFF'S DETECTIVE documented as of this encounter Care Teams Senior Hris Analyst Relationship Specialty Start Date End Date Demetri Hardin MD [address] [facility] [address] [place] [address] PCP - General Family Practice 07/28/17 documented as of this encounter
--- OUTSIDE RECORDS SUMMARY | 2025-07-22 06:03 | XMS_ITS | Encounter Summary ---
Author Organization [facility] Address [address] [place] [address] Care Team Providers Care Hematology Nurse Name Role Phone Demetri Hardin MD Primary Care Provider [phone] Encounter Details Date Type Department Care Team (Late st Contact Info) Description 01/15/2005 Outpatient Historical [facility] Niya Dang NP NO ADDRESS ON FILE Social History Tobacco Use Types Packs/Day Years Used Date Smoking Tobacco: Never Assessed Sex and Gender Information Value Date Recorded Sex Assigned at Not on file Legal Sex Male 4:50 AM SHIPPING HAND Gender Identity Not on file Sexual Orientation Not on file documented as of this encounter Plan of Treatment Not on file documented as of this encounter Visit Diagnoses Not on filedocumented in this encounter Additional Health Concerns Infection Onset Date Last Indicated Resolved Time R/O COVID-19 09/22/2020 09/22/2020 09/23/2020 11:1 6 AM CDT COVID-19 09/22/2020 09/22/2020 10/12/2020 8:08 PM SHIPPING HAND documented as of this encounter Care Teams Hematology Nurse Relationship Specialty Start Date End Date Demetri Hardin MD [address] [facility] [address] [place] [address] PCP - General Family Practice 07/28/17 documented as of this encounter
--- OUTSIDE RECORDS SUMMARY | 2025-07-22 06:03 | XMS_ITS | Clinical Summary ---
Author Organization [facility] Address [address] [place] [address] Phone Care Team Providers Care Behavioral Medical Director Name Role Phone Demetri Hardin MD Primary Care Provider [phone] Allergies No known active allergies Medications nebulizerIndicat ions:Simple chronic bronchitis (CMS/HCC) Length of need 99 monthsNebulizer with compressor, Kit: Disposable Nebulizer Kit, 2 per month, filters , areosol mask: Yes. Name of Medication: Albuterol. 1 Each 0 019 Active albuterol (PROVENTIL,[place]) 2.5 mg /3 mL (0.083 %) Solution for NebulizationIndi cations:Simple chronic bronchitis (CMS/HCC),Acute bronchitis, unspecified organism Take 3 mL (2.5 mg) by inhalation every 6 hours as needed for Shortness of Breath. 100 mL 1 020 Active fluticasone propionate (FLONASE) 50 mcg/spray [place], Suspension nasal inhalerIndicatio ns:Seasonal allergic rhinitis due to other allergic trigger Administer 2 Sprays in each nostril daily. 16 Gram 11 024 Active simethicone 80 mg Tablet, ChewableIndicati ons:Bloating Take 1 Tablet (80 mg) by mouth every 6 hours as needed for Gas. 90 Tablet 3 024 Active clopidogreL (PLAVIX) 75 mg Tablet Take 75 mg by mouth. Active potassium chloride (KLOR-CON) 10 mEq Extended Release tabletIndication s:Bilateral lower extremity edema Take 1 Tablet (10 mEq) by mouth daily with breakfast. 90 Tablet 3 Active Additional Information Patient not taking.Reported on 07/19/2025 gabapentin (NEURONTIN) 300 mg capsuleIndicatio ns:Chronic pain syndrome,Primary osteoarthritis involving multiple joints TAKE 1 CAPSULE BY MOUTH IN THE MORNING AND 1 CAPSULE AT LUNCHTIME AND 2 CAPSULES ONCE DAILY AT BEDTIME 360 Capsule 3 Active furosemide (Lasix) 20 mg tabletIndication s:Bilateral lower extremity edema Take 1 Tablet (20 mg) by mouth daily. 90 Tablet 3 025 Active Additional Information Patient taking differently: 60 mgOralTWO TIMES DAILY, Reported on 07/22/2025 allopurinoL (ZYLOPRIM) 300 mg tabletIndication s:Chronic gout of multiple sites, unspecified cause Take 1 Tablet (300 mg) by mouth daily. 90 Tablet 3 Active albuterol sulfate HFA 90 mcg/actuation aerosol inhalerIndicatio ns:Simple chronic bronchitis (CMS/HCC) Take 2 Puffs by inhalation every 4 hours as needed for Shortness of Breath or Wheezing. 8.5 Gram 11 Active atorvastatin (LIPITOR) 40 mg tablet take 2 tablets by mouth at bedtime Active meloxicam (MOBIC) 15 mg tabletIndication s:Chronic pain syndrome,Primary osteoarthritis involving multiple joints Take 1 Tablet (15 mg) by mouth daily. 90 Tablet 3 025 Active aspirin (ECOTRIN EC) 81 mg Tablet, Delayed Release (E.C.) Take 1 Tablet (81 mg) by mouth daily. 100 Tablet 025 Active metoprolol succinate (TOPROL XL) 25 mg Extended Release 24 hour tablet Take 1 Tablet (25 mg) by mouth daily. 100 Tablet 025 Active nitroglycerin (NITROSTAT) 0.4 mg Tablet, Sublingual Place 1 Tablet (0.4 mg) under tongue every 5 minutes as needed for Chest Pain. 25 Tablet 3 025 Active colchicine (COLCRYS) 0.6 mg tabletIndication s:Chronic gout of multiple sites, unspecified cause TAKE 1 TABLET BY MOUTH ONCE DAILY NEEDED AT ONSET OF GOUT FLARE UNTIL SYMPTOMS RESOLVE. 30 Tablet Active Additional Information Patient not taking.Reported on 07/19/2025 furosemide (LASIX) 40 mg tablet Take 1 Tablet by mouth daily at bedtime. Active famotidine (PEPCID) 20 mg tablet Take 1 Tablet by mouth 2 times daily. Active losartan (COZAAR) 50 mg tablet Take 1 Tablet by mouth daily. Active docusate sodium (COLACE) 100 mg capsule Take 1 Capsule by mouth daily. Active budesonide-formo teroL (SYMBICORT) 80-4.5 mcg/actuation HFA Aerosol InhalerIndicatio ns:Simple chronic bronchitis (CMS/HCC) Take 2 Puffs by inhalation 2 times daily. 10.2 Gram 11 Active clotrimazole-bet amethasone (LOTRISONE) 1-0.05 % CreamIndications :Dermatitis APPLY CREAM TOPICALLY TO AFFECTED AREA TWICE DAILY 45 Gram 1 Active Entresto 24-26 mg Tablet Active potassium CHLORIDE (K-TAB) 20 mEq Extended Release tablet Active tamsulosin (FLOMAX) 0.4 mg capsuleIndicatio ns:Enlarged prostate Take 1 Capsule (0.4 mg) by mouth daily. 90 Capsule 3 Active budesonide-formo teroL (SYMBICORT) 80-4.5 mcg/actuation HFA Aerosol InhalerIndicatio ns:Simple chronic bronchitis (CMS/HCC) Take 2 Puffs by inhalation 2 times daily. 10.2 Gram 11 024 2024 Discontinued( Reorder) atorvastatin (LIPITOR) 80 mg tablet Take 80 mg by mouth daily. 2024 Discontinued( Alternate therapy prescribed) famotidine (PEPCID) 40 mg tabletIndication s:Gastroesophage al reflux disease, unspecified whether esophagitis present Take 1 Tablet (40 mg) by mouth 2 times daily. 180 Tablet 3 025 2024 Discontinued( Alternate therapy prescribed) clotrimazole-bet amethasone (LOTRISONE) 1-0.05 % CreamIndications :Dermatitis Apply to affected area 2 times daily. 45 Gram 1 025 2024 Discontinued Active Problems Problem Noted Date Diagnosed Date History of SC (myocardial infarction) 07/09/2025 Status post coronary artery stent placement 06/29 NSTEMI (non-ST elevated myocardial infarction) 0 03/03/2025 Atherosclerosis of hamilton co ronary artery of hamilton heart without angina pectoris 02/01/2025 Bilateral lower [...] Encounters Date Type Department Care Team Description 07/22/2025 12:59 AM CDT - 07/22/2025 5:09 AM CDT Emergency [facility] Emergency Medicine [address] [place] [address] Laly Saab DO Acute on chronic systolic CHF (congestive heart failure) (CMS/HCC) (Primary Dx); Acute right flank pain; Chronic obstructive pulmonary disease, unspecified COPD type (CMS/HCC); Renal insufficiency Discharge Disposition: Acute Care Hospital 07/22/2025 Travel 07/20/[address] [place] [phone] Provider, Abstract urology referral apointment 07/19/2025 3:20 PM CDT Office Visit [facility] [address] [phone] Madison Sue FNP Acute cystitis with hematuria (Primary Dx); Flank pain; Enlarged prostate; Dysphagia, unspecified type 07/12/2025 4:29 AM CDT - 07/12/2025 9:10 AM CDT Emergency [facility] Emergency Medicine [address] [phone] Bernard Danielson MD Dysphagia, unspecified type (Primary Dx); Abdominal bloating; Elevated troponin Discharge Disposition: Home or Self Care 07/12/[address] [phone] Demetri Hardin MD Ed Follow-up; Information 07/12/2025 Travel 07/10/2025 Results Follow-Up [address] [phone] Sissy Nassar FNP COMPREHENSIVE METABOLIC PANEL, CBC WITH DIFFERENTIAL, BRAIN NATRIURETIC PEPTIDE, BNP OR PROBNP 07/09/2025 10:20 AM CDT Office Visit [address] [phone] Sissy Nassar FNP History of SC (myocardial infarction) (Primary Dx); Simple chronic bronchitis (CMS/HCC); Status post coronary artery stent placement; Atherosclerosis of hamilton coronary artery of [place] heart without angina pectoris 07/09/2025 Orders Only [facility] [address] [facility] [place] [phone] Provider, Abstract 07/09/[address] [phone] Madison Sue FNP Dermatitis 07/04/2025 External Device Data [facility] ABSTRACTION Provider, Abstract 07/04/2025 Telephone [facility] [address] [phone] Demetri Hardin MD Information 07/03/2025 External Device Data [facility] ABSTRACTION Provider, Abstract 07/01/2025 8:20 AM CDT - 07/01/2025 11:59 PM CDT Hospital Encounter [facility] [place] [address] [place] [phone] Trevor Parra MD Ambulance, [facility] View Discharge Disposition: [facility] 07/01/2025 4:09 AM CDT - 07/01/2025 5:15 AM CDT Emergency [facility] Emergency Medicine [address] [place] [phone] Trevor Parra MD ST elevation myocardial infarction (STEMI), unspecified artery (CMS/HCC) (Primary Dx) Discharge Disposition: Acute Care Hospital 06/07/2025 Refill [facility] [address] [place] [phone] Madison Sue, ERICA Chronic gout of multiple sites, unspecified cause 06/05/2025 External Device Data [facility] ABSTRACTION Provider, Abstract 06/05/2025 External Device Data [place] ABSTRACTION Provider, Abstract 05/14/2025 External Device Data Initial Department [address] [place] [address] Dr GREEN: [place] [address] [facility] 04/30/2025 External Device Data Initial Department [address] [place] [address] Dr GREEN: [place] [address] [facility] 04/30/[address] [phone] Yakelin Howell RN [facility] 04/26/2025 Results Follow-Up [facility] [address] [phone] Sissy Nassar, SCHOOL SERVICES OFFICER US TESTES W [employer] 04/25/2025 3:32 PM CDT - 04/25/2025 11:59 PM CDT Hospital Encounter [facility] [place] [address] [place] [phone] Sissy Nassar FNP Discharge Disposition: Home or Self Care from Last 3 Months Immunizations Immunization Administration Dates Next Due (ADACEL/BOOSTRIX)(10 YR UP) TDAP VACCINE, 0.5ML, IM 07/08/2012 (TDVAX)(7 YRS UP) TETANUS AN D DIPHTHERIA TOXOIDS, ADSORBED (2 LF OF TETANUS TOXOID AND 2 LF OF DIPHTHERIA TOXOID), 0.5ML (PF), IM 01/02/2000 Adacel Vaccine > 7 Yo IM 07/08/2012 Family History Medical History Relation Name Comments [...] relatives? Three times a week 12/02/2020 Attends [employer] Not on file 12/02 Active Member [...] about transportation for future doctor visits, pick up worker medication, etc.? No 2024 Housing Stability Answer [...] on file Legal Sex Male 6:26 AM [employer] Gender Identity Not on file Sexual Orientation Not on file Last Filed Vital Signs Vital Sign Reading Time Taken Comments Blood Pressure 101/63 07/22/2025 4:30 AM CDT Pulse 80 07/22/2025 4:30 AM CDT Temperature 36.9 C (98.5 F) 07/19/2025 3:18 PM CDT Respiratory Rate 20 07/22/2025 4:30 AM CDT Oxygen Saturation 98% 07/22/2025 4:30 AM CDT Inhaled Oxygen Concentration - - Weight 163.3 kg (360 lb) 07/22/2025 1:09 AM CDT Height 172.7 cm (5' 8 ) 07/22/2025 1:09 AM CDT Body Mass Index 54.74 07/22/2025 1:09 AM CDT Plan of Treatment Upcoming Encounters Date Type Department Care Team (Late st Contact Info) Description 08/06/2025 4:00 PM CDT Office Visit [facility] [address] [phone] Demetri Hardin MD [address] [place] [phone] 02/22/2026 10:40 AM CDT Office Visit [facility] [address] [place] [phone] Demetri Hardin MD [address] [place] [phone] Health Maintenance Due Date Last Done Comments [...] 60-74 years 1-dose series) 2018 DTAP/TDAP/TD VACCINES (3 - T d or Tdap) 07/08/2022 07/08/2012, 07/08/2012, 01/02/2000 INFLUENZA VACCINE (#1) 2025 , 02/22/2023, 10/04/2020, Additional history exists Pre-Diabetes and Diabetes Screening 03/03/2028 03/03/2025, 02/01/2025, 03/01/2024, Additional history exists COLORECTAL CANCER SCREENING (AUTO ORDER) 01/24/2029 01/24/2019, 01/24/2019, 12/04/2014 COLORECTAL SCREENING 01/24/2029 01/24/2019, 01/24/2019, 12/04/2014 Colorectal Cancer Screening (AUTO ORDER) 01/24/2029 Colorectal Cancer Screening 01/24/2029 Procedures Procedure Name Priority Date/Time Associated Diagnosis Comments TROPONIN 2 HR, 5TH GEN Timed Study 07/22/2025 3:09 AM CDT XR CHEST PA OR AP 1 VW Stat 07/22/2025 1:48 AM CDT D-DIMER Stat 07/22/2025 1:20 AM CDT LACTIC ACID Stat 07/22/2025 1:20 AM CDT TROPONIN BASELINE, 5TH GEN Stat 07/22/2025 1:20 AM CDT MAGNESIUM LEVEL Stat 07/22/2025 1:20 AM CDT BRAIN NATRIURETIC PEPTIDE, BNP OR PROBNP Stat 07/22/2025 1:20 AM CDT COMPREHENSIVE METABOLIC PANEL Stat 07/22/2025 1:20 AM CDT CBC WITH DIFFERENTIAL Stat 07/22/2025 1:20 AM CDT EKG 12-LEAD Stat 07/22/2025 1:12 AM CDT URINALYSIS MICROSCOPY ONLY Stat 07/22/2025 1:05 AM CDT URINALYSIS W/REFLEX MICROSCOPIC Stat 07/22/2025 1:05 AM CDT URINE CULTURE Routine 07/19/2025 3:32 PM CDT Acute cystitis with hematuria POC URINALYSIS DIPSTICK AUTOMATED Routine 07/19/2025 3:30 PM CDT Flank pain URINALYSIS W/REFLEX MICROSCOPIC Stat 07/12/2025 7:10 AM CDT TROPONIN 2 HR, 5TH GEN Timed Study 07/12/2025 6:[address] ABDOMEN PELVIS W CONTRAST Stat 07/12/2025 6:16 AM CDT XR CHEST PA OR AP 1 VW Stat 07/12/2025 5:38 AM CDT EKG 12-LEAD Stat 07/12/2025 5:06 AM CDT PTT Stat 07/12/2025 4:58 AM CDT BRAIN NATRIURETIC PEPTIDE, BNP OR PROBNP Stat 07/12/2025 4:48 AM CDT LACTIC ACID Stat 07/12/2025 4:40 AM CDT PROTIME-INR Stat 07/12/2025 4:40 AM CDT TROPONIN BASELINE, 5TH GEN Stat 07/12/2025 4:40 AM CDT COMPREHENSIVE METABOLIC PANEL Stat 07/12/2025 4:40 AM CDT CBC WITH DIFFERENTIAL Stat 07/12/2025 4:40 AM CDT BRAIN NATRIURETIC PEPTIDE, BNP OR PROBNP Routine 07/09/2025 10:39 AM CDT History of SC (myocardial infarction) Status post coronary artery stent placement Atherosclerosis of hamilton coronary artery of hamilton heart without angina pectoris CBC WITH DIFFERENTIAL Stat 07/09/2025 10:39 AM CDT History of SC (myocardial infarction) Status post coronary artery stent placement COMPREHENSIVE METABOLIC PANEL Routine 07/09/2025 10:39 AM CDT History of SC (myocardial infarction) Status post coronary artery stent placement COMPREHENSIVE METABOLIC PANEL Routine 07/04/2025 4:03 PM CDT PTT Stat 07/01/2025 4:04 AM CDT PROTIME-INR Stat 07/01/2025 4:04 AM CDT TROPONIN BASELINE, 5TH GEN Stat 07/01/2025 4:04 AM CDT BRAIN NATRIURETIC PEPTIDE, BNP OR PROBNP Stat 07/01/2025 4:04 AM CDT COMPREHENSIVE METABOLIC PANEL Stat 07/01/2025 4:04 AM CDT CBC WITH DIFFERENTIAL Stat 07/01/2025 4:04 AM CDT US TESTES W [employer] Routine 04/25/2025 4:41 PM CDT Testicle swelling HEMOGLOBIN A1C Routine 03/03/2025 ENDOSCOPY, COLON, SCREENING 01/24/2019 12:00 AM [employer] from Last 3 Months or Most Recently Relevant to Health Maintenance Results * (ABNORMAL) TROPONIN 2 HR, 5TH GEN (07/22/2025 3:09 AM CDT) Only the most recent of2 resultswithin the time period is included. TROPONIN T, 2 HR 5TH GEN 83(H) <=15 ng/L 07/22/2025 3:30 AM CDT [facility] Comment:Hemolysis can falsel y decrease Troponin quantitation. DELTA 2HR TROPONIN T 1 See Interp. 07/22/2025 3:30 AM CDT [facility] Blood BLOOD SPECIMEN / Unknown Collection / Unknown 07/22/2025 3:09 AM CDT 07/22/2025 3:12 AM CDT Narrative [facility] - 07/22/2025 3:30 AM CDT Troponin elevated. Delta not changing. us Laly Saab DO CHEMISTRY ORDERABLES Final Resul t [facility] CLIA # [id number] [address] [place] [address] * XR CHEST PA OR AP 1 VW (07/22/2025 1:48 AM CDT) Only the most recent of2 resultswithin the time period is included. Anatomical Region Laterality Modality Chest Computed Radiogr [...] DIAGNOSIS: Chest Pain ORDERING PROVIDER: LALY SAAB TECHNLUIS NOTE: COMPARISON: July 12, 2025 FINDINGS/IMPRESSION: Lines, tubes, and devices: None. Low lung volumes with bronchovascular and bibasilar atelectasis. No significant effusion or pneumothorax. Heart is enlarged. Laly Saab DO DIAGNOSTIC IMAGING ORDERABLES Fi nal Result * (ABNORMAL) TROPONIN BASELINE, 5TH GEN (07/22/2025 1:20 AM CDT) Only the most recent of3 resultswithin the time period is included. TROPONIN T, BASELINE 5TH GEN 82(H) <=15 ng/L 07/22/2025 1:48 AM CDT [facility] Blood BLOOD SPECIMEN / Unknown Collection / Unknown 07/22/2025 1:20 AM CDT 07/22/2025 1:29 AM CDT Narrative [facility] - 07/22/2025 1:48 AM CDT Troponin elevated. Laly Y Saab DO CHEMISTRY ORDERABLES Final Resul t Performing Organization Address City/[facility]/ZIP Co de Phone Number [facility] CLIA # [id number] [address] [place] [phone] * (ABNORMAL) LACTIC ACID (07/22/2025 1:20 AM CDT) Only the most recent of2 resultswithin the time period is included. Pathologist [facility] LACTIC ACID 3.4(H) <=2.0 mmol/L 07/22/2025 2:40 AM CDT [facility] Blood BLOOD SPECIMEN / Unknown Collection / Unknown 07/22/2025 1:20 AM CDT 07/22/2025 2:24 AM CDT Laly Y Saab DO CHEMISTRY ORDERABLES Final Resul t Performing Organization Address [facility] Co de Phone Number [facility] CLIA # [id number] [address] [place] [address] * (ABNORMAL) CBC WITH DIFFERENTIAL (07/22/2025 1:20 AM CDT) Only the most recent of4 resultswithin the time period is included. Pathologist [facility] WBC 7.4 4.2 - 9.1 K/uL 07/22/2025 1:34 AM T [facility] RBC 4.54(L) 4.63 - 6.08 M/uL 07/22/2025 1:34 AM T [facility] HEMOGLOBIN 12.3(L) 13.7 - 17.5 g/dL 07/22/2025 1:34 AM T [facility] HEMATOCRIT 37.8(L) 40.1 - 51.0 % 07/22/2025 1:34 AM T [facility] MCV 83.3 79.0 - 92.2 fL 07/22/2025 1:34 AM T [facility] MCH 27.1 25.7 - 32.2 pg 07/22/2025 1:34 AM [facility] MCHC 32.5 32.3 - 36.5 g/dL 07/22/2025 1:34 AM [facility] RDW 15.7(H) 11.0 - 14.5 % 07/22/2025 1:34 AM [facility] RDW-STDEV 45.9 36.9 - 56.9 fL 07/22/2025 1:34 AM [facility] PLATELETS 181 130 - 400 K/uL 07/22/2025 1:34 AM [facility] MPV 11.9 10.0 - 14.8 fL 07/22/2025 1:34 AM [facility] NEUTROPHILS 61 34 - 68 % 07/22/2025 1:34 AM [facility] LYMPHOCYTES 29 22 - 53 % 07/22/2025 1:34 AM [facility] MONOCYTES 6 5 - 12 % 07/22/2025 1:34 AM [facility] EOSINOPHILS 4 1 - 7 % 07/22/2025 1:34 AM [facility] BASOPHILS 0 0 - 1 % 07/22/2025 1:34 AM [facility] IMMATURE GRANULOCYTES 0 % 07/22/2025 1:34 AM [facility] NEUTROPHIL ABSOLUTE 4.49 1.78 - 5.38 K/uL 07/22/2025 1:34 AM [facility] LYMPHOCYTE ABSOLUTE 2.14 1.20 - 3.40 K/uL 07/22/2025 1:34 AM [facility] MONOCYTE ABSOLUTE 0.45 0.30 - 0.82 K/uL 07/22/2025 1:34 AM [facility] EOSINOPHIL ABSOLUTE 0.28 0.04 - 0.54 K/uL 07/22/2025 1:34 AM [facility] BASOPHILS ABSOLUTE 0.03 0.01 - 0.08 K/uL 07/22/2025 1:34 AM [facility] IMMATURE GRANULOCYTES ABSOLUTE 0.02 K/uL 07/22/2025 1:34 AM CDT [facility] Blood BLOOD SPECIMEN / Unknown Collection / Unknown 07/22/2025 1:20 AM CDT 07/22/2025 1:29 AM CDT us Laly Y Saab DO HEMATOLOGY ORDERABLES Final Resu lt Performing Organization Address City/[facility]/ZIP Co de Phone Number [facility] CLIA # [id number] [address] [place] [phone] * D-DIMER (07/22/2025 1:20 AM CDT) D-DIMER QUANT 0.25 <0.50 ug/mL FEU 07/22/2025 2:48 AM CDT [facility] Blood BLOOD SPECIMEN / Unknown Collection / Unknown 07/22/2025 1:20 AM CDT 07/22/2025 2:35 AM CDT [facility] - 07/22/2025 2:48 AM CDT D-Dimer assay [...] Saab DO HEMATOLOGY ORDERABLES Final Resu lt Performing Organization Address City/[facility]/ZIP Co de Phone Number [facility] CLIA # [id number] [address] [place] [phone] * (ABNORMAL) BRAIN NATRIURETIC PEPTIDE, BNP OR PROBNP (07/22/2025 1:20 AM CDT) Only the most recent of4 resultswithin the time period is included. PROBNP, N TERMINAL 2,716(H) 0 - 125 pg/mL 07/22/2025 1:48 AM CDT [facility] Comment: INTERPRETIVE COMMENT based on diagnosis: Diagnostic [...] 07/22/2025 1:29 AM CDT us Laly Y Saab DO CHEMISTRY ORDERABLES Final Resul t Performing Organization Address City/[facility] Co de Phone Number [facility] CLIA # [id number] [address] [place] [phone] * MAGNESIUM LEVEL (07/22/2025 1:20 AM CDT) MAGNESIUM 1.8 1.6 - 2.4 mg/dL 07/22/2025 1:48 AM CDT [facility] Blood BLOOD SPECIMEN / Unknown Collection / Unknown 07/22/2025 1:20 AM CDT 07/22/2025 1:29 AM CDT us Laly Y Saab DO CHEMISTRY ORDERABLES Final Resul t Performing Organization Address City/[facility] Co de Phone Number [facility] CLIA # [id number] [address] [place] [address] * (ABNORMAL) COMPREHENSIVE METABOLIC PANEL (07/22/2025 1:20 AM CDT) Only the most recent of5 resultswithin the time period is included. SODIUM 139 136 - 145 mmol/L 07/22/2025 1:48 AM [facility] POTASSIUM 4.4 3.5 - 5.1 mmol/L 07/22/2025 1:48 AM [facility] CHLORIDE 102 98 - 107 mmol/L 07/22/2025 1:48 AM [facility] CO2 23 22 - 29 mmol/L 07/22/2025 1:48 AM [facility] CALCIUM 8.6(L) 8.8 - 10.2 mg/dL 07/22/2025 1:48 AM [facility] BUN 27(H) 8 - 23 mg/dL 07/22/2025 1:48 AM [facility] CREATININE 1.24(H) 0.67 - 1.17 mg/dL 07/22/2025 1:48 AM [facility] GLUCOSE 151(H) 74 - 99 mg/dL 07/22/2025 1:48 AM [facility] TOTAL PROTEIN 7.1 6.6 - 8.7 g/dL 07/22/2025 1:48 AM [facility] ALBUMIN 3.8 3.5 - 5.2 g/dL 07/22/2025 1:48 AM [facility] BILIRUBIN TOTAL 0.7 0.0 - 1.2 mg/dL 07/22/2025 1:48 AM [facility] ALKALINE PHOSPHATASE 102 40 - 129 U/L 07/22/2025 1:48 AM [facility] AST 20 0 - 50 U/L 07/22/2025 1:48 AM [facility] ALT 15 0 - 50 U/L 07/22/2025 1:48 AM [facility] GFR >60 >=60 mL/min/1.7 3 sq meter 07/22/2025 1:48 AM [facility] Comment:eGFR calculated with 2020 CKD-EPI equation. Vegetarian diet, extremely high or low muscle mass, and may affect results. Cystatin C with Glomerular Filtration Rate is a suitable alternative for these patients. ANION GAP 14 5 - 20 mmol/L 07/22/2025 1:48 AM CDT [facility] Blood BLOOD SPECIMEN / Unknown Collection / Unknown 07/22/2025 1:20 AM CDT 07/22/2025 1:29 AM CDT Laly Saab DO CHEMISTRY ORDERABLES Final Resul t [facility] CLIA # [id number] [address] [place] [address] * EKG 12-LEAD (07/22/2025 1:12 AM CDT) Only the most recent of2 resultswithin the time period is included. Narrative Laly Saab DO - 07/22/2025 1:12 AM CDT Laly Saab DO 07/22/2025 5:31 AM EKG 12-LEAD Date/Time: 07/22/2025 1:12 AM Performed by: Laly Saab DO Authorized by: Laly Saab DO ECG interpreted by ED Physician in the absence of a senior bioinformatics scientist: yes Rate: ECG rate: 85 ECG rate assessment: age appropriate Rhythm: Rhythm Origin: sinus Rhythm morphology: narrow Ectopy: Ectopy occurance: rare Ectopy origin: PAC [place]: QRS axis: Left QRSTT: Anterolateral (LAD + Circ) I, aVL, V5-V6: ST depression (Mild ST depression noted in leads I, aVL) Comments: Low voltage No specific change from EKG dated 07/12/2025 Artifact noted us Laly Saab DO ECG ORDERABLES Final Result * URINALYSIS MICROSCOPY ONLY (07/22/2025 1:05 AM CDT) WBC UA 0-2 0 - 2 /hpf 07/22/2025 1:38 AM CDT [facility] RBC UA 0-2 0 - 2 /hpf 07/22/2025 1:38 AM CDT [facility] BACTERIA UA Negative Negative /hpf 07/22/2025 1:38 AM CDT [facility] EPITHELIAL CELLS, URINE 0-5 0 - 5 /hpf 07/22/2025 1:38 AM T [facility] Urine URINE SPECIMEN OBTAINED BY CLEAN CATCH PROCEDURE / Unknown Collection / Unknown 07/22/2025 1:05 AM CDT 07/22/2025 1:30 AM CDT us Laly Y Saab DO URINE ORDERABLES Final Result [facility] CLIA # [id number] [address] [place] [address] * (ABNORMAL) URINALYSIS WITH REFLEX MICROSCOPIC (07/22/2025 1:05 AM CDT) Only the most recent of2 resultswithin the time period is included. COLOR UA Yellow Pale to Dark Yellow 07/22/2025 1:38 AM [facility] CLARITY UA Clear Clear 07/22/2025 1:38 AM [facility] SPECIFIC GRAVITY UA 1.015 1.003 - 1.035 07/22/2025 1:38 AM [facility] PH UA 6.0 5.0 - 8.0 07/22/2025 1:38 AM [facility] LEUKOCYTE ESTERASE UA 1+(A) Negative 07/22/2025 1:38 AM [facility] NITRITE UA Negative Negative 07/22/2025 1:38 AM [facility] PROTEIN UA Negative Negative 07/22/2025 1:38 AM [facility] GLUCOSE UA Negative Negative 07/22/2025 1:38 AM [facility] KETONES UA Negative Negative 07/22/2025 1:38 AM [facility] UROBILINOGEN UA 1.0 <2.0 mg/dL 1:38 AM [facility] BILIRUBIN UA Negative Negative 07/22/2025 1:38 AM [facility] BLOOD UA Negative Negative 07/22/2025 1:38 AM CDT [facility] Urine URINE SPECIMEN OBTAINED BY CLEAN CATCH PROCEDURE / Unknown Collection / Unknown 07/22/2025 1:05 AM CDT 07/22/2025 1:30 AM CDT Lalyuday Saab DO URINE ORDERABLES Final Result Performing Organization Address City/[facility]/ZIP Co de Phone Number [facility] CLIA # [id number] [address] [place] [address] * URINE CULTURE (07/19/2025 3:32 PM CDT) URINE CULTURE SEE NOTE [facility] Comment: CULTURE, URINE, ROUTINE Micro Number: [id number] Test Status: Final Specimen Source: Urine, clean catch Specimen Quality: Adequate Result: Mixed genital liliana isolated. These superficial bacteria are not indicative of a urinary tract infection. No further organism identification is warranted on this specimen. If clinically indicated, recollect clean-catch, mid-stream urine and transfer immediately to Urine Culture Transport Tube. Test Performed at: [facility] [address] [facility] [place] [address] Jaguar Lira MD Urine URINE SPECIMEN OBTAINED BY CLEAN CATCH PROCEDURE / Unknown 07/19/2025 3:32 PM CDT 07/20/2025 3:23 AM CDT Madison Sue SCHOOL SERVICES OFFICER MICROBIOLOGY - GENERAL O RDERABLES Final Result [facility] [phone] [facility] [address] [address] [facility] [place] [address] * (ABNORMAL) POC URINALYSIS DIPSTICK AUTOMATED (07/19/2025 3:30 PM CDT) COLOR UA POC [place](A) Pale to Dark Yellow [facility] VIEW CLARITY UA POC Slightly Cloudy(A) Clear, Other [facility] VIEW GLUCOSE UA POC Negative Negative, Normal [facility] BILIRUBIN UA POC Negative Negative [facility] KETONES UA POC Negative Negative [facility] SPECIFIC GRAVITY UA POC 1.020 1.000 - 1.030 [facility] BLOOD UA POC Trace(A) Negative [facility] UA POC 6.0 5.0 - 8.0 [facility] PROTEIN UA POC 2+(A) Negative [facility] UROBILINOGEN UA POC 1.0 <2.0 mg/dL [facility] NITRITE UA POC Negative Negative [facility] LEUKOCYTE ESTERASE UA POC 1+(A) Negative [facility] KIT LOT NUMBER POC [id number] [facility] KIT EXP DATE POC 06/28/2026 [facility] Urine 07/19/2025 3:30 PM CDT Madison Nena Vikram SCHOOL SERVICES OFFICER POINT OF CARE TESTING Fi nal Result Performing Organization Address City/State/[facility] Co de Phone Number [facility] CLIA# [id number] [address] [place] [address] * CT ABDOMEN PELVIS W CONTRAST (07/12/2025 6:16 AM CDT) Anatomical Region Laterality Modality Abdomen Computed Tomogra phy 07/12/2025 5:51 AM CDT Impressions 07/12/2025 9:49 AM CDT IMPRESSION: 1. Small nonobstructive stone at lower pole of right kidney. Prominent left renal pelvis but no fletcher hydronephrosis. Mildly prominent bilateral ureters. 2. Prostatomegaly. 3. Mildly distended urinary bladder. 4. Mild distal esophageal wall thickening. Numerous subcentimeter distal paraesophageal nodes. Findings potentially reflux-related, recommend clinical correlation. 5. Additional findings as above. Narrative 07/12/2025 9:49 AM CDT Exam: CT ABDOMEN PELVIS W CONTRAST Date/Time of Exam: 07/12/2025 6:16 AM Reason For Exam: Abdominal pain, acute, nonlocalized. Diagnosis: See Reason for Exam. Technique: CT of the abdomen and pelvis was performed following the administration of intravenous contrast. Contrast: Isoview-300 Comparison: 04/17/2021. Findings: I agree with the preliminary report. The preliminary report is attached below with possible minor/noncritical modifications. ++++++++++++++++++++ IMPRESSION FINDINGS: Heart: Trace pericardial fluid. Mild myocardial thinning and subtle hypodensity at mid to distal interventricular septum and left ventricular apex, favor chronic. Trace pericardial fluid, likely physiologic. Coronary arteries: Coronary artery calcifications. Esophagus: Mild distal esophageal wall thickening. Liver: Mildly enlarged without discrete lesion. Gallbladder and biliary ducts: No radiopaque gallstone. No biliary ductal dilation. Minimal wall thickening at gallbladder fundus. Pancreas: Normal. No ductal dilation. Spleen: No splenomegaly. Calcified splenic granulomas. Small and subtle splenic hypodensities, no substantial interval change. Adrenal glands: Mild right adrenal thickening. Kidneys and ureters: Small nonobstructive stone at lower pole of right kidney. Prominent left renal pelvis but no fletcher hydronephrosis. Mildly prominent bilateral ureters. No ureteral stone identified. Bilateral cortical renal cysts. Additional small left cortical renal hypodensity, too small to characterize. Stomach and bowel: Stomach is incompletely distended, limiting its evaluation. No significantly distended small bowel loops. Colonic diverticulosis. No focal diverticulitis. No bowel obstruction. Appendix: Normal appendix. Intraperitoneal space: No free intraperitoneal air. No drainable fluid collection. Vasculature: Atherosclerosis. No abdominal aorta aneurysm. Incidental note is made of a circumaortic left renal vein (anatomical variant). Lymph nodes: Numerous subcentimeter distal paraesophageal nodes. Urinary bladder: Mildly distended urinary bladder. Reproductive: Enlarged prostate gland. Heterogeneous prostate attenuation. Bones/joints: Bones are demineralized. Multilevel thoracolumbar spondylosis. Soft tissues: Unremarkable. Small fat containing umbilical hernia. Procedure Note Virgilio Marshall MD - 07/12/2025 Exam: CT ABDOMEN PELVIS W CONTRAST Date/Time of Exam: 07/12/2025 6:16 AM Reason For Exam: Abdominal pain, acute, nonlocalized. Diagnosis: See Reason for Exam. Technique: CT of the abdomen and pelvis was performed following the administration of intravenous contrast. Contrast: Isoview-300 Comparison: 04/17/2021. Findings: I agree with the preliminary report. The preliminary report is attached below with possible minor/noncritical modifications. ++++++++++++++++++++ IMPRESSION FINDINGS: Heart: Trace pericardial fluid. Mild myocardial thinning and subtle hypodensity at mid to distal interventricular septum and left ventricular apex, favor chronic. Trace pericardial fluid, likely physiologic. Coronary arteries: Coronary artery calcifications. Esophagus: Mild distal esophageal wall thickening. Liver: Mildly enlarged without discrete lesion. Gallbladder and biliary ducts: No radiopaque gallstone. No biliary ductal dilation. Minimal wall thickening at gallbladder fundus. Pancreas: Normal. No ductal dilation. Spleen: No splenomegaly. Calcified splenic granulomas. Small and subtle splenic hypodensities, no substantial interval change. Adrenal glands: Mild right adrenal thickening. Kidneys and ureters: Small nonobstructive stone at lower pole of right kidney. Prominent left renal pelvis but no fletcher hydronephrosis. Mildly prominent bilateral ureters. No ureteral stone identified. Bilateral cortical renal cysts. Additional small left cortical renal hypodensity, too small to characterize. Stomach and bowel: Stomach is incompletely distended, limiting its evaluation. No significantly distended small bowel loops. Colonic diverticulosis. No focal diverticulitis. No bowel obstruction. Appendix: Normal appendix. Intraperitoneal space: No free intraperitoneal air. No drainable fluid collection. Vasculature: Atherosclerosis. No abdominal aorta aneurysm. Incidental note is made of a circumaortic left renal vein (anatomical variant). Lymph nodes: Numerous subcentimeter distal paraesophageal nodes. Urinary bladder: Mildly distended urinary bladder. Reproductive: Enlarged prostate gland. Heterogeneous prostate attenuation. Bones/joints: Bones are demineralized. Multilevel thoracolumbar spondylosis. Soft tissues: Unremarkable. Small fat containing umbilical hernia. IMPRESSION: 1. Small nonobstructive stone at lower pole of right kidney. Prominent left renal pelvis but no fletcher hydronephrosis. Mildly prominent bilateral ureters. 2. Prostatomegaly. 3. Mildly distended urinary bladder. 4. Mild distal esophageal wall thickening. Numerous subcentimeter distal paraesophageal nodes. Findings potentially reflux-related, recommend clinical correlation. 5. Additional findings as above. Bernard Danielson MD CT ORDERABLES Final Result * PTT (07/12/2025 4:58 AM CDT) Only the most recent of2 resultswithin the time period is included. PTT 26.5 25.1 - 35.4 seconds 07/12/2025 5:59 AM CDT [facility] Blood BLOOD SPECIMEN / Unknown Collection / Unknown 07/12/2025 4:58 AM CDT 07/12/2025 5:59 AM CDT us Bernard Danielson MD HEMATOLOGY ORDERABLES Final Result Performing Organization Address City/[facility]/ZIP Co de Phone Number [facility] CLIA # [id number] [address] [place] [address] * PROTIME-INR (07/12/2025 4:40 AM CDT) Only the most recent of2 resultswithin the time period is included. PROTIME 12.8 12.1 - 14.3 Seconds 07/12/2025 5:25 AM CDT [facility] INR 1.0 0.9 - 1.1 07/12/2025 5:25 AM CDT [facility] Blood BLOOD SPECIMEN / Unknown Collection / Unknown 07/12/2025 4:40 AM CDT 07/12/2025 4:54 AM CDT us Bernard Danielson MD HEMATOLOGY ORDERABLES Final Result [facility] CLIA # [id number] [address] [place] [address] * US TESTES W SCROTAL DOPPLER LTD (04/25/2025 4:41 PM CDT) Anatomical Region Laterality Modality Pelvis Ultrasound 04/25/2025 4:41 PM CDT Impressions 04/26/2025 9:07 AM CDT IMPRESSION: Please see below. US TESTES W SCROTAL DOPPLER LTD, 04/25/2025 4:41 PM Reason For Exam: See Diagnosis. Diagnosis: Testicle swelling. COMPARISON: None . TECHNIQUE: Multiplanar real-time ultrasonography of the scrotum was performed using mathews-scale imaging, supplemented by color and spectral Doppler as needed. . FINDINGS: . Right testicle and epididymis: Normal size, contour, and echogenicity without discrete mass. Normal color flow. An 8 x 6 mm cyst is present in the epididymal head. No hernia, hydrocele, or varicocele. Right testicle measures 1.70 x 4.33 x 2.74 cm. Volume: 10.5 mL. . Left testicle and epididymis: Normal size, contour, and echogenicity without discrete mass. Small 2 mm calcification noted inferiorly. Cysts are present in the epididymal head measuring up to 6 x 8 mm. No hernia, hydrocele, or varicocele. Left testicle measures 2.19 x 4.32 x 2.19 cm. Volume: 10.8 mL . Additional comments: None ++++++++++++++++++++ IMPRESSION: Small bilateral epididymal head cysts or spermatoceles. Narrative Procedure Note Virgilio Marshall MD - 04/26/2025 IMPRESSION: Please see below. US TESTES W SCROTAL DOPPLER LTD, 04/25/2025 4:41 PM Reason For Exam: See Diagnosis. Diagnosis: Testicle swelling. COMPARISON: None . TECHNIQUE: Multiplanar real-time ultrasonography of the scrotum was performed using mathews-scale imaging, supplemented by color and spectral Doppler as needed. . FINDINGS: . Right testicle and epididymis: Normal size, contour, and echogenicity without discrete mass. Normal color flow. An 8 x 6 mm cyst is present in the epididymal head. No hernia, hydrocele, or varicocele. Right testicle measures 1.70 x 4.33 x 2.74 cm. Volume: 10.5 mL. . Left testicle and epididymis: Normal size, contour, and echogenicity without discrete mass. Small 2 mm calcification noted inferiorly. Cysts are present in the epididymal head measuring up to 6 x 8 mm. No hernia, hydrocele, or varicocele. Left testicle measures 2.19 x 4.32 x 2.19 cm. Volume: 10.8 mL . Additional comments: None ++++++++++++++++++++ IMPRESSION: Small bilateral epididymal head cysts or spermatoceles. us Sissyana rosa Coronado Cesario SCHOOL SERVICES OFFICER US ORDERABLES Final Re sult * HEMOGLOBIN A1C (03/03/2025) ABSTRACTED HGB A1C 5.9 % Blood 03/03/2025 us Abstract Provider CHEMISTRY ORDERABLES Final Res ult * ENDOSCOPY, COLON, SCREENING (01/24/2019 12:00 AM TRAWL NET MAKER) Sgf Scanning GI PROCEDURE ORDERABLES Final Re sult from Last 3 Months or Most Recently Relevant to Health Maintenance Insurance MEDICAID [facility] [id number] Care Teams Behavioral Medical Director Relationship Specialty Start Date End Date Demetri Hardin MD [address] [address] PCP - General Family Practice 07/28/17
--- OUTSIDE RECORDS SUMMARY | 2025-07-22 06:03 | XMS_ITS | Encounter Summary ---
Author Organization [facility] Address [address] [place] [facility] [place] [address] Care Team Providers Care Gun Perforator Loader Name Role Phone Demetri Hardin MD Primary Care Provider [phone] [phone] Encounter Details Date Type Department Care Team (Latest Contact Info) Description 01/12/[address] 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
--- OUTSIDE RECORDS SUMMARY | 2025-07-22 06:03 | XMS_ITS | Encounter Summary ---
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
--- OUTSIDE RECORDS SUMMARY | 2025-07-22 06:03 | XMS_ITS | Clinical Summary ---
Author Organization [facility] Address [address] [place] [address] Phone Care Team Providers Care Voltage Regulator Assembler Name Role Phone Demetri Hardin MD Primary Care Provider [phone] [phone] Allergies No known active allergies Medications psyllium [...] 0 Active fluticasone propionate (FLONASE) 50 mcg/spray [place], Suspension nasal inhalerIndications :Seasonal allergic rhinitis due [...] relatives? 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 DYNAMITE CARTRIDGE CRIMPER Gender Identity Not on file Sexual Orientation [...] 82 05/22/2021 4:51 AM CDT Temperature 36.2 C (97.1 F) 05/22/2021 4:51 AM CDT Respiratory Rate 20 05/22/2021 4:51 AM CDT [...] T d or Tdap) 07/08/2022 07/08/2012, 01/02/2000 Medicare Advantage (ID) Preventative Visit/Annual Wellness Visit 11/29/2024 12/02/2020 INFLUENZA VACCINE (#1) 2025 , 10/04/2020, 11/25/2018, Additional history exists COLORECTAL CANCER SCREENING (AUTO ORDER) 01/24/2029 01/24/2019, 12/04/2014 COLORECTAL SCREENING 01/24/2029 01/24/2019, 01/24/2019, 12/04/2014, Additional history exists Colorectal Cancer Screening (AUTO ORDER) 01/24/2029 Colorectal Cancer Screening 01/24/2029 Procedures Procedure Name Priority Date/Time Associated Diagnosis Comments ENDOSCOPY, COLON, SCREENING Routine 01/24/2019 HEMOGLOBIN A1C Routine 10/07/2018 2:19 PM DYNAMITE CARTRIDGE CRIMPER Hyperglycemia from Last 3 Months or Most Recently Relevant to Health Maintenance Results * ENDOSCOPY, COLON, SCREENING (01/24/2019) us Abstract Spg Provider GI PROCEDURE ORDERABLES Fi nal Result * HEMOGLOBIN A1C (10/07/2018 2:19 PM DYNAMITE CARTRIDGE CRIMPER) HEMOGLOBIN A1C 5.6 4.0 - 6.0 % 10/07/2018 9:24 PM DYNAMITE CARTRIDGE CRIMPER [facility] EST. AVG GLUCOSE, A1C 114 mg/dL 10/07/2018 9:24 PM DYNAMITE CARTRIDGE CRIMPER [facility] Blood Collection / Unknown 10/07/2018 2:19 PM DYNAMITE CARTRIDGE CRIMPER 10/07/2018 8:42 PM DYNAMITE CARTRIDGE CRIMPER Narrative [facility] - 10/07/2018 9:24 PM DYNAMITE CARTRIDGE CRIMPER HGB A1C INTERPRETATION NORMAL: <5.7% PRE-DIABETES: 5.7 - 6.4% DIABETES: 6.5% OR GREATER Falsely low A1C measurements can occur when: 1. Anemia and/or hemolytic anemia is present. 2. Hemoglobin variants present. 3. Renal failure. 4. Transfusion of blood product in the last 120 days. We recommend ordering a fructosamine test([id number]) to more accurately assess glycemic status if any of the above conditions are present. Demetri Hardin MD CHEMISTRY ORDERABLES Glenys alonso Result [facility]# [id number] [address] [place] [address] from Last 3 Months or Most Recently Relevant to Health Maintenance Insurance MEDICAID [address] [place] [place] [address] DUAL COMPLETE MCR PPO D-SNP DISABILITY DETERMINATION Advance Directives For more information, please contact: [phone] * Full Code (Latest Code Status on File) Date Activated Date Inactivated Comments 09/23/2020 5:48 AM 09/27/2020 11:58 AM Care Teams Voltage Regulator Assembler Relationship Specialty Start Date End Date Demetri Hardin MD [address] [address] PCP - General Family Practice 07/28/17
--- OUTSIDE RECORDS SUMMARY | 2025-07-22 06:03 | XMS_ITS | Encounter Summary ---
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
--- OUTSIDE RECORDS SUMMARY | 2025-07-22 06:03 | XMS_ITS | Encounter Summary ---
Author Organization [facility] Address [address] [place] [address] Care Team Providers Care Operating Theatre Technician Name Role Phone Demetri Hardin MD Primary Care Provider [phone] [phone] Encounter Details Date Type Department Care Team (Late st Contact Info) Description 06/20/2012 Ancillary Orders [facility] [address] [facility] [address] [place] [address] Laron Kelsey MD NO ADDRESS ON FILE Pain Social History Tobacco Use Types Packs/Day Years Used Date Smoking Tobacco: Never Alcohol Use Standard Drinks/Week Comments No 0 (1 standard drink = 0.6 oz pur e alcohol) Sex and Gender Information Value Date Recorded Sex Assigned at Not on file Legal Sex Male 4:50 AM DIRECTOR GLOBAL Gender Identity Not on file Sexual Orientation Not on file documented as of this encounter Plan of Treatment Not on file documented as of this encounter Visit Diagnoses Diagnosis Pain Generalized pain documented in this encounter Additional Health Concerns Infection Onset Date Last Indicated Resolved Time R/O COVID-19 09/22/2020 09/22/2020 09/23/2020 11:1 6 AM CDT COVID-19 09/22/2020 09/22/2020 10/12/2020 8:08 PM DIRECTOR GLOBAL documented as of this encounter Care Teams Operating Theatre Technician Relationship Specialty Start Date End Date Demetri Hardin MD [address] [place] [address] PCP - General Family Practice 07/28/17 documented as of this encounter
--- OUTSIDE RECORDS SUMMARY | 2025-07-22 06:03 | XMS_ITS | Encounter Summary ---
Author Organization [facility] Address [address] [place] [address] Care Team Providers Care Patch Setter Name Role Phone Demetri Hardin MD Primary Care Provider [phone] [phone] Reason for Visit * Reason Onset Date Comments Ed Follow-up 07/12/2025 Information Encounter Details Date Type Department Care Team (Late st Contact Info) Description 07/12/2025 Telephone [facility] Medicine [address] [address] Demetri Hardin MD [facility] [address] [address] Ed Follow-up; Information Social History Tobacco Use Types Packs/Day Years [...] worry about transportation for future doctor visits, olive picker medication, etc.? No 2024 Housing Stability [...] on file Legal Sex Male 6:26 AM MANAGING JEWELER Gender Identity Not on file Sexual Orientation Not on file documented as of this encounter Miscellaneous Notes * Telephone Encounter - Darlene Steele - 07/16/2025 11:25 AM CDT Copied from [facility] #[id number]. Topic: Established Patient Care >> Jul 16, 2025 11:19 AM Darlene Hastings wrote: Is the patient established with a [facility] provider? Yes, select appropriate option in Discharge Facility SmartList Caller Name: Ward Chung Callback Number: Telephone Information: Call Notes: HFU, seen on 07/12/2025, [facility], seen for Dysphagia, unspecified. Patient called today for HFU. First TBS available appointment was 07/19/25. Patient is Rising Risk Where was the patient discharged from? Emergency Department (ED/ER) Is there availability to schedule the patient within 5 calendar days of discharge? No, in person appointment not available or call came after 5 days of discharge * Telephone Encounter - Olivia Elias RN - 07/12/2025 8:13 AM CDT Patient was routed to the N pool by the Emergency Department as an Urgent Transition of Care. ED to home protocol cannot be completed as this time because patient was admitted into the hospital(pending transfer). Office will follow up with patient per standard protocols as needed. Olivia Elias RN documented in this encounter Plan of Treatment Upcoming Encounters Date Type Department Care Team (Late st Contact Info) Description 08/06/2025 4:00 PM CDT Office Visit [address] [phone] Demetri Hardin MD [address] [phone] 02/22/2026 10:40 AM CDT Office Visit [address] [phone] Demetri Hardin MD [address] [place] [address] documented as of this encounter Visit Diagnoses Not on filedocumented in this encounter Additional Health Concerns Assessment Noted Time PHQ-9 Depression Total Score: 2 02/02/20 25 3:32 PM MANAGING JEWELER documented as of this encounter Care Teams Patch Setter Relationship Specialty Start Date End Date Demetri Hardin MD [address] [place] [phone] PCP - General Family Practice 07/28/17 documented as of this encounter
--- OUTSIDE RECORDS SUMMARY | 2025-07-22 06:03 | XMS_ITS | Encounter Summary ---
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
--- OUTSIDE RECORDS SUMMARY | 2025-07-22 06:03 | XMS_ITS | Encounter Summary ---
Author Organization [employer] Address [address] [place] [address] Care Team Providers Care Rod Hanger Name Role Phone Demetri Hardin MD Primary Care Provider [phone] Reason for Visit * Reason Onset Date Comments urology referral apointment 07/20/2025 Encounter Details Date Type Department Care Team (Late st Contact Info) Description 07/20/2025 Telephone [facility] Urology [address] [place] [phone] Provider, Abstract NO ADDRESS ON FILE urology referral apointment Social History Tobacco Use Types Packs/Day Years [...] relatives? Three times a week 12/02/2020 Attends [employer] [facility] Not on file 12/02 Active Member [...] about transportation for future doctor visits, picker feeder medication, etc.? No 2024 Housing Stability Answer [...] on file Legal Sex Male 6:26 AM CIGAR BANDER HAND Gender Identity Not on file Sexual Orientation Not on file documented as of this encounter Miscellaneous Notes * Telephone Encounter - Tatiana Mathis - 07/20/2025 1:16 PM CDT I left a voicemail for the patient to return a call to the office for new pt khoi documented in this encounter Plan of Treatment Upcoming Encounters Date Type Department Care Team (Late st Contact Info) Description 08/06/2025 4:00 PM CDT Office Visit [facility] [address] [place] [phone] Demetri Haridn MD [address] [place] [phone] 02/22/2026 10:40 AM CDT Office Visit [facility] [address] [place] [phone] Demetri Hardin MD [address] [place] [address] documented as of this encounter Visit Diagnoses Not on filedocumented in this encounter Additional Health Concerns Assessment Noted Time PHQ-9 Depression Total Score: 2 02/02/20 25 3:32 PM CIGAR BANDER HAND documented as of this encounter Care Teams Rod Hanger Relationship Specialty Start Date End Date Demetri Hardin MD [address] [place] [phone] PCP - General Family Practice 07/28/17 documented as of this encounter
--- OUTSIDE RECORDS SUMMARY | 2025-07-22 06:03 | XMS_ITS | Encounter Summary ---
Author Organization [employer] Address [address] [facility] [address] [place]in: Epic Prelude ADT [place] [address] Care Team Providers Care Branch Logistics Supervisor Name Role Phone Demetri Hardin MD Primary Care Provider [phone] [phone] Encounter Details Date Type Department Care Team (Latest Contact Info) Description 07/22/2025 Travel Social History Tobacco Use Types Packs/Day [...] relatives? Three times a week 12/02/2020 Attends [employer] Not on file 12/02 Active Member [...] worry about transportation for future doctor visits, case picker medication, etc.? 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 Gender Identity Not on file Sexual Orientation Not on file documented as of this encounter Plan of Treatment Upcoming Encounters Date Type Department Care Team (Late st Contact Info) Description 08/06/2025 4:00 PM CDT Office Visit [facility] [place] [address] [phone] Demetri Hardin MD [address] [phone] 02/22/2026 10:40 AM CDT Office Visit [facility] [address] [place] [phone] Demetri Hardin MD [address] [place] [phone] documented as of this encounter Visit Diagnoses Not on filedocumented in this encounter Additional Health Concerns Assessment Noted Time PHQ-9 Depression Total Score: 2 02/02/20 25 3:32 PM MANAGER PMO documented as of this encounter Care Teams Branch Logistics Supervisor Relationship Specialty Start Date End Date Demetri Hardin MD [address] [place] [phone] PCP - General Family Practice 07/28/17 documented as of this encounter
--- OUTSIDE RECORDS SUMMARY | 2025-07-22 06:03 | XMS_ITS | Encounter Summary ---
Author Organization [facility] Address [address] [place] [facility] [place] [address] Care Team Providers Care Cna Ltc Name Role Phone Demetri Hardin MD Primary Care Provider [phone] [phone] Encounter Details Date Type Department Care Team (Latest Contact Info) Description 01/02/2000 Outpatient Historical [facility] Medicine- [address] [place] [phone] Cesia Cortez NO ADDRESS ON FILE Open wound of finger(s) , without mention of complication (Primary Dx); Closed fracture of distal phalanx or phalanges of hand Social History Tobacco Use Types Packs/Day Years Used Date Smoking Tobacco: Never Assessed Sex and Gender Information Value Date Recorded Sex Assigned at Not on file 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
--- OUTSIDE RECORDS SUMMARY | 2025-07-22 06:03 | XMS_ITS | Encounter Summary ---
Author Organization [facility] Address [address] [place] [address] Care Team Providers Care Back Seam Stitcher Name Role Phone Demetri Hardin MD Primary Care Provider [phone] Reason for Referral * Outpatient Services (Routine) - Closed Specialty Diagnoses / Procedures Referred By Contac t Referred To Contact Diagnoses Other nonspecific findings on examination of blood(790.99) Nonspecific abnormal results of thyroid function study Procedures US HEAD NECK TISSUES Bob Cuevas DO [address] [place] [address] Phone: tel: fax: Referral ID Status Reason Start Date Expiration Date Visits Re quested Visits Authorized [id number] Closed 07/12/2012 07/12/2013 1 1 Encounter Details Date Type Department Care Team (Late st Contact Info) Description 07/12/2012 Ancillary Orders [facility] Ultrasound [place] [address] [place] [phone] Bob Cuevas DO [address] [place], [place] [id number] Other nonspecific findings on examination of blood; Nonspecific abnormal results of thyroid function study Social History Tobacco Use Types Packs/Day Years Used Date Smoking Tobacco: Never Alcohol Use Standard Drinks/Week Comments No 0 (1 standard drink = 0.6 oz pur e alcohol) Sex and Gender Information Value Date Recorded Sex Assigned at Not on file 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 IMPRESSION normal thyroid ultrasound Procedure Note Shimon [...] CDT COVID-19 09/22/2020 09/22/2020 10/12/2020 8:08 PM SOLAR DESIGNER documented as of this encounter Care Teams Back Seam Stitcher Relationship Specialty Start Date End Date Demetri Hardin MD [address] [phone] PCP - General Family Practice 07/28/17 documented as of this encounter
--- NOTE | 2025-07-22 06:04 | USCV_ITS ---
Ward Chung Age: 64 Gender: M : 1960 Exam Date: 07/22/2025 14:58 Ordering Phys: Narinder Richardson MD Technologist: Baudilio Macdonald Exam Location: [facility] Indication: CHEST PAIN BP: 89 / 61 HR: 65 Rhythm: Sinus Technical Quality: Adequate MEASUREMENTS (Male / Female) Normal Values 2D ECHO LV Diastolic Diameter PLAX 5.1 cm 4.2 - 5.9 / 3.9 - 5.3 cm IVS Diastolic Thickness 1.1 cm 0.6 - 1.0 / 0.6 - 0.9 cm IVS Systolic Thickness 1.2 cm LVPW Diastolic Thickness 1.1 cm 0.6 - 1.0 / 0.6 - 0.9 cm LVPW Systolic Thickness 1.7 cm LVOT Diameter 2.0 cm LV Ejection Fraction 2D Teich 34.8 % LV Ejection Fraction MOD 4C 35.5 % LV Ejection Fraction MOD 2C 34.8 % LV Ejection Fraction 2C AL 35.2 % LA Diameter 3.4 cm RA Systolic Volume 4C AL 50.3 ml RA Systolic Volume 4C MOD 47.1 ml LA Sys Volume AL 55.5 cm cubed LA Sys Volume Index AL 19.3 cm cubed/m squared Aorta at Sinotubular Diameter 2.6 cm IVC Diameter 1.9 cm M-MODE LA Ao Ratio MM 1.6 AV Cusp Separation MM 0.9 cm DOPPLER AV Peak Velocity 161.3 cm/s LVOT Peak Velocity 82.0 cm/s AV Area Cont Eq vti 1.6 cm squared AV Area Cont Eq pk 1.7 cm squared MV Peak Velocity 93.0 cm/s MV Area PHT 4.1 cm squared Mitral E to A Ratio 0.8 TR Peak Velocity 207.0 cm/s TR Peak Gradient 17.1 mmHg TR Mean Velocity 173.0 cm/s TR Mean Gradient 12.3 mmHg TR Velocity Time Integral 63.7 cm PV Peak Velocity 97.0 cm/s RV Ejection Time 0.3 s FINDINGS Left Ventricle Moderate diffuse hypokinesis of the mid and apical septum, anteroseptum and the LV apex. LV ejection fraction of around 35%. Mildly dilated LV cavity Right Ventricle Normal right ventricular size and systolic function. Right Atrium Normal right atrial size. Left Atrium Normal left atrial size. Mitral Valve Thickened mitral valve. Mild mitral annular calcification. Aortic Valve Thickened aortic valve. Tricuspid Valve Trace tricuspid valve regurgitation. Pulmonic Valve Thickened pulmonic valve. Pericardium No pericardial effusion. Aorta Normal aortic annulus size. IVC Normal inferior vena cava. CONCLUSIONS Moderate diffuse hypokinesis of the mid and apical septum, anteroseptum and the LV apex. LV ejection fraction of around 35%. Mildly dilated LV cavity. Thickened mitral valve. Mild mitral annular calcification. Type I diastolic dysfunction. Thickened aortic valve. Trace tricuspid valve regurgitation. Thickened pulmonic valve. There is no pericardial effusion. There are no intracardiac masses. Compared to the study from 03/03/2025 there is significant worsening of the LV systolic function-LV ejection fraction dropped from 60% to 35%. Dr Nelson Anna MD [facility] (Electronically Signed) Final Date: 22 July 2025 17:42 S
--- NOTE | 2025-07-22 06:13 | PM.HP ---
Providers/Chief Complaint Admitting Physician: Narinder Richardson MD Primary Care Provider: Demetri Hardin Chief Complaint: Non stemil cp History of Present Illness Ward Chung is a 64 year old male with a past medical history of CAD, status post stenting, history of ischemic cardiomyopathy, hypertension, hyperlipidemia, morbid obesity, who presents [facility] due to to a transfer from [facility] due to complaints of right flank pain, chest pain, shortness of breath, edema. Currently patient is alert oriented x 3, following all commands, he does not have chest pain currently, but does complain of chest pain which she feels is radiating to his back, he does have edema, does report shortness of breath, no fevers, no chills, no cough he does also report that what brought him to the emergency room was actually right flank pain, no dysuria, no hematuria, of kidney stones in the past, but denies passing a kidney stone, he has urinalysis [facility] did not show any blood in the urine, no evidence of UTI Review of Systems Card: Reports: chest pain Resp: Denies: dyspnea Medications/Allergies Home Medications ?Medication ?Instructions ?Recorded ?Confirmed ?Last Taken ?Type gabapentin 300 mg capsule 300 mg PO TID 04/18/25 07/17/25 Unknown History nitroglycerin 0.4 mg sublingual 0.4 mg sublingual Q5M PRN HEART 04/18/25 07/17/25 Unknown History tablet PAIN albuterol sulfate 90 mcg/actuation 2 puff inhalation Q4H PRN 07/01/25 07/17/25 Unknown History aerosol inhaler Shortness Of Breath Or Wheezing allopurinol 300 mg tablet 300 mg PO DAILY 07/01/25 07/17/25 Unknown History clotrimazole-betamethasone 1 1 applic topical BID DERMATITIS 07/01/25 07/17/25 Unknown History %-0.05 % topical cream colchicine 0.6 mg tablet See Rx Instructions .Route .COMPLEX 07/01/25 07/17/25 Unknown History meloxicam 15 mg tablet 15 mg PO DAILY 07/01/25 07/17/25 Unknown History aspirin 81 mg tablet 81 mg PO DAILY #90 tabs 07/04/25 07/17/25 Unknown Rx clopidogrel 75 mg tablet 75 mg PO DAILY #90 tabs 07/04/25 07/17/25 Unknown Rx docusate sodium 100 mg capsule 100 mg PO DAILY #30 caps 07/04/25 07/17/25 Unknown Rx famotidine 20 mg tablet 40 mg (2 x 20 mg) PO BID #60 tabs 07/04/25 07/17/25 Unknown Rx atorvastatin 40 mg tablet 40 mg PO DAILY 07/17/25 07/17/25 Unknown History budesonide-formoterol HFA 80 2 puff inhalation BID 07/17/25 07/17/25 Unknown History mcg-4.5 mcg/actuation aerosol inhaler (Symbicort) furosemide 40 mg tablet (Lasix) 60 mg (1.5 x 40 mg) PO DAILY #270 07/17/25 07/17/25 Unknown Rx tabs potassium chloride 20 mEq 20 meq PO DAILY #90 tabs 07/17/25 07/17/25 Unknown Rx tablet,extended release (K-Tab) sacubitril 24 mg-valsartan 26 mg 1 tab PO BID #180 tabs 07/17/25 07/17/25 Unknown Rx tablet (Entresto) Allergies Allergy/AdvReac Type Severity Reaction Status Date / Time No Known Allergies Allergy Verified 07/17/25 15:47 PFSH Acute PFSH: Medical History Venous stasis Lymphedema Hypertension Fibromyalgia Gout Sleep apnea COPD (chronic obstructive pulmonary disease) Onychodystrophy Edema Venous insufficiency (chronic) (peripheral) Social History Smoking and tobacco/nicotine status: never used tobacco/nicotine Alcohol intake: never Vitals/I&O/Wt Last Vital Signs Temp 98.6 F 07/22/25 06:05 Pulse 85 07/22/25 06:05 Resp 30 H 07/22/25 06:05 BP 126/75 07/22/25 06:05 Pulse Ox 96 07/22/25 06:01 O2 Del Method Nasal Cannula 07/22/25 06:01 O2 Flow Rate 4 07/22/25 06:01 Weight last 48 hrs Weight 160.572 kg Physical Exam Const: COMMON NORMALS: no acute distress and patient oriented x3 HENMT: COMMON NORMALS: normocephalic HEAD & SCALP: normocephalic Neck/C-Spine: COMMON NORMALS: no JVD Resp: COMMON NORMALS: normal respiratory effort, No retractions, No use of accessory muscles and clear to auscultation bilaterally AUSCULTATION: clear to auscultation bilaterally Cardio: COMMON NORMALS: regular rate, regular rhythm, S1 normal heart sound present and S2 normal heart sound present RATE: regular rate RHYTHM: regular rhythm HEART SOUNDS: S1 normal heart sound present and S2 normal heart sound present GI: COMMON NORMALS: Normal to inspection, nondistended, normoactive bowel sounds present, Soft to palpation and non-tender : COMMON NORMALS: Yes no CVA tenderness Extremity: COMMON NORMALS: no calf tenderness OTHER: 2+ edema Neuro: COMMON NORMALS: patient oriented x3, CN's II-XII intact bilaterally and moves all extremities Psych: COMMON NORMALS: mental status grossly normal A&P Assessment and plan 1. Coronary artery disease status post coronary stent insertion: 2. Morbid obesity: 3. Hypertension: 4. Right flank pain: 5. Chest pain: 6. CHF (congestive heart failure): Plan: Chest pain, NSTEMI - Recent history of STEMI 07/13 - Cardiac cath 1. Total thrombotic occlusion of proximal LAD stent status post successful revascularization with 1 stent.. 2. Patient was intubated at the beginning of the procedure as he was in pulmonary edema could not lay down. 3. Proximal Left Anterior Descending was treated with a Balloon, Balloon, Balloon, Drug Eluting Stent, and Balloon. - Compliant with aspirin, Plavix Plan - Start heparin drip - Repeat EKG series - Aspirin, statin, Plavix - Repeat cardiac echo - Will need to discuss case with cardiology based on clinical progress Ischemic cardiomyopathy, systolic CHF - 2+ pitting edema - Shortness of breath - Hypoxia -BNP 2700 Plan - Lasix 40 IV twice daily Right flank pain - Repeat UA - CRP, Pro-Sabas - CT scan abdomen pelvis Elevated lactic acid? Will repeat lactic acid Full code Lovenox for DVT prophylaxis PDMP PDMP Reviewed: Not Reviewed Attestations Medical Necessity Statement*: Patient requires hospitalization for chest pain, systolic CHF, right flank pain, inpatient, greater than 2 midnights Diagnoses Coronary artery disease status post coronary stent insertion I25.10; Z95.5 Morbid obesity E66.01 Hypertension I10 Right flank pain R10.9 Chest pain R07.9 CHF (congestive heart failure) I50.9
[2025-07-22] MEDS: pantoprazole 40 mg SDV IVP (06:33)
[2025-07-22] MEDS: heparin drip 25,000 UNIT/500 ML PREMIX 45 UNIT IV (06:37)
[2025-07-22] MEDS: heparin 5,000 unit/mL INJ 1 mL IVP (06:38)
[2025-07-22 06:46] LABS: Hematocrit 41.7 % (37-53); Hemoglobin 13.10 g/dL (11.27-16.99); Mean Corpuscular HGB Conc 31.4 g/dL (30-55); Mean Corpuscular Hemoglobin 27.1 pg (27-33); Mean Corpuscular Volume 86.2 fl (82-101); Nucleated Red Blood Cells % 0 %; Platelet Count 190 10^3/cmm (157-399); Red Blood Count 4.84 10^6/uL (3.85-5.65); White Blood Count 7.24 10^3/uL (3.29-11.43)
--- NOTE | 2025-07-22 06:49 | CTR_ITS ---
PROCEDURE INFORMATION: Exam: CT Abdomen And Pelvis Without Contrast Exam date and time: 07/22/2025 7:49 AM Age: 64 years old Clinical indication: Abdominal pain; Flank; Right; Additional info: Right flank pain TECHNIQUE: Imaging protocol: Computed tomography of the abdomen and pelvis without contrast. Radiation optimization: All CT scans at this facility use at least one of these dose optimization techniques: automated exposure control; mA and/or kV adjustment per patient size (includes targeted exams where dose is matched to clinical indication); or iterative reconstruction. COMPARISON: CT angio abdomen pelvis [id number] 10/06/2024 4:15 PM RADIATION DOSE METRICS: Total DLP (mGy-cm): 1303.01 FINDINGS: Heart: Mitral annulus calcifications. Coronary arteries: Coronary artery calcifications. Liver: No mass. Gallbladder and biliary ducts: No calcified stones. No ductal dilation. Pancreas: No ductal dilation. Spleen: Splenic calcifications. Adrenal glands: No mass. Kidneys and ureters: Right renal pole simple cyst. Right nephrolithiasis. Stomach and bowel: No obstruction. No mucosal thickening. Appendix: No evidence of appendicitis. Intraperitoneal space: No free air. No significant fluid collection. Vasculature: Retroaortic left renal vein. Lymph nodes: No enlarged lymph nodes. Urinary bladder: Unremarkable as visualized. Reproductive: Prostatomegaly. Bones/joints: Similar appearance of left rib 8 lucent lesion with sclerotic rim. DISH. Soft tissues: Prominent inguinal lymph nodes. CT/CT abdomen pelvis wo con [id number] IMPRESSION: No acute abdominopelvic findings. COMMENTS: Consistent with the [place] [employer]'s Incidental Findings Committee white paper (J Am Yury Radiol 2018): Any incidental renal lesion less than 1 cm or classified as too small to characterize, or any incidental cystic renal lesion characterized as simple-appearing, is likely benign. No follow-up imaging is recommended for these lesions per consensus recommendations based on imaging criteria.
[2025-07-22 07:06] LABS: Estmated Average Glucose 143; Hemoglobin A1C 6.6 % (4.0-6.0)
[2025-07-22 07:13] LABS: NT Pro B Type Natriuretic Pept 2891 pg/mL (0-125); Procalcitonin 0.07 ng/mL (0-0.5); Thyroid Stimulating Hormone 9.71 uIU/mL (0.27-4.20)
[2025-07-22 07:25] LABS: Alanine Aminotransferase 14 U/L (0-41); Albumin Level 3.9 g/dL (3.5-5.2); Alkaline Phosphatase 110 U/L (40-130); Anion Gap 14.3 (5-19); Aspartate Amino Transferase 14 U/L (0-40); Blood Urea Nitrogen 30 mg/dL (8-23); Calcium 8.6 mg/dL (8.5-10.5); Carbon Dioxide 27 mmol/L (22-29); Chloride 101 mmol/L (98-107); Cholesterol 141 mg/dL (0-200); Creatinine Clr Calc Pharmacy 90.1608; Globulin 3.7 g/dL (1.3-4.6); Glucose 135 mg/dL (65-115); HDL Cholesterol 36 mg/dL (60-100); Osmolality Calculated 294 mOsm/kg (285-295); Potassium 4.3 mmol/L (3.5-5.1); Sodium 138 mmol/L (136-145); Total Protein 7.6 g/dL (6.6-8.7); Triglycerides 128 mg/dL (0-150)
[2025-07-22 07:28] LABS: Lactic Sepsis W/Reflex 2.0 mmol/L (0.5-2.2)
[2025-07-22 07:37] LABS: Glucose Urine UA Negative (Normal); Nitrate Urine Negative (Negative); Specific Gravity, Urine 1.008 (1.005-1.030)
[2025-07-22 07:39] LABS: Add Urine Microscopic? YES
[2025-07-22] MEDS: FUROsemide 10 mg/mL SDV 4mL 40 MG IVP ×2 (08:09→21:43)
[2025-07-22] MEDS: morphine 4 mg/mL SDV 1 mL 2 MG IVP ×2 (08:09→21:51)
--- NOTE | 2025-07-22 09:07 | PC.PHAR ---
Addendum entered by Marylou Herrera 07/22/25 09:11: Pt also requesting medication for stress, to help with chest pain or nitro. Original Note: All medications verified except Lasix. Pt states he takes 60mg daily-newest order states 40mg daily. Will verify with [facility] [place] at 10am [phone]
--- NOTE | 2025-07-22 11:44 | ECG_ITS ---
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 Measurements Intervals [place] Rate: 79 P: 95 CA: 211 QRS: -39 QRSD: 92 T: 150 QT: 394 QTc: 452 Interpretive Statements SINUS RHYTHM WITH FIRST DEGREE AV BLOCK WITH OCCASIONAL SUPRAVENTRICULAR PREMATURE COMPLEXES LOW QRS VOLTAGE IN PRECORDIAL LEADS [QRS DEFLECTION < 1.0 mV IN CHEST LEADS] POSSIBLE ANTERIOR MYOCARDIAL INFARCTION , OF INDETERMINATE AGE [30 ms Q WAVE IN V3/V4, OR R < 0.2 mV IN V4] INFERIOR MYOCARDIAL INFARCTION , PROBABLY OLD [40+ ms Q WAVE AND/OR ST/T ABNORMALITY IN II/aVF] Compared to ECG 07/04/2025 05:41:48 No significant changes Electronically Signed On 07-22-2025 18:45:34 CDT by Nelson Anna M.D. [email or web address]
[2025-07-22 13:14] LABS: Troponin(5th) Baseline 82 ng/L (0-15)
[2025-07-22 13:35] LABS: Partial Thromboplastin Time 219.9 SECONDS (23.9-36.7)
--- NOTE | 2025-07-22 14:13 | ECG_ITS ---
[employer] Test Date: 2025-07-22 Pat Name: Ward Chung Department: Room: 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 Measurements Intervals [place] Rate: 75 P: -16 ND: 232 QRS: -40 QRSD: 97 T: 160 QT: 415 QTc: 466 Interpretive Statements SINUS RHYTHM WITH FIRST DEGREE AV BLOCK LOW QRS VOLTAGE IN PRECORDIAL LEADS [QRS DEFLECTION < 1.0 mV IN CHEST LEADS] ANTERIOR MYOCARDIAL INFARCTION , PROBABLY RECENT [40+ ms Q WAVE AND/OR ST/T ABNORMALITY IN V3/V4] INFERIOR MYOCARDIAL INFARCTION , PROBABLY OLD [40+ ms Q WAVE AND/OR ST/T ABNORMALITY IN II/aVF] ACUTE [place] Compared to ECG 07/22/2025 13:03:56 No significant changes Electronically Signed On 07-22-2025 19:00:12 CDT by Nelson Anna M.D. [email or web address]
--- NOTE | 2025-07-22 15:56 | PM.MISC ---
Miscellaneous Note Purpose of Documentation: Overnight labs and H&P reviewed. Patient denies any current chest pain at this time. He is only complaining of lower back pain. UA is negative for UTI. No signs of pyelonephritis on imaging. Patient is noted to have acute on chronic CHF exacerbation for which she is currently on diuresis with 40 mg IV Lasix every 12 hours. He reports that cardiology had recently increased his daily Lasix to 60 mg p.o. twice daily. He has been compliant with both aspirin and Plavix. Troponins reviewed from outside hospital, baseline at 82, 2-hour at 82. Troponin repeated here at 12:51 PM today also at 82. This is downtrending from his recent admission when it was in the 90s. EKG not showing any ST elevation today. Currently patient is chest pain-free. Favor his current symptomology to be related to acute on chronic CHF exacerbation Holding Entresto given soft blood pressure with systolic ranging between 99-1 10 today. Plan to continue IV diuresis. Echocardiogram pending. Currently on a heparin drip. Based on results of echo, will need to decide if heparin needs to continue.
[2025-07-22 16:25] LABS: Partial Thromboplastin Time 70.0 SECONDS (23.9-36.7)
[2025-07-22 16:29] LABS: Troponin 5 2HR 86.81 ng/L (0-15); Troponin 5 2HR Delta 4.81 ABS# (0-10)
[2025-07-22] MEDS: perflutren protein-a microsphr 0.22 mg/mL SDV 3 mL IV (16:43)
--- NOTE | 2025-07-22 17:27 | ECG_ITS ---
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 Measurements Intervals [place] Rate: 67 P: 91 IA: 243 QRS: -49 QRSD: 95 T: 148 QT: 432 QTc: 459 Interpretive Statements SINUS RHYTHM WITH SINUS ARRHYTHMIA WITH FIRST DEGREE AV BLOCK LOW QRS VOLTAGE IN PRECORDIAL LEADS [QRS DEFLECTION < 1.0 mV IN CHEST LEADS] POSSIBLE ANTERIOR MYOCARDIAL INFARCTION , OF INDETERMINATE AGE [30 ms Q WAVE IN V3/V4, OR R < 0.2 mV IN V4] INFERIOR MYOCARDIAL INFARCTION , PROBABLY OLD [40+ ms Q WAVE AND/OR ST/T ABNORMALITY IN II/aVF] MODERATE T-WAVE ABNORMALITY, CONSIDER LATERAL ISCHEMIA [-0.1+ mV T-WAVE IN I/aVL/V5/V6] Compared to ECG 07/22/2025 14:13:22 T-wave abnormality now present Possible ischemia now present Myocardial infarct finding still present Electronically Signed On 07-22-2025 18:58:35 CDT by Nelson Anna M.D. [email or web address]
[2025-07-22 19:20] LABS: Troponin 5 6HR 77.93 ng/L (0-15)
[2025-07-22 19:25] LABS: Troponin 5 6HR Delta -4.07 ng/L (0-12)
[2025-07-23] VITALS (41 sets, daily range): BP systolic 91–148; BP diastolic 47–85; PULSE 56–97; RESP 7–32; TEMP 35.8–37.3; O2SAT 93–100
[2025-07-23] MEDS: heparin drip 25,000 UNIT/500 ML PREMIX 22.48 UNIT IV
[2025-07-23 00:10] LABS: Partial Thromboplastin Time 51.9 SECONDS (23.9-36.7)
[2025-07-23] MEDS: heparin 5,000 unit/mL INJ 1 mL IVP ×2 (01:57→16:34)
[2025-07-23 05:23] LABS: Hematocrit 42.8 % (37-53); Hemoglobin 12.80 g/dL (11.27-16.99); Mean Corpuscular HGB Conc 29.9 g/dL (30-55); Mean Corpuscular Hemoglobin 26.8 pg (27-33); Mean Corpuscular Volume 89.7 fl (82-101); Nucleated Red Blood Cells % 0 %; Platelet Count 166 10^3/cmm (157-399); Red Blood Count 4.77 10^6/uL (3.85-5.65); White Blood Count 6.72 10^3/uL (3.29-11.43)
[2025-07-23] MEDS: pantoprazole 40 mg SDV IVP (05:36)
[2025-07-23 05:51] LABS: Alanine Aminotransferase 14 U/L (0-41); Albumin Level 3.9 g/dL (3.5-5.2); Alkaline Phosphatase 111 U/L (40-130); Anion Gap 16.4 (5-19); Aspartate Amino Transferase 17 U/L (0-40); Blood Urea Nitrogen 24 mg/dL (8-23); Calcium 8.7 mg/dL (8.5-10.5); Carbon Dioxide 28 mmol/L (22-29); Chloride 101 mmol/L (98-107); Creatinine Clr Calc Pharmacy 98.2724; Globulin 3.9 g/dL (1.3-4.6); Glucose 110 mg/dL (65-115); Osmolality Calculated 297 mOsm/kg (285-295); Potassium 4.4 mmol/L (3.5-5.1); Sodium 141 mmol/L (136-145); Total Protein 7.8 g/dL (6.6-8.7)
[2025-07-23 07:06] LABS: Partial Thromboplastin Time 101.2 SECONDS (23.9-36.7)
[2025-07-23] MEDS: FUROsemide 10 mg/mL SDV 4mL 40 MG IVP ×2 (08:58→20:11)
--- NOTE | 2025-07-23 13:47 | P.PN_ITS ---
Subjective 2 Subjective: on 3L tolerating medication Vitals/I&O/Wt Last Vital Signs Temp 99.1 F 07/23/25 13:00 Pulse 68 07/23/25 13:00 Resp 15 07/23/25 13:00 BP 113/59 07/23/25 13:00 Pulse Ox 98 07/23/25 13:00 O2 Del Method Room Air 07/23/25 13:00 O2 Flow Rate 3 07/23/25 08:40 07/22/25 07/23/25 07/23/25 22:59 06:59 14:59 Intake Total 540 / 1170.75 149.492 / 1320.242 575.417 / 575.417 Output Total 1400 / 1400 300 / 1700 800 / 800 Balance -860 / -229.25 -150.508 / -379.758 -224.583 / -224.583 Weight last 48 hrs Weight 353 lb 8 oz Weight 354 lb Physical Exam 2 Const: COMMON NORMALS: no acute distress and patient oriented x3 HENMT: COMMON NORMALS: normocephalic HEAD & SCALP: normocephalic Neck/C-Spine: COMMON NORMALS: no JVD Resp: COMMON NORMALS: normal respiratory effort, No retractions, No use of accessory muscles and clear to auscultation bilaterally AUSCULTATION: clear to auscultation bilaterally Cardio: COMMON NORMALS: no JVD, regular rate, regular rhythm, S1 normal heart sound present and S2 normal heart sound present RATE: regular rate RHYTHM: regular rhythm HEART SOUNDS: S1 normal heart sound present and S2 normal heart sound present GI: COMMON NORMALS: Normal to inspection, nondistended, normoactive bowel sounds present, Soft to palpation and non-tender PALPATION: Yes Soft to palpation : COMMON NORMALS: Yes no CVA tenderness BLADDER/KIDNEY EXAM: Yes no CVA tenderness Back/Pelvis: COMMON NORMALS: no CVA tenderness Extremity: COMMON NORMALS: no calf tenderness OTHER: 2+ edema Neuro: COMMON NORMALS: patient oriented x3, CN's II-XII intact bilaterally and moves all extremities Psych: COMMON NORMALS: mental status grossly normal Data 07/23/25 03:29 07/23/25 03:29 Micro: Microbiology 07/22/25 06:38 Blood Culture - Preliminary Blood NEGATIVE TO DATE 07/22/25 06:35 Blood Culture - Preliminary Blood NEGATIVE TO DATE A&P Assessment and plan 1. Hypertension: 2. CHF (congestive heart failure): 3. Coronary artery disease status post coronary stent insertion: 4. STEMI (ST elevation myocardial infarction): Plan: 1. Coronary artery disease status post coronary stent insertion: 2. Morbid obesity: 3. Hypertension: 4. Right flank pain: 5. Chest pain: 6. CHF (congestive heart failure): Plan: Chest pain, NSTEMI - Recent history of STEMI 07/13 - Cardiac cath 1. Total thrombotic occlusion of proximal LAD stent status post successful revascularization with 1 stent.. 2. Patient was intubated at the beginning of the procedure as he was in pulmonary edema could not lay down. 3. Proximal Left Anterior Descending was treated with a Balloon, Balloon, Balloon, Drug Eluting Stent, and Balloon. - Compliant with aspirin, Plavix Plan - heparin drip - Aspirin, statin, Plavix - echo - cardiology consult Ischemic cardiomyopathy, systolic CHF - 2+ pitting edema - Shortness of breath - Hypoxia -BNP 2700 Plan - Lasix 40 IV twice daily Right flank pain - CT scan abdomen pelvis Full code PDMP PDMP Reviewed: Not Reviewed Attestations 2 Medical Necessity Statement*: treatment for nstemi Coding Level of Care Code Acute Code for g Fwd Diagnoses Hypertension I10 CHF (congestive heart failure) I50.9 Coronary artery disease status post coronary stent insertion I25.10; Z95.5 STEMI (ST elevation myocardial infarction) I21.3
[2025-07-23 16:02] LABS: Partial Thromboplastin Time 39.4 SECONDS (23.9-36.7)
--- NOTE | 2025-07-23 17:08 | PM.CONSULT ---
Providers/Reason For Consult Consulting Physician/Specialty*: LUDA Anna MD/cardiology Reason for Consult*: Patient with recent PCI Attending Physician: Mercedes Grace MD Primary Care Provider: Demetri Hardin History of Present Illness History of Present Illness Ward Chung is a 64 year old male is admitted to hospital with some atypical chest symptoms and shortness of breath. He was found to have an elevated troponin T. Cardiology consult was requested for further cardiac evaluation recommendations. This patient is known to have atherosclerotic heart disease and had multiple PCI's in the recent past. Most recently he was admitted to this hospital with features of a an acute ST elevation myocardial infarction. He was found to have thrombotic occlusion of the left and descending artery at the stented area. He underwent a PCI of this lesion. His IL was complicated with a congestive heart failure. He was treated with diuretics afterload reducing agents and other symptomatic measures. He was discharged home on the sixth of this month. According the patient, for the last couple of days, he been experiencing some shortness of breath, difficulty in having bowel movement or urination. He had a pain in the lower back and the right iliac region. He also has some tightness/heaviness in the epigastric area. Because of the worsening of the symptoms, he decided to come to the hospital. His initial troponin T was found to be in the 70s. He did not have any significant delta at 2 hours and at 6 hours. Since hospital admission, patient had bowel movements and also is able to pee. He is feeling much better. He still has some amount of shortness of breath with activities. Denies any fever or chills. No cough. Patient had the stent in the LAD September of last year. In February of this year, he was admitted to the hospital with features of non-ST elevation microinfarction. He was found to have a high-grade lesion in circumflex artery for which he underwent PCI. On the third of this month, he was admitted to hospital with features of an acute ST elevation myocardial infarction. He was found to have thrombotic occlusion of the Left anterior descending artery stent. Patient is morbidly obese. He is known to have high blood pressure, dyslipidemia, sleep apnea. Denies any fever, chills or cough. He has a remote history of smoking abuse. His father might have had heart problems in the 70s. Details are not available. Review of Systems Narrative: CONSTITUTIONAL: No fever or chills. EYES: No blurring of vision or other visual disturbances lately. ENT: No hoarseness of voice, auditory disturbances or sore throat. CARDIOVASCULAR: Epigastric/lower substernal discomfort as mentioned above RESPIRATORY: Shortness of breath as mentioned above GASTROINTESTINAL: No hematemesis or melena. GENITOURINARY: As having low urine output at home. INTEGUMENTARY: No skin rashes or history of skin cancer. NEURO: No transient ischemic attacks or amaurosis. PSYCHIATRIC: No history of psychosis or major depression. HEMATOLOGIC: No bleeding disorders or significant anemia. ENDOCRINE: No history of polyuria or polydipsia. MUSCULOSKELETAL: No recent joint pain or swelling. ALLERGY/IMMUNOLOGY: As mentioned above. Medications/Allergies Home Medications ?Medication ?Instructions ?Recorded ?Confirmed ?Last Taken ?Type gabapentin 300 mg capsule 300 mg PO TID 04/18/25 07/22/25 07/21/25 History nitroglycerin 0.4 mg sublingual 0.4 mg sublingual Q5M PRN HEART 04/18/25 07/22/25 Unknown History tablet PAIN albuterol sulfate 90 mcg/actuation 2 puff inhalation Q4H PRN 07/01/25 07/22/25 Unknown History aerosol inhaler Shortness Of Breath Or Wheezing allopurinol 300 mg tablet 300 mg PO DAILY 07/01/25 07/22/25 07/21/25 History clotrimazole-betamethasone 1 1 applic topical BID DERMATITIS 07/01/25 07/22/25 07/21/25 History %-0.05 % topical cream colchicine 0.6 mg tablet See Rx Instructions .Route 07/01/25 07/22/25 Unknown History .COMPLEX onset of gout flare meloxicam 15 mg tablet 15 mg PO DAILY 07/01/25 07/22/25 07/21/25 History aspirin 81 mg tablet 81 mg PO DAILY #90 tabs 07/04/25 07/22/25 07/21/25 Rx clopidogrel 75 mg tablet 75 mg PO DAILY #90 tabs 07/04/25 07/22/25 07/21/25 Rx docusate sodium 100 mg capsule 100 mg PO DAILY #30 caps 07/04/25 07/22/25 07/21/25 Rx famotidine 20 mg tablet 40 mg (2 x 20 mg) PO BID #60 tabs 07/04/25 07/22/25 07/21/25 Rx atorvastatin 40 mg tablet 40 mg PO DAILY 07/17/25 07/22/25 07/21/25 History budesonide-formoterol HFA 80 2 puff inhalation BID 07/17/25 07/22/25 07/21/25 History mcg-4.5 mcg/actuation aerosol inhaler (Symbicort) sacubitril 24 mg-valsartan 26 mg 1 tab PO BID #180 tabs 07/17/25 07/22/25 07/21/25 Rx tablet (Entresto) furosemide 40 mg tablet (Lasix) 60 mg PO DAILY 07/22/25 07/22/25 07/21/25 History losartan 50 mg tablet 50 mg PO DAILY 07/22/25 07/22/25 07/21/25 History metoprolol succinate 25 mg 25 mg PO DAILY 07/22/25 07/22/25 07/21/25 History tablet,extended release 24 hr potassium chloride 20 mEq 20 meq PO DAILY 07/22/25 07/22/25 07/21/25 History tablet,extended release tamsulosin 0.4 mg capsule 0.4 mg PO QPM 07/22/25 07/22/25 07/21/25 History Allergies Allergy/AdvReac Type Severity Reaction Status Date / Time No Known Allergies Allergy Verified 07/17/25 15:47 Current Medications Generic Name Dose Route Start Last Admin Trade Name Freq PRN Reason Stop Dose Admin Acetaminophen 650 mg 07/22/25 06:04 07/23/25 04:53 Acetaminophen 325 Mg Tablet PO 650 mg Q6H PRN Administration Mild/Mod Pain Or Temp >/= 101 Allopurinol 300 mg 07/23/25 09:00 07/23/25 08:57 Allopurinol 300 Mg Tablet PO 300 mg DAILY DANIKA Administration Aspirin 81 mg 07/22/25 09:00 07/23/25 08:57 Aspirin 81 Mg Ec Tablet PO 81 mg DAILY DANIKA Administration Atorvastatin Calcium 40 mg 07/22/25 21:00 07/22/25 21:43 Atorvastatin 40 Mg Tablet PO 40 mg BEDTIME DANIKA Administration Clopidogrel Bisulfate 75 mg 07/22/25 09:00 07/23/25 08:57 Clopidogrel 75 Mg Tablet PO 75 mg DAILY DANIKA Administration Famotidine 40 mg 07/22/25 18:00 07/23/25 08:58 Famotidine 20 Mg Tablet PO 40 mg BID DANIKA Administration Furosemide 40 mg 07/22/25 09:00 07/23/25 08:58 Furosemide 10 Mg/Ml Sdv 4ml IVP 40 mg Q12H DANIKA Administration Gabapentin 300 mg 07/22/25 15:00 07/23/25 14:35 Gabapentin 300 Mg Capsule PO 300 mg TID DANIKA Administration Heparin Sodium (Porcine) 0 unit 07/22/25 06:04 07/23/25 16:34 Heparin 5,000 Unit/Ml Inj 1 Ml IVP 5,000 unit PRN PRN Administration Heparin Weight Based Protocol -Subsequent Bolus Protocol Heparin Sodium/Sodium Chloride 25,000 unit in 500 mls @ 0 mls/hr 07/22/25 06:15 07/23/25 16:25 Heparin Drip IV 6.54 unit/kg/hr CONT DANIKA 21 mls/hr Protocol Titration Per Protocol Metoprolol Succinate 25 mg 07/23/25 09:00 07/23/25 10:50 Metoprolol Succinate Er (24 Hr) 25 Mg Tablet PO Not Given DAILY DANIKA Morphine Sulfate 2 mg 07/22/25 06:04 07/22/25 21:51 Morphine 4 Mg/Ml Sdv 1 Ml IVP 2 mg Q4H PRN Administration SEVERE PAIN Pantoprazole Sodium 40 mg 07/22/25 06:15 07/23/25 05:36 Pantoprazole 40 Mg Sdv IVP 40 mg Q24H DANIKA Administration PFSH Acute PFSH: Medical History Venous stasis Lymphedema Hypertension Fibromyalgia Gout Sleep apnea COPD (chronic obstructive pulmonary disease) Onychodystrophy Edema Venous insufficiency (chronic) (peripheral) Social History Smoking and tobacco/nicotine status: never used tobacco/nicotine Alcohol intake: never Vitals/I&O/Wt Last Vital Signs Temp 99.1 F 07/23/25 13:00 Pulse 68 07/23/25 13:00 Resp 15 07/23/25 13:00 BP 113/59 07/23/25 13:00 Pulse Ox 98 07/23/25 13:00 O2 Del Method Room Air 07/23/25 13:00 O2 Flow Rate 3 07/23/25 08:40 07/23/25 07/23/25 07/23/25 06:59 14:59 22:59 Intake Total 149.492 / 1320.242 575.417 / 575.417 113.25 / 688.667 Output Total 300 / 1700 800 / 800 Balance -150.508 / -379.758 -224.583 / -224.583 113.25 / -111.333 Weight last 48 hrs Weight 353 lb 8 oz Weight 354 lb Physical Exam Narrative: GENERAL: The patient is alert and oriented times three. Not in any acute distress. Morbidly obese HEENT: No significant pallor, icterus or lymphadenopathy.Oral cavity: There are no mucous membrane lesions. NECK: Trachea appears to be central. No masses noted. No JVD or thyromegaly appreciated. RESPIRATORY: Chest is symmetrical. No intercostals muscle retraction or any accessory muscle activation. There is no chest wall tenderness. Breath sounds are heard bilaterally. No rales or rhonchi heard. No evidence of any consolidation. BREASTS: Deferred. HEART: The heart sounds are normal. No S3 or S4. No significant murmurs. No pericardial rub ABDOMEN: No vessel pulsations or distention. Some vague tenderness in the epigastric area.. No organomegaly appreciated. Bowel sounds are normally heard. : Deferred. RECTAL: Deferred. LYMPHATIC: No lymphadenopathy noted in the neck. EXTREMITIES: Features of chronic venous stasis bilaterally with healed venous ulcers. MUSCULOSKELETAL: No acute joint deformities or swelling SKIN: There are no significant rashes or ecchymosis NEUROPSYCHIATRIC: The patient is alert and oriented x3. Appears to be in a good mood. No tremors or rigidity noted. Data 07/24/25 04:11 07/24/25 04:11 Other Labs: Laboratory Last Values WBC 6.72 10^3/uL (3.29-11.43) 07/23/25 03:29 RBC 4.77 10^6/uL (3.85-5.65) 07/23/25 03:29 Hgb 12.80 g/dL (11.27-16.99) 07/23/25 03:29 Hct 42.8 % (37-53) 07/23/25 03:29 MCV 89.7 fl (82-101) 07/23/25 03:29 MCH 26.8 pg (27-33) L 07/23/25 03: MCHC 29.9 g/dL (30-55) L 07/23/25 03: RDW 15.6 % (12.1-15.1) H 07/23/25 03:29 Plt Count 166 10^3/cmm (157-399) 07/23/25 03: MPV 12.4 fL (7.4-10.4) H 07/23/25 03:29 Neut % (Auto) 60.3 % 07/23/25 03: Lymph % (Auto) 29.0 % 07/23/25 03: Emanuel % (Auto) 5.7 % 07/23/25 03: Eos % (Auto) 4.3 % 07/23/25 03: Baso % (Auto) 0.4 % 07/23/25 03: Neut # (Auto) 4.05 10^3/uL (1.8-7.7) 07/23/25 03: Lymph # (Auto) 2.0 10^3/uL (0.8-4.8) 07/23/25 03: Emanuel # (Auto) 0.4 10^3/uL (0.2-0.9) 07/23/25 03: Eos # (Auto) 0.3 10^3/uL (0.0-0.8) 07/23/25 03: Baso # (Auto) 0.0 10^3/uL (0.0-0.1) 07/23/25 03: Nucleated RBC % (auto) 0 % 07/23/25 03: Nucleated RBCs # 0.0 /100WBC 07/23/25 03:29 APTT 39.4 SECONDS (23.9-36.7) H D 07/23/25 15:19 Sodium 141 mmol/L (136-145) 07/23/25 03:29 Potassium 4.4 mmol/L (3.5-5.1) 07/23/25 03: Chloride 101 mmol/L (98-107) 07/23/25 03: Carbon Dioxide 28 mmol/L (22-29) 07/23/25 03:29 Anion Gap 16.4 (5-19) 07/23/25 03:29 BUN 24 mg/dL (8-23) H 07/23/25 03:29 Creatinine 1.1 mg/dL (0.7-1.2) 07/23/25 03:29 GFR Calculation 67.0 mL/min (90-130) L 07/23/25 03:29 Glucose 110 mg/dL (65-115) 07/23/25 03:29 Estimat Average Glucose 143 07/22/25 06:35 Hemoglobin A1c 6.6 % (4.0-6.0) H 07/22/25 06:35 Calculated Osmolality 297 mOsm/kg (285-295) H 07/23/25 03:29 Lactic Acid 2.0 mmol/L (0.5-2.2) 07/22/25 06:35 Calcium 8.7 mg/dL (8.5-10.5) 07/23/25 03:29 Total Bilirubin 0.8 mg/dL (0.15-1.2) 07/23/25 03:29 AST 17 U/L (0-40) 07/23/25 03:29 ALT 14 U/L (0-41) 07/23/25 03:29 Alkaline Phosphatase 111 U/L (40-130) 07/23/25 03:29 Troponin T Baseline 82 ng/L (0-15) H 07/22/25 12:51 Troponin T 120 Minute 86.81 ng/L (0-15) H 07/22/25 15:40 Delta Troponin T 4.81 ABS# (0-10) 07/22/25 15:40 Troponin T Hi Sens 6Hr 77.93 ng/L (0-15) H 07/22/25 18:57 Troponin T Hi Sens 6Hr Delta -4.07 ng/L (0-12) L 07/22/25 18:57 C-Reactive Protein 12.2 mg/L (0.0-4.9) H 07/22/25 06:35 NT-Pro-B Natriuret Pep 2891 pg/mL (0-125) H 07/22/25 06:35 Total Protein 7.8 g/dL (6.6-8.7) 07/23/25 03:29 Albumin 3.9 g/dL (3.5-5.2) 07/23/25 03:29 Globulin 3.9 g/dL (1.3-4.6) 07/23/25 03:29 Triglycerides 128 mg/dL (0-150) 07/22/25 06:35 Cholesterol 141 mg/dL (0-200) 07/22/25 06:35 LDL Cholesterol, Calc 79 mg/dL (50-129) 07/22/25 06:35 HDL Cholesterol 36 mg/dL (60-100) L 07/22/25 06:35 LDL/HDL Ratio 2.19 RATIO (0.00-3.22) 07/22/25 06:35 Cholesterol/HDL Ratio 3.92 mg/dL (1.0-5.00) 07/22/25 06:35 Procalcitonin 0.07 ng/mL (0-0.5) 07/22/25 06:35 TSH 9.71 uIU/mL (0.27-4.20) H 07/22/25 06:35 Urine Color Yellow (Yellow) 07/22/25 07:00 Urine Appearance Clear (CLEAR) 07/22/25 07:00 Urine pH 6.5 (5-7) 07/22/25 07:00 Ur Specific [place] 1.008 (1.005-1.030) 07/22/25 07:00 Urine Protein Negative (Negative) 07/22/25 07:00 Urine Glucose (UA) Negative (Normal) 07/22/25 07:00 Urine Ketones Negative (Negative) 07/22/25 07:00 Urine Blood Negative (Negative) 07/22/25 07:00 Urine Nitrate Negative (Negative) 07/22/25 07:00 Urine Bilirubin Negative (Negative) 07/22/25 07:00 Urine Urobilinogen 1.0 mg/dL (Negative) 07/22/25 07:00 Ur Leukocyte Esterase Negative (Negative) 07/22/25 07:00 Urine RBC 0-2 /hpf (0-2) 07/22/25 07:00 Urine WBC 0-5 /hpf (0-5) 07/22/25 07:00 Ur Squamous Epith Cells 0-5 /hpf (0-5) 07/22/25 07:00 Amorphous Sediment Not Reportable 07/22/25 07:00 Urine Bacteria None seen /hpf (NONE) 07/22/25 07:00 Hyaline Casts 0-4 /lpf H 07/22/25 07:00 Micro: Microbiology 07/22/25 06:38 Blood Culture - Preliminary Blood NEGATIVE TO DATE 07/22/25 06:35 Blood Culture - Preliminary Blood NEGATIVE TO DATE A&P Assessment and plan 1. Elevated troponin: Most likely related to the recent STEMI and PCI. There is no significant delta. Possibility of a type II IL also is a consideration. Patient has no significant chest pain. No acute ischemic EKG changes. May continue on the current measures. 2. Acute on chronic systolic congestive heart failure: Patient may be carefully treated with IV diuretics. Also may continue the guideline directed medical treatment for LV systolic dysfunction. 3. Essential hypertension: Will try to optimize antihypertensive medications. 4. Morbid obesity: Patient seems to understand importance of lifestyle modification. 5. Recent myocardial infarction of anterior wall: Status post PCI of the LAD. Currently seems to be stable. Plan: Continue IV Lasix 40 mg every 12 hours. Also may add spironolactone 25 mg p.o. daily. Jardiance 10 mg p.o. daily Other medications may be continued Patient may be continued on the current medication. In view of the severe LV systolic dysfunction, we will try to optimize the GDMT Thank you for the opportunity to evaluate this patient and make these recommendations PDMP PDMP Reviewed: Not Reviewed Consult Attestations Medical Necessity Statement: Patient requires continued hospital stay for close monitoring and further management Coding Level of Care Code 30793 Diagnoses Elevated troponin R79.89 Acute on chronic systolic congestive heart failure I50.23 Heart failure type: systolic Heart failure chronicity: acute on chronic Essential hypertension I10 Morbid obesity E66.01 Recent myocardial infarction of anterior wall
[2025-07-23 23:05] LABS: Partial Thromboplastin Time 55.8 SECONDS (23.9-36.7)
[2025-07-23] MEDS: heparin drip 25,000 UNIT/500 ML PREMIX 21 UNIT IV (23:53)
[2025-07-24] VITALS (9 sets, daily range): BP systolic 90–157; BP diastolic 55–112; PULSE 66–78; RESP 17–25; TEMP 36.4–37.1; O2SAT 90–99
[2025-07-24 04:34] LABS: Hematocrit 38.3 % (37-53); Hemoglobin 12.30 g/dL (11.27-16.99); Mean Corpuscular HGB Conc 32.1 g/dL (30-55); Mean Corpuscular Hemoglobin 27.7 pg (27-33); Mean Corpuscular Volume 86.3 fl (82-101); Nucleated Red Blood Cells % 0 %; Platelet Count 173 10^3/cmm (157-399); Red Blood Count 4.44 10^6/uL (3.85-5.65); White Blood Count 7.29 10^3/uL (3.29-11.43)
[2025-07-24 04:47] LABS: Partial Thromboplastin Time 57.4 SECONDS (23.9-36.7)
[2025-07-24] MEDS: pantoprazole 40 mg SDV IVP (06:10)
[2025-07-24 06:50] LABS: Alanine Aminotransferase 13 U/L (0-41); Albumin Level 3.9 g/dL (3.5-5.2); Alkaline Phosphatase 102 U/L (40-130); Anion Gap 11.3 (5-19); Aspartate Amino Transferase 15 U/L (0-40); Blood Urea Nitrogen 26 mg/dL (8-23); Calcium 8.6 mg/dL (8.5-10.5); Carbon Dioxide 30 mmol/L (22-29); Chloride 99 mmol/L (98-107); Creatinine Clr Calc Pharmacy 89.1196; Globulin 2.9 g/dL (1.3-4.6); Glucose 103 mg/dL (65-115); Osmolality Calculated 287 mOsm/kg (285-295); Potassium 4.3 mmol/L (3.5-5.1); Sodium 136 mmol/L (136-145); Total Protein 6.8 g/dL (6.6-8.7)
[2025-07-24 06:51] LABS: Troponin T (5th) Once 64 ng/L (0-15)
--- NOTE | 2025-07-24 07:16 | P.PN_ITS ---
Subjective 2 Subjective: The patient is feeling better. No chest pain . Shortness of breath is significantly improved. No new complaints. Medications: Medication Review Details: Current Medications Acetaminophen (Acetaminophen 325 Mg Tablet) 650 mg PO Q6H PRN PRN Reason: Mild/Mod Pain Or Temp >/= 101 Last Admin: 07/23/25 04:53 Dose: 650 mg Albuterol Sulfate (Albuterol 2.5 Mg/0.5 Ml Neb) 2.5 mg INHALATION Q4H.RESPIRATORY PRN PRN Reason: SHORTNESS OF BREATH Allopurinol (Allopurinol 300 Mg Tablet) 300 mg PO DAILY [facility] Last Admin: 07/23/25 08:57 Dose: 300 mg Aspirin (Aspirin 81 Mg Ec Tablet) 81 mg PO DAILY DANIKA Last Admin: 07/23/25 08:57 Dose: 81 mg Atorvastatin Calcium (Atorvastatin 40 Mg Tablet) 40 mg PO BEDTIME DANIKA Last Admin: 07/23/25 20:11 Dose: 40 mg Clopidogrel Bisulfate (Clopidogrel 75 Mg Tablet) 75 mg PO DAILY [facility] Last Admin: 07/23/25 08:57 Dose: 75 mg Colchicine (Colchicine 0.6 Mg Tablet) 0.6 mg PO DAILY PRN PRN Reason: GOUT Famotidine (Famotidine 20 Mg Tablet) 40 mg PO BID [facility] Last Admin: 07/23/25 17:48 Dose: 40 mg Furosemide (Furosemide 10 Mg/Ml Sdv 4ml) 40 mg IVP Q12H DANIKA Last Admin: 07/23/25 20:11 Dose: 40 mg Gabapentin (Gabapentin 300 Mg Capsule) 300 mg PO TID [facility] Last Admin: 07/23/25 20:11 Dose: 300 mg Heparin Sodium (Porcine) (Heparin 5,000 Unit/Ml Inj 1 Ml) 0 unit IVP PRN PRN; Protocol PRN Reason: Heparin Weight Based Protocol -Subsequent Bolus Last Admin: 07/23/25 16:34 Dose: 5,000 unit Heparin Sodium/Sodium Chloride (Heparin Drip) 25,000 unit in 500 mls @ 0 mls/hr IV CONT DANIKA; Protocol Last Titration: 07/24/25 05:01 Dose: 6.54 unit/kg/hr, 21 mls/hr Metoprolol Succinate (Metoprolol Succinate Er (24 Hr) 25 Mg Tablet) 25 mg PO DAILY [facility] Last Admin: 07/23/25 10:50 Dose: Not Given Morphine Sulfate (Morphine 4 Mg/Ml Sdv 1 Ml) 2 mg IVP Q4H PRN PRN Reason: SEVERE PAIN Last Admin: 07/22/25 21:51 Dose: 2 mg Naloxone HCl (Naloxone 0.4 Mg/Ml Sdv) 0.1 mg IVP Q2M PRN PRN Reason: OPIATERV Ondansetron HCl (Ondansetron 2 Mg/Ml Sdv 2 Ml) 4 mg IVP Q8H PRN PRN Reason: vomiting, or N/V if npo Pantoprazole Sodium (Pantoprazole 40 Mg Sdv) 40 mg IVP Q24H DANIKA Last Admin: 07/24/25 06:10 Dose: 40 mg Sacubitril/Valsartan (Sacubitril/Valsartan 24-26 Mg Tablet) 1 each PO BID DANIKA Spironolactone (Spironolactone 25 Mg Tablet) 25 mg PO DAILY DANIKA Vitals/I&O/Wt Last Vital Signs Temp 97.9 F 07/24/25 04:00 Pulse 78 07/24/25 06:00 Resp 18 07/24/25 04:00 BP 90/55 07/24/25 04:00 Pulse Ox 95 07/24/25 04:00 O2 Del Method Room Air 07/24/25 04:00 O2 Flow Rate 3 07/23/25 08:40 07/23/25 07/24/25 07/24/25 22:59 06:59 14:59 Intake Total 913.25 / 1488.667 384.60 / 1873.267 Output Total 1725 / 2525 450 / 2975 Balance -811.75 / -1036.333 -65.40 / -1101.733 Weight last 48 hrs Weight 347 lb 4.8 oz Weight 353 lb 8 oz Physical Exam 2 Narrative: GENERAL: The patient is alert and oriented times three. Not in any acute distress. Morbidly obese HEENT: No significant pallor, icterus or lymphadenopathy.Oral cavity: There are no mucous membrane lesions. NECK: Trachea appears to be central. No masses noted. No JVD or thyromegaly appreciated. RESPIRATORY: Chest is symmetrical. No intercostals muscle retraction or any accessory muscle activation. There is no chest wall tenderness. Breath sounds are heard bilaterally. No rales or rhonchi heard. No evidence of any consolidation. BREASTS: Deferred. HEART: The heart sounds are normal. No S3 or S4. No significant murmurs. No pericardial rub ABDOMEN: No vessel pulsations or distention. Some vague tenderness in the epigastric area.. No organomegaly appreciated. Bowel sounds are normally heard. : Deferred. RECTAL: Deferred. LYMPHATIC: No lymphadenopathy noted in the neck. EXTREMITIES: Features of chronic venous stasis bilaterally with healed venous ulcers. MUSCULOSKELETAL: No acute joint deformities or swelling SKIN: There are no significant rashes or ecchymosis NEUROPSYCHIATRIC: The patient is alert and oriented x3. Appears to be in a good mood. No tremors or rigidity noted. Data 07/24/25 04:11 07/24/25 04:11 Other Labs: Laboratory Last Values WBC 7.29 10^3/uL (3.29-11.43) 07/24/25 04:11 RBC 4.44 10^6/uL (3.85-5.65) 07/24/25 04:11 Hgb 12.30 g/dL (11.27-16.99) 07/24/25 04:11 Hct 38.3 % (37-53) 07/24/25 04:11 MCV 86.3 fl (82-101) 07/24/25 04:11 MCH 27.7 pg (27-33) 07/24/25 04:11 MCHC 32.1 g/dL (30-55) D 07/24/25 04:11 RDW 15.6 % (12.1-15.1) H 07/24/25 04:11 Plt Count 173 10^3/cmm (157-399) 07/24/25 04:11 MPV 11.8 fL (7.4-10.4) H 07/24/25 04:11 Neut % (Auto) 60.3 % 07/24/25 04:11 Lymph % (Auto) 28.1 % 07/24/25 04:11 [place] % (Auto) 6.6 % 07/24/25 04:11 Eos % (Auto) 4.5 % 07/24/25 04:11 Baso % (Auto) 0.4 % 07/24/25 04:11 Neut # (Auto) 4.39 10^3/uL (1.8-7.7) 07/24/25 04:11 Lymph # (Auto) 2.1 10^3/uL (0.8-4.8) 07/24/25 04:11 [place] # (Auto) 0.5 10^3/uL (0.2-0.9) 07/24/25 04:11 Eos # (Auto) 0.3 10^3/uL (0.0-0.8) 07/24/25 04:11 Baso # (Auto) 0.0 10^3/uL (0.0-0.1) 07/24/25 04:11 Nucleated RBC % (auto) 0 % 07/24/25 04:11 Nucleated RBCs # 0.0 /100WBC 07/24/25 04:11 APTT 57.4 SECONDS (23.9-36.7) H 07/24/25 04:11 Sodium 136 mmol/L (136-145) 07/24/25 04:11 Potassium 4.3 mmol/L (3.5-5.1) 07/24/25 04:11 Chloride 99 mmol/L (98-107) 07/24/25 04:11 Carbon Dioxide 30 mmol/L (22-29) H 07/24/25 04:11 Anion Gap 11.3 (5-19) 07/24/25 04:11 BUN 26 mg/dL (8-23) H 07/24/25 04:11 Creatinine 1.2 mg/dL (0.7-1.2) 07/24/25 04:11 GFR Calculation 60.6 mL/min (90-130) L 07/24/25 04:11 Glucose 103 mg/dL (65-115) 07/24/25 04:11 Estimat Average Glucose 143 07/22/25 06:35 Hemoglobin A1c 6.6 % (4.0-6.0) H 07/22/25 06:35 Calculated Osmolality 287 mOsm/kg (285-295) 07/24/25 04:11 Lactic Acid 2.0 mmol/L (0.5-2.2) 07/22/25 06:35 Calcium 8.6 mg/dL (8.5-10.5) 07/24/25 04:11 Total Bilirubin 0.7 mg/dL (0.15-1.2) 07/24/25 04:11 AST 15 U/L (0-40) 07/24/25 04:11 ALT 13 U/L (0-41) 07/24/25 04:11 Alkaline Phosphatase 102 U/L (40-130) 07/24/25 04:11 Troponin T 5th Gen ng/L 64 ng/L (0-15) H 07/24/25 04:11 Troponin T Baseline 82 ng/L (0-15) H 07/22/25 12:51 Troponin T 120 Minute 86.81 ng/L (0-15) H 07/22/25 15:40 Delta Troponin T 4.81 ABS# (0-10) 07/22/25 15:40 Troponin T Hi Sens 6Hr 77.93 ng/L (0-15) H 07/22/25 18:57 Troponin T Hi Sens 6Hr Delta -4.07 ng/L (0-12) L 07/22/25 18:57 C-Reactive Protein 12.2 mg/L (0.0-4.9) H 07/22/25 06:35 NT-Pro-B Natriuret Pep 2891 pg/mL (0-125) H 07/22/25 06:35 Total Protein 6.8 g/dL (6.6-8.7) 07/24/25 04:11 Albumin 3.9 g/dL (3.5-5.2) 07/24/25 04:11 Globulin 2.9 g/dL (1.3-4.6) 07/24/25 04:11 Triglycerides 128 mg/dL (0-150) 07/22/25 06:35 Cholesterol 141 mg/dL (0-200) 07/22/25 06:35 LDL Cholesterol, Calc 79 mg/dL (50-129) 07/22/25 06:35 HDL Cholesterol 36 mg/dL (60-100) L 07/22/25 06:35 LDL/HDL Ratio 2.19 RATIO (0.00-3.22) 07/22/25 06:35 Cholesterol/HDL Ratio 3.92 mg/dL (1.0-5.00) 07/22/25 06:35 Procalcitonin 0.07 ng/mL (0-0.5) 07/22/25 06:35 TSH 9.71 uIU/mL (0.27-4.20) H 07/22/25 06:35 Urine Color Yellow (Yellow) 07/22/25 07:00 Urine Appearance Clear (CLEAR) 07/22/25 07:00 Urine pH 6.5 (5-7) 07/22/25 07:00 Ur Specific [place] 1.008 (1.005-1.030) 07/22/25 07:00 Urine Protein Negative (Negative) 07/22/25 07:00 Urine Glucose (UA) Negative (Normal) 07/22/25 07:00 Urine Ketones Negative (Negative) 07/22/25 07:00 Urine Blood Negative (Negative) 07/22/25 07:00 Urine Nitrate Negative (Negative) 07/22/25 07:00 Urine Bilirubin Negative (Negative) 07/22/25 07:00 Urine Urobilinogen 1.0 mg/dL (Negative) 07/22/25 07:00 Ur Leukocyte Esterase Negative (Negative) 07/22/25 07:00 Urine RBC 0-2 /hpf (0-2) 07/22/25 07:00 Urine WBC 0-5 /hpf (0-5) 07/22/25 07:00 Ur Squamous Epith Cells 0-5 /hpf (0-5) 07/22/25 07:00 Amorphous Sediment Not Reportable 07/22/25 07:00 Urine Bacteria None seen /hpf (NONE) 07/22/25 07:00 Hyaline Casts 0-4 /lpf H 07/22/25 07:00 Micro: Microbiology 07/22/25 06:38 Blood Culture - Preliminary Blood NEGATIVE TO DATE 07/22/25 06:35 Blood Culture - Preliminary Blood NEGATIVE TO DATE A&P Assessment and plan 1. Elevated troponin: Most likely related to the recent STEMI and PCI. There is no significant delta. Possibility of a type II MO also is a consideration. Patient has no significant chest pain. No acute ischemic EKG changes. May continue on the current measures. 2. Acute on chronic systolic congestive heart failure: Patient may be carefully treated with IV diuretics. Also may continue the guideline directed medical treatment for LV systolic dysfunction. Continue on the IV Lasix for today May be switched to p.o. Lasix tomorrow and then consider discharge plan 3. Essential hypertension: Will try to optimize antihypertensive medications. 4. Morbid obesity: Patient seems to understand importance of lifestyle modification. 5. Recent myocardial infarction of anterior wall: Status post PCI of the LAD. Currently seems to be stable. Plan: Continue to optimize the GDMT Switch to p.o. Lasix in the morning Continue other current measures Will be evaluated by Dr. Saab in the morning PDMP PDMP Reviewed: Not Reviewed Attestations 2 Medical Necessity Statement*: Deferred to the primary Coding Level of Care Code 68335 Diagnoses Elevated troponin R79.89 Acute on chronic systolic congestive heart failure I50.23 Heart failure chronicity: acute on chronic Heart failure type: systolic Essential hypertension I10 Morbid obesity E66.01 Recent myocardial infarction of anterior wall
[2025-07-24] MEDS: metoprolol succinate ER (24 HR) 25 mg Tablet PO (09:27)
[2025-07-24] MEDS: FUROsemide 10 mg/mL SDV 4mL 40 MG IVP ×2 (09:27→21:45)
[2025-07-24 10:46] LABS: Partial Thromboplastin Time 47.3 SECONDS (23.9-36.7)
--- NOTE | 2025-07-24 11:05 | ECG_ITS ---
[facility] Date: 2025-07-24 Pat Name: Ward Chung Department: Room: 107 Gender: Male Limited Radiology Technician: : 1960 Requested By: Mercedes Grace Order Number: [id number] Tanisha MD: Nelson Anna M.D. Measurements Intervals [place] Rate: 74 P: -11 [place]: 252 QRS: -59 QRSD: 106 T: 145 QT: 434 QTc: 482 Interpretive Statements SINUS RHYTHM WITH FIRST DEGREE AV BLOCK LOW QRS VOLTAGE IN PRECORDIAL LEADS [QRS DEFLECTION < 1.0 mV IN CHEST LEADS] ANTERIOR MYOCARDIAL INFARCTION , PROBABLY RECENT [40+ ms Q WAVE AND/OR ST/T ABNORMALITY IN V3/V4] INFERIOR MYOCARDIAL INFARCTION , OF INDETERMINATE AGE [40+ ms Q WAVE AND/OR ST/T ABNORMALITY IN II/aVF] ACUTE [place] Compared to ECG 07/22/2025 17:27:02 Sinus arrhythmia no longer present T-wave abnormality no longer present Possible ischemia no longer present Myocardial infarct finding still present Electronically Signed On 07-24-2025 18:17:18 CDT by Nelson Anna M.D. [email or web address]
[2025-07-24 11:45] LABS: Troponin T (5th) Once 63 ng/L (0-15)
[2025-07-24] MEDS: heparin 5,000 unit/mL INJ 1 mL IVP (12:22)
--- NOTE | 2025-07-24 12:23 | P.PN_ITS ---
Subjective 2 Subjective: sats stable on RA reported chest pain to staff, denied during encounter had questions about fluid restriction Vitals/I&O/Wt Last Vital Signs Temp 97.6 F 07/24/25 07:32 Pulse 68 07/24/25 11:54 Resp 25 H 07/24/25 11:54 BP 146/112 07/24/25 11:54 Pulse Ox 99 07/24/25 11:54 O2 Del Method Room Air 07/24/25 07:42 O2 Flow Rate 3 07/23/25 08:40 07/23/25 07/24/25 07/24/25 22:59 06:59 14:59 Intake Total 913.25 / 1488.667 384.60 / 1873.267 632.25 / 632.25 Output Total 1725 / 2525 450 / 2975 1550 / 1550 Balance -811.75 / -1036.333 -65.40 / -1101.733 -917.75 / -917.75 Weight last 48 hrs Weight 347 lb 4.8 oz Weight 353 lb 8 oz Physical Exam 2 Const: COMMON NORMALS: no acute distress and patient oriented x3 HENMT: COMMON NORMALS: normocephalic HEAD & SCALP: normocephalic Neck/C-Spine: COMMON NORMALS: no JVD Resp: COMMON NORMALS: normal respiratory effort, No retractions, No use of accessory muscles and clear to auscultation bilaterally AUSCULTATION: clear to auscultation bilaterally Cardio: COMMON NORMALS: no JVD, regular rate, regular rhythm, S1 normal heart sound present and S2 normal heart sound present RATE: regular rate RHYTHM: regular rhythm HEART SOUNDS: S1 normal heart sound present and S2 normal heart sound present GI: COMMON NORMALS: Normal to inspection, nondistended, normoactive bowel sounds present, Soft to palpation and non-tender PALPATION: Yes Soft to palpation : COMMON NORMALS: Yes no CVA tenderness BLADDER/KIDNEY EXAM: Yes no CVA tenderness Back/Pelvis: COMMON NORMALS: no CVA tenderness Extremity: COMMON NORMALS: no calf tenderness OTHER: 2+ edema Neuro: COMMON NORMALS: patient oriented x3, CN's II-XII intact bilaterally and moves all extremities Psych: COMMON NORMALS: mental status grossly normal Data 07/24/25 04:11 07/24/25 04:11 A&P Assessment and plan 1. Essential hypertension: 2. Acute on chronic systolic heart failure: 3. STEMI (ST elevation myocardial infarction): 4. Morbid obesity: Plan: 1. Hypertension: 2. CHF (congestive heart failure): 3. Coronary artery disease status post coronary stent insertion: 4. STEMI (ST elevation myocardial infarction): Plan: 1. Coronary artery disease status post coronary stent insertion: 2. Morbid obesity: 3. Hypertension: 4. Right flank pain: 5. Chest pain: 6. CHF (congestive heart failure): Plan: Chest pain, NSTEMI - Recent history of STEMI 07/13 - Cardiac cath 1. Total thrombotic occlusion of proximal LAD stent status post successful revascularization with 1 stent.. 2. Patient was intubated at the beginning of the procedure as he was in pulmonary edema could not lay down. 3. Proximal Left Anterior Descending was treated with a Balloon, Balloon, Balloon, Drug Eluting Stent, and Balloon. - Compliant with aspirin, Plavix Plan - heparin drip --> messaged cardiology about stopping - Aspirin, statin, Plavix - echo - cardiology consult (continue diuresis, appreciate recs including adding spirinolactone, and jardiance Ischemic cardiomyopathy, systolic CHF - 2+ pitting edema - Shortness of breath - Hypoxia -BNP 2700 Plan - Lasix 40 IV twice daily Full code PDMP PDMP Reviewed: Not Reviewed Attestations 2 Medical Necessity Statement*: treatment of fluid overload Coding Level of Care Code 24552 Diagnoses Essential hypertension I10 Acute on chronic systolic heart failure I50.23 Heart failure type: systolic Heart failure chronicity: acute on chronic STEMI (ST elevation myocardial infarction) I21.3 Morbid obesity E66.01
[2025-07-24 19:18] LABS: Partial Thromboplastin Time 62.1 SECONDS (23.9-36.7)
[2025-07-24] MEDS: heparin drip 25,000 UNIT/500 ML PREMIX 24 UNIT IV (21:32)
[2025-07-24] MEDS: morphine 4 mg/mL SDV 1 mL 2 MG IVP (21:45)
[2025-07-25] VITALS (7 sets, daily range): BP systolic 107–160; BP diastolic 56–99; PULSE 63–85; RESP 16–24; TEMP 36.1–37.1; O2SAT 93–97
[2025-07-25 00:33] LABS: Partial Thromboplastin Time 56.0 SECONDS (23.9-36.7)
--- NOTE | 2025-07-25 02:59 | PC.NURSE ---
Contacted because patients heart rate was dipping down to 45 while he was sleeping. Patient is not symptomatic, and heart rate comes up while he is awake. No new orders given, just to monitor.
[2025-07-25] MEDS: pantoprazole 40 mg SDV IVP (05:39)
[2025-07-25 07:18] LABS: Partial Thromboplastin Time 62.9 SECONDS (23.9-36.7)
[2025-07-25] MEDS: FUROsemide 10 mg/mL SDV 4mL 40 MG IVP (08:29)
[2025-07-25] MEDS: metoprolol succinate ER (24 HR) 25 mg Tablet PO (08:30)
--- NOTE | 2025-07-25 09:35 | P.PN_ITS ---
<Statement entered by Amberly Saab MD - 07/26/25 20:09> Patient was evaluated and cared for in conjunction with an advanced practice practitioner. I personally examined the patient and reviewed the chart and all pertinent data including imaging, telemetry, and laboratory results. I discussed the patient in detail with the advanced practice practitioner. Please see their note for complete H&P testing result and agreed upon plan of care for the patient. Subjective 2 Subjective: Assumed care from Dr. Wilfrido hoffman. His shortness of breath is improved after diuresis. Vitals/I&O/Wt Last Vital Signs Temp 97.0 F L 07/25/25 11:38 Pulse 85 07/25/25 13:29 Resp 20 H 07/25/25 13:29 BP 153/85 07/25/25 13:29 Pulse Ox 94 07/25/25 13:29 O2 Del Method Room Air 07/25/25 11:38 O2 Flow Rate 3 07/23/25 08:40 07/24/25 07/25/25 07/25/25 22:59 06:59 14:59 Intake Total 500.75 / 2037.00 544 / 2037.00 393.2 / 393.2 Output Total 700 / 3850 1150 / 3850 Balance -199.25 / -1813.00 -606 / -1813.00 393.2 / 393.2 Weight last 48 hrs Weight 345 lb 12.8 oz Weight 347 lb 4.8 oz Physical Exam 2 Const: COMMON NORMALS: no acute distress and patient oriented x3 GENERAL APPEARANCE: cooperative and comfortable ORIENTATION/CONSCIOUSNESS: Yes awake, Yes oriented to person, Yes oriented to place and Yes oriented to time Chest: COMMONS NORMALS: normal inspection of the chest and normal palpation of entire chest wall CHEST: Yes Symmetrical chest wall rise Resp: COMMON NORMALS: normal respiratory effort, No retractions, No use of accessory muscles and clear to auscultation bilaterally EFFORT & INSPECTION: Yes symmetric chest movement AUSCULTATION: clear to auscultation bilaterally Cardio: COMMON NORMALS: regular rate, regular rhythm, S1 normal heart sound present, S2 normal heart sound present, No gallops present (Cardio), No clicks present (Cardio), No murmurs present (Cardio) and No rub (Cardio) RATE: r egular rate RHYTHM: regular rhythm HEART SOUNDS: S1 normal heart sound present and S2 normal heart sound present PERIPHERAL PULSES: radial pulses present Extremity: GENERAL: Yes edema (2+ pitting edema lower extremity bilaterally below the knee) Neuro: COMMON NORMALS: patient oriented x3 and moves all extremities S ENSORIUM/ORIENTATION: Yes oriented to person, Yes oriented to place and Yes oriented to time Data 07/24/25 04:11 07/24/25 04:11 A&P Assessment and plan 1. Elevated troponin: 2. Acute on chronic systolic congestive heart failure: 3. Essential hypertension: 4. Morbid obesity: 5. Recent myocardial infarction of anterior wall: Plan: He has diuresed well, symptoms have improved and he is stable for discharge home today. Continue aspirin, Plavix, statin. He is on Entresto, metoprolol succinate, spironolactone, Lasix for CHF. Follow-up in the cardiology clinic in 2 weeks, keep established appointment in September with Dr. Saab. PDMP PDMP Reviewed: Not Reviewed Attestations 2 Medical Necessity Statement*: Discharge home today Coding Level of Care Code Acute Code for g Fwd Diagnoses Elevated troponin R79.89 Acute on chronic systolic congestive heart failure I50.23 Heart failure type: systolic Heart failure chronicity: acute on chronic Essential hypertension I10 Morbid obesity E66.01 Recent myocardial infarction of anterior wall
--- NOTE | 2025-07-25 12:39 | P.PN_ITS ---
Subjective 2 Subjective: reported some chest pain and felt frustrated yesterday tolerating medication Vitals/I&O/Wt Last Vital Signs Temp 97.0 F L 07/25/25 11:38 Pulse 75 07/25/25 11:38 Resp 24 H 07/25/25 11:38 BP 139/69 07/25/25 11:38 Pulse Ox 96 07/25/25 11:38 O2 Del Method Room Air 07/25/25 11:38 O2 Flow Rate 3 07/23/25 08:40 07/24/25 07/25/25 07/25/25 22:59 06:59 14:59 Intake Total 500.75 / 1493.00 544 / 2037.00 393.2 / 393.2 Output Total 700 / 2700 1150 / 3850 Balance -199.25 / -1207.00 -606 / -1813.00 393.2 / 393.2 Weight last 48 hrs Weight 345 lb 12.8 oz Weight 347 lb 4.8 oz Physical Exam 2 Const: COMMON NORMALS: no acute distress and patient oriented x3 HENMT: COMMON NORMALS: normocephalic HEAD & SCALP: normocephalic Neck/C-Spine: COMMON NORMALS: no JVD Resp: COMMON NORMALS: normal respiratory effort, No retractions, No use of accessory muscles and clear to auscultation bilaterally AUSCULTATION: clear to auscultation bilaterally Cardio: COMMON NORMALS: no JVD, regular rate, regular rhythm, S1 normal heart sound present and S2 normal heart sound present RATE: regular rate RHYTHM: regular rhythm HEART SOUNDS: S1 normal heart sound present and S2 normal heart sound present GI: COMMON NORMALS: Normal to inspection, nondistended, normoactive bowel sounds present, Soft to palpation and non-tender PALPATION: Yes Soft to palpation : COMMON NORMALS: Yes no CVA tenderness BLADDER/KIDNEY EXAM: Yes no CVA tenderness Back/Pelvis: COMMON NORMALS: no CVA tenderness Extremity: COMMON NORMALS: no calf tenderness OTHER: 2+ edema Neuro: COMMON NORMALS: patient oriented x3, CN's II-XII intact bilaterally and moves all extremities Psych: COMMON NORMALS: mental status grossly normal Data 07/24/25 04:11 07/24/25 04:11 A&P Assessment and plan 1. Essential hypertension: 2. Acute on chronic systolic heart failure: 3. STEMI (ST elevation myocardial infarction): 4. Morbid obesity: Plan: 1. Hypertension: 2. CHF (congestive heart failure): 3. Coronary artery disease status post coronary stent insertion: 4. STEMI (ST elevation myocardial infarction): Plan: 1. Coronary artery disease status post coronary stent insertion: 2. Morbid obesity: 3. Hypertension: 4. Right flank pain: 5. Chest pain: 6. CHF (congestive heart failure): Plan: Chest pain, NSTEMI - Recent history of STEMI 07/13 - Cardiac cath 1. Total thrombotic occlusion of proximal LAD stent status post successful revascularization with 1 stent.. 2. Patient was intubated at the beginning of the procedure as he was in pulmonary edema could not lay down. 3. Proximal Left Anterior Descending was treated with a Balloon, Balloon, Balloon, Drug Eluting Stent, and Balloon. - Compliant with aspirin, Plavix Plan - heparin drip stopped - Aspirin, statin, Plavix - echo - cardiology consult (continue diuresis, appreciate recs including adding spirinolactone, and jardiance Ischemic cardiomyopathy, systolic CHF - 2+ pitting edema - Shortness of breath - Hypoxia -BNP 2700 Plan - Lasix 40 IV twice daily dispo:may need placement for safety Full code PDMP PDMP Reviewed: Not Reviewed Attestations 2 Medical Necessity Statement*: diuresis may need placement Coding Level of Care Code 28451 Diagnoses Essential hypertension I10 Acute on chronic systolic heart failure I50.23 Heart failure chronicity: acute on chronic Heart failure type: systolic STEMI (ST elevation myocardial infarction) I21.3 Morbid obesity E66.01
--- NOTE | 2025-07-25 13:20 | P.DS_ITS ---
Discharge Providers Date of Admission: 07/22/25 06:00 Date of Discharge: July 25, 2025 Attending Provider at Admission: Narinder Richardson MD Attending Provider at Discharge: Mercedes Grace MD Primary Care Provider: Demetri Hardin Diagnoses at Discharge Discharge Diagnosis 1. Essential hypertension: 2. Acute on chronic systolic heart failure: 3. STEMI (ST elevation myocardial infarction): 4. Morbid obesity: Reason for Visit Reason for Visit: Non stemil cp Hospital Course Hospital Course H&P Ward Chung is a 64 year old male with a past medical history of CAD, status post stenting, history of ischemic cardiomyopathy, hypertension, hyperlipidemia, morbid obesity, who presents [facility] due to to a transfer from [facility] due to complaints of right flank pain, chest pain, shortness of breath, edema. Currently patient is alert oriented x 3, f ollowing all commands, he does not have chest pain currently, but does complain of chest pain which she feels is radiating to his back, he does have edema, does report shortness of breath, no fevers, no chills, no cough he does also report that what brought him to the emergency room was actually right flank pain, no dysuria, no hematuria, of kidney stones in the past, but denies passing a kidney stone, he has urinalysis [facility] did not show any blood in the urine, no evidence of UTI Course: He was recently diagnosed with a non-STEMI. s.p received a stent. During this hospitalization he was placed on a heparin drip. Also continued aspirin statin and Plavix. [employer] consulted. Echo was reviewed. Oxygen was weaned. He was diuresed. Lasix was transitioned to home dose. Spironolactone was also added. Chronic condition addressed. There is also some concern home safety. This was discussed with case management. He was discharged in stable condition Physical Exam Const: COMMON NORMALS: no acute distress and patient oriented x3 HENMT: COMMON NORMALS: normocephalic HEAD & SCALP: normocephalic Neck/C-Spine: COMMON NORMALS: no JVD Resp: COMMON NORMALS: normal respiratory effort, No retractions, No use of accessory muscles and clear to auscultation bilaterally AUSCULTATION: clear to auscultation bilaterally Cardio: COMMON NORMALS: no JVD, regular rate, regular rhythm, S1 normal heart sound present and S2 normal heart sound present RATE: regular rate RHYTHM: regular rhythm HEART SOUNDS: S1 normal heart sound present and S2 normal heart sound present GI: COMMON NORMALS: Normal to inspection, nondistended, normoactive bowel sounds present, Soft to palpation and non-tender PALPATION: Yes Soft to palpation : COMMON NORMALS: Yes no CVA tenderness BLADDER/KIDNEY EXAM: Yes no CVA tenderness Back/Pelvis: COMMON NORMALS: no CVA tenderness Extremity: COMMON NORMALS: no calf tenderness OTHER: 2+ edema Neuro: COMMON NORMALS: patient oriented x3, CN's II-XII intact bilaterally and moves all extremities Psych: COMMON NORMALS: mental status grossly normal Discharge Data Studies Completed and Pending Completed Studies During Hospitalization Category Date Time Status CT abdomen pelvis wo con [id number] Routine Cat Scan 07/22/25 06:49 Completed CV. echo wo/w contrast [id number] Routine Ultrasound 07/22/25 06:04 Completed Pending at discharge Category Date Time Status Blood Culture Stat Lab 07/22/25 06:38 Results Radiology Impressions Abdomen/Pelvis CT 07/22/25 06:49 IMPRESSION: No acute abdominopelvic findings. COMMENTS: Consistent with the [employer]'s Incidental Findings Committee white paper (J Am Yury Radiol 2018): Any incidental renal lesion less than 1 cm or classified as too small to characterize, or any incidental cystic renal lesion characterized as simple-appearing, is likely benign. No follow-up imaging is recommended for these lesions per consensus recommendations based on imaging criteria. Laboratory Results WBC 7.29 10^3/uL (3.29-11.43) 07/24/25 04:11 RBC 4.44 10^6/uL (3.85-5.65) 07/24/25 04:11 Hgb 12.30 g/dL (11.27-16.99) 07/24/25 04:11 Hct 38.3 % (37-53) 07/24/25 04:11 MCV 86.3 fl (82-101) 07/24/25 04:11 MCH 27.7 pg (27-33) 07/24/25 04:11 MCHC 32.1 g/dL (30-55) D 07/24/25 04:11 RDW 15.6 % (12.1-15.1) H 07/24/25 04:11 Plt Count 173 10^3/cmm (157-399) 07/24/25 04:11 MPV 11.8 fL (7.4-10.4) H 07/24/25 04:11 Neut % (Auto) 60.3 % 07/24/25 04:11 Lymph % (Auto) 28.1 % 07/24/25 04:11 Barren % (Auto) 6.6 % 07/24/25 04:11 Eos % (Auto) 4.5 % 07/24/25 04:11 Baso % (Auto) 0.4 % 07/24/25 04:11 Neut # (Auto) 4.39 10^3/uL (1.8-7.7) 07/24/25 04:11 Lymph # (Auto) 2.1 10^3/uL (0.8-4.8) 07/24/25 04:11 Barren # (Auto) 0.5 10^3/uL (0.2-0.9) 07/24/25 04:11 Eos # (Auto) 0.3 10^3/uL (0.0-0.8) 07/24/25 04:11 Baso # (Auto) 0.0 10^3/uL (0.0-0.1) 07/24/25 04:11 Nucleated RBC % (auto) 0 % 07/24/25 04:11 Nucleated RBCs # 0.0 /100WBC 07/24/25 04:11 APTT 62.9 SECONDS (23.9-36.7) H 07/25/25 07:01 Sodium 136 mmol/L (136-145) 07/24/25 04:11 Potassium 4.3 mmol/L (3.5-5.1) 07/24/25 04:11 Chloride 99 mmol/L (98-107) 07/24/25 04:11 Carbon Dioxide 30 mmol/L (22-29) H 07/24/25 04:11 Anion Gap 11.3 (5-19) 07/24/25 04:11 BUN 26 mg/dL (8-23) H 07/24/25 04:11 Creatinine 1.2 mg/dL (0.7-1.2) 07/24/25 04:11 GFR Calculation 60.6 mL/min (90-130) L 07/24/25 04:11 Glucose 103 mg/dL (65-115) 07/24/25 04:11 Estimat Average Glucose 143 07/22/25 06:35 Hemoglobin A1c 6.6 % (4.0-6.0) H 07/22/25 06:35 Calculated Osmolality 287 mOsm/kg (285-295) 07/24/25 04:11 Lactic Acid 2.0 mmol/L (0.5-2.2) 07/22/25 06:35 Calcium 8.6 mg/dL (8.5-10.5) 07/24/25 04:11 Total Bilirubin 0.7 mg/dL (0.15-1.2) 07/24/25 04:11 AST 15 U/L (0-40) 07/24/25 04:11 ALT 13 U/L (0-41) 07/24/25 04:11 Alkaline Phosphatase 102 U/L (40-130) 07/24/25 04:11 Troponin T 5th Gen ng/L 63 ng/L (0-15) H 07/24/25 11:12 Troponin T Baseline 82 ng/L (0-15) H 07/22/25 12:51 Troponin T 120 Minute 86.81 ng/L (0-15) H 07/22/25 15:40 Delta Troponin T 4.81 ABS# (0-10) 07/22/25 15:40 Troponin T Hi Sens 6Hr 77.93 ng/L (0-15) H 07/22/25 18:57 Troponin T Hi Sens 6Hr Delta -4.07 ng/L (0-12) L 07/22/25 18:57 C-Reactive Protein 12.2 mg/L (0.0-4.9) H 07/22/25 06:35 NT-Pro-B Natriuret Pep 2891 pg/mL (0-125) H 07/22/25 06:35 Total Protein 6.8 g/dL (6.6-8.7) 07/24/25 04:11 Albumin 3.9 g/dL (3.5-5.2) 07/24/25 04:11 Globulin 2.9 g/dL (1.3-4.6) 07/24/25 04:11 Triglycerides 128 mg/dL (0-150) 07/22/25 06:35 Cholesterol 141 mg/dL (0-200) 07/22/25 06:35 LDL Cholesterol, Calc 79 mg/dL (50-129) 07/22/25 06:35 HDL Cholesterol 36 mg/dL (60-100) L 07/22/25 06:35 LDL/HDL Ratio 2.19 RATIO (0.00-3.22) 07/22/25 06:35 Cholesterol/HDL Ratio 3.92 mg/dL (1.0-5.00) 07/22/25 06:35 Procalcitonin 0.07 ng/mL (0-0.5) 07/22/25 06:35 TSH 9.71 uIU/mL (0.27-4.20) H 07/22/25 06:35 Urine Color Yellow (Yellow) 07/22/25 07:00 Urine Appearance Clear (CLEAR) 07/22/25 07:00 Urine pH 6.5 (5-7) 07/22/25 07:00 Ur Specific [place] 1.008 (1.005-1.030) 07/22/25 07:00 Urine Protein Negative (Negative) 07/22/25 07:00 Urine Glucose (UA) Negative (Normal) 07/22/25 07:00 Urine Ketones Negative (Negative) 07/22/25 07:00 Urine Blood Negative (Negative) 07/22/25 07:00 Urine Nitrate Negative (Negative) 07/22/25 07:00 Urine Bilirubin Negative (Negative) 07/22/25 07:00 Urine Urobilinogen 1.0 mg/dL (Negative) 07/22/25 07:00 Ur Leukocyte Esterase Negative (Negative) 07/22/25 07:00 Urine RBC 0-2 /hpf (0-2) 07/22/25 07:00 Urine WBC 0-5 /hpf (0-5) 07/22/25 07:00 Ur Squamous Epith Cells 0-5 /hpf (0-5) 07/22/25 07:00 Amorphous Sediment Not Reportable 07/22/25 07:00 Urine Bacteria None seen /hpf (NONE) 07/22/25 07:00 Hyaline Casts 0-4 /lpf H 07/22/25 07:00 Vitals Last Vital Signs Temp 97.0 F L 07/25/25 11:38 Pulse 75 07/25/25 11:38 Resp 24 H 07/25/25 11:38 BP 139/69 07/25/25 11:38 Pulse Ox 96 07/25/25 11:38 O2 Del Method Room Air 07/25/25 11:38 O2 Flow Rate 3 07/23/25 08:40 Discharge Plan Discharge Patient Disposition: Home Condition: Stable Prescriptions: New spironolactone 25 mg Tablet 25 mg PO DAILY Qty: 30 0RF Continued nitroglycerin 0.4 mg tablet, sublingual 0.4 mg sublingual Q5M PRN (Reason: HEART PAIN) Rx Instructions: do not exceed 3 doses per episode gabapentin 300 mg capsule 300 mg PO TID atorvastatin 40 mg tablet 40 mg PO DAILY budesonide-formoterol [Symbicort] 80-4.5 mcg/actuation HFA aerosol inhaler 2 puff inhalation BID sacubitril-valsartan [Entresto] 24-26 mg tablet 1 tab PO BID Qty: 180 3RF clotrimazole-betamethasone 1-0.05 % cream 1 applic TOPICAL BID allopurinol 300 mg tablet 300 mg PO DAILY albuterol sulfate 90 mcg/actuation HFA aerosol inhaler 2 puff INHALATION Q4H PRN (Reason: Shortness Of Breath Or Wheezing) colchicine 0.6 mg tablet See Rx Instructions .ROUTE .COMPLEX Rx Instructions: 0.6 mg orally ;TAKE 1 TABLET BY MOUTH ONCE DAILY NEEDED AT ONSET OF GOUT FLARE UNTIL SYMPTOMS RESOLVE. clopidogrel 75 mg Tablet 75 mg PO DAILY Qty: 90 3RF docusate sodium 100 mg Capsule 100 mg PO DAILY Qty: 30 0RF aspirin 81 mg tablet 81 mg PO DAILY Qty: 90 3RF famotidine 20 mg Tablet 40 mg PO BID Qty: 60 0RF losartan 50 mg tablet 50 mg PO DAILY tamsulosin 0.4 mg capsule 0.4 mg PO QPM metoprolol succinate 25 mg tablet extended release 24 hr 25 mg PO DAILY potassium chloride 20 mEq tablet extended release 20 meq PO DAILY furosemide [Lasix] 40 mg tablet 60 mg PO DAILY Discontinued meloxicam 15 mg tablet 15 mg PO DAILY Discharge Order = DC NOW: Discharge Order (Routine); Ordered 07/25/25 Ordered By: Mercedes Grace Referrals: Demetri Hardin [Primary Care Provider, Family Practice] - 07/31/25 2:40 pm Patient Instructions: Spironolactone (By mouth), Opioid Safety, Patient Portal & Luna Instructions Discharge Attestations Time Spent in Discharge Care*: greater than 30 min Quality Metrics Clinical Quality Measures [ Acute Myocardial Infaction { Clinical Trial Participant: No; Contraindication to aspirin: None; Aspirin prescribed; Contraindication to statin: None; Statin prescribed;}. No reported AMI, CVA or VTE this stay] Coding Level of Care Code 57075 Diagnoses Essential hypertension I10 Acute on chronic systolic heart failure I50.23 Heart failure type: systolic Heart failure chronicity: acute on chronic STEMI (ST elevation myocardial infarction) I21.3 Morbid obesity E66.01
--- NOTE | 2025-07-25 14:36 | PC.NURSE ---
pt's sister visited pt today.pulled this nurse aside.stated that she wishes her brother could go to a nursing facility.states he is unable to care for himself.states he lives in a travel trailer alone...no running water...no electricity...and part of the trailer floor is falling through.Pt does not have a dpoa...and he has refused to go to nursing facility.pt's sister stated she does not feel comfortable calling the elderly abuse hotline herself.nurse stated that she will make the call.Sister states she just cant care for her brother,as her just passed..and she is sole care for 2 small grandchildren.
--- NOTE | 2025-07-25 14:51 | PC.NURSE ---
[facility] elderly abuse hotline notified of concerns
== END 2025-07-25 14:30 | disposition home or self-care (01) | DRG 280 ==
LOC: ICU 07-23 08:38 → CSU 07-23 17:34
PROVIDERS: Internal Medicine; Internal Medicine Cardiovascular Disease; Student in an Organized Health Care Education/Training Program; Admitting Provider Family Medicine; PCP Family Medicine; Visit Provider Internal Medicine
DX: I11.0 Hypertensive heart disease with heart failure (principal); I50.23 Acute on chronic systolic (congestive) heart failure; I21.09 ST elevation (STEMI) myocardial infarction involving other coronary artery of anterior wall; Z68.43 Body mass index [BMI] 50.0-59.9, adult; E66.01 Morbid (severe) obesity due to excess calories; I25.10 Atherosclerotic heart disease of native coronary artery without angina pectoris; I25.5 Ischemic cardiomyopathy; E78.5 Hyperlipidemia, unspecified; M79.7 Fibromyalgia; M10.9 Gout, unspecified; G47.30 Sleep apnea, unspecified; R07.9 Chest pain, unspecified; R79.89 Other specified abnormal findings of blood chemistry; I25.2 Old myocardial infarction; Z79.02 Long term (current) use of antithrombotics/antiplatelets; Z79.82 Long term (current) use of aspirin; Z95.5 Presence of coronary angioplasty implant and graft; Z87.891 Personal history of nicotine dependence
CPT/HCPCS: 36415; 74176; 80053; 80061; 81001; 83036; 83605; 83880; 84145; 84443; 84484; 85025; 85730; 86140; 87040; 93005; 94664; C8929; J1644; J1938; J2270; J2470; J9999

== ENCOUNTER 2025-10-18 08:09 | Inpatient (IN) | payer MEDICARE, MEDICAID, SELFPAY ==
[2025-10-18] VITALS (9 sets, daily range): BP systolic 95–141; BP diastolic 55–86; PULSE 71–88; RESP 18–25; TEMP 36.4–36.8; O2SAT 84–99
--- NOTE | 2025-10-18 08:28 | ECG_ITS ---
[employer] 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 Measurements Intervals [place] Rate: 74 P: 91 WA: 234 QRS: -37 QRSD: 140 T: 4 QT: 420 QTc: 468 Interpretive Statements SINUS RHYTHM WITH SINUS ARRHYTHMIA WITH FIRST DEGREE AV BLOCK LEFT AXIS DEVIATION [QRS AXIS < -30] RIGHT BUNDLE BRANCH BLOCK [120+ ms QRS DURATION, UPRIGHT V1, 40+ ms S IN I/aVL/V4/V5/V6] POSSIBLE ANTERIOR MYOCARDIAL INFARCTION , OF INDETERMINATE AGE [30 ms Q WAVE IN V3/V4, OR R < 0.2 mV IN V4] Possible old inferior wall LA Compared to ECG 07/24/2025 11:05:19 Left-axis deviation now present Right bundle-branch block now present Myocardial infarct finding still present Electronically Signed On 10-20-2025 14:16:38 RIP TAILER by Nelson Anna M.D. [email or web address]
--- NOTE | 2025-10-18 08:28 | XR_ITS ---
WS: [id number] XR chest 1V portable [id number] REASON FOR EXAM: dyspnea/cough FINDINGS: Compared to the examination of 07/02/2025, there are reticular interstitial and groundglass lung opacities in both lower lung pearce with mild peribronchial cuffing and bilateral pleural effusions. There is cardiomegaly. There is widening of the mediastinum which is most likely due to abundant mediastinal fat. XR/XR chest 1V portable [id number] IMPRESSION: Possible early congestive heart failure.
--- NOTE | 2025-10-18 08:37 | W.ED.CHESTPA ---
HPI - Chest Pain General: Chief Complaint: Chest Pain Stated Complaint: abd and chest pain Time Seen by Provider: 10/18/25 08:22 History of Present Illness: 65-year-old male presents emergency room complaining of chest and abdominal pain. He did take some aspirin last night his intermittent chest comfort he states it is more in his abdomen at this time. Patient is normally on 2 to 3 L. Associated symptoms: Deny abdominal pain, dyspnea or fever(s) Related Data Home Medications ?Medication ?Instructions ?Recorded ?Confirmed nitroglycerin 0.4 mg sublingual 0.4 mg sublingual Q5M PRN HEART 04/18/25 10/18/25 tablet PAIN albuterol sulfate 90 mcg/actuation 2 puff inhalation Q4H PRN 07/01/25 10/18/25 aerosol inhaler Shortness Of Breath Or Wheezing allopurinol 300 mg tablet 300 mg PO DAILY PRN gout flares 07/01/25 10/18/25 clotrimazole-betamethasone 1 1 applic topical BID DERMATITIS 07/01/25 10/18/25 %-0.05 % topical cream colchicine 0.6 mg tablet See Rx Instructions .Route 07/01/25 10/18/25 .COMPLEX onset of gout flare budesonide-formoterol HFA 80 2 puff inhalation BID 07/17/25 10/18/25 mcg-4.5 mcg/actuation aerosol inhaler (Symbicort) tamsulosin 0.4 mg capsule 0.4 mg PO QPM 07/22/25 10/18/25 ciprofloxacin HCl 500 mg tablet 500 mg PO BID 10/18/25 10/18/25 famotidine 20 mg tablet 20 mg PO BID 10/18/25 10/18/25 finasteride 5 mg tablet 5 mg PO DAILY 10/18/25 10/18/25 gabapentin 400 mg capsule See Rx Instructions .Route .COMPLEX 10/18/25 10/18/25 Previous Rx's ?Medication ?Instructions ?Recorded aspirin 81 mg tablet 81 mg PO DAILY #90 tabs 07/04/25 clopidogrel 75 mg tablet 75 mg PO DAILY #90 tabs 07/04/25 docusate sodium 100 mg capsule 100 mg PO DAILY #30 caps 07/04/25 sacubitril 24 mg-valsartan 26 mg 1 tab PO BID #180 tabs 07/17/25 tablet (Entresto) spironolactone 25 mg tablet 25 mg PO DAILY #30 tabs 07/25/25 atorvastatin 40 mg tablet 40 mg PO DAILY #90 tabs 09/13/25 furosemide 20 mg tablet (Lasix) 20 mg PO DAILY #90 tabs 09/13/25 potassium chloride 20 mEq 20 meq PO DAILY #90 tabs 09/13/25 tablet,extended release furosemide 40 mg tablet (Lasix) 40 mg PO DAILY #90 tabs 09/18/25 Allergies Allergy/AdvReac Type Severity Reaction Status Date / Time No Known Allergies Allergy Verified 07/17/25 15:47 Review of Systems Const: Denies: fever(s) or chills Card: Denies: chest pain Resp: Denies: dyspnea GI: Denies: abdominal pain : Denies: dysuria, urinary frequency or urinary urgency Musc: Denies: neck pain or back pain Skin/Breast: Denies: rash PFSH ED PFSH: Medical History Venous stasis Lymphedema Hypertension Fibromyalgia Gout Sleep apnea COPD (chronic obstructive pulmonary disease) Onychodystrophy Edema Venous insufficiency (chronic) (peripheral) Social History Smoking and tobacco/nicotine status: never used tobacco/nicotine Alcohol intake: never Physical Exam Const: COMMON NORMALS: no acute distress GENERAL APPEARANCE: cooperative and comfortable ORIENTATION/CONSCIOUSNESS: Yes awake, Yes oriented to person, Yes oriented to place and Yes oriented to time HENMT: COMMON NORMALS: normocephalic, atraumatic and hearing grossly normal bilaterally HEAD & SCALP: normocephalic and atraumatic Resp: COMMON NORMALS: normal respiratory effort, No retractions, No use of accessory muscles and clear to auscultation bilaterally AUSCULTATION: clear to auscultation bilaterally Cardio: COMMON NORMALS: regular rate, regular rhythm and No murmurs present (Cardio) RATE: regular rate RHYTHM: regular rhythm GI: COMMON NORMALS: Soft to palpation and No hepatosplenomegaly present AUSCULTATION: Yes normoactive bowel sounds PALPATION: Yes Soft to palpation, No Tenderness to palpation present (GI), No Guarding due to palpation present (GI) and Yes No hepatosplenomegaly present Extremity: COMMON NORMALS: normal to inspection, capillary refill normal, no clubbing, cyanosis or edema, no calf tenderness and no pedal edema Neuro: SENSORIUM/ORIENTATION: Yes oriented to person, Yes oriented to place and Yes oriented to time Skin: COMMON NORMALS: no rashes or lesions noted GENERAL SKIN EXAM: no rashes or lesions noted Course Vital Signs: Vital signs: Vital Signs Temperature 98.1 F 10/19/25 07:41 Pulse Rate 63 10/19/25 07:41 Respiratory Rate 19 H 10/19/25 07:41 Blood Pressure 97/58 10/19/25 07:41 Pulse Oximetry 91 10/19/25 07:41 Oxygen Delivery Me thod Nasal Cannula 10/19/25 07:41 Oxygen Flow Rate 3 10/18/25 23:05 MDM - Chest Pain Medical Decision Making Patient has hypoxia with worsening congestive heart failure known history of coronary artery disease chest x-ray shows increased signs of congestive heart failure. CTA of the chest is negative. CTA shows no evidence of PE. No infiltrates. Discussed with hospitalist will admit for congestive heart failure. Medical Records I reviewed the patient's medical records. Lab Data I reviewed the patient's lab results. 10/19/25 03:34 10/19/25 03:34 Radiology Impressions Chest X-Ray 10/18/25 08:28 IMPRESSION: Possible early congestive heart failure. Chest CTA 10/18/25 09:24 IMPRESSION: 1. No evidence of pulmonary embolus. 2. Cardiomegaly. Shallow inspiration. 3. Bilateral hazy groundglass opacities likely due to pulmonary edema. 4. Small RIGHT greater than LEFT pleural effusions with compressive atelectasis in the lung bases. Laboratory Results WBC 8.28 10^3/uL (3.29-11.43) 10/18/25 08:31 RBC 4.61 10^6/uL (3.85-5.65) 10/18/25 08:31 Hgb 12.70 g/dL (11.27-16.99) 10/18/25 08:31 Hct 40.7 % (37-53) 10/18/25 08:31 MCV 88.3 fl (82-101) 10/18/25 08:31 MCH 27.5 pg (27-33) 10/18/25 08:31 MCHC 31.2 g/dL (30-55) 10/18/25 08: RDW 14.6 % (12.1-15.1) 10/18/25 08:31 Plt Count 242 10^3/cmm (157-399) 10/18/25 08:31 MPV 11.1 fL (7.4-10.4) H 10/18/25 08:31 Neut % (Auto) 73.9 % 10/18/25 08: Lymph % (Auto) 15.9 % 10/18/25 08:31 [place] % (Auto) 7.2 % 10/18/25 08:31 Eos % (Auto) 2.4 % 10/18/25 08:31 Baso % (Auto) 0.2 % 10/18/25 08: Neut # (Auto) 6.11 10^3/uL (1.8-7.7) 10/18/25 08:31 Lymph # (Auto) 1.3 10^3/uL (0.8-4.8) 10/18/25 08:31 [place] # (Auto) 0.6 10^3/uL (0.2-0.9) 10/18/25 08:31 Eos # (Auto) 0.2 10^3/uL (0.0-0.8) 10/18/25 08:31 Baso # (Auto) 0.0 10^3/uL (0.0-0.1) 10/18/25 08:31 Nucleated RBC % (auto) 0 % 10/18/25 08:31 Nucleated RBCs # 0.0 /100WBC 10/18/25 08:31 Sodium 142 mmol/L (136-145) 10/18/25 08:31 Potassium 4.6 mmol/L (3.5-5.1) 10/18/25 08:31 Chloride 105 mmol/L (98-107) 10/18/25 08:31 Carbon Dioxide 28 mmol/L (22-29) 10/18/25 08:31 Anion Gap 13.6 (5-19) 10/18/25 08:31 BUN 19 mg/dL (8-23) 10/18/25 08:31 Creatinine 0.9 mg/dL (0.7-1.2) 10/18/25 08:31 GFR Calculation 84.2 mL/min (90-130) L 10/18/25 08:31 Glucose 130 mg/dL (65-115) H 10/18/25 08:31 Calculated Osmolality 298 mOsm/kg (285-295) H 10/18/25 08:31 Calcium 9.0 mg/dL (8.5-10.5) 10/18/25 08:31 Total Bilirubin 1.3 mg/dL (0.15-1.2) H 10/18/25 08:31 AST 11 U/L (0-40) 10/18/25 08:31 ALT 9 U/L (0-41) 10/18/25 08:31 Alkaline Phosphatase 89 U/L (40-130) 10/18/25 08:31 Troponin T Baseline 28 ng/L (0-15) H 10/18/25 08:31 Troponin T 120 Minute 25.22 ng/L (0-15) H 10/18/25 10:05 Delta Troponin T -2.78 ABS# (0-10) L 10/18/25 10:05 Total Protein 7.0 g/dL (6.6-8.7) 10/18/25 08:31 Albumin 3.8 g/dL (3.5-5.2) 10/18/25 08:31 Globulin 3.2 g/dL (1.3-4.6) 10/18/25 08:31 Lipase 33 U/L (13-60) 10/18/25 08:31 Urine Color Yellow (Yellow) 10/18/25 10:54 Urine Appearance Clear (CLEAR) 10/18/25 10:54 Urine pH 6.0 (5-7) 10/18/25 10:54 Ur Specific [place] 1.022 (1.005-1.030) 10/18/25 10:54 Urine Protein 1+ (Negative) A 10/18/25 10:54 Urine Glucose (UA) Negative (Normal) 10/18/25 10:54 Urine Ketones Negative (Negative) 10/18/25 10:54 Urine Blood Negative (Negative) 10/18/25 10:54 Urine Nitrate Negative (Negative) 10/18/25 10:54 Urine Bilirubin Negative (Negative) 10/18/25 10:54 Urine Urobilinogen 1.0 mg/dL (Negative) 10/18/25 10:54 Ur Leukocyte Esterase Negative (Negative) 10/18/25 10:54 Urine RBC 0-2 /hpf (0-2) 10/18/25 10:54 Urine WBC 0-5 /hpf (0-5) 10/18/25 10:54 Ur Squamous Epith Cells 0-5 /hpf (0-5) 10/18/25 10:54 Amorphous Sediment Not Reportable 10/18/25 10:54 Urine Bacteria None seen /hpf (NONE) 10/18/25 10:54 Hyaline Casts 1.65 /lpf 10/18/25 10:54 Influenza A (PCR) Negative (Negative) 10/18/25 09:30 Influenza Type B (PCR) Negative (Negative) 10/18/25 09:30 RSV (PCR) Negative (Negative) 10/18/25 09:30 SARS-CoV-2 (PCR) Negative (Negative) 10/18/25 09:30 All radiology interpretation(s) finalized by discharge ED provider radiology interpretation(s): Chest x-ray shows increased vascular markings. Consistent with congestive heart failure EKG Data EKG 1: I personally reviewed and interpreted this EKG as follows: Interpretation: EKG 1120 2025-07-16. Sinus rhythm rate of 74. [place] 234 QTc 468. Right bundle branch block no acute ST changes noted. Right bundle branch block is new compared to EKG from 07/24/2025 Discharge Plan Discharge Patient Disposition: Admitted As Inpatient Admit Provider: Narinder Richardson Clinical Impression: Acute on chronic systolic heart failure Hypertension Qualifiers: Hypertension type: primary hypertension Qualified Code(s): I10 - Essential (primary) hypertension Condition: Stable Coding Level of Care Code ED Bill Of Materials Clerk for Chg Fwd Heart Score HEART Score Components History: Slightly Suspicous EKG: Non-specific Changes Age: 65 or more yrs Risk Factors: >/=3 Risk Factors Troponin: Baseline Trop 16-45 ng/L HEART Score RESULT HEART Score: 6
[2025-10-18 08:40] LABS: Hematocrit 40.7 % (37-53); Hemoglobin 12.70 g/dL (11.27-16.99); Mean Corpuscular HGB Conc 31.2 g/dL (30-55); Mean Corpuscular Hemoglobin 27.5 pg (27-33); Mean Corpuscular Volume 88.3 fl (82-101); Nucleated Red Blood Cells % 0 %; Platelet Count 242 10^3/cmm (157-399); Red Blood Count 4.61 10^6/uL (3.85-5.65); White Blood Count 8.28 10^3/uL (3.29-11.43)
[2025-10-18 08:56] LABS: Troponin(5th) Baseline 28 ng/L (0-15)
[2025-10-18 09:03] LABS: Alanine Aminotransferase 9 U/L (0-41); Albumin Level 3.8 g/dL (3.5-5.2); Alkaline Phosphatase 89 U/L (40-130); Aspartate Amino Transferase 11 U/L (0-40); Blood Urea Nitrogen 19 mg/dL (8-23); Calcium 9.0 mg/dL (8.5-10.5); Carbon Dioxide 28 mmol/L (22-29); Chloride 105 mmol/L (98-107); Globulin 3.2 g/dL (1.3-4.6); Glucose 130 mg/dL (65-115); Lipase 33 U/L (13-60); Osmolality Calculated 298 mOsm/kg (285-295); Sodium 142 mmol/L (136-145); Total Protein 7.0 g/dL (6.6-8.7)
[2025-10-18 09:04] LABS: Anion Gap 13.6 (5-19); Potassium 4.6 mmol/L (3.5-5.1)
--- NOTE | 2025-10-18 09:24 | CT_ITS ---
WS: [id number] CTA OF THE CHEST WITH PULMONARY EMBOLISM PROTOCOL TECHNIQUE: High-resolution contrast enhanced CTA of the chest with coronal and sagittal reformatted images with pulmonary embolism protocol. MIP images are also reviewed. CLINICAL INFORMATION: Chest pain shortness of breath hemoptysis COMPARISON: None. DLP: 534.[address] scans at [facility] use at least one of these dose optimization techniques: automated exposure control; mA and/or kV adjustment per patient size (includes targeted exams where dose is matched to clinical indication); or iterative reconstruction. FINDINGS: Some images degraded by body habitus. Shallow inspiration. Cardiomegaly. Proximal pulmonary arteries are normal. Normal segmental pulmonary arteries. Distal most pulmonary arteries not well evaluated due to body habitus and beam hardening artifact. No evidence of pulmonary embolus. Small RIGHT greater than LEFT pleural effusions. Compressive atelectasis in the lung bases. Bilateral hazy groundglass opacities likely due to pulmonary edema. Normal caliber thoracic aorta. Coronary calcification. Hepatomegaly. Small esophageal hiatal hernia. Moderate thoracic kyphosis. Ankylosis thoracic spine. CT/CT angio chest PE protcl [id number] IMPRESSION: 1. No evidence of pulmonary embolus. 2. Cardiomegaly. Shallow inspiration. 3. Bilateral hazy groundglass opacities likely due to pulmonary edema. 4. Small RIGHT greater than LEFT pleural effusions with compressive atelectasi s in the lung bases.
[2025-10-18 10:21] LABS: Respiratory Syncytial Virus Ce NEGATIVE (Negative); SARS-CoV-2 PCR NEGATIVE (Negative)
[2025-10-18] MEDS: ondansetron 2 mg/ML SDV 2 mL 4 MG IVP (10:27)
[2025-10-18] MEDS: morphine 4 mg/mL SDV 1 mL IVP (10:28)
--- NOTE | 2025-10-18 10:28 | ECG_ITS ---
[facility] Test Date: 2025-10-18 Pat Name: Ward Chung Department: Room: Gender: Male Personal Service Representative: : 1960 Requested By: Bayron Calvo Order Number: [id number] Tanisha MD: Nelson Anna M.D. Measurements Intervals [place] Rate: 70 P: 0 AL: 0 QRS: -35 QRSD: 95 T: 118 QT: 411 QTc: 446 Interpretive Statements ATRIAL FIBRILLATION WITH ABERRANT CONDUCTION OR VENTRICULAR PREMATURE COMPLEXES LOW QRS VOLTAGE IN PRECORDIAL LEADS [QRS DEFLECTION < 1.0 mV IN CHEST LEADS] POSSIBLE ANTERIOR MYOCARDIAL INFARCTION , OF INDETERMINATE AGE [30 ms Q WAVE IN V3/V4, OR R < 0.2 mV IN V4] INFERIOR MYOCARDIAL INFARCTION , PROBABLY OLD [40+ ms Q WAVE AND/OR ST/T ABNORMALITY IN II/aVF] Compared to ECG 10/18/2025 08:18:28 Ventricular premature complex(es) now present Low QRS voltage now present.Sinus rhythm no longer present Sinus arrhythmia no longer present First degree AV block no longer present Left-axis deviation no longer present.Right bundle-branch block no longer present. Myocardial infarct finding still present Electronically Signed On 10-20-2025 14:30:03 TRENCH DIGGING MACHINE OPERATOR by Nelson Anna M.D. [email or web address] [id number]
[2025-10-18 10:29] LABS: Troponin 5 2HR 25.22 ng/L (0-15)
[2025-10-18 10:37] LABS: Troponin 5 2HR Delta -2.78 ABS# (0-10)
[2025-10-18] MEDS: iohexol 350 mg/mL 500 mL Btl (per mL) IV (10:51)
[2025-10-18 11:07] LABS: Glucose Urine UA Negative (Normal); Nitrate Urine Negative (Negative); Specific Gravity, Urine 1.022 (1.005-1.030)
[2025-10-18 11:12] LABS: Add Urine Microscopic? YES
--- NOTE | 2025-10-18 12:43 | PM.HP ---
Providers/Chief Complaint Primary Care Provider: Demetri Hardin Chief Complaint: abd and chest pain History of Present Illness Ward Chung is a 65 year old male with a past medical history of systolic and diastolic CHF, morbid obesity, CAD status post stenting, who presents to [facility] due to lower extremity edema, anasarca, abdominal distention, patient is alert oriented x 3, follow commands, does report shortness of breath, increased lower extreme edema, Anasarca, no chest pain, palpitations, no lightheadedness, no dizziness, no dysuria, no hematuria, no flank pain, has more abdominal distention and bloating, he is passing gas from below, but has not had a bowel movement in 48 hours, Review of Systems Const: Denies: fever(s) or chills Card: Denies: chest pain Resp: Reports: dyspnea GI: Denies: nausea or vomiting Medications/Allergies Home Medications ?Medication ?Instructions ?Recorded ?Confirmed ?Last Taken ?Type nitroglycerin 0.4 mg sublingual 0.4 mg sublingual Q5M PRN HEART 04/18/25 10/18/25 Unknown History tablet PAIN albuterol sulfate 90 mcg/actuation 2 puff inhalation Q4H PRN 07/01/25 10/18/25 Unknown History aerosol inhaler Shortness Of Breath Or Wheezing allopurinol 300 mg tablet 300 mg PO DAILY PRN gout flares 07/01/25 10/18/25 07/21/25 History clotrimazole-betamethasone 1 1 applic topical BID DERMATITIS 07/01/25 10/18/25 07/21/25 History %-0.05 % topical cream colchicine 0.6 mg tablet See Rx Instructions .Route 07/01/25 10/18/25 Unknown History .COMPLEX onset of gout flare aspirin 81 mg tablet 81 mg PO DAILY #90 tabs 07/04/25 10/18/25 10/18/25 Rx clopidogrel 75 mg tablet 75 mg PO DAILY #90 tabs 07/04/25 10/18/25 10/18/25 Rx docusate sodium 100 mg capsule 100 mg PO DAILY #30 caps 07/04/25 10/18/25 10/18/25 Rx budesonide-formoterol HFA 80 2 puff inhalation BID 07/17/25 10/18/25 10/18/25 History mcg-4.5 mcg/actuation aerosol inhaler (Symbicort) sacubitril 24 mg-valsartan 26 mg 1 tab PO BID #180 tabs 07/17/25 10/18/25 10/18/25 Rx tablet (Entresto) tamsulosin 0.4 mg capsule 0.4 mg PO QPM 07/22/25 10/18/25 10/17/25 History spironolactone 25 mg tablet 25 mg PO DAILY #30 tabs 07/25/25 10/18/25 10/18/25 Rx atorvastatin 40 mg tablet 40 mg PO DAILY #90 tabs 09/13/25 10/18/25 10/18/25 Rx furosemide 20 mg tablet (Lasix) 20 mg PO DAILY #90 tabs 09/13/25 10/18/25 10/18/25 Rx potassium chloride 20 mEq 20 meq PO DAILY #90 tabs 09/13/25 10/18/25 Unknown Rx tablet,extended release furosemide 40 mg tablet (Lasix) 40 mg PO DAILY #90 tabs 09/18/25 10/18/25 10/18/25 Rx ciprofloxacin HCl 500 mg tablet 500 mg PO BID 10/18/25 10/18/25 10/18/25 History famotidine 20 mg tablet 20 mg PO BID 10/18/25 10/18/25 10/18/25 History finasteride 5 mg tablet 5 mg PO DAILY 10/18/25 10/18/25 10/17/25 History gabapentin 400 mg capsule See Rx Instructions .Route .COMPLEX 10/18/25 10/18/25 10/18/25 History Allergies Allergy/AdvReac Type Severity Reaction Status Date / Time No Known Allergies Allergy Verified 07/17/25 15:47 PFSH Acute PFSH: Medical History Venous stasis Lymphedema Hypertension Fibromyalgia Gout Sleep apnea COPD (chronic obstructive pulmonary disease) Onychodystrophy Edema Venous insufficiency (chronic) (peripheral) Social History Smoking and tobacco/nicotine status: never used tobacco/nicotine Alcohol intake: never Vitals/I&O/Wt Last Vital Signs Temp 97.5 F L 10/18/25 08:11 Pulse 74 10/18/25 12:38 Resp 22 H 10/18/25 10:28 BP 101/66 10/18/25 12:38 Pulse Ox 90 10/18/25 12:38 O2 Del Method Nasal Cannula 10/18/25 12:38 O2 Flow Rate 3 10/18/25 12:38 Weight last 48 hrs Weight 154.221 kg Physical Exam Const: COMMON NORMALS: no acute distress and patient oriented x3 Resp: COMMON NORMALS: normal respiratory effort, No retractions, No use of accessory muscles and clear to auscultation bilaterally AUSCULTATION: crackles Cardio: COMMON NORMALS: regular rate, regular rhythm, S1 normal heart sound present and S2 normal heart sound present RATE: regular rate RHYTHM: regular rhythm HEART SOUNDS: S1 normal heart sound present and S2 normal heart sound present GI: OTHER: Abdomen soft, distended, scattered bowel sounds, no guarding, rebound, or rigidity, does have diffuse anasarca Extremity: NARRATIVE EXTREMITY EXAM: 3+ edema, anasarca Neuro: COMMON NORMALS: patient oriented x3, CN's II-XII intact bilaterally and moves all extremities Psych: COMMON NORMALS: mental status grossly normal Data 10/18/25 08:31 10/18/25 08:31 A&P Assessment and plan 1. Elevated troponin: 2. Acute on chronic systolic congestive heart failure: 3. Essential hypertension: 4. Morbid obesity: 5. Diabetes mellitus: 6. Benign prostate hyperplasia: 7. Acute hypoxic respiratory failure: Plan: Acute hypoxic respiratory failure - Secondary to systolic and diastolic CHF - Blood - Fluid restrictions of 1000 cc - Place Michele catheter - Lasix 40 IV twice daily with metolazone - Monitor urine output, monitor creatinine, order potassium - Full code - Lovenox for DVT prophylaxis Bilateral pleural effusions - Patient might require thoracentesis based on clinical progress History of CAD - Elevated troponins - No chest pain - Serial EKGs, serial troponins, telemetry monitoring Abdominal distention -Will do CT scan of the pelvis without, rest Type 2 diabetes mellitus, low-dose sliding scale PDMP PDMP Reviewed: Not Reviewed Attestations Medical Necessity Statement*: Patient requires position, inpatient, greater than 2 midnights for acute systolic CHF exacerbation, acute hypoxic respiratory failure Diagnoses Elevated troponin R79.89 Acute on chronic systolic congestive heart failure I50.23 Heart failure chronicity: acute on chronic Heart failure type: systolic Essential hypertension I10 Morbid obesity E66.01 Diabetes mellitus E11.9 Benign prostate hyperplasia N40.0 Acute hypoxic respiratory failure J96.01
--- NOTE | 2025-10-18 14:00 | PC.NURSE ---
Admit Note Patient admitted to room 105 from ER via wheelchair. Covering service notified. Patient presents with SOB, chf exac.. Orders reviewed & will continue to monitor. Patient and/or community health program representative oriented to environment, equipment, and informed of the following as found in the admission booklet: patient rights & responsibilities, visitor policy, hand and respiratory hygiene practice. Other education includes: Diurese. Patient and/or community health program representative reinforcement needed. call light provided to pt beside his recliner, provided with urinals, soaked his feet as he requested, informed pt that we can't trim his toenails as he requested due to policy.
[2025-10-18] MEDS: FUROsemide 10 mg/mL SDV 4mL 40 MG IVP (14:11)
[2025-10-18 14:58] LABS: Troponin 5 6HR 24.92 ng/L (0-15)
--- NOTE | 2025-10-18 15:00 | ECG_ITS ---
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 Measurements Intervals [place] Rate: 76 P: 11 NH: 226 QRS: -37 QRSD: 146 T: -37 QT: 431 QTc: 487 Interpretive Statements SINUS RHYTHM WITH SINUS ARRHYTHMIA WITH FIRST DEGREE AV BLOCK RIGHT BUNDLE BRANCH BLOCK [120+ ms QRS DURATION, UPRIGHT V1, 40+ ms S IN I/aVL/V4/V5/V6] ANTERIOR MYOCARDIAL INFARCTION , OF INDETERMINATE AGE [40+ ms Q WAVE AND/OR ST/T ABNORMALITY IN V3/V4] INFERIOR MYOCARDIAL INFARCTION , OF INDETERMINATE AGE [40+ ms Q WAVE AND/OR ST/T ABNORMALITY IN II/aVF] Compared to ECG 10/18/2025 11:40:55 First degree AV block now present. Right bundle-branch block now present Atrial fibrillation no longer present.Ventricular premature complex(es) no longer present. Aberrant conduction of supraventricular beat(s) no longer present, Myocardial infarct finding still present Electronically Signed On 10-20-2025 14:26:51 BROOMCORN SCRAPER by Nelson Anna M.D. [id number] [id number]
[2025-10-18 15:06] LABS: Troponin 5 6HR Delta -3.08 ng/L (0-12)
--- NOTE | 2025-10-18 15:43 | PC.NURSE ---
pt refused bryant catheter
--- NOTE | 2025-10-18 15:54 | PC.NURSE ---
pt stated he is not diabetic Informed pt that doctor here put him on low dose insulin shot. Pt stated unless my regular doctor tells me i am not diabetic but i don't want any shots.
[2025-10-18] MEDS: morphine 4 mg/mL SDV 1 mL 1 MG IVP (19:45)
[2025-10-19] VITALS (11 sets, daily range): BP systolic 94–112; BP diastolic 58–74; PULSE 63–83; RESP 17–23; TEMP 36.5–36.9; O2SAT 87–98
[2025-10-19] MEDS: FUROsemide 10 mg/mL SDV 4mL 40 MG IVP ×2 (02:00→12:21)
[2025-10-19] MEDS: morphine 4 mg/mL SDV 1 mL 1 MG IVP ×3 (02:00→21:52)
[2025-10-19 04:00] LABS: Hematocrit 41.1 % (37-53); Hemoglobin 12.60 g/dL (11.27-16.99); Mean Corpuscular HGB Conc 30.7 g/dL (30-55); Mean Corpuscular Hemoglobin 26.9 pg (27-33); Mean Corpuscular Volume 87.8 fl (82-101); Nucleated Red Blood Cells % 0 %; Platelet Count 244 10^3/cmm (157-399); Red Blood Count 4.68 10^6/uL (3.85-5.65); White Blood Count 7.49 10^3/uL (3.29-11.43)
[2025-10-19 04:34] LABS: Alanine Aminotransferase 12 U/L (0-41); Albumin Level 3.5 g/dL (3.5-5.2); Alkaline Phosphatase 93 U/L (40-130); Anion Gap 15.5 (5-19); Aspartate Amino Transferase 10 U/L (0-40); Blood Urea Nitrogen 22 mg/dL (8-23); Calcium 8.7 mg/dL (8.5-10.5); Carbon Dioxide 28 mmol/L (22-29); Chloride 103 mmol/L (98-107); Globulin 4.0 g/dL (1.3-4.6); Glucose 126 mg/dL (65-115); Osmolality Calculated 299 mOsm/kg (285-295); Potassium 4.5 mmol/L (3.5-5.1); Sodium 142 mmol/L (136-145); Total Protein 7.5 g/dL (6.6-8.7)
[2025-10-19 04:36] LABS: NT Pro B Type Natriuretic Pept 2207 pg/mL (0-125)
--- NOTE | 2025-10-19 14:17 | P.PN_ITS ---
Subjective 2 Subjective: Still feels like there is quite a bit of secretions or something in his lungs with that wound,, still having trouble catching a deep breath. Vitals/I&O/Wt Last Vital Signs Temp 98.2 F 10/19/25 11:55 Pulse 83 10/19/25 11:55 Resp 19 H 10/19/25 11:55 BP 112/74 10/19/25 11:55 Pulse Ox 87 L 10/19/25 13:26 O2 Del Method Nasal Cannula 10/19/25 11:55 O2 Flow Rate 2 10/19/25 13:26 10/18/25 10/19/25 10/19/25 22:59 06:59 14:59 Intake Total 720 / 720 Output Total 750 / 750 2950 / 3700 600 / 600 Balance -750 / -750 -2230 / -2980 -600 / -600 Weight last 48 hrs Weight 161.5 kg Weight 154.221 kg Physical Exam 2 Narrative: Sitting up at bedside. Accompanied by sister. Being visited by piano case and bench assembler. Const: COMMON NORMALS: patient oriented x3 and alert GENERAL APPEARANCE: c ooperative ORIENTATION/CONSCIOUSNESS: Yes awake HENMT: COMMON NORMALS: oropharynx normal Neck/C-Spine: COMMON NORMALS: no JVD Resp: COMMON NORMALS: normal respiratory effort and clear to auscultation bilaterally AUSCULTATION: clear to auscultation bilaterally Cardio: COMMON NORMALS: no JVD, regular rhythm, S1 normal heart sound present, S2 normal heart sound present and No murmurs present (Cardio) RHYTHM: regular rhythm HEART SOUNDS: S1 normal heart sound present and S2 normal heart sound present GI: COMMON NORMALS: Normal to inspection, nondistended, normoactive bowel sounds present, Soft to palpation and non-tender PALPATION: Yes Soft to palpation Extremity: COMMON NORMALS: no joint enlargement and no pedal edema OTHER: Chronic bilateral lower extremity venous stasis changes with chronic hemosiderosis, dermatitis. No weeping. No erythema, warmth, tenderness to suggest infection. Neuro: COMMON NORMALS: patient oriented x3 and moves all extremities S ENSORIUM/ORIENTATION: Yes alert Skin: COMMON NORMALS: no rashes or lesions noted GENERAL SKIN EXAM: no rashes or lesions noted Urinary Catheter Management: Michele: Cath Placed During This Visit: yes Reason for Continuing Indwelling Catheter: Accurate Measurement of Urinary Output in Critically Ill Patients Urinary Catheter Date of Insertion: 10/18/25 Urinary Catheter Time of Insertion: 23:16 Data 10/19/25 03:34 10/19/25 03:34 A&P Assessment and plan 1. Elevated troponin: 2. Acute on chronic systolic congestive heart failure: 3. Essential hypertension: 4. Morbid obesity: 5. Diabetes mellitus: 6. Benign prostate hyperplasia: 7. Acute hypoxic respiratory failure: Plan: Acute hypoxic respiratory failure: - Acute systolic and diastolic CHF, diuresing, and negative balance. Reviewed intake and output reviewed vitals, CBC, chemistry. Noted normal electrolytes. Reviewed renal function, tolerating diuresis so far. Continue IV diuretic for now, but as discussed does have also chronic venous stasis. Monitor for risk of dehydration, overdiuresis. Monitor for risk of electrolyte deficiency, arrhythmia with IV diuresis. He also notes that he feels like he has phlegm that needs to come off. Reviewed CTA, no noted signs of pneumonia. Added Mucinex, does have pleural effusions, possibly contributing to him having difficulty catching a deep breath. Added incentive spirometer, flutter valve. - Secondary to systolic and diastolic CHF - Continue IV diuretic as above - Continue to fluid restrictions of 1000 cc - Michele catheter - Lasix 40 IV twice daily with metolazone - Monitor urine output, monitor creatinine, order potassium - Full code - Added Lovenox for DVT prophylaxis. Discussed with nursing, piano case and bench assembler. Bilateral pleural effusions - Continue IV diuresis at this time. Currently no signs of infection. Will need follow-up. Will follow-up with chest ultrasound to assess amount of fluid. History of CAD - Elevated troponins - No chest pain - Serial EKGs, serial troponins, telemetry monitoring Abdominal distention: Abdominal exam benign. Continue diuresis. Reassess. Obtain ultrasound, assess for ascites. Type 2 diabetes mellitus, low-dose sliding scale. Reviewed blood glucose. Change diet to consist carb PDMP PDMP Reviewed: Not Reviewed Attestations 2 Medical Necessity Statement*: Continue admission for assessment of management of acute systolic and diastolic congestive heart failure. and High MDM includes amount and/or complexity of data reviewed/ordered [ resulted lab(s)/test(s), ordered lab(s)/test(s) and other healthcare professional discussion] and described risk of complication, morbidity or mortality of management as documented Diagnoses Elevated troponin R79.89 Acute on chronic systolic congestive heart failure I50.23 Heart failure type: systolic Heart failure chronicity: acute on chronic Essential hypertension I10 Morbid obesity E66.01 Diabetes mellitus E11.9 Benign prostate hyperplasia N40.0 Acute hypoxic respiratory failure J96.01
--- NOTE | 2025-10-19 14:22 | US_ITS ---
WS: [id number] Abdominal ultrasound, limited. History: Evaluate for ascites. Comparison: None. All 4 quadrants are imaged by ultrasound to evaluate for ascites. There is no peritoneal fluid identified. US/US abdomen lmt fluid [id number] IMPRESSION: No peritoneal ascites.
[2025-10-20] VITALS (10 sets, daily range): BP systolic 86–140; BP diastolic 60–92; PULSE 74–93; RESP 16–24; TEMP 36.2–36.8; O2SAT 90–95
[2025-10-20] MEDS: FUROsemide 10 mg/mL SDV 4mL 40 MG IVP ×2 (01:38→12:41)
[2025-10-20 04:51] LABS: Hematocrit 40.4 % (37-53); Hemoglobin 12.70 g/dL (11.27-16.99); Mean Corpuscular HGB Conc 31.4 g/dL (30-55); Mean Corpuscular Hemoglobin 26.8 pg (27-33); Mean Corpuscular Volume 85.4 fl (82-101); Nucleated Red Blood Cells % 0 %; Platelet Count 259 10^3/cmm (157-399); Red Blood Count 4.73 10^6/uL (3.85-5.65); White Blood Count 8.33 10^3/uL (3.29-11.43)
[2025-10-20] MEDS: polyethylene glycol 3350 Pkt 17 gm PO ×2 (04:59→17:00)
[2025-10-20] MEDS: morphine 4 mg/mL SDV 1 mL 1 MG IVP (05:00)
[2025-10-20 05:12] LABS: Alanine Aminotransferase 9 U/L (0-41); Albumin Level 3.8 g/dL (3.5-5.2); Alkaline Phosphatase 92 U/L (40-130); Anion Gap 15.4 (5-19); Aspartate Amino Transferase 10 U/L (0-40); Blood Urea Nitrogen 25 mg/dL (8-23); Calcium 9.1 mg/dL (8.5-10.5); Carbon Dioxide 29 mmol/L (22-29); Chloride 98 mmol/L (98-107); Globulin 3.3 g/dL (1.3-4.6); Glucose 105 mg/dL (65-115); Osmolality Calculated 291 mOsm/kg (285-295); Potassium 4.4 mmol/L (3.5-5.1); Sodium 138 mmol/L (136-145); Total Protein 7.1 g/dL (6.6-8.7)
[2025-10-20 05:28] LABS: NT Pro B Type Natriuretic Pept 1614 pg/mL (0-125)
--- NOTE | 2025-10-20 08:47 | P.PN_ITS ---
Subjective 2 Subjective: She has been coughing with blood but not much phlegm coming up. Still feels tight with inspiration limiting the depth of his breaths. Abdominal and scrotal swelling has been coming down. Vitals/I&O/Wt Last Vital Signs Temp 97.2 F L 10/20/25 07:31 Pulse 77 10/20/25 07:45 Resp 18 10/20/25 07:45 BP 86/60 10/20/25 07:31 Pulse Ox 93 10/20/25 07:45 O2 Del Method Nasal Cannula 10/20/25 07:45 O2 Flow Rate 2 10/20/25 07:45 10/19/25 10/20/25 10/20/25 22:59 06:59 14:59 Intake Total 120 / 120 Output Total 750 / 2550 1250 / 3800 700 / 700 Balance -630 / -2430 -1250 / -3680 -700 / -700 Weight last 48 hrs Weight 161.5 kg Physical Exam 2 Narrative: Sitting up at bedside. Accompanied by sister. Being visited by leather case finisher. Const: COMMON NORMALS: patient oriented x3 and alert GENERAL APPEARANCE: c ooperative ORIENTATION/CONSCIOUSNESS: Yes awake HENMT: COMMON NORMALS: oropharynx normal Neck/C-Spine: COMMON NORMALS: no JVD Resp: COMMON NORMALS: normal respiratory effort and clear to auscultation bilaterally AUSCULTATION: clear to auscultation bilaterally Cardio: COMMON NORMALS: no JVD, regular rhythm, S1 normal heart sound present, S2 normal heart sound present and No murmurs present (Cardio) RHYTHM: regular rhythm HEART SOUNDS: S1 normal heart sound present and S2 normal heart sound present GI: COMMON NORMALS: Normal to inspection, nondistended, normoactive bowel sounds present, Soft to palpation and non-tender PALPATION: Yes Soft to palpation Extremity: COMMON NORMALS: no joint enlargement and no pedal edema OTHER: Chronic bilateral lower extremity venous stasis changes with chronic hemosiderosis, dermatitis. No weeping. No erythema, warmth, tenderness to suggest infection. Neuro: COMMON NORMALS: patient oriented x3 and moves all extremities S ENSORIUM/ORIENTATION: Yes alert Skin: COMMON NORMALS: no rashes or lesions noted GENERAL SKIN EXAM: no rashes or lesions noted Urinary Catheter Management: Michele: Cath Placed During This Visit: yes Reason for Continuing Indwelling Catheter: Accurate Measurement of Urinary Output in Critically Ill Patients Urinary Catheter Date of Insertion: 10/18/25 Urinary Catheter Time of Insertion: 23:16 Data 10/20/25 04:43 10/20/25 04:43 A&P Assessment and plan 1. Elevated troponin: 2. Acute on chronic systolic congestive heart failure: 3. Essential hypertension: 4. Morbid obesity: 5. Diabetes mellitus: 6. Benign prostate hyperplasia: 7. Acute hypoxic respiratory failure: Plan: Acute hypoxic respiratory failure: -3.7 L overnight on review of intake and output. Reviewed vitals, CBC, chemistry. Reviewed potassium, renal function, BUN, creatinine. So far allowing for diuresis. Check magnesium. NT proBNP has been declining. Abdominal ultrasound reviewed, without peritoneal ascites. Continue IV diuretic for now, but as discussed does have also chronic venous stasis. Monitor for risk of dehydration, overdiuresis. Monitor for risk of electrolyte deficiency, arrhythmia with IV diuresis. He also notes that he feels like he has phlegm that needs to come off. Reviewed CTA, no noted signs of pneumonia. Added Mucinex, does have pleural effusions, possibly contributing to him having difficulty catching a deep breath. Discussed and encouraged incentive spirometer, flutter valve. - Secondary to systolic and diastolic CHF - Continue IV diuretic as above - Continue to fluid restrictions of 1000 cc - Michele catheter - Lasix 40 IV twice daily with metolazone - Monitor urine output, monitor creatinine, order potassium - Full code - Lovenox for DVT prophylaxis. Discussed with leather case finisher. Bilateral pleural effusions - Continue IV diuresis at this time. Currently no signs of infection. Will need follow-up. Will follow-up with chest ultrasound to assess amount of fluid. History of CAD - Elevated troponins - No chest pain - Serial EKGs, serial troponins, telemetry monitoring Abdominal distention: Abdominal exam benign. Continue diuresis. Reassess. Obtain ultrasound, assess for ascites. Type 2 diabetes mellitus, low-dose sliding scale. Reviewed blood glucose. Change diet to consist carb PDMP PDMP Reviewed: Not Reviewed Attestations 2 Medical Necessity Statement*: Continue admission for assessment of management of acute systolic and diastolic congestive heart failure. and High MDM includes amount and/or complexity of data reviewed/ordered [ resulted lab(s)/test(s), ordered lab(s)/test(s) and other healthcare professional discussion] and described risk of complication, morbidity or mortality of management as documented Diagnoses Elevated troponin R79.89 Acute on chronic systolic congestive heart failure I50.23 Heart failure type: systolic Heart failure chronicity: acute on chronic Essential hypertension I10 Morbid obesity E66.01 Diabetes mellitus E11.9 Benign prostate hyperplasia N40.0 Acute hypoxic respiratory failure J96.01
--- NOTE | 2025-10-20 16:21 | PC.NURSE ---
patient requested to have his bryant catheter removed. Infant Toddler Lead Teacher askeed Dr Pedro who agreed to removal and bryant was removed. Patient stated that he saw blood in his catheter. There were no pink tinges or pink urine. It was pale yellow. Nurse did not see any blood in his tubing nor upon removal. The patient is upset with nurse because you middle age nurses don't bathe people anymore . Nurse told patient that she had provided him with warm bath wipes when he requested them to wash his private parts. Patient is mad that nurse did not return to wash his feet when commercial underwriter said she would and it was explained to patient that I would be able to do it later, but at the time I was getting a new patient from the ER and working on a difficult discharge. Patient stated that he has not been checked on every hour. Infant Toddler Lead Teacher told him that yes, either myself or Mary rounded on him every hour. Nurse asked patient if he wanted to take a shower and he said yes, later. Patient then got on to commercial underwriter during her next rounding for not giving him a shower. Patient also stated that when he has been hitting his call light, no one has been answering. Infant Toddler Lead Teacher told patient that that was not true. This morning the floor did not have a equal opportunity counselor and nurse and aid had been answering the call light by going in the room. Patient continued to argue with nurse about not getting his feet washed and when nurse brought a foot bath into the room, patient refused, saying you never should have said you would in the first place if you weren't going to do it. Infant Toddler Lead Teacher told patient that I was going to do it, I just couldn't at that moment. This nurse is continuing to round at least hourly on this patient, answer his call light, and take care of him as appropriate.
--- NOTE | 2025-10-20 16:30 | PC.NURSE ---
patient is refusing his humalog because he states he is not diabetic and is not going to take any until his doctor at [facility] tells him to.
[2025-10-21 00:54] VITALS: RESP 18
[2025-10-21] MEDS: FUROsemide 10 mg/mL SDV 4mL 40 MG IVP ×2 (00:54→13:48)
[2025-10-21] MEDS: morphine 4 mg/mL SDV 1 mL 1 MG IVP (00:54)
[2025-10-21 04:52] VITALS: BP 102/67; PULSE 79; RESP 20; O2SAT 92
[2025-10-21] MEDS: polyethylene glycol 3350 Pkt 17 gm PO (04:53)
[2025-10-21 05:59] LABS: Hematocrit 42.9 % (37-53); Hemoglobin 13.10 g/dL (11.27-16.99); Mean Corpuscular HGB Conc 30.5 g/dL (30-55); Mean Corpuscular Hemoglobin 27.1 pg (27-33); Mean Corpuscular Volume 88.6 fl (82-101); Nucleated Red Blood Cells % 0 %; Platelet Count 226 10^3/cmm (157-399); Red Blood Count 4.84 10^6/uL (3.85-5.65); White Blood Count 6.33 10^3/uL (3.29-11.43)
[2025-10-21 06:21] LABS: Magnesium 1.9 mg/dL (1.7-2.3)
[2025-10-21 06:44] LABS: Alanine Aminotransferase 9 U/L (0-41); Albumin Level 3.7 g/dL (3.5-5.2); Alkaline Phosphatase 90 U/L (40-130); Anion Gap 15.2 (5-19); Aspartate Amino Transferase 9 U/L (0-40); Blood Urea Nitrogen 25 mg/dL (8-23); Calcium 9.0 mg/dL (8.5-10.5); Carbon Dioxide 31 mmol/L (22-29); Chloride 98 mmol/L (98-107); Globulin 3.2 g/dL (1.3-4.6); Glucose 101 mg/dL (65-115); NT Pro B Type Natriuretic Pept 1780 pg/mL (0-125); Osmolality Calculated 295 mOsm/kg (285-295); Potassium 4.2 mmol/L (3.5-5.1); Sodium 140 mmol/L (136-145); Total Protein 6.9 g/dL (6.6-8.7)
[2025-10-21 07:50] VITALS: BP 109/68; PULSE 78; RESP 19; TEMP 35.9; O2SAT 90
--- NOTE | 2025-10-21 10:53 | PM.PN ---
Subjective Subjective: He still feels he still is having trouble catching a deep breath. Has still been requiring nasal cannula oxygen. Constipation medication so far has not helped him have a BM. Vitals/I&O/Wt Last Vital Signs Temp 96.6 F L 10/21/25 07:50 Pulse 78 10/21/25 07:50 Resp 19 H 10/21/25 07:50 BP 109/68 10/21/25 07:50 Pulse Ox 90 10/21/25 07:50 O2 Del Method Nasal Cannula 10/21/25 07:50 O2 Flow Rate 2 10/21/25 04:52 10/20/25 10/21/25 10/21/25 22:59 06:59 14:59 Output Total 675 / 2300 1450 / 3750 650 / 650 Balance -675 / -2300 -1450 / -3750 -650 / -650 Weight last 48 hrs Weight 160.6 kg Physical Exam Const: COMMON NORMALS: patient oriented x3 and alert GENERAL APPEARANCE: cooperative ORIENTATION/CONSCIOUSNESS: Yes awake HENMT: COMMON NORMALS: oropharynx normal Neck/C-Spine: COMMON NORMALS: no JVD Resp: COMMON NORMALS: normal respiratory effort and clear to auscultation bilaterally AUSCULTATION: clear to auscultation bilaterally Cardio: COMMON NORMALS: no JVD, regular rhythm, S1 normal heart sound present, S2 normal heart sound present and No murmurs present (Cardio) RHYTHM: regular rhythm HEART SOUNDS: S1 normal heart sound present and S2 normal heart sound present GI: COMMON NORMALS: Normal to inspection, nondistended, normoactive bowel sounds present, Soft to palpation and non-tender PALPATION: Yes Soft to palpation Extremity: COMMON NORMALS: no joint enlargement and no pedal edema OTHER: Chronic bilateral lower extremity venous stasis changes with chronic hemosiderosis, dermatitis. No weeping. No erythema, warmth, tenderness to suggest infection. Neuro: COMMON NORMALS: patient oriented x3 and moves all extremities SENSORIUM/ORIENTATION: Yes alert Skin: COMMON NORMALS: no rashes or lesions noted GENERAL SKIN EXAM: no rashes or lesions noted Urinary Catheter Management: Michele: Cath Placed During This Visit: yes Reason for Continuing Indwelling Catheter: Accurate Measurement of Urinary Output in Critically Ill Patients Urinary Catheter Date of Insertion: 10/18/25 Urinary Catheter Time of Insertion: 23:16 Data 10/21/25 05:51 10/21/25 05:51 A&P Assessment and plan 1. Elevated troponin: 2. Acute on chronic systolic congestive heart failure: 3. Essential hypertension: 4. Morbid obesity: 5. Diabetes mellitus: 6. Benign prostate hyperplasia: 7. Acute hypoxic respiratory failure: Plan: Acute hypoxic respiratory failure: -3.7 L balance in the last 24 hours on review of intake and output. Weight is now improving. Discussed with telephonic nurse case manager. Reviewed vitals, CBC, chemistry. Reviewed potassium, renal function, BUN, creatinine. So far allowing for diuresis. Check magnesium. NT proBNP has been declining. Abdominal ultrasound reviewed, without peritoneal ascites. Continue IV diuretic for now, but as discussed does have also chronic venous stasis. Monitor for risk of dehydration, overdiuresis. Monitor for risk of electrolyte deficiency, arrhythmia with IV diuresis. Continue fluid restriction. He also notes that he feels like he has phlegm that needs to come off. Reviewed CTA, no noted signs of pneumonia. Added Mucinex, does have pleural effusions, possibly contributing to him having difficulty catching a deep breath. Discussed and encouraged incentive spirometer, flutter valve. - Secondary to systolic and diastolic CHF - Continue IV diuretic as above - Continue to fluid restrictions of 1000 cc - Michele catheter - Lasix 40 IV twice daily with metolazone - Monitor urine output, monitor creatinine, order potassium - Full code - Lovenox for DVT prophylaxis. Bilateral pleural effusions Discussed with him obtaining chest ultrasound to assess if there is still sufficient fluid for thoracentesis. Requested - Continue IV diuresis at this time. Currently no signs of infection. Will need follow-up. Will follow-up with chest ultrasound to assess amount of fluid. Acute bronchitis: He feels like he keeps having chest congestion with phlegm that he cannot bring up. Slight improvement with Mucinex, but inadequate. Increase Mucinex to 1200 mg. Encouraged flutter valve, incentive spirometer. History of CAD - Elevated troponins - No chest pain - Serial EKGs, serial troponins, telemetry monitoring Abdominal distention: Abdominal exam benign. Continue diuresis. Reassess. Obtain ultrasound, assess for ascites. Type 2 diabetes mellitus, low-dose sliding scale. He denies history of diabetes. On prior review of A1c looks like with 6.6 back in June. Will recheck A1c. Reviewed blood glucose. Change diet to consist carb. Adjusted sliding scale insulin per his preference. PDMP PDMP Reviewed: Not Reviewed Attestations Medical Necessity Statement*: Continue admission for assessment of management of acute systolic and diastolic congestive heart failure. and High MDM includes amount and/or complexity of data reviewed/ordered [ resulted lab(s)/test(s), ordered lab(s)/test(s) and other healthcare professional discussion] and described risk of complication, morbidity or mortality of management as documented Diagnoses Elevated troponin R79.89 Acute on chronic systolic congestive heart failure I50.23 Heart failure chronicity: acute on chronic Heart failure type: systolic Essential hypertension I10 Morbid obesity E66.01 Diabetes mellitus E11.9 Benign prostate hyperplasia N40.0 Acute hypoxic respiratory failure J96.01
[2025-10-21] MEDS: magnesium citrate Btl 296 mL PO (11:18)
[2025-10-21 11:20] VITALS: BP 112/66; PULSE 84; RESP 19; TEMP 36.1; O2SAT 91
--- NOTE | 2025-10-21 11:24 | PC.NURSE ---
Patient at this time wants to wait on the bisacodyl suppository.
[2025-10-21 13:15] LABS: Estmated Average Glucose 117; Hemoglobin A1C 5.7 % (4.0-6.0)
[2025-10-21 16:00] VITALS: BP 91/71; PULSE 86; RESP 24; TEMP 36.3; O2SAT 92
--- NOTE | 2025-10-21 18:21 | PC.NURSE ---
Patient has urinated 3 times on floor and am unable to account for the correct amount of outcome.
[2025-10-21 19:52] VITALS: BP 109/80; PULSE 93; RESP 22; TEMP 36.7; O2SAT 94
[2025-10-22] VITALS: BP 111/74; PULSE 80; RESP 22; TEMP 36.9; O2SAT 93
[2025-10-22] MEDS: FUROsemide 10 mg/mL SDV 4mL 40 MG IVP (01:25)
[2025-10-22 03:44] VITALS: BP 102/65; PULSE 76; RESP 20; O2SAT 95
[2025-10-22 06:00] VITALS: PULSE 81
--- NOTE | 2025-10-22 06:00 | US_ITS ---
WS: [id number] INDICATION: Pleural fluid TECHNIQUE: Ultrasound chest FINDINGS: Ultrasound bilateral chest. No drainable pleural fluid. US/US chest [id number] IMPRESSION: No drainable pleural fluid.
[2025-10-22 08:00] VITALS: BP 119/77; PULSE 87; RESP 20; TEMP 36; O2SAT 99
[2025-10-22 08:42] LABS: Anion Gap 14.4 (5-19); Blood Urea Nitrogen 28 mg/dL (8-23); Calcium 9.4 mg/dL (8.5-10.5); Carbon Dioxide 29 mmol/L (22-29); Chloride 98 mmol/L (98-107); Creatinine Clr Calc Pharmacy 95.7848; Glucose 98 mg/dL (65-115); Magnesium 2.2 mg/dL (1.7-2.3); Osmolality Calculated 289 mOsm/kg (285-295); Potassium 4.4 mmol/L (3.5-5.1); Sodium 137 mmol/L (136-145)
--- NOTE | 2025-10-22 09:52 | PC.CHAP ---
Pastoral Care Encounter/Spiritual Assessment Type of Contact [] Declined avionics electronics technician visit [] Patient/Family/Request visit [] Outpatient visit [] Follow-up visit [] Physician referral [] Code/Alert [x] Routine visit [] Staff referral [] Actively dying [] Patient sleeping [] Family support [] [] Out of room [] Palliative care [] [] Receiving care in room [] Pre-surgical visit [] Trauma [] Long length of stay [] ICU visit [] Other: Relational/Emotional Strength [] Patient feels connected with others/family/visitors/staff [] Distress [] Loneliness/isolation [] Abandonment Spirituality of Patient [x] Person of Megha [x] Attends Anglican of their Megha [x] Believes in Prayer [] Reads Bible or Hindu materials [] There are Spiritual issues to be addressed Medical Sales Associate Interventions [x] Prayer [x] Active listening [] Non-anxious presence [] Spiritual/emotional support [] Crisis/trauma care [] Spiritual counseling [] Bereavement support [] Provided bereavement packet [x] Provided Bible/devotional materials [] Provided toy/stuffed animal, coloring book to patient or family member [] Provided Communion [] Anointing/[place] [] Salvation [x] Completed spiritual assessment [] Other: Impact on Illness or Injury [] Angry [] Fearful [] Anxious [] Often cries [] Exhaustion [] Unable to work [] Unable to attend catholic [] Unable to walk/stand [] Unable to read [] Unable to drive [] Unable to eat/drink [] Unable to sleep [] Unable to be with family [] Patient intubated [] Other: Summary Time spent with patient 10 min
--- NOTE | 2025-10-22 10:52 | PC.SOCIAL ---
IMM Updated Updated pt on IMM. No questions voiced. Provided pt a copy. Initialed, dated, & timed copy in chart.
[2025-10-22 11:27] VITALS: BP 114/78; PULSE 87; RESP 22; TEMP 36.1; O2SAT 95
--- NOTE | 2025-10-22 12:13 | P.DS_ITS ---
Discharge Providers Date of Admission: 10/18/25 13:12 Date of Discharge: October 22, 2025 Attending Provider at Admission: Narinder Richardson MD Attending Provider at Discharge: Fede Pedro Primary Care Provider: Demetri Hardin Diagnoses at Discharge Discharge Diagnosis 1. Elevated troponin: 2. Acute on chronic systolic congestive heart failure: 3. Essential hypertension: 4. Morbid obesity: 5. Diabetes mellitus: 6. Benign prostate hyperplasia: 7. Acute hypoxic respiratory failure: Reason for Visit Reason for Visit: abd and chest pain Brief History: Ward Chung is a 65 year old male with a past medical history of systolic and diastolic CHF, morbid obesity, CAD status post stenting, who presents to [facility] due to lower extremity edema, anasarca, abdominal distention, patient is alert oriented x 3, follow commands, does report shortness of breath, increased lower extreme edema, Anasarca, no chest pain, palpitations, no lightheadedness, no dizziness, no dysuria, no hematuria, no flank pain, has more abdominal distention and bloating, he is passing gas from below, but has not had a bowel movement in 48 hours, Hospital Course Hospital Course Troponin series with mild elevation, without rise, he has remained free of chest pain. He has had some difficulty catching deep breaths. CT angiogram chest showed no PE. Bilateral hazy ground glass opacities likely due to pulmonary edema. Small right greater than left pleural effusions with compressive atelectasis. He was treated with IV diuresis for acute systolic and diastolic congestive heart failure. With some component of bronchitis and female chest congestion, received treatment with Mucinex, flutter valve, incentive spirometer. Condition was gradually improving and oxygenation getting better. He is still requiring small amount of oxygen at discharge which is set up for him. On reassessment ultrasound no drainable effusions in the chest. He is feeling better subjectively. Physical Exam Const: COMMON NORMALS: patient oriented x3 and alert GENERAL APPEARANCE: cooperative ORIENTATION/CONSCIOUSNESS: Yes awake HENMT: COMMON NORMALS: oropharynx normal Neck/C-Spine: COMMON NORMALS: no JVD Resp: COMMON NORMALS: normal respiratory effort and clear to auscultation bilaterally AUSCULTATION: clear to auscultation bilaterally Cardio: COMMON NORMALS: no JVD, regular rhythm, S1 normal heart sound present, S2 normal heart sound present and No murmurs present (Cardio) RHYTHM: regular rhythm HEART SOUNDS: S1 normal heart sound present and S2 normal heart sound present GI: COMMON NORMALS: Normal to inspection, nondistended, normoactive bowel sounds present, Soft to palpation and non-tender PALPATION: Yes Soft to palpation Extremity: COMMON NORMALS: no joint enlargement and no pedal edema OTHER: Chronic bilateral lower extremity venous stasis changes with chronic hemosiderosis, dermatitis. No weeping. No erythema, warmth, tenderness to suggest infection. Neuro: COMMON NORMALS: patient oriented x3 and moves all extremities SENSORIUM/ORIENTATION: Yes alert Skin: COMMON NORMALS: no rashes or lesions noted GENERAL SKIN EXAM: no rashes or lesions noted Urinary Catheter Management: Michele: Cath Placed During This Visit: yes Reason for Continuing Indwelling Catheter: Accurate Measurement of Urinary Output in Critically Ill Patients Urinary Catheter Date of Insertion: 10/18/25 Urinary Catheter Time of Insertion: 23:16 Discharge Data Studies Completed and Pending Completed Studies During Hospitalization Category Date Time Status CT angio chest PE protcl [id number] Stat Cat Scan 10/18/25 09:24 Completed XR chest 1V portable [id number] Stat Exams 10/18/25 08:28 Completed US abdomen lmt fluid [id number] Routine Ultrasound 10/19/25 14:22 Completed US chest [id number] Routine Ultrasound 10/22/25 06:00 Completed Radiology Impressions Chest X-Ray 10/18/25 08:28 IMPRESSION: Possible early congestive heart failure. Chest CTA 10/18/25 09:24 IMPRESSION: 1. No evidence of pulmonary embolus. 2. Cardiomegaly. Shallow inspiration. 3. Bilateral hazy groundglass opacities likely due to pulmonary edema. 4. Small RIGHT greater than LEFT pleural effusions with compressive atelectasis in the lung bases. Abdomen Ultrasound 10/19/25 14:22 IMPRESSION: No peritoneal ascites. Chest Ultrasound 10/22/25 06:00 IMPRESSION: No drainable pleural fluid. Laboratory Results WBC 6.33 10^3/uL (3.29-11.43) 10/21/25 05:51 RBC 4.84 10^6/uL (3.85-5.65) 10/21/25 05:51 Hgb 13.10 g/dL (11.27-16.99) 10/21/25 05:51 Hct 42.9 % (37-53) 10/21/25 05:51 MCV 88.6 fl (82-101) 10/21/25 05:51 MCH 27.1 pg (27-33) 10/21/25 05:51 MCHC 30.5 g/dL (30-55) 10/21/25 05:51 RDW 14.3 % (12.1-15.1) 10/21/25 05:51 Plt Count 226 10^3/cmm (157-399) 10/21/25 05:51 MPV 11.1 fL (7.4-10.4) H 10/21/25 05:51 Neut % (Auto) 58.5 % 10/21/25 05:51 Lymph % (Auto) 28.4 % 10/21/25 05:51 [place]ender % (Auto) 7.7 % 10/21/25 05:51 Eos % (Auto) 4.6 % 10/21/25 05:51 Baso % (Auto) 0.5 % 10/21/25 05:51 Neut # (Auto) 3.70 10^3/uL (1.8-7.7) 10/21/25 05:51 Lymph # (Auto) 1.8 10^3/uL (0.8-4.8) 10/21/25 05:51 Pender # (Auto) 0.5 10^3/uL (0.2-0.9) 10/21/25 05:51 Eos # (Auto) 0.3 10^3/uL (0.0-0.8) 10/21/25 05:51 Baso # (Auto) 0.0 10^3/uL (0.0-0.1) 10/21/25 05:51 Nucleated RBC % (auto) 0 % 10/21/25 05:51 Nucleated RBCs # 0.0 /100WBC 10/21/25 05:51 Sodium 137 mmol/L (136-145) 10/22/25 08:12 Potassium 4.4 mmol/L (3.5-5.1) 10/22/25 08:12 Chloride 98 mmol/L (98-107) 10/22/25 08:12 Carbon Dioxide 29 mmol/L (22-29) 10/22/25 08:12 Anion Gap 14.4 (5-19) 10/22/25 08:12 BUN 28 mg/dL (8-23) H 10/22/25 08:12 Creatinine 1.1 mg/dL (0.7-1.2) 10/22/25 08:12 GFR Calculation 66.8 mL/min (90-130) L 10/22/25 08:12 Glucose 98 mg/dL (65-115) 10/22/25 08:12 POC Glucose 119 mg/dL (70-110) H 10/22/25 11:30 Estimat Average Glucose 117 10/21/25 05:51 Hemoglobin A1c 5.7 % (4.0-6.0) 10/21/25 05:51 Calculated Osmolality 289 mOsm/kg (285-295) 10/22/25 08:12 Calcium 9.4 mg/dL (8.5-10.5) 10/22/25 08:12 Magnesium 2.2 mg/dL (1.7-2.3) 10/22/25 08:12 Total Bilirubin 0.9 mg/dL (0.15-1.2) 10/21/25 05:51 AST 9 U/L (0-40) 10/21/25 05:51 ALT 9 U/L (0-41) 10/21/25 05:51 Alkaline Phosphatase 90 U/L (40-130) 10/21/25 05:51 Troponin T Baseline 28 ng/L (0-15) H 10/18/25 08:31 Troponin T 120 Minute 25.22 ng/L (0-15) H 10/18/25 10:05 Delta Troponin T -2.78 ABS# (0-10) L 10/18/25 10:05 Troponin T Hi Sens 6Hr 24.92 ng/L (0-15) H 10/18/25 14:26 Troponin T Hi Sens 6Hr Delta -3.08 ng/L (0-12) L 10/18/25 14:26 NT-Pro-B Natriuret Pep 1780 pg/mL (0-125) H 10/21/25 05:51 NT-Pro-B Natriuret Pep Cancelled 10/21/25 05:51 Total Protein 6.9 g/dL (6.6-8.7) 10/21/25 05:51 Albumin 3.7 g/dL (3.5-5.2) 10/21/25 05:51 Globulin 3.2 g/dL (1.3-4.6) 10/21/25 05:51 Lipase 33 U/L (13-60) 10/18/25 08:31 Urine Color Yellow (Yellow) 10/18/25 10:54 Urine Appearance Clear (CLEAR) 10/18/25 10:54 Urine pH 6.0 (5-7) 10/18/25 10:54 Ur Specific [place] 1.022 (1.005-1.030) 10/18/25 10:54 Urine Protein 1+ (Negative) A 10/18/25 10:54 Urine Glucose (UA) Negative (Normal) 10/18/25 10:54 Urine Ketones Negative (Negative) 10/18/25 10:54 Urine Blood Negative (Negative) 10/18/25 10:54 Urine Nitrate Negative (Negative) 10/18/25 10:54 Urine Bilirubin Negative (Negative) 10/18/25 10:54 Urine Urobilinogen 1.0 mg/dL (Negative) 10/18/25 10:54 Ur Leukocyte Esterase Negative (Negative) 10/18/25 10:54 Urine RBC 0-2 /hpf (0-2) 10/18/25 10:54 Urine WBC 0-5 /hpf (0-5) 10/18/25 10:54 Ur Squamous Epith Cells 0-5 /hpf (0-5) 10/18/25 10:54 Amorphous Sediment Not Reportable 10/18/25 10:54 Urine Bacteria None seen /hpf (NONE) 10/18/25 10:54 Hyaline Casts 1.65 /lpf 10/18/25 10:54 Influenza A (PCR) Negative (Negative) 10/18/25 09:30 Influenza Type B (PCR) Negative (Negative) 10/18/25 09:30 RSV (PCR) Negative (Negative) 10/18/25 09:30 SARS-CoV-2 (PCR) Negative (Negative) 10/18/25 09:30 Vitals Last Vital Signs Temp 97.0 F L 10/22/25 11:27 Pulse 87 10/22/25 11:27 Resp 22 H 10/22/25 11:27 BP 114/78 10/22/25 11:27 Pulse Ox 95 10/22/25 11:27 O2 Del Method Room Air 10/22/25 11:27 O2 Flow Rate 2 10/22/25 03:44 Discharge Plan Discharge Patient Disposition: Home Condition: Stable Prescriptions: Continued nitroglycerin 0.4 mg tablet, sublingual 0.4 mg sublingual Q5M PRN (Reason: HEART PAIN) Rx Instructions: do not exceed 3 doses per episode budesonide-formoterol [Symbicort] 80-4.5 mcg/actuation HFA aerosol inhaler 2 puff inhalation BID furosemide [Lasix] 20 mg tablet 20 mg PO DAILY Qty: 90 3RF Rx Instructions: along with a 40 mg tablet = 60 mg daily atorvastatin 40 mg tablet 40 mg PO DAILY Qty: 90 3RF potassium chloride 20 mEq tablet extended release 20 meq PO DAILY Qty: 90 3RF furosemide [Lasix] 40 mg tablet 40 mg PO DAILY Qty: 90 3RF Rx Instructions: along with a 20 mg tablet = 60 mg daily clotrimazole-betamethasone 1-0.05 % cream 1 applic TOPICAL BID allopurinol 300 mg tablet 300 mg PO DAILY PRN (Reason: gout flares) albuterol sulfate 90 mcg/actuation HFA aerosol inhaler 2 puff INHALATION Q4H PRN (Reason: Shortness Of Breath Or Wheezing) colchicine 0.6 mg tablet See Rx Instructions .ROUTE .COMPLEX Rx Instructions: TAKE 1 TABLET BY MOUTH ONCE DAILY NEEDED AT ONSET OF GOUT FLARE UNTIL SYMPTOMS RESOLVE. clopidogrel 75 mg Tablet 75 mg PO DAILY Qty: 90 3RF docusate sodium 100 mg Capsule 100 mg PO DAILY Qty: 30 0RF aspirin 81 mg tablet 81 mg PO DAILY Qty: 90 3RF gabapentin 400 mg capsule See Rx Instructions .ROUTE .COMPLEX Rx Instructions: TAKE 1 CAPSULE BY MOUTH ONCE DAILY IN THE MORNING AND 1 CAPSULE AT LUNCH TIME AND 2 CAPSULES AT BEDTIME finasteride 5 mg tablet 5 mg PO DAILY famotidine 20 mg tablet 20 mg PO BID tamsulosin 0.4 mg capsule 0.4 mg PO QPM spironolactone 25 mg Tablet 25 mg PO DAILY Qty: 30 0RF Discontinued sacubitril-valsartan [Entresto] 24-26 mg tablet 1 tab PO BID Qty: 180 3RF ciprofloxacin HCl 500 mg tablet 500 mg PO BID Discharge Order = DC NOW: Discharge Order (Routine); Ordered 10/22/25 Ordered By: Fede Pedro Other Ambulatory Orders: DME: Oxygen (Order) Location: None Selected Ordered By: Fede Pedro Referrals: Demetri Hardin [Primary Care Provider, [facility]] - 10/23/25 9:00 am Discharge Diet: Cardiac Patient Instructions: Congestive Heart Failure, Heart Failure (DC), Chronic Hypertension (DC), Acute Respiratory Failure (GEN), Opioid Safety, Patient Portal & [place] Instructions Activity Restrictions/Additional Instructions: Follow-up with your primary provider for reassessment after acute congestive heart failure and bronchitis. Continue to limit total fluid intake to 1 L/day. Monitor blood pressures at home. Stop Entresto for now to avoid blood pressures that are too low. Avoid blood pressures are lower than 100 systolic or 50 diastolic. If your blood pressure is getting low, hold spironolactone. On recheck of A1c you do not currently have diabetes, but are at risk of diabetes, please watch your diet to maintain consistent carbohydrate diet to help prevent progression to diabetes. Discharge Attestations Time Spent in Discharge Care*: greater than 30 min Quality Metrics Clinical Quality Measures [ No reported AMI, CVA or VTE this stay] Coding Level of Care Code 20062 Total time (in minutes) for Discharge: 45 Diagnoses Elevated troponin R79.89 Acute on chronic systolic congestive heart failure I50.23 Heart failure chronicity: acute on chronic Heart failure type: systolic Essential hypertension I10 Morbid obesity E66.01 Diabetes mellitus E11.9 Benign prostate hyperplasia N40.0 Acute hypoxic respiratory failure J96.01
[2025-10-22 12:16] VITALS: BP 114/78; PULSE 87; RESP 22; TEMP 36.1; O2SAT 95
--- NOTE | 2025-10-22 13:54 | PC.NURSE ---
Discharge instructions given to patient, IV removed, no prescriptions. Sister called to pick patient up. Patient and belongings wheeled to private vehicle accompanied by CLINICAL COURIER. Sister driving.
== END 2025-10-22 13:45 | disposition home or self-care (01) | DRG 291 ==
LOC: ER 08:48 → CSU 13:13
PROVIDERS: Admitting Provider Family Medicine; Emergency Provider Family Medicine; PCP Family Medicine; Visit Provider Internal Medicine
DX: I11.0 Hypertensive heart disease with heart failure (principal); I50.23 Acute on chronic systolic (congestive) heart failure; J96.01 Acute respiratory failure with hypoxia; Z68.43 Body mass index [BMI] 50.0-59.9, adult; J98.11 Atelectasis; E66.01 Morbid (severe) obesity due to excess calories; E11.9 Type 2 diabetes mellitus without complications; N40.0 Benign prostatic hyperplasia without lower urinary tract symptoms; I25.10 Atherosclerotic heart disease of native coronary artery without angina pectoris; J44.89 Other specified chronic obstructive pulmonary disease; R79.89 Other specified abnormal findings of blood chemistry; M79.7 Fibromyalgia; M10.9 Gout, unspecified; G47.30 Sleep apnea, unspecified; Z79.02 Long term (current) use of antithrombotics/antiplatelets; Z79.82 Long term (current) use of aspirin; Z95.5 Presence of coronary angioplasty implant and graft
CPT/HCPCS: 36415; 36416; 51702; 71045; 71275; 76604; 76705; 80048; 80053; 81001; 82962; 83036; 83690; 83735; 83880; 84484; 85025; 87637; 93005; 94760; 96372; 96374; 96375; 97161; 99285; J1650; J1815; J1938; J2270; J2405; J9999

== ENCOUNTER → 2025-10-24 11:06 | Outpatient (BNVA) | payer MEDICARE, MEDICAID, SELFPAY | PROVIDERS: PCP Family Medicine; Visit Provider Internal Medicine Cardiovascular Disease | DX: I25.10 Atherosclerotic heart disease of native coronary artery without angina pectoris (principal); I11.0 Hypertensive heart disease with heart failure; I50.23 Acute on chronic systolic (congestive) heart failure; Z95.5 Presence of coronary angioplasty implant and graft | CPT/HCPCS: 99214 ==